=== PATIENT | male | born 1945 | race Caucasian/White ===

== ENCOUNTER 2017-12-04 15:30 | Outpatient (RCR) | payer OTHER, SELFPAY ==
--- NOTE | 2017-10-28 16:49 | HP.PTEVAL_ITS ---
Patient's Visit Information EDITH REYNA is a 72 year old M referred to Physical Therapy by Out of Town Doctor with a diagnosis of uni- OA B knees, Spinal stenosis with neurogenic claudication. Date of Evaluation: 10/28/17 Physical Therapist: Jaimee Muse - Visit Plan Frequency: 3x /Week Duration: 6 Weeks Plan: 3X/ week for 6 weeks to work on cores strength, B hip and knee strength, stretching, psotural control to work on reduction of pain in R vasquez. HEP and modalities PRN - Subjective Subjective: Pt has trouble with his knees and he went into see about knee replacements. They are thinking about partial knee replacements. Heis having trouble with pain down the front of the lower leg. Dr said that the knee replacement will help his knees but not the front of the vasquez. After 10,000 steps he has the increase vasquez pain. The vasquez pain started about 1 month ago and he can ususlly work an 8 hour shift without pain but then the pain starts at about 10 hours out of his [address] thinks could be coming from the spine. Took x-rays of the spine today and did not know the results yet. 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 Pt had cortizone shots in B knees last Thu and takes a volterin. Pt gets burning pain in B buttocks that starts at the end of the day. It is relieved by resting. Pt does not feel he walks abnormal. Pt feels that he usually needs a railing to go up stairs. He will be getting a doppler to check the blood flow in his R leg as soon as scheduled. - Pain R knee pain Pain Intensity (Out of 10): 0 Pain Intensity Range: 6 L knee pain Pain Intensity (Out of 10): 0 Pain Intensity Range: 6 back pain Pain Intensity (Out of 10): 0 B hip pain Pain Intensity (Out of 10): 1 - Objective Gait: normal gait pattern with increase bowing B knees. ABle to heel and toe walk without difficulty. Trunk AROM: flexion 75%, Ext 75%, SB B 75%, Rot B 75% . LE MMT: B hip abd 4+/5, hip ext B 4/5, hip flex B 4/5, knee ect B 4/5, knee flex B 4/5. Increase B HS and gastroc tightness B. -SLR test. Knee AROM -2 degrees from full extension to 123 degrees B knee flexion. No issues getting up from a chair without the use of his UE's - Goals Goal 1:: I HEP Goal Time Frame: 4-6 Weeks Goal 2:: Decrease R vasquez pain to 0/10 after an 11 hour work day Goal Time Frame: 4-6 Weeks Goal 3:: Pt will demonstrate proper posture during treatment sesson to show proper core strength and stabilization. Goal Time Frame: 4-6 Weeks - Rehabilitation Potential Rehabilitation Potential: Good - Anticipated Interventions Patient/Client Instruction: Educate patient on: Plan of Care For the Purpose of:: To decrease pain, To increase ROM, To improve nutrient delivery to tissue, To improve muscle performance and motor function, To increase tolerance to activity/condition/position, To decrease soft tissue restriction, To increase flexibility/ROM Therapeutic Exercise to Include: Strength training, Body mechanics, Postural training, Flexibilty training, Active ROM, Dynamic Lumbar Stabilization For the Purpose of:: To decrease pain, To increase ROM, To improve nutrient delivery to tissue, To improve muscle performance and motor function, To improve ability to perform ADL's, To increase tolerance to activity/condition/ position, To improve ability of physical actions for home/community/work/leisure , To improve gait and locomotor functions, To decrease soft tissue restriction, To increase flexibility/ROM Manual Therapy Techniques to Include: Passive ROM For the Purpose of:: To increase flexibility/ROM IF ES: Yes Cryotherapy (ice pack, ice massage): Yes Thermo therapy (hot pack): Yes Ultrasound (thermal/non thermal): Yes For the Purpose of:: To decrease pain, To decrease swelling/inflammation, To increase ROM, To improve nutrient delivery to tissue Thank you for the opportunity to evaluate your patient. For Medicare and Medicare HMO plans, please review the plan of care and approve it. It will need to be FAXED BACK to us at [phone] for Medicare purposes. Please let me know if there are questions or concerns regarding this plan of care. Physician Signature: Date:
--- NOTE | 2017-12-15 14:16 | HP.PTDCNRP_ITS ---
HP - Discharge Summary (1) - Patient Information EDITH REYNA was seen in my office for initial evaluation on 10/28/17. The following Plan of Care was established for this patient: Initial Frequency: 3x /Week Initial Duration: 6 Weeks - Anticipated Interventions Patient/Client Instruction: Educate patient on: Plan of Care For the Purpose of:: To decrease pain, To increase ROM, To improve nutrient delivery to tissue, To improve muscle performance and motor function, To increase tolerance to activity/condition/position, To decrease soft tissue restriction, To increase flexibility/ROM Therapeutic Exercise to Include: Strength training, Body mechanics, Postural training, Flexibilty training, Active ROM, Dynamic Lumbar Stabilization For the Purpose of:: To decrease pain, To increase ROM, To improve nutrient delivery to tissue, To improve muscle performance and motor function, To improve ability to perform ADL's, To increase tolerance to activity/condition/ position, To improve ability of physical actions for home/community/work/leisure , To improve gait and locomotor functions, To decrease soft tissue restriction, To increase flexibility/ROM Manual Therapy Techniques to Include: Passive ROM For the Purpose of:: To increase flexibility/ROM IF ES: Yes Cryotherapy (ice pack, ice massage): Yes Thermo therapy (hot pack): Yes Ultrasound (thermal/non thermal): Yes For the Purpose of:: To decrease pain, To decrease swelling/inflammation, To increase ROM, To improve nutrient delivery to tissue This patient was last seen in our office 12/04/17. Pertinent comments regarding their Physical therapy will appear below: DC PT. called and pt will be having surgery. At this point I will be discontinuing this patient from physical therapy. I would be happy to see this patient again in the future if found appropriate by the physician. Thank you! Jaimee Muse
== END 2017-12-04 19:00 | disposition home or self-care (01) ==
LOC: PT 15:30
PROVIDERS: Family Provider Family Medicine; PCP Family Medicine
DX: M17.11 Unilateral primary osteoarthritis, right knee (principal); M17.12 Unilateral primary osteoarthritis, left knee; M48.062 Spinal stenosis, lumbar region with neurogenic claudication
CPT/HCPCS: 97110; 97161

== ENCOUNTER → 2017-12-22 15:22 | Outpatient (CLI) | payer OTHER, SELFPAY ==
[2017-12-22 17:15] LABS: PSA,Total- Diagnostic 0.03 ng/mL (0.0-4.0)
== END ==
PROVIDERS: Family Provider Family Medicine; PCP Family Medicine; Visit Provider Nurse Practitioner Adult Health
DX: C61 Malignant neoplasm of prostate (principal)
CPT/HCPCS: 36415; 84153

== ENCOUNTER → 2018-01-21 16:32 | Outpatient (CLI) | payer OTHER, SELFPAY ==
[2018-01-21 18:05] LABS: Hematocrit 47.6 % (40-54); Hemoglobin 15.9 g/dl (13.0-16.5); Mean Corp Hgb Conc 33.4 g/gl (32-36); Mean Corpuscular Hgb 30.9 pg (27.0-32.0); Mean Corpuscular Volume 92.4 fL (80-94); Mean Platelet Vol. 11.5 fl (6.2-12.0); Platelet Count 239 K/mm3 (150-450); RBC Distribution Width CV 14.1 % (11.6-14.6); RBC Distribution Width SD 46.3 fl (35.1-43.9); Red Blood Count 5.15 M/mm3 (4.6-6.2); White Blood Count 9.1 K/mm3 (4.4-11.0)
[2018-01-21 18:09] LABS: Hemoglobin A1c 5.7 % (4.2-6.3)
[2018-01-21 18:10] LABS: International Normalized Ratio 1.1
[2018-01-21 18:13] LABS: ALB/GLOB Ratio 1.1 RATIO (0.9-2.4); AST(SGOT) 20 U/L (15-37); Alanine Aminotransfer ALT/SGPT 42 U/L (16-61); Alkaline Phosphatase 78 U/L (45-117); Anion Gap 7 (5-15); BUN 17 mg/dL (7-18); BUN/Creat Ratio 16.8 RATIO (10-20); Chloride 104 mmol/L (98-107); Creatinine, Serum 1.01 mg/dL (0.70-1.30); EST Glomerular Filtration Rate 77 mL/min (>60); Est Glom Filt Rate - Afr Amer 94 mL/min (>60); Globulin 3.7 g/dL (2.2-4.2); Glucose 87 mg/dL (74-106); Potassium 4.6 mmol/L (3.5-5.1); Prealbumin 31.3 mg/dL (20.0-40.0); Protein, Total 7.7 g/dL (6.4-8.2); Sodium Level 141 mmol/L (136-145)
[2018-01-21 18:18] LABS: Scan Indicated on CBC? Y/N NO
== END ==
PROVIDERS: Family Provider Family Medicine; PCP Family Medicine
DX: M17.0 Bilateral primary osteoarthritis of knee (principal)
CPT/HCPCS: 36415; 80053; 83036; 84134; 85027; 85610; 85730

== ENCOUNTER → 2018-01-22 15:32 | Outpatient (CLI) | payer OTHER, SELFPAY ==
--- NOTE | 2018-01-22 15:40 | RAD_ITS ---
STUDY: X-RAY CHEST REASON FOR EXAM: Male, 72 years old. Preoperative evaluation. TECHNIQUE: Frontal and lateral views of the chest. COMPARISON: April 19, 2017 FINDINGS: There is mild hyperexpansion unchanged. There is no demonstrated pleural abnormality. There is borderline cardiomegaly with a dual lead cardiac pacer unchanged. Normal mediastinum and devin. Normal visualized pulmonary arteries. There is stable atherosclerotic calcification of the aortic arch with tortuosity. There are diffuse degenerative changes of the visualized thoracic spine. Normal visualized ribs, clavicles, and shoulders. There is no demonstrated abnormality of the visualized soft tissue structures of the upper abdomen. RAD/Chest PA and Lateral IMPRESSION: Stable borderline cardiomegaly with hyperexpansion. No new or acute pathology. Electronically Signed: Manuel Multani MD at 16:41 EDT , Service support ,
== END ==
PROVIDERS: Family Provider Family Medicine; PCP Family Medicine
DX: Z01.818 Encounter for other preprocedural examination (principal); M17.0 Bilateral primary osteoarthritis of knee; I51.7 Cardiomegaly
CPT/HCPCS: 71046

== ENCOUNTER → 2018-07-05 15:34 | Outpatient (CLI) | payer OTHER, SELFPAY ==
[2018-07-05 16:28] LABS: PSA,Total- Diagnostic 0.04 ng/mL (0.0-4.0)
== END ==
PROVIDERS: Family Provider Family Medicine; PCP Family Medicine; Visit Provider Urology
DX: C61 Malignant neoplasm of prostate (principal)
CPT/HCPCS: 36415; 84153

== ENCOUNTER → 2018-07-17 08:03 | Outpatient (CLI) | payer OTHER, SELFPAY ==
[2018-07-17 08:47] LABS: Absolute Lymphocyte Count 1.29 X10^3/ul (0.83-4.51); Absolute Neutrophil Count 5.8 X10^3/uL (2.0-7.7); Basophil# 0.03 X10^3/uL; Basophil% 0.4 % (0-1); Eosinophil# 0.24 X10^3/uL; Hematocrit 48.3 % (40-54); Lymphocyte # 1.29 X10^3/ul (4.0); Lymphocyte % 16.1 % (19-41); Mean Corp Hgb Conc 33.1 g/gl (32-36); Mean Corpuscular Hgb 30.4 pg (27.0-32.0); Mean Corpuscular Volume 91.8 fL (80-94); Mean Platelet Vol. 10.8 fl (6.2-12.0); Monocyte# 0.63 X10^3/uL; Monocyte% 7.9 % (0-10); Neutrophil # 5.78 X10^3/uL (2.7-7.7); Neutrophil % 72.3 % (47-70); POSITIVE COUNT NO; POSITIVE DIFFERENTIAL NO; POSITIVE MORPHOLOGY NO; Platelet Count 229 K/mm3 (150-450); RBC Distribution Width CV 13.7 % (11.6-14.6); RBC Distribution Width SD 45.8 fl (35.1-43.9); Red Blood Count 5.26 M/mm3 (4.6-6.2)
[2018-07-17 09:11] LABS: AST(SGOT) 21 U/L (15-37); Alanine Aminotransfer ALT/SGPT 35 U/L (16-61); Albumin, Serum 3.8 g/dL (3.2-5.0); Alkaline Phosphatase 81 U/L (45-117); Anion Gap 6 (5-15); BUN 14 mg/dL (7-18); BUN/Creat Ratio 14.3 RATIO (10-20); Calcium,Total 8.4 mg/dL (8.5-10.1); Chloride 106 mmol/L (98-107); Cholesterol 196 mg/dL (200); Creatinine, Serum 0.98 mg/dL (0.70-1.30); EST Glomerular Filtration Rate 80 mL/min (>60); Est Glom Filt Rate - Afr Amer 97 mL/min (>60); Globulin 3.7 g/dL (2.2-4.2); Glucose 100 mg/dL (74-106); High Density Lipoprotein 33 mg/dL; Potassium 3.6 mmol/L (3.5-5.1); Protein, Total 7.5 g/dL (6.4-8.2); Sodium Level 140 mmol/L (136-145); Thyroid Stim Hormone (TSH) 0.91 uIU/mL (0.358-3.74); Triglycerides 107 mg/dL; Very Low Density Lipoprotein 21 mg/dL (5-40)
== END ==
PROVIDERS: Family Provider Family Medicine; PCP Family Medicine; Referring Provider Family Medicine; Visit Provider Family Medicine
DX: I10 Essential (primary) hypertension (principal); E79.0 Hyperuricemia without signs of inflammatory arthritis and tophaceous disease; E78.00 Pure hypercholesterolemia, unspecified
CPT/HCPCS: 36415; 80053; 80061; 84439; 84443; 84550; 85025

== ENCOUNTER → 2019-01-26 16:43 | Outpatient (CLI) | payer OTHER, SELFPAY ==
[2019-01-26 17:19] LABS: Absolute Lymphocyte Count 1.62 X10^3/ul (0.83-4.51); Basophil# 0.04 X10^3/uL; Basophil% 0.4 % (0-1); Eosinophil# 0.47 X10^3/uL; Eosinophils% 4.8 % (0-5); Hematocrit 46.7 % (40-54); Hemoglobin 15.6 g/dl (13.0-16.5); Lymphocyte # 1.62 X10^3/ul (4.0); Lymphocyte % 16.5 % (19-41); Mean Corp Hgb Conc 33.4 g/gl (32-36); Mean Corpuscular Hgb 30.3 pg (27.0-32.0); Mean Corpuscular Volume 90.7 fL (80-94); Mean Platelet Vol. 11.1 fl (6.2-12.0); Monocyte# 0.65 X10^3/uL; Monocyte% 6.6 % (0-10); Neutrophil # 7.04 X10^3/uL (2.7-7.7); Neutrophil % 71.6 % (47-70); Platelet Count 238 K/mm3 (150-450); RBC Distribution Width SD 46.1 fl (35.1-43.9); Red Blood Count 5.15 M/mm3 (4.6-6.2); White Blood Count 9.8 K/mm3 (4.4-11.0)
[2019-01-26 17:20] LABS: POSITIVE COUNT NO; POSITIVE DIFFERENTIAL NO; POSITIVE MORPHOLOGY NO
[2019-01-26 18:11] LABS: Vitamin B12 515 pg/mL (211-911)
[2019-01-26 18:13] LABS: Thyroid Stim Hormone (TSH) 1.68 uIU/mL (0.358-3.74)
[2019-01-28 04:56] LABS: Rapid Plasmin Reagin (RPR) NONREACTIVE (NONREACTIVE)
== END ==
PROVIDERS: Family Provider Family Medicine; PCP Family Medicine; Visit Provider Family Medicine
DX: R41.89 Other symptoms and signs involving cognitive functions and awareness (principal); E78.00 Pure hypercholesterolemia, unspecified; I10 Essential (primary) hypertension
CPT/HCPCS: 36415; 82607; 84439; 84443; 85025; 86592

== ENCOUNTER → 2019-07-05 16:57 | Outpatient (CLI) | payer OTHER, SELFPAY ==
[2019-07-05 17:53] LABS: PSA,Total- Diagnostic 0.04 ng/mL (0.0-4.0)
== END ==
PROVIDERS: Family Provider Family Medicine; PCP Family Medicine; Referring Provider Urology; Visit Provider Urology
DX: C61 Malignant neoplasm of prostate (principal)
CPT/HCPCS: 36415; 84153

== ENCOUNTER → 2019-09-30 08:37 | Outpatient (CLI) | payer OTHER, SELFPAY ==
[2019-09-30 11:06] LABS: Absolute Lymphocyte Count 1.35 X10^3/uL (0.83-4.51); Absolute Neutrophil Count 6.3 X10^3/uL (2.0-7.7); Basophil# 0.04 X10^3/uL; Basophil% 0.5 % (0-1); Eosinophil# 0.28 X10^3/uL; Eosinophils% 3.2 % (0-5); Hematocrit 50.2 % (40-54); Hemoglobin 16.3 g/dL (13.0-16.5); Lymphocyte # 1.35 X10^3/ul (4.0); Lymphocyte % 15.7 % (19-41); Mean Corp Hgb Conc 32.5 g/dL (32-36); Mean Corpuscular Hgb 30.2 pg (27.0-32.0); Mean Corpuscular Volume 93.1 fL (80-94); Mean Platelet Vol. 11.2 fl (6.2-12.0); NRBC Flagged by Analyzer 0 % (0-5); Neutrophil # 6.34 X10^3/uL (2.7-7.7); Neutrophil % 73.5 % (47-70); Platelet Count 231 K/mm3 (150-450); RBC Distribution Width CV 13.8 % (11.6-14.6); RBC Distribution Width SD 46.5 fl (35.1-43.9); Red Blood Count 5.39 M/mm3 (4.6-6.2); White Blood Count 8.6 K/mm3 (4.4-11.0)
[2019-09-30 11:10] LABS: Anion Gap 3 (5-15); BUN 15 mg/dL (7-18); BUN/Creat Ratio 13.4 RATIO (10-20); Calcium,Total 8.6 mg/dL (8.5-10.1); Chloride 106 mmol/L (98-107); Creatinine, Serum 1.12 mg/dL (0.70-1.30); EST Glomerular Filtration Rate 68 mL/min (>60); Est Glom Filt Rate - Afr Amer 83 mL/min (>60); Glucose 107 mg/dL (74-106); Potassium 3.8 mmol/L (3.5-5.1); Sodium Level 139 mmol/L (136-145); Uric Acid 7.8 mg/dL (3.5-7.2)
== END ==
PROVIDERS: Family Provider Family Medicine; PCP Family Medicine; Visit Provider Family Medicine
DX: I10 Essential (primary) hypertension (principal); M10.9 Gout, unspecified
CPT/HCPCS: 36415; 80048; 84550; 85025

== ENCOUNTER → 2020-07-13 13:49 | Outpatient (CLI) | payer OTHER, SELFPAY ==
[2020-07-13 15:15] LABS: PSA,Total- Diagnostic 0.06 ng/mL (0.0-4.0)
== END ==
PROVIDERS: PCP Family Medicine; Referring Provider Urology; Visit Provider Urology
DX: C61 Malignant neoplasm of prostate (principal)
CPT/HCPCS: 36415; 84153

== ENCOUNTER → 2020-07-31 17:17 | Outpatient (CLI) | payer OTHER, SELFPAY | PROVIDERS: PCP Family Medicine; Referring Provider Family Medicine; Visit Provider Family Medicine | DX: U07.1 COVID-19 (principal) | CPT/HCPCS: 87635; C9803; U0003 ==

== ENCOUNTER → 2020-10-05 10:06 | Outpatient (CLI) | payer OTHER, SELFPAY ==
[2020-10-05 12:15] LABS: Absolute Lymphocyte Count 1.21 X10^3/uL (0.83-4.51); Absolute Neutrophil Count 6.8 X10^3/uL (2.0-7.7); Basophil# 0.04 X10^3/uL; Basophil% 0.5 % (0-1); Eosinophil# 0.23 X10^3/uL; Eosinophils% 2.6 % (0-5); Hemoglobin 16.3 g/dL (13.0-16.5); Lymphocyte # 1.21 X10^3/ul (4.0); Lymphocyte % 13.7 % (19-41); Mean Corp Hgb Conc 33.3 g/dL (32-36); Mean Corpuscular Hgb 31.4 pg (27.0-32.0); Mean Corpuscular Volume 94.4 fL (80-94); Mean Platelet Vol. 11.8 fl (6.2-12.0); Monocyte# 0.54 X10^3/uL; Monocyte% 6.1 % (0-10); NRBC Flagged by Analyzer 0 % (0-5); Neutrophil # 6.77 X10^3/uL (2.7-7.7); Neutrophil % 76.6 % (47-70); Platelet Count 247 K/mm3 (150-450); RBC Distribution Width CV 14.3 % (11.6-14.6); RBC Distribution Width SD 49.9 fl (35.1-43.9); Red Blood Count 5.19 M/mm3 (4.6-6.2); White Blood Count 8.8 K/mm3 (4.4-11.0)
[2020-10-05 12:41] LABS: AST(SGOT) 22 U/L (15-37); Alanine Aminotransfer ALT/SGPT 47 U/L (16-61); Albumin, Serum 3.9 g/dL (3.2-5.0); Alkaline Phosphatase 90 U/L (45-117); Anion Gap 4 (5-15); BUN 17 mg/dL (7-18); BUN/Creat Ratio 17.5 RATIO (10-20); Calcium,Total 9.1 mg/dL (8.5-10.1); Chloride 105 mmol/L (98-107); Cholesterol 222 mg/dL (200); Creatinine, Serum 0.97 mg/dL (0.70-1.30); EST Glomerular Filtration Rate 80 mL/min (>60); Est Glom Filt Rate - Afr Amer 97 mL/min (>60); Globulin 3.8 g/dL (2.2-4.2); Glucose 99 mg/dL (74-106); High Density Lipoprotein 37 mg/dL; Potassium 4.1 mmol/L (3.5-5.1); Protein, Total 7.7 g/dL (6.4-8.2); Sodium Level 138 mmol/L (136-145); Thyroid Stim Hormone (TSH) 0.84 uIU/mL (0.358-3.74); Triglycerides 125 mg/dL; Uric Acid 7.3 mg/dL (3.5-7.2); Very Low Density Lipoprotein 25 mg/dL (5-40)
== END ==
PROVIDERS: PCP Family Medicine; Visit Provider Family Medicine
DX: I10 Essential (primary) hypertension (principal); E78.00 Pure hypercholesterolemia, unspecified; M10.9 Gout, unspecified
CPT/HCPCS: 36415; 80053; 80061; 84443; 84550; 85025

== ENCOUNTER → 2020-11-13 | Outpatient (CLI) | payer OTHER, SELFPAY ==
--- NOTE | 2020-11-13 11:15 | LES_PTH ---
PATIENT: EDITH REYNA LOC: [facility] U#:[id number] AGE/SX: 75/M ROOM: RE11/13/[address]: Dr. Sanjeev Pelayo MD : 1945 BED: DIS: 11/13/2020 SPEC #: [id number] RECD: 11/13/20 17:59 STATUS: EMILE ADI #: [id number] CORTES: 11/13/20 11:[address]: Sanjeev Pelayo DEPT: SURGICAL PATHOLOGY RECD BY: Ml Meléndez ENTERED: 11/14/20 09:32 SP TYPE: Lesion OTHR DR: Dr. 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 AM:venecia 11/15/2020 MICROSCOPIC DESCRIPTION Slides are reviewed. GROSS DESCRIPTION Received is one container labeled with the patient's name and not further designated. The specimen consists of an elongated fragment of pink tissue measuring 0.6 cm in length and 0.1 cm in diameter. The specimen is submitted in its entirety in one cassette for postfixation sectioning. / AM:venecia 11/14/20 TC:5 CPT: 77009
== END | disposition home or self-care (01) ==
PROVIDERS: PCP Family Medicine; Referring Provider Ophthalmology; Visit Provider Ophthalmology
DX: H11.151 Pinguecula, right eye (principal)
CPT/HCPCS: 88304; 88305

== ENCOUNTER → 2021-07-29 13:10 | Outpatient (CLI) | payer OTHER, SELFPAY ==
[2021-07-29 14:22] LABS: PSA,Total- Diagnostic 0.07 ng/mL (0.0-4.0)
== END ==
PROVIDERS: PCP Family Medicine; Referring Provider Urology; Visit Provider Urology
DX: C61 Malignant neoplasm of prostate (principal)
CPT/HCPCS: 36415; 84153

== ENCOUNTER → 2021-10-14 | Outpatient (CLI) | payer OTHER, SELFPAY | END | disposition home or self-care (01) | LOC: LABSPEC 10-15 09:54 | PROVIDERS: PCP Family Medicine; Visit Provider Family Medicine | DX: Z20.822 Contact with and (suspected) exposure to COVID-19 (principal) ==

== ENCOUNTER → 2021-10-14 | Outpatient (CLI) | payer OTHER, SELFPAY | END | disposition home or self-care (01) | LOC: LABSPEC 16:47 | PROVIDERS: PCP Family Medicine; Visit Provider Family Medicine | DX: U07.1 COVID-19 (principal) | CPT/HCPCS: 87633; 87635; U0005; U0003 ==

== ENCOUNTER 2021-10-17 09:50 | Outpatient (CLI) | payer OTHER, SELFPAY ==
[2021-10-17 09:56] VITALS: BP 189/109; PULSE 85; RESP 18; TEMP 36.4; O2SAT 99; BMI 29.5
[2021-10-17] MEDS: 0.9% Saline Lock 10 ML Syringe IV (09:58)
[2021-10-17 10:36] VITALS: BP 177/100; PULSE 72; RESP 16; TEMP 36.8; O2SAT 98
[2021-10-17 11:33] VITALS: BP 174/97; PULSE 64; RESP 16; TEMP 36.4; O2SAT 97
== END 2021-10-17 11:36 | disposition home or self-care (01) ==
LOC: MS3OUT 09:50 → MS3 09:51
PROVIDERS: PCP Family Medicine; Referring Provider Nurse Practitioner Adult Health; Visit Provider Nurse Practitioner Adult Health
DX: Z23 Encounter for immunization (principal); U07.1 COVID-19; I25.10 Atherosclerotic heart disease of native coronary artery without angina pectoris
CPT/HCPCS: J7050; M0245; Q0245; A4216

== ENCOUNTER 2022-01-03 07:42 | Outpatient (CLI) | payer BC, SELFPAY ==
--- NOTE | 2022-01-03 07:44 | RDU_ITS ---
Reason For Study: HTN Right Renal Artery Left Renal Artery Right renal artery ostium Left renal artery ostium 105.8/27.2 101.6/24.8 RSV/EDV. PSV/EDV. Right renal artery proximal Left renal artery proximal PSV/EDV 110.7/26.7 PSV/EDV. 94.8/21.7 . Right renal artery mid 116.2/28.5 Left renal artery mid 102.1/23.6 PSV/EDV. PSV/EDV . Right renal artery distal Left renal artery distal 93.5/22.3 108.1/24.1 PSV/EDV. PSV/EDV. Right RAR 1.44. Left RAR 1.31. Right Renal Parenchyma Left Renal Parenchyma Upper Pole Medula 31.4/7.3 PSV/EDV. Left upper pole medulla 24.8/6.7 Right upper pole medulla EDR 0.23 . PSV/EDV . Right upper pole medulla R.I. Left upper pole medulla EDR 0.27 . 0.77 . Left upper pole medulla R.I. 0.73 . Upper Chuckie Cortx 12.2/4.5 PSV/EDV. UP Cortex 14.4/5.1 PSV/EDV. Right upper pole cortex EDR 0.37 . Left upper pole cortex EDR 0.35 . Right upper pole cortex R.I. 0.63 . Left upper pole cortex R.I. 0.65 . Right lower Pole medulla 27.6/8.9 Left lower Pole medulla 23.7/7.3 PSV/EDV . PSV/EDV . Right lower pole medulla EDR 0.32 . Left lower pole medulla EDR 0.31 . Right lower pole medulla R.I. Left lower pole medulla R.I. 0.69 . 0.68 . Lower Pole Cortx 15.5/5.1 PSV/EDV. Lower Pole Cortex 16.6/5.6 PSV/EDV. Left lower pole cortex EDR 0.33 . Right lower pole cortex EDR 0.34 . Left lower pole cortex R.I. 0.67 . Right lower pole cortex R.I. 0.66 . Left Renal Hilar Right Renal Hilar LT Hilar avg 54.5/14.8 PSV/EDV . Right Hilar avg 51.4/13 PSV/EDV. Left hilar acceleration time 60 Right hilar acceleration time 50 m/sec. m/sec. Left Renal Dimensions Right Renal Dimensions Left kidney size 11.36 cm . Right kidney size 10.06 cm . Left cortical dimension 1.49 cm . Right cortical dimension 1.66 cm . Aorta Proximal abdominal aorta 1.93 x 1.90 cm . Proximal abdominal aorta peak systolic velocity is 80.7 cm/sec . Distal abdominal aorta 1.39 x 1.39 cm . Distal abdominal aorta peak systolic velocity is 109.9 cm/sec . VL/Renal Artery Duplex Ultrasound Interpretation Summary Bilateral renal arteries with less than 60% degree of stenosis. Ordering Physician: Ervin Leung Referring Physician: Luis Johnson Performed By: Brittnee Machuca RVT
== END 2022-01-03 23:59 | disposition home or self-care (01) ==
PROVIDERS: PCP Family Medicine; Referring Provider Internal Medicine Cardiovascular Disease; Visit Provider Internal Medicine Cardiovascular Disease
DX: I10 Essential (primary) hypertension (principal)
CPT/HCPCS: 93975

== ENCOUNTER → 2022-03-08 | Outpatient (CLI) | payer BC, SELFPAY ==
[2022-03-08 08:03] LABS: AST(SGOT) 26 U/L (15-37); Alanine Aminotransfer ALT/SGPT 45 U/L (16-61); Albumin, Serum 3.9 g/dL (3.2-5.0); Alkaline Phosphatase 80 U/L (45-117); Bilirubin, Direct 0.09 mg/dL (0.00-0.30); Cholesterol 209 mg/dL (200); Globulin 3.9 g/dL (2.2-4.2); High Density Lipoprotein 37 mg/dL; Protein, Total 7.8 g/dL (6.4-8.2); Triglycerides 107 mg/dL; Very Low Density Lipoprotein 21 mg/dL (5-40)
== END | disposition home or self-care (01) ==
LOC: LAB 07:21
PROVIDERS: PCP Family Medicine; Referring Provider Nurse Practitioner Family; Visit Provider Nurse Practitioner Family
DX: E78.00 Pure hypercholesterolemia, unspecified (principal)
CPT/HCPCS: 36415; 80061; 80076

== ENCOUNTER → 2022-05-16 | Outpatient (CLI) | payer BC, SELFPAY ==
[2022-05-16 13:45] LABS: Absolute Lymphocyte Count 1.63 X10^3/uL (0.83-4.51); Absolute Neutrophil Count 7.8 X10^3/uL (2.0-7.7); Basophil# 0.05 X10^3/uL; Basophil% 0.5 % (0-1); Eosinophil# 0.34 X10^3/uL; Eosinophils% 3.2 % (0-5); Hematocrit 46.4 % (40-54); Hemoglobin 15.5 g/dL (13.0-16.5); Lymphocyte # 1.63 X10^3/ul (0.83-4.51); Lymphocyte % 15.5 % (19-41); Mean Corp Hgb Conc 33.4 g/dL (32-36); Mean Corpuscular Hgb 30.7 pg (27.0-32.0); Mean Corpuscular Volume 91.9 fL (80-94); Mean Platelet Vol. 10.6 fl (6.2-12.0); Monocyte# 0.67 X10^3/uL; Monocyte% 6.4 % (0-10); NRBC Flagged by Analyzer 0 % (0-5); Neutrophil # 7.77 X10^3/uL (2.7-7.7); Neutrophil % 74.1 % (47-70); Platelet Count 265 K/mm3 (150-450); RBC Distribution Width CV 13.8 % (11.6-14.6); RBC Distribution Width SD 46.8 fl (35.1-43.9); Red Blood Count 5.05 M/mm3 (4.6-6.2); White Blood Count 10.5 K/mm3 (4.4-11.0)
[2022-05-16 14:11] LABS: Anion Gap 5 (5-15); BUN 18 mg/dL (7-18); BUN/Creat Ratio 17.5 RATIO (10-20); Calcium,Total 9.2 mg/dL (8.5-10.1); Chloride 107 mmol/L (98-107); Creatinine, Serum 1.03 mg/dL (0.70-1.30); EST Glomerular Filtration Rate 75 mL/min (>60); Est Glom Filt Rate - Afr Amer 91 mL/min (>60); Glucose 105 mg/dL (74-106); Potassium 4.4 mmol/L (3.5-5.1); Sodium Level 138 mmol/L (136-145); Thyroid Stim Hormone (TSH) 1.04 uIU/mL (0.358-3.74); Uric Acid 8.8 mg/dL (3.5-7.2)
== END | disposition home or self-care (01) ==
LOC: LAB 13:19
PROVIDERS: PCP Family Medicine; Referring Provider Family Medicine; Visit Provider Family Medicine
DX: I49.5 Sick sinus syndrome (principal); I10 Essential (primary) hypertension; E79.0 Hyperuricemia without signs of inflammatory arthritis and tophaceous disease
CPT/HCPCS: 36415; 80048; 84443; 84550; 85025

== ENCOUNTER → 2022-09-16 | Outpatient (CLI) | payer BC, SELFPAY ==
--- NOTE | 2022-09-16 09:45 | ECHOCS_ITS ---
Reason For Study: HTN Procedure This was a 2D Doppler, Color Flow transthoracic echocardiogram. The study was technically difficult. Contrast injection was performed. Exam performed in department. Left Ventricle Normal LV size. Moderate concentric left ventricular hypertrophy. Left ventricular systolic function is normal. The estimated ejection fraction is 65 %. Diastolic function is indeterminate. No regional wall motion abnormalities noted. Right Ventricle Normal RV size. ICD or pacer leads identified within the right ventricle. Normal systolic function. Atria The left atrium is mildly enlarged. Normal right atrium. ICD or pacer leads identified within the right atrium. No doppler evidence for ASD. Mitral Valve There is no mitral annular calcification. Normal mitral valve. Trivial mitral valve insufficiency. Tricuspid Valve Normal tricuspid valve. Trivial tricuspid valve insufficiency. Unable to estimate RV systolic pressure/pulmonary artery pressure due to technically difficult study. Aortic Valve Trisinus/trileaflet aortic valve. Mild focal aortic valve thickening. Mild focal aortic valve calcification. Mild (1+) eccentric aortic valve insufficiency. Pulmonic Valve The pulmonic valve is not well visualized. Great Vessels Borderline enlarged aortic root. Pericardium/Pleural No pericardial effusion. Medication 20 gauge I.V. with prn adaptor inserted into left arm. Diluted definity 2ml given slow IV push to enhance endocardial definition. MMode/2D Measurements & Calculations LVIDd: 5.1 cm IVSd: 1.5 cm Ao root diam: 3.9 cm LVIDs: 3.5 cm LVPWd: 1.3 cm LA dimension: 5.2 cm RVDd: 3.3 cm FS: 30.7 % LAV(MOD-bp): 71.7 ml LA A4 area: 23.2 cm2 RA A4 area: 12.3 cm2 LAV(MOD-bp) Indexed: 34.7 ml/m2 LAV(MOD-sp2): 67.5 ml LAV(MOD-sp4): 77.0 ml Time Measurements MV dec time: 0.27 sec Doppler Measurements & Calculations MV E max russ: 56.0 cm/sec Lat Peak E' Russ: 5.0 cm/sec Med Peak E' Russ: 5.0 cm/sec MV A max russ: 97.7 cm/sec E/E' lat: 11.1 E/E' med: 11.3 MV E/A: 0.57 MV V2 max: 109.2 cm/sec MV P1/2t max russ: 69.4 cm/sec Ao V2 max: 163.5 cm/sec MV max P.8 mmHg MV P1/2t: 107.1 msec Ao max P.7 mmHg MV V2 mean: 49.9 cm/sec MV dec slope: 189.7 cm/sec2 Ao V2 mean: 101.4 cm/sec MV mean P.2 mmHg Ao mean P.9 mmHg MV V2 VTI: 31.6 cm MVA(P1/2t): 2.1 cm2 Ao V2 VTI: 37.1 cm AV (velocity ratio): 0.68 AI max russ: 311.2 cm/sec LV V1 max: 105.3 cm/sec PA V2 max: 83.4 cm/sec AI max P.7 mmHg LV V1 max P.4 mmHg AI dec slope: 81.6 cm/sec2 LV V1 mean P.4 mmHg AI P1/2t: 1117 msec LV V1 mean: 74.3 cm/sec LV V1 VTI: 25.2 cm ECHO/Echo Complete W/ Contrast Interpretation Summary The study was technically difficult. Contrast injection was performed. Left ventricular systolic function is normal. The estimated ejection fraction is 65 %. Moderate concentric left ventricular hypertrophy. The left atrium is mildly enlarged. Trivial mitral valve insufficiency. Trivial tricuspid valve insufficiency. Mild focal aortic valve thickening. Mild focal aortic valve calcification. Mild (1+) eccentric aortic valve insufficiency. Borderline enlarged aortic root. Unable to estimate RV systolic pressure/pulmonary artery pressure due to techni jaxon difficult study. Diastolic function is indeterminate. ICD or pacer leads identified within the right atrium ICD or pacer leads identified within the right ventricle. Ordering Physician: Ba Beauchamp Referring Physician: Luis Johnson Performed By: Omi Dickens RCS
== END | disposition home or self-care (01) ==
LOC: CVS 09:44
PROVIDERS: PCP Family Medicine; Referring Provider Nurse Practitioner Family; Visit Provider Nurse Practitioner Family
DX: I35.1 Nonrheumatic aortic (valve) insufficiency (principal); I10 Essential (primary) hypertension
CPT/HCPCS: 93306; Q9957; A4216; C8929

== ENCOUNTER → 2022-10-23 | Outpatient (CLI) | payer BC, SELFPAY ==
[2022-10-23 17:47] LABS: PSA,Total- Diagnostic 0.09 ng/mL (0.0-4.0)
== END | disposition home or self-care (01) ==
LOC: LAB 15:41
PROVIDERS: PCP Family Medicine; Visit Provider Urology
DX: C61 Malignant neoplasm of prostate (principal)
CPT/HCPCS: 36415; 84153

== ENCOUNTER 2023-02-18 07:40 | Inpatient (IN) | payer BC, MEDICARE, SELFPAY ==
[2023-02-18] VITALS (16 sets, daily range): BP systolic 149–223; BP diastolic 65–123; PULSE 64–94; RESP 12–19; TEMP 36.4–36.9; O2SAT 94–99; BMI 34.6; BMI 34.7
--- NOTE | 2023-02-18 07:43 | NURSING ---
STROKE ALERT CALLED
--- NOTE | 2023-02-18 07:47 | RAD_ITS ---
EXAM: XR CHEST, 1 VIEW CLINICAL INDICATION: Neuro deficit, acute, stroke suspected TECHNIQUE: Frontal view of the chest. COMPARISON: XR Chest dated 01/22/2018 FINDINGS: LUNGS AND PLEURAL SPACES: Shallow inspiration. No pneumothorax. No effusion. HEART: Borderline cardiomegaly. MEDIASTINUM: No mediastinal or hilar mass. BONES/JOINTS: No acute abnormality. TUBES, LINES AND DEVICES: Cardiac pacemaker wires remain in place. RAD/Chest 1 View IMPRESSION: Borderline cardiomegaly. Low lung volumes. Electronically Signed: Blanco Chaves MD at 9:15 EDT ,
--- NOTE | 2023-02-18 07:47 | CT_ITS ---
We are attempting to reach an attending provider to discuss findings. An addendum with communication details will be sent when the communication is complete. EXAM: CT HEAD WITHOUT INTRAVENOUS CONTRAST CLINICAL INDICATION: Neuro deficit, acute, stroke suspected TECHNIQUE: Multiple axial images were obtained of the head without intravenous contrast. This CT exam was performed using one or more of the following dose reduction techniques: automated exposure control, adjustment of the mA and/or kV according to patient size, and/or use of iterative reconstruction technique. COMPARISON: No relevant prior studies available. FINDINGS: BRAIN AND EXTRA-AXIAL SPACES: No evidence of acute ischemia. No hemorrhage or mass effect. Areas of diminished white matter density noted within both cerebral hemispheres suggestive of chronic microvascular change. Low-density area centrally within the right cerebellum also suggestive of chronic ischemic change. Prominence of the cortical sulci and ventricles related to volume loss change. BONES/JOINTS: No suspicious lytic or blastic abnormality. SINUSES: No acute sinusitis. MASTOID AIR CELLS: Normal. Clear. ORBITS: Visualized globes, extraocular muscles, optic nerves and retrobulbar fat appear unremarkable. OTHER FINDINGS: 18 mm right thyroid granulation noted at the level of the torcula. CT/STROKE Brain/Head without Cont IMPRESSION: 1. No acute intracranial abnormality. 2. Senescent changes. Aspect score 10. Electronically Signed: Blanco Chaves MD at 8:03 EDT ,
--- NOTE | 2023-02-18 07:48 | CT_ITS ---
INDICATION: Neuro deficit, acute, stroke suspected EXAMINATION: CTA HEAD - CTA Head and Neck W/ Contrast Injection (and W/O Contrast Images if performed) TECHNIQUE: [place] of [place]/head CT angiogram protocol was performed following IV contrast. Routine carotid CT angiogram protocol was performed without and with IV contrast. NASCET criteria using the distal ICAs for comparison were used for evaluation of stenoses. 3D reconstructions were reviewed of the CT angiogram head and neck. A radiation dose optimization technique was used for this scan. IV Contrast dosage and agent: 100 cc [id number] COMPARISON: FINDINGS: --Anterior cerebral circulation: ACAs: No significant stenosis at the visualized segments. ACOM: Not present. MCAs: No significant stenosis at the visualized segments. --Posterior cerebral circulation: PCOMs: Not present. valet runner: Moderate diffuse irregularity of the right BRIDGE OPERATOR. Focal stenosis of the left BRIDGE OPERATOR at the P2 level without occlusion. BASILAR ARTERY: No significant stenosis. --Carotid and vertebral circulation: AORTIC ARCH AND BRANCHES: Normal anatomy, patent. RIGHT CCA: No occlusion, significant stenosis or dissection. RIGHT ICA: No occlusion, significant stenosis or dissection. LEFT CCA: No occlusion, significant stenosis or dissection. LEFT ICA: No occlusion, significant stenosis or dissection. RIGHT VERTEBRAL ARTERY: No occlusion, significant stenosis or dissection. LEFT VERTEBRAL ARTERY: No occlusion, significant stenosis or dissection. NECK SOFT TISSUES: 8 mm left thyroid nodule. 16 mm nodule along the posterior medial portion of the right parotid gland which may represent a lymph node or parotid gland mass. LUNG APICES: Clear. BONES: Unremarkable. CT/STROKE CTA Head AND Neck W/Con IMPRESSION: Focal stenosis of the P2 segment of left BRIDGE OPERATOR. Additional findings detailed above. N.B. : The above Results were Read Back by Blanco Chaves MD to Reynold Rhodes DO, and understanding confirmed on 02/18/2023 08:19:09 (ET). Electronically Signed: Blanco Chaves MD at 8:20 EDT ,
--- NOTE | 2023-02-18 07:49 | EDS_ITS ---
HPI History of Present Illness Chief Complaint: Neuro S/Sx Informant: patient Onset/Context/Timing Onset: Yesterday Context: Sudden Onset Timing: Continuous Quality and Location: Positive for Left Facial Droop and Left Arm Weakness Onset: Approximately 1730 last night Worsened by: Nothing Relieved by: Nothing Associated Symptoms Associated Symptoms: Negative for Headache, Nausea, Vomiting or Chest Pain [facility] Medical History Essential hypertension GERD (gastroesophageal reflux disease) Gout Presence of cardiac pacemaker Prostate CA Pure hypercholesterolemia Sick sinus syndrome Spinal stenosis Syncope and collapse Home Medications aspirin 81 mg tablet,delayed release (Aspir-Low) 81 mg PO DAILY 04/19/17 [History Last Taken 04/19/17 07:00] spironolactone 25 mg tablet 25 mg PO DAILY 04/19/17 [History Last Taken 04/19/17 07:00] amlodipine 10 mg-benazepril 40 mg capsule (Lotrel) 1 cap PO DAILY #30 caps 02/24/22 [Rx Last Taken Unknown] clonidine 0.2 mg/24 hr weekly transdermal patch 0.2 mg transdermal QWEEK blood pressure 09/01/22 [History Last Taken Unknown] pantoprazole 40 mg tablet,delayed release 40 mg PO DAILY 09/01/22 [History Last Taken Unknown] carvedilol 12.5 mg tablet (Coreg) 12.5 mg PO BID #180 tabs 09/29/22 [Rx Last Taken Unknown] diclofenac sodium 75 mg tablet,delayed release 75 mg PO BID 02/18/23 [History Last Taken Unknown] Allergy/AdvReac Type Severity Reaction Status Date / Time latex Allergy Rash Verified 02/18/23 07:55 atorvastatin [From Lipitor] AdvReac Unknown Myalgias Verified 02/18/23 07:55 Family History Mother Hypertension Surgical History History of colonoscopy (~07/2022) History of hernia repair (~1971) History of prostate surgery Social History Smoking Status: Former smoker how long ago did patient quit smokin + years ago alcohol intake: never substance use type: does not use caffeine: Yes Type: coffee Number of servings: 3 ROS ROS ED Constitutional Constitutional ED: Denies chills or fever(s) Eyes Eyes: Denies blurry vision or change in vision ENT ENT ED: Denies rhinorrhea or sore throat Cardiovascular Cardiovascular: Denies chest pain or palpitations Respiratory/Chest Respiratory/Chest: Denies cough or dyspnea Gastrointestinal Gastrointestinal: Denies nausea or vomiting Genitourinary Genitourinary ED: Denies dysuria or hematuria Musculoskeletal Musculoskeletal: Denies back pain or neck pain Integumentary Denies abscess or rash Neurologic Neurologic: Reports weakness; Denies headache(s) or paresthesias Allergic/Immunologic Allergic/Immunologic ED: Denies mouth swelling or urticaria EXAM Physical Exam Const Vital Signs: 02/18/23 07:44 02/18/23 07:47 02/18/23 07:47 Temperature 97.6 F L 97.6 F L Temperature Source Temporal Temporal Pulse Rate 94 94 Respiratory Rate 18 18 Blood Pressure 223/123 H 223/123 H Blood Pressure Mean 156 156 Pulse Ox 95 95 94 Oxygen Delivery Method Room Air Room Air Room Air 02/18/23 08:17 02/18/23 07:45 02/18/23 08:30 Temperature 97.6 F L Temperature Source Temporal Pulse Rate 76 94 64 Respiratory Rate 15 18 17 Blood Pressure 170/91 H 223/123 H 158/78 H Blood Pressure Mean 117 156 104 Pulse Ox 94 94 94 Oxygen Delivery Method Room Air Room Air Room Air 02/18/23 08:42 02/18/23 09:00 02/18/23 09:30 Temperature Temperature Source Pulse Rate 75 74 73 Respiratory Rate 19 H 16 17 Blood Pressure 166/98 H 170/85 H 186/93 H Blood Pressure Mean 120 113 124 Pulse Ox 94 96 94 Oxygen Delivery Method Room Air Room Air Room Air Positive well nourished and well developed General Appearance ED: well developed HEENT Reports moist mucous membranes Eyes PERRL and EOMs intact bilaterally Neck supple and no JVD Resp normal respiratory effort and clear to auscultation bilaterally Cardio regular rate, regular rhythm and no murmurs GI normal to inspection, nondistended, normoactive bowel sounds and non-tender Palpation: soft Extremity normal to inspection General Extremety ED: Negative for edema or tenderness General Extremity: Negative for edema Neuro oriented x3 and no sensory deficits noted Neuro Narrative: There is some weakness of the left upper extremity. It starts to fall but does not touch the bed before the count of 10. There is left facial weakness. The eyebrows elevate equally. Sensorium / Orientation: alert Motor Exam: strength abnormal Psych mental status grossly normal Skin no rashes or lesions noted NIHSS NIHSS Initial: 1a Level of Consciousness: 0 1b LOC Questions (Score 2 if aphasic/stupor): 0 1c LOC Commands (Only score 1st attempt): 0 2 Best Gaze (If aphasic, use reflexive mvmts.): 0 3 Visual: 0 4 Facial Palsy: 2 5 Motor Arm Right (UN = amputation/fusion): 0 5 Motor Arm Left: 1 6 Motor Leg Right: 0 6 Motor Leg Left: 0 8 Sensory (Aphasia/stupor=0 or 1, coma=2): 0 9 Best Language: 1 10 Dysarthria (mute, coma=2, intubated=UN): 0 11 Extinction and Inattention (only scored if +): 0 Total Score: 4 MDM MDM MDM Narrative Medical decision making narrative: Stroke order set was used. Differential diagnosis includes ischemic stroke, embolic stroke, hemorrhagic stroke, and cardiac dysrhythmia. CT scan of the brain will be obtained to assess for stroke and intracranial bleeding. CTA of the head and neck will be obtained to assess for large vessel occlusion. EKG will be obtained to assess for cardiac dysrhythmia and cardiac ischemia. Chest x-ray will be obtained to assess for pneumonia and pneumothorax. CBC will be obtained to assess for leukocytosis and anemia. Basic metabolic profile will be obtained to assess for electrolyte abnormality and renal function. PT with INR and PTT will be obtained to assess for coagulopathy. High-sensitivity troponin will be obtained to assess for cardiac ischemia. History & Record Review Discussion w/independent historian: Patient and Family Lab Data Attestation: I reviewed the patient's lab results. Lab results narrative: CBC was reviewed and was within normal limits. Basic metabolic profile was reviewed and was within normal limits. PT with INR and PTT were reviewed and were within normal limits. High-sensitivity troponin was reviewed and was normal. Labs: Laboratory Results - last 24 hr 02/18/23 02/18/23 02/18/23 07:45 07:45 07:45 WBC 10.1 RBC 5.45 Hgb 16.7 H Hct 49.9 MCV 91.6 MCH 30.6 MCHC 33.5 RDW Std Deviation 46.3 H RDW Coeff of Yaz 13.7 Plt Count 278 MPV 10.2 Immature Gran % (Auto) 0.300 Neut % (Auto) 78.8 H Lymph % (Auto) 12.3 L [place] % (Auto) 5.5 Eos % (Auto) 2.6 Baso % (Auto) 0.5 Absolute Neuts (auto) 8.0 H Absolute Lymphs (auto) 1.25 Nucleated RBC % 0 PT 13.7 INR 1.1 APTT 29.6 Sodium 139 Potassium 3.8 Chloride 106 Carbon Dioxide 27.0 Anion Gap 6 BUN 16 Creatinine 0.93 Estim Creat Clear Calc 59.70 Est GFR (MDRD) Af Amer 102 Est GFR (MDRD) Non-Af 84 BUN/Creatinine Ratio 17.2 Glucose 122 H Calcium 9.5 Troponin I High Sens 9 POC Glucose 02/18/23 08:05 WBC RBC Hgb Hct MCV MCH MCHC RDW Std Deviation RDW Coeff of Yaz Plt Count MPV Immature Gran % (Auto) Neut % (Auto) Lymph % (Auto) [place] % (Auto) Eos % (Auto) Baso % (Auto) Absolute Neuts (auto) Absolute Lymphs (auto) Nucleated RBC % PT INR APTT Sodium Potassium Chloride Carbon Dioxide Anion Gap BUN Creatinine Estim Creat Clear Calc Est GFR (MDRD) Af Amer Est GFR (MDRD) Non-Af BUN/Creatinine Ratio Glucose Calcium Troponin I High Sens POC Glucose 109 H Radiography Chest X-Ray - ED: 1 View, Read by ED Physician, Read by Radiologist and No Acute Disease Diagnostic Testing: Clinical Impression(s) from Imaging Studies Brain CT 02/18/23 07:47 IMPRESSION: 1. No acute intracranial abnormality. 2. Senescent changes. Aspect score 10. Electronically Signed: Blanco Chaves MD at 8:03 EDT , ADDENDUM: 02/18/23 0870 IMPRESSION: 1. No acute intracranial abnormality. 2. Senescent changes. Aspect score 10. N.B. : The above Results were Read Back by Blanco Chaves MD to Dr. Swigert, AA, and understanding confirmed on 02/18/2023 08:19:46 (ET). Electronically Signed: Blanco Chaves MD at 8:03 EDT Reading Location ID and State: [facility] / [place] Tel , Service support , Chest X-Ray 02/18/23 07:47 IMPRESSION: Borderline cardiomegaly. Low lung volumes. Electronically Signed: Blanco Chaves MD at 9:15 EDT Reading Location ID and State: [facility] / [place] Tel , Service support , Head/Neck CTA 02/18/23 07:48 IMPRESSION: Focal stenosis of the P2 segment of left DELIVERY AND INSTALLATION SUBCONTRACTOR. Additional findings detailed above. N.B. : The above Results were Read Back by Blanco Chaves MD to Reynold Rhodes DO, and understanding confirmed on 02/18/2023 08:19:09 (ET). Electronically Signed: Blanco Chaves MD at 8:20 EDT , ADDENDUM: 02/18/23 0827 IMPRESSION: Focal stenosis of the P2 segment of left DELIVERY AND INSTALLATION SUBCONTRACTOR. Additional findings detailed above. N.B. : The above Results were Read Back by Blanco Chaves MD to Reynold Rhodes DO, and understanding confirmed on 02/18/2023 08:19:09 (ET). Electronically Signed: Blanco Chaves MD at 8:20 EDT , CT scan of the brain was obtained. There is no acute intracranial abnormality. There are chronic changes noted. This was interpreted by the radiologist and was also independently reviewed by myself. Portable 1 view chest x-ray was obtained. On my independent interpretation, lung [place] are clear. There is normal cardiac silhouette. Bony thorax is normal. There is no acute process noted. Radiologist also interpreted the x- ray and agrees. CTA of the head and neck was obtained. There is focal stenosis of the P2 segment of the left posterior cerebral artery. There is no evidence of large vessel occlusion noted. This was interpreted by the radiologist and was also independently reviewed by myself. EKG Initial EKG: Attestation: I personally reviewed and interpreted this EKG as follows: Interpretation: Sinus Rhythm (89), No Acute Injury Pattern, RBBB and LAFB Comments: EKG was obtained. On my independent interpretation, it shows a normal sinus rhythm with a rate of 89. NM interval was normal at 170 ms. QRS interval slightly prolonged at 132 ms. QTc interval was slightly prolonged at 506 ms. There is left axis deviation at -71. There is a left anterior fascicular block. There is a right bundle branch block pattern noted. There are no acute ST or T wave changes noted. Prior EKG tracings: available for review Prior: Unchanged (12/13/2021) Management Discussion w/another healthcare provider: Hospitalist, Hydroelectric Plant Structural Engineer and Radiologist Treatment and Re-Evaluation Narrative: Patient was given a dose of labetalol here for his elevated blood pressure of 223/123. Case was discussed with Dr. Stanton, stroke neurologist from [facility]. He stated that the patient was out of the window for tenecteplase. He recommended further work-up and admission. Since there is no evidence of large vessel occlusion on the CTA, he does not recommend transfer to [facility] at this time. Patient was advised of his findings. Patient was advised of the need for admission for further evaluation of possible stroke. Patient is agreeable with this. Case was discussed with the hospitalist. He will admit the patient to his service. Patient and family understood and were agreeable with the plan. All questions were answered. Critical Care Time Critical Care Time: Yes Critical care time (excluding procedures): 30-74 minutes (36), Including time spent:, Discussing w/Patient &/or Family/Fulling Machine Operator, Discussing w/Consultants, Arranging Admission or Transfer and Performing Direct Patient Care at Bedside Discharge Plan Dx/Rx/DC Orders Clinical Impression: Stroke, Essential hypertension Disposition Disposition: Acute Care Hospital [facility]
[2023-02-18 07:58] LABS: Absolute Lymphocyte Count 1.25 X10^3/uL (0.83-4.51); Basophil# 0.05 X10^3/uL; Basophil% 0.5 % (0-1); Eosinophil# 0.26 X10^3/uL; Eosinophils% 2.6 % (0-5); Hematocrit 49.9 % (40-54); Hemoglobin 16.7 g/dL (13.0-16.5); Lymphocyte # 1.25 X10^3/ul (0.83-4.51); Lymphocyte % 12.3 % (19-41); Mean Corp Hgb Conc 33.5 g/dL (32-36); Mean Corpuscular Hgb 30.6 pg (27.0-32.0); Mean Corpuscular Volume 91.6 fL (80-94); Mean Platelet Vol. 10.2 fl (6.2-12.0); Monocyte# 0.56 X10^3/uL; Monocyte% 5.5 % (0-10); NRBC Flagged by Analyzer 0 % (0-5); Neutrophil # 7.99 X10^3/uL (2.7-7.7); Neutrophil % 78.8 % (47-70); Platelet Count 278 K/mm3 (150-450); RBC Distribution Width CV 13.7 % (11.6-14.6); RBC Distribution Width SD 46.3 fl (35.1-43.9); Red Blood Count 5.45 M/mm3 (4.6-6.2); White Blood Count 10.1 K/mm3 (4.4-11.0)
--- NOTE | 2023-02-18 07:59 | NURSING ---
FAXED FACESHEET TO [facility]
[2023-02-18] MEDS: Labetalol (Prefilled) 20 MG/4 ML IV (08:16)
[2023-02-18 08:17] LABS: Anion Gap 6 (5-15); BUN 16 mg/dL (7-18); BUN/Creat Ratio 17.2 RATIO (10-20); Calcium,Total 9.5 mg/dL (8.5-10.1); Chloride 106 mmol/L (98-107); Creatinine, Serum 0.93 mg/dL (0.70-1.30); EST Glomerular Filtration Rate 84 mL/min (>60); Est Glom Filt Rate - Afr Amer 102 mL/min (>60); Glucose 122 mg/dL (74-106); Potassium 3.8 mmol/L (3.5-5.1); Sodium Level 139 mmol/L (136-145); Troponin-I HS 9 pg/mL (3.0-78.0)
[2023-02-18 08:25] LABS: Bedside Glucose 109 mg/dL (74-106)
[2023-02-18 08:31] LABS: International Normalized Ratio 1.1; Prothrombin Time (Protime)PT. 13.7 SECONDS (11.7-14.9)
[2023-02-18 08:32] LABS: Partial Thromboplast Time 29.6 Seconds (24.1-36.2)
--- NOTE | 2023-02-18 09:27 | PCM.HP.STD ---
HPI - General General Date of Admission: 02/18/23 Date of Service: 02/18/23 Chief Complaint: Slurred speech and gait abnormality HPI Narrative EDITH REYNA, is a 77 M with past medical history significant for essential hypertension, history of pacemaker placement who was brought to the emergency department with slurred speech as well as difficulty with gait. The patient symptoms started a day prior to coming in. He did experience significant fatigue. also did notice patient with a slurred speech and difficulty with his gait. Symptoms had apparently progressed on the morning of his admission. Presented to the emergency department CT of the head was negative for acute CVA. CTA of the of the head and neck however demonstrated focal stenosis involving the P2 segment of the left LEAD MEDICAL TECHNOLOGIST. An MRI could not be performed given patient presence of a pacemaker. Subsequently admitted to a monitored bed for further management. [facility] Medical History Essential hypertension GERD (gastroesophageal reflux disease) Gout Presence of cardiac pacemaker Prostate CA Pure hypercholesterolemia Sick sinus syndrome Spinal stenosis Syncope and collapse Home Medications aspirin 81 mg tablet,delayed release (Aspir-Low) 81 mg PO DAILY 04/19/17 [History Last Taken 04/19/17 07:00] spironolactone 25 mg tablet 25 mg PO DAILY 04/19/17 [History Last Taken 04/19/17 07:00] amlodipine 10 mg-benazepril 40 mg capsule (Lotrel) 1 cap PO DAILY #30 caps 02/24/22 [Rx Last Taken Unknown] clonidine 0.2 mg/24 hr weekly transdermal patch 0.2 mg transdermal QWEEK 09/01/22 [History Last Taken Unknown] pantoprazole 40 mg tablet,delayed release 40 mg PO DAILY 09/01/22 [History Last Taken Unknown] carvedilol 12.5 mg tablet (Coreg) 12.5 mg PO BID #180 tabs 09/29/22 [Rx Last Taken Unknown] diclofenac sodium 75 mg tablet,delayed release 75 mg PO BID 02/18/23 [History Last Taken Unknown] Allergy/AdvReac Type Severity Reaction Status Date / Time latex Allergy Rash Verified 02/18/23 07:55 atorvastatin [From Lipitor] AdvReac Unknown Myalgias Verified 02/18/23 07:55 Family History Mother Hypertension Surgical History History of colonoscopy (~07/2022) History of hernia repair (~1971) History of prostate surgery Social History Smoking Status: Former smoker how long ago did patient quit smokin + years ago alcohol intake: never substance use type: does not use caffeine: Yes Type: coffee Number of servings: 3 ROS ROS Narrative GENERAL: denies fever, chills, night sweats, weight loss, anorexia HEENT: denies headache, sinus congestion, or drainage, dysphagia RESPIRATORY: denies cough, sputum production, shortness of breath, dyspnea on exertion CARDIAC: denies chest pain, palpitations, orthopnea, PND GASTROINTESTINAL: denies abdominal pain, nausea, vomiting, melena, GENITOURINARY: denies dysuria, urgency, frequency, heamaturia EXTREMITY: denies swelling MUSCULOSKELETAL: denies current joint pain or tenderness NEUROLOGIC: Slurred speech and difficulty with gait HEMATOLOGIC: denies easy bruising and/or hemorrhage INTEGUMENT: denies rashes PSYCHIATRIC: denies suicidal or homicidal ideation Vital Signs Vital Signs Vital Signs: 02/18/23 07:44 02/18/23 07:47 02/18/23 07:47 Temperature 97.6 F L 97.6 F L Temperature Source Temporal Temporal Pulse Rate 94 94 Respiratory Rate 18 18 Blood Pressure 223/123 H 223/123 H Blood Pressure Mean 156 156 Pulse Ox 95 95 94 Oxygen Delivery Method Room Air Room Air Room Air 02/18/23 08:17 02/18/23 07:45 02/18/23 08:30 Temperature 97.6 F L Temperature Source Temporal Pulse Rate 76 94 64 Respiratory Rate 15 18 17 Blood Pressure 170/91 H 223/123 H 158/78 H Blood Pressure Mean 117 156 104 Pulse Ox 94 94 94 Oxygen Delivery Method Room Air Room Air Room Air 02/18/23 08:42 Temperature Temperature Source Pulse Rate 75 Respiratory Rate 19 H Blood Pressure 166/98 H Blood Pressure Mean 120 Pulse Ox 94 Oxygen Delivery Method Room Air Weight Weight: 94.4 kg Body Mass Index (BMI) 34.6 Physical Exam Narrative GENERAL: cooperative HEENT: Atraumatic; normocephalic EYES; Anicteric, Normal Conjunctiva NECK; supple, normal thyroid, RESPIRATORY: Diminished to auscultation CARDIOVASCULAR: Regular S1 S2, GI: soft, normoactive bowel sounds, : No Renal angle tenderness; EXTREMITIES: No edema, no clubbing, MUSCULOSKELETAL: no muscle wasting NEURO: Awake; no lateralizing signs. SKIN: No Rash PSYCH; Flat affect Results Lab / Micro Data Result Diagrams: 02/18/23 07:45 02/18/23 07:45 Labs: Laboratory Results - last 24 hr 02/18/23 07:45: WBC 10.1, RBC 5.45, Hgb 16.7 H, Hct 49.9, MCV 91.6, MCH 30.6, MCHC 33.5, RDW Std Deviation 46.3 H, RDW Coeff of Yaz 13.7, Plt Count 278, MPV 10.2, Immature Gran % (Auto) 0.300, Neut % (Auto) 78.8 H, Lymph % (Auto) 12.3 L, [place] % (Auto) 5.5, Eos % (Auto) 2.6, Baso % (Auto) 0.5, Absolute Neuts (auto) 8.0 H, Absolute Lymphs (auto) 1.25, Nucleated RBC % 0 02/18/23 07:45: PT 13.7, INR 1.1, APTT 29.6 02/18/23 07:45: Sodium 139, Potassium 3.8, Chloride 106, Carbon Dioxide 27.0, Anion Gap 6, BUN 16, Creatinine 0.93, Estim Creat Clear Calc 59.70, Est GFR (MDRD) Af Amer 102, Est GFR (MDRD) Non-Af 84, BUN/Creatinine Ratio 17.2, Glucose 122 H, Calcium 9.5, Troponin I High Sens 9 02/18/23 08:05: POC Glucose 109 H Radiology Impression Brain CT 02/18/23 07:47 IMPRESSION: 1. No acute intracranial abnormality. 2. Senescent changes. Aspect score 10. Electronically Signed: Blanco Chaves MD at 8:03 EDT , ADDENDUM: 02/18/23825 IMPRESSION: 1. No acute intracranial abnormality. 2. Senescent changes. Aspect score 10. N.B. : The above Results were Read Back by Blanco Chaves MD to Dr. Arevalo, AA, and understanding confirmed on 02/18/2023 08:19:46 (ET). Electronically Signed: Blanco Chaves MD at 8:03 EDT , Chest X-Ray 02/18/23 07:47 IMPRESSION: Borderline cardiomegaly. Low lung volumes. Electronically Signed: Blanco Chaves MD at 9:15 EDT , Head/Neck CTA 02/18/23 07:48 IMPRESSION: Focal stenosis of the P2 segment of left LEAD MEDICAL TECHNOLOGIST. Additional findings detailed above. N.B. : The above Results were Read Back by Blanco Chaves MD to Reynold Rhodes DO, and understanding confirmed on 02/18/2023 08:19:09 (ET). Electronically Signed: Blanco Chaves MD at 8:20 EDT , ADDENDUM: 02/18/23 0827 IMPRESSION: Focal stenosis of the P2 segment of left LEAD MEDICAL TECHNOLOGIST. Additional findings detailed above. N.B. : The above Results were Read Back by Blanco Chaves MD to Reynold Rhodes DO, and understanding confirmed on 02/18/2023 08:19:09 (ET). Electronically Signed: Blanco Chaves MD at 8:20 EDT , Assessment & Plan Assessment/Plan (1) Stroke: PLAN: Plan Patient is a 77-year-old gentleman presenting with slurred speech and gait disturbance 1. Suspected CVA ? Possibly involving the posterior circulation. CTA obtained did show focal stenosis involving the P2 segment of the left LEAD MEDICAL TECHNOLOGIST. An MRI could not be obtained in view of presence of pacemaker placement. [facility] was not a [facility] for tenecteplase since he was out of the window. More so there was no need for transfer since he did not have any large vessel occlusion on CTA. Patient started on aspirin. Patient apparently has significant reaction to statins specifically joint pain. Started patient on low-dose atorvastatin was in the hospital 2. Hypertension - Blood pressure controlled, home medications continued with dose adjustment as needed 3. Conduction system disorder ? Status post pacemaker placement 4. GERD ? Patient is on PPI 5. Generalized osteoarthritis ? Patient is on diclofenac 75 mg p.o. twice daily 6. DVT prophylaxis - On enoxaparin Time spent in the patient's overall evaluation,decision-making process, review of diagnostic data, adjustment of management, discussion with other providers, nursing nursing and ancillary staff involved in patient's care documentation, 77 minutes Advance planning; did discuss with the patient and family regarding advanced directives as well as CODE STATUS. Did explain the various scenarios involved ( FULL CODE, DNR CCA, DNR CCA with no intubation, and DNR CC and what each meant) patient elected to remain full code with CPR and intubation if needed. Order was placed. Time spent on discussion 18 minutes. Charges/Coding Visit Charges Inpatient E&M: 26469 Init Hosp L3 Procedures Hospitalists Procedures: 37178 Advncd Care Plan 30 Min
--- NOTE | 2023-02-18 09:27 | NURSING ---
DR BRADEN ALATORRE
--- NOTE | 2023-02-18 09:32 | ECHOCS_ITS ---
Reason For Study: CVA Procedure This was a 2D Doppler, Color Flow transthoracic echocardiogram. The study was technically difficult. Exam performed portable in patient room. Left Ventricle Normal LV size. Moderate concentric left ventricular hypertrophy. The left ventricular ejection fraction is 65 %. Right Ventricle Normal right ventricle. Atria The left atrium is severely enlarged. Normal right atrium. Aneurysmal atrial septum. Mitral Valve The mitral valve is structurally normal. No prolapse or stenosis seen. Tricuspid Valve Normal tricuspid valve. Aortic Valve Trisinus/trileaflet aortic valve. Pulmonic Valve The pulmonic valve is not well visualized. Great Vessels Normal sized aortic root. Pericardium/Pleural No pericardial effusion. Medication Diluted definity 2ml given slow IV push to enhance endocardial definition. MMode/2D Measurements & Calculations LVIDd: 4.8 cm IVSd: 1.6 cm LVOT diam: 2.1 cm LVIDs: 2.8 cm LVPWd: 1.3 cm RVDd: 2.8 cm FS: 41.8 % LVOT area: 3.5 cm2 Ao root diam: 3.7 cm LAV(MOD-bp): 43.5 ml LVAd ap4: 31.1 cm2 LAV(MOD-bp) Indexed: 21.6 ml/m2 LVLd ap4: 7.7 cm LAV(MOD-sp2): 46.1 ml EDV(MOD-sp4): 99.1 ml LAV(MOD-sp4): 39.4 ml EDV(sp4-el): 106.7 ml LVAs ap4: 16.0 cm2 LVLs ap4: 6.5 cm ESV(MOD-sp4): 33.6 ml ESV(sp4-el): 33.6 ml EF(MOD-sp4): 66.0 % EF(sp4-el): 68.5 % LVAd ap2: 28.7 cm2 SV(MOD-sp4): 65.4 ml SV(MOD-sp2): 50.7 ml LVLd ap2: 8.1 cm EDV(MOD-sp2): 82.4 ml EDV(sp2-el): 85.7 ml LVAs ap2: 15.4 cm2 LVLs ap2: 6.6 cm ESV(MOD-sp2): 31.7 ml ESV(sp2-el): 30.4 ml EF(MOD-sp2): 61.5 % SV(sp4-el): 73.1 ml LA dimension(2D): 4.7 cm LA A4 area: 16.5 cm2 RA A4 area: 9.6 cm2 Time Measurements MV dec time: 0.25 sec Doppler Measurements & Calculations MV E max russ: 42.4 cm/sec Lat Peak E' Russ: 5.9 cm/sec Med Peak E' Russ: 5.2 cm/sec MV A max russ: 88.2 cm/sec E/E' lat: 7.2 E/E' med: 8.2 MV E/A: 0.48 Ao V2 max: 155.5 cm/sec LV V1 max: 95.5 cm/sec MV dec slope: 169.8 cm/sec2 Ao max P.7 mmHg LV V1 max P.6 mmHg PHUONG(V,D): 2.1 cm2 PA V2 max: 105.9 cm/sec PA max PG (full): 2.0 mmHg ECHO/Echo Complete W/ Contrast Interpretation Summary Moderate concentric left ventricular hypertrophy. The left ventricular ejection fraction is 65 %. The left atrium is severely enlarged. Aneurysmal atrial septum. Echocardiogram from 2010 reported as positive bubble study for PFO. Ordering Physician: Refugio Hung Referring Physician: Omar Bland Performed By: Colette López
--- NOTE | 2023-02-18 09:40 | NURSING ---
PCU STROKE, HYPERTENSION KITTOE
[2023-02-18] MEDS: 0.9% Normal Saline 1,000 ML 100 ML IV ×2 (11:23→21:17)
[2023-02-18] MEDS: Pantoprazole Sodium 40 MG Tablet PO (11:26)
[2023-02-18] MEDS: Carvedilol 12.5 MG Tablet PO ×2 (11:26→22:33)
[2023-02-18] MEDS: Spironolactone 25 MG Tablet PO (11:26)
[2023-02-18] MEDS: Enoxaparin 40 MG/0.4 ML Syringe SC (11:27)
[2023-02-18] MEDS: Famotidine 20 MG Tablet PO (21:14)
--- NOTE | 2023-02-18 22:15 | NURSING ---
Checked with Dr dougherty prior to giving coreg tonight since pt is stroke rule out. States it was continued by am physician and was intended to be ordered. Will administer as ordered.
[2023-02-18] MEDS: 0.9% Saline Lock 10 ML Syringe IV (22:32)
[2023-02-19] VITALS (9 sets, daily range): BP systolic 150–185; BP diastolic 74–99; PULSE 69–84; RESP 16–18; TEMP 36.3–36.8; O2SAT 93–97; BMI 34.7
[2023-02-19 05:56] LABS: Absolute Lymphocyte Count 1.48 X10^3/uL (0.83-4.51); Absolute Neutrophil Count 6.9 X10^3/uL (2.0-7.7); Basophil# 0.06 X10^3/uL; Basophil% 0.6 % (0-1); Eosinophil# 0.34 X10^3/uL; Eosinophils% 3.5 % (0-5); Hematocrit 45.7 % (40-54); Hemoglobin 15.1 g/dL (13.0-16.5); Lymphocyte # 1.48 X10^3/ul (0.83-4.51); Lymphocyte % 15.4 % (19-41); Mean Corpuscular Hgb 30.5 pg (27.0-32.0); Mean Corpuscular Volume 92.3 fL (80-94); Mean Platelet Vol. 10.8 fl (6.2-12.0); Monocyte# 0.75 X10^3/uL; Monocyte% 7.8 % (0-10); NRBC Flagged by Analyzer 0 % (0-5); Neutrophil # 6.94 X10^3/uL (2.7-7.7); Neutrophil % 72.4 % (47-70); Platelet Count 256 K/mm3 (150-450); RBC Distribution Width CV 13.9 % (11.6-14.6); RBC Distribution Width SD 47.1 fl (35.1-43.9); Red Blood Count 4.95 M/mm3 (4.6-6.2); White Blood Count 9.6 K/mm3 (4.4-11.0)
[2023-02-19 06:27] LABS: Anion Gap 6 (5-15); BUN 17 mg/dL (7-18); BUN/Creat Ratio 18.4 RATIO (10-20); Calcium,Total 8.7 mg/dL (8.5-10.1); Chloride 111 mmol/L (98-107); Cholesterol 191 mg/dL (200); Creatinine, Serum 0.92 mg/dL (0.70-1.30); EST Glomerular Filtration Rate 85 mL/min (>60); Est Glom Filt Rate - Afr Amer 102 mL/min (>60); Estimated Creatinine Clearance 58.09 ml/min; Glucose 112 mg/dL (74-106); High Density Lipoprotein 32 mg/dL; Phosphorus 2.6 mg/dL (2.5-4.9); Potassium 3.9 mmol/L (3.5-5.1); Sodium Level 142 mmol/L (136-145); Triglycerides 110 mg/dL; Very Low Density Lipoprotein 22 mg/dL (5-40)
[2023-02-19] MEDS: Aspirin E.C. 81 MG Tablet PO (08:07)
--- NOTE | 2023-02-19 09:01 | CT_ITS ---
STUDY: CT BRAIN WITHOUT CONTRAST REASON FOR EXAM: Male, 77 years old. Stroke RADIATION DOSAGE (If Supplied By Facility): CTDIvol = ( 44.99 ) mGy, DLP = ( 863.60 ) mGycm TECHNIQUE: Transaxial CT imaging of the brain was performed without administration of intravenous contrast material. Individualized dose optimization techniques were used for this CT. COMPARISON: Comparison is made with prior study dated February 18, 2023. FINDINGS: Normal soft tissue structures. Normal calvarium. There is mild cerebral atrophy with widening of the extra-axial spaces and ventricular dilatation. There are areas of decreased attenuation within the white matter tracts of the supratentorial brain, consistent with microvascular disease changes. Normal basal ganglia and thalami. Normal brainstem. Stable focal hypodensity in the central aspect of the right cerebellar hemisphere suggestive of ischemic change. There is no intracranial hemorrhage. There are no findings of an acute ischemic infarction. Atherosclerotic calcification of the vertebral arteries and cavernous portions of the internal carotid arteries bilaterally. Normal visualized paranasal sinuses. CT/Brain/Head without Contrast IMPRESSION: Chronic involutional changes of the brain. Electronically Signed: Toy Kellogg MD at 9:56 EDT ,
--- NOTE | 2023-02-19 09:02 | PCM.PN.HOSP ---
Reason for Visit Reason for Visit: Diagnoses Cerebral infarction, unspecified (02/18/23) Subjective Subjective Patient is a 77-year-old gentleman presenting with slurred speech and gait disturbance. An MRI could not be performed since patient has a pacemaker. Patient still has significant difficulty with speech repeat head CT ordered consult placed to [facility] Objective Data Objective Data Vital Signs: Vital Signs Temp Pulse Resp BP Pulse Ox O2 Del Method 98.0 F 73 18 185/99 H 97 Room Air 02/19/23 06:30 02/19/23 06:30 02/19/23 06:30 02/19/23 06:30 02/19/23 06:30 02/19/23 08:05 Oxygen Delivery Method Room Air Weight: 94.4 kg Body Mass Index (BMI) 34.7 Intake & Output: Intake and Output for Last 24 Hours 02/17/23 02/18/23 02/19/23 23:59 23:59 23:59 Intake Total 1290 / 1290 1200 / 1200 Output Total 400 / 400 Balance 1290 / 1290 800 / 800 Lab / Micro Data Result Diagrams: 02/19/23 05:20 02/19/23 05:20 Labs: Laboratory Results - last 24 hr 02/19/23 05:20: WBC 9.6, RBC 4.95, Hgb 15.1, Hct 45.7, MCV 92.3, MCH 30.5, MCHC 33.0, RDW Std Deviation 47.1 H, RDW Coeff of Yaz 13.9, Plt Count 256, MPV 10.8, Immature Gran % (Auto) 0.300, Neut % (Auto) 72.4 H, Lymph % (Auto) 15.4 L, [place] % (Auto) 7.8, Eos % (Auto) 3.5, Baso % (Auto) 0.6, Absolute Neuts (auto) 6.9, Absolute Lymphs (auto) 1.48, Nucleated RBC % 0 02/19/23 05:20: Sodium 142, Potassium 3.9, Chloride 111 H, Carbon Dioxide 25.0, Anion Gap 6, BUN 17, Creatinine 0.92, Estim Creat Clear Calc 58.09, Est GFR (MDRD) Af Amer 102, Est GFR (MDRD) Non-Af 85, BUN/Creatinine Ratio 18.4, Glucose 112 H, Calcium 8.7, Phosphorus 2.6, Magnesium 2.0, Triglycerides 110, Cholesterol 191, LDL Cholesterol 137 H, VLDL Cholesterol 22, HDL Cholesterol 32 L Radiography Diagnostic Testing: Radiology Impression Chest X-Ray 02/18/23 07:47 IMPRESSION: Borderline cardiomegaly. Low lung volumes. Electronically Signed: Blanco Chaves MD at 9:15 EDT , Physical Exam Narrative GENERAL: cooperative HEENT: Atraumatic; normocephalic EYES; Anicteric, Normal Conjunctiva NECK; supple, normal thyroid, RESPIRATORY: Diminished to auscultation CARDIOVASCULAR: Regular S1 S2, GI: soft, normoactive bowel sounds, : No Renal angle tenderness; EXTREMITIES: No edema, no clubbing, MUSCULOSKELETAL: no muscle wasting NEURO: Awake; no lateralizing signs. SKIN: No Rash PSYCH; Flat affect Assessment & Plan Assessment/Plan (1) Stroke: PLAN: Plan Patient is a 77-year-old gentleman presenting with slurred speech and gait disturbance 1. Suspected CVA ? Possibly involving the posterior circulation. 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 An MRI could not be obtained in view of presence of pacemaker placement. [facility]pl[facility] since he was out of the window. More so there was no need for transfer since he did not have any large vessel occlusion on CTA. Patient started on aspirin. Patient apparently has significant reaction to statins specifically joint pain. Started patient on low-dose atorvastatin was in the hospital -02/19/2023 an MRI could not be performed since patient has a pacemaker. Patient still has significant difficulty with speech repeat head CT ordered consult placed to [facility] 2. Hypertension - Blood pressure controlled, home medications continued with dose adjustment as needed 3. Conduction system disorder ? Status post pacemaker placement 4. GERD ? Patient is on PPI 5. Generalized osteoarthritis ? Patient is on diclofenac 75 mg p.o. twice daily 6. DVT prophylaxis - On enoxaparin Time spent in the patient's overall evaluation,decision-making process, review of diagnostic data, adjustment of management, discussion with other providers, nursing nursing and ancillary staff involved in patient's care documentation, 57 minutes Charges/Coding Visit Charges Inpatient E&M: 55471 Subs Hosp L3
[2023-02-19] MEDS: Enoxaparin 40 MG/0.4 ML Syringe SC (10:48)
[2023-02-19] MEDS: Pantoprazole Sodium 40 MG Tablet PO (10:49)
[2023-02-19] MEDS: Spironolactone 25 MG Tablet PO (10:49)
[2023-02-19] MEDS: Famotidine 20 MG Tablet PO ×2 (10:49→21:22)
--- NOTE | 2023-02-19 11:55 | CASEMGMT ---
RN ALINA Face to Face with patient for initial transition planning/care coordination assessment. RN CM introduced self and role at [facility]. Patient sittingin chair, alert and oriented, at bedside. Patient willing to participate in assessment and is able to answer all questions appropriately. Care providers, pharmacy, and demographics verified. Patient wishes to discharge home with outpatient therapy. Patient states he has no further needs or concerns at this time. CM to follow for discharge planning needs that may arise. PCP: Baldo Specialists: Renato liner reroll tender Preferred [facility]acy: [facility] Insurance: KAREN Espinosa Prescription Benefit: yes Living Will/HPOA: none LNOK: Living Arrangements: Patient lives with in a single story home with 1 step to enter. Patient is independent at home and still works Transportation: self, DME/HHC: Patient has raised toilet at home. No previous HHC or SNF. Patient would like outpatient therapy, CM to assist with script and outpatient information. Disposition Plan: Patient to discharge home with family support and follow-up plans in place. Brittnee BUSTILLO, RN, CM
--- NOTE | 2023-02-19 13:51 | US_ITS ---
INDICATION: Thyroid mass EXAMINATION: Ultrasound US Thyroid (eg thyroid, parathyroid, parotid) TECHNIQUE: Stanley scale and color doppler imaging was performed of the thyroid gland. COMPARISON: 02/18/2023 CTA head and neck FINDINGS: RIGHT THYROID LOBE: 5.3 x 2.4 x 1.7 cm. Homogeneous echotexture with normal vascularity. Multiple subcentimeter solid and mixed cystic and solid nodules. LEFT THYROID LOBE: 5.1 x 2.3 x 2.0 cm. Homogeneous echotexture with normal vascularity. Multiple solid and mixed cystic and solid nodules measure up to a maximum of 1 cm. ISTHMUS: 3 mm. No thyroid nodules are present. US/Thyroid IMPRESSION: Bilateral TR 3 nodules measuring up to a maximum of 1 cm do not meet TI-RADS criteria for FNA or imaging follow-up. Electronically Signed: Ervin Garay MD at 19:38 EDT ,
[2023-02-19] MEDS: Lisinopril 40 MG Tablet PO (14:16)
[2023-02-19] MEDS: amLODIPine 10 MG Tablet PO (14:16)
[2023-02-19] MEDS: Carvedilol 12.5 MG Tablet PO ×2 (14:16→21:22)
--- NOTE | 2023-02-19 15:45 | CASEMGMT ---
SW completed a PHQ9 with patient as he had a Stroke. Patient scored a 1 which indicates minimal depression. Patient declined any resources for counseling. Ivania BADILLO
[2023-02-19] MEDS: Clopidogrel Bisulfate 75 MG Tablet PO (15:54)
[2023-02-20 01:50] VITALS: BP 152/89; PULSE 84; RESP 16; TEMP 36.1; O2SAT 94
[2023-02-20 05:58] VITALS: BP 146/94; PULSE 70; RESP 16; TEMP 36.6; O2SAT 93
[2023-02-20 07:49] VITALS: O2SAT 98
--- NOTE | 2023-02-20 07:49 | PN.HOSP_ITS ---
Reason for Visit Reason for Visit: Diagnoses Cerebral infarction, unspecified (02/18/23) Subjective Subjective Patient seen still has significant left facial droop and slurred speech. Plan is for patient to be assessed for discharge with outpatient therapy Objective Data Objective Data Vital Signs: Vital Signs Temp Pulse Resp BP Pulse Ox O2 Del Method 98 F 70 16 146/94 H 93 Room Air 02/20/23 05:58 02/20/23 05:58 02/20/23 05:58 02/20/23 05:58 02/20/23 05:58 02/20/23 05:58 Oxygen Delivery Method Room Air Weight: 94.4 kg Body Mass Index (BMI) 34.7 Intake & Output: Intake and Output for Last 24 Hours 02/18/23 02/19/23 02/20/23 23:59 23:59 23:59 Intake Total 1290 / 1290 2260 / 2260 Output Total 750 / 1350 600 / 600 Balance 1290 / 1290 1510 / 910 -600 / -600 Lab / Micro Data Result Diagrams: 02/19/23 05:20 02/19/23 05:20 Radiography Diagnostic Testing: Radiology Impression Echocardiogram 02/18/23 09:32 Interpretation Summary Moderate concentric left ventricular hypertrophy. The left ventricular ejection fraction is 65 %. The left atrium is severely enlarged. Aneurysmal atrial septum. Echocardiogram from 2010 reported as positive bubble study for PFO. Ordering Physician: Refugio Hung Referring Physician: Omar Bland Performed By: Colette López Brain CT 02/19/23 09:01 IMPRESSION: Chronic involutional changes of the brain. Electronically Signed: Toy Kellogg MD at 9:56 EDT , Thyroid Ultrasound 02/19/23 13:51 IMPRESSION: Bilateral TR 3 nodules measuring up to a maximum of 1 cm do not meet TI-RADS criteria for FNA or imaging follow-up. Electronically Signed: Ervin Garay MD at 19:38 EDT , Physical Exam Narrative GENERAL: cooperative HEENT: Atraumatic; normocephalic EYES; Anicteric, Normal Conjunctiva NECK; supple, normal thyroid, RESPIRATORY: Diminished to auscultation CARDIOVASCULAR: Regular S1 S2, GI: soft, normoactive bowel sounds, : No Renal angle tenderness; EXTREMITIES: No edema, no clubbing, MUSCULOSKELETAL: no muscle wasting NEURO: Awake; no lateralizing signs. SKIN: No Rash PSYCH; Flat affect Assessment & Plan Assessment/Plan (1) Stroke: PLAN: Plan Patient is a 77-year-old gentleman presenting with slurred speech and gait disturbance 1. Suspected CVA ? Possibly involving the posterior circulation. 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 An MRI could not be obtained in view of presence of pacemaker placement. [facility] patient was not a candidate for tenecteplase since he was out of the window. More so there was no need for transfer since he did not have any large vessel occlusion on CTA. Patient started on aspirin. Patient apparently has significant reaction to statins specifically joint pain. Started patient on low-dose atorvastatin was in the hospital -02/19/2023 an MRI could not be performed since patient has a pacemaker. Patient still has significant difficulty with speech repeat head CT ordered consult placed to [facility] -02/20/2023; repeat MRI did not show any CVA. Case was discussed with [facility] teleneurologist. Plan is for patient to be assessed for discharge with outpatient therapy 2. Hypertension - Blood pressure controlled, home medications continued with dose adjustment as needed 3. Conduction system disorder ? Status post pacemaker placement 4. GERD ? Patient is on PPI 5. Generalized osteoarthritis ? Patient is on diclofenac 75 mg p.o. twice daily 6. Thyroid Mass Thyroid Ultrasound demonstrated Bilateral TR 3 nodules measuring up to a maximum of 1 cm do not meet TI-RADS criteria for FNA or imaging follow-up. 7. Normal 2D echo ? Patient echo did show Moderate concentric left ventricular hypertrophy. The left ventricular ejection fraction is 65 %. The left atrium is severely enlarged. Aneurysmal atrial septum. Echocardiogram from 2010 reported as positive bubble study for PFO. ?Case was discussed with Dr. Petty with cardiology who recommended dual antiplatelet therapy 8. DVT prophylaxis - On enoxaparin Time spent in the patient's overall evaluation,decision-making process, review of diagnostic data, adjustment of management, discussion with other providers, nursing nursing and ancillary staff involved in patient's care documentation, 37 minutes Charges/Coding Visit Charges Inpatient E&M: 98574 Subs Hosp L2
[2023-02-20 09:42] VITALS: BP 165/81; PULSE 65; RESP 16; TEMP 36.5; O2SAT 95
[2023-02-20] MEDS: Clopidogrel Bisulfate 75 MG Tablet PO (09:52)
[2023-02-20] MEDS: Lisinopril 40 MG Tablet PO (09:52)
[2023-02-20] MEDS: Famotidine 20 MG Tablet PO (09:52)
[2023-02-20] MEDS: Enoxaparin 40 MG/0.4 ML Syringe SC (09:52)
[2023-02-20] MEDS: Carvedilol 12.5 MG Tablet PO (09:52)
[2023-02-20] MEDS: Aspirin E.C. 81 MG Tablet PO (09:52)
[2023-02-20] MEDS: Spironolactone 25 MG Tablet PO (09:52)
[2023-02-20] MEDS: Pantoprazole Sodium 40 MG Tablet PO (09:52)
[2023-02-20] MEDS: amLODIPine 10 MG Tablet PO (09:52)
--- NOTE | 2023-02-20 10:51 | PCM.DC.SUM ---
Providers Date of Admission: 02/18/23 Date of Discharge: 02/20/23 Primary Care Physician: Dr. Omar Bland, Reason For Visit: CVA Diagnosis Discharge Diagnosis (1) Stroke: Status: Acute Code(s): I63.9 - Cerebral infarction, unspecified Plan Patient is a 77-year-old gentleman presenting with slurred speech and gait disturbance 1. Suspected CVA ? Possibly involving the posterior circulation. 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 An MRI could not be obtained in view of presence of pacemaker placement. [facility] not a [facility] for [facility]ectepl[facility] since he was out of the window. More so there was no need for transfer since he did not have any large vessel occlusion on CTA. Patient started on aspirin. Patient apparently has significant reaction to statins specifically joint pain. Started patient on low-dose atorvastatin was in the hospital -02/19/2023 an MRI could not be performed since patient has a pacemaker. Patient still has significant difficulty with speech repeat head CT [facility]; repeat MRI did not show any CVA. Case was discussed with [facility] teleneurologist. Plan is for patient to be assessed for discharge with outpatient therapy 2. Hypertension - Blood pressure controlled, home medications continued with dose adjustment as needed 3. Conduction system disorder ? Status post pacemaker placement 4. GERD ? Patient is on PPI 5. Generalized osteoarthritis ? Patient is on diclofenac 75 mg p.o. twice daily 6. Thyroid Mass Thyroid Ultrasound demonstrated Bilateral TR 3 nodules measuring up to a maximum of 1 cm do not meet TI-RADS criteria for FNA or imaging follow-up. 7. Normal 2D echo ? Patient echo did show Moderate concentric left ventricular hypertrophy. The left ventricular ejection fraction is 65 %. The left atrium is severely enlarged. Aneurysmal atrial septum. Echocardiogram from 2010 reported as positive bubble study for PFO. ?Case was discussed with Dr. Petty with cardiology who recommended dual antiplatelet therapy 8. DVT prophylaxis - On enoxaparin Time spent in the patient's overall evaluation,decision-making process, review of diagnostic data, adjustment of management, discussion with other providers, nursing nursing and ancillary staff involved in patient's care documentation, 37 minutes Medications at Discharge Home Medications aspirin 81 mg tablet,delayed release (Aspir-Low) 81 mg PO DAILY 04/19/17 spironolactone 25 mg tablet 25 mg PO DAILY 04/19/17 amlodipine 10 mg-benazepril 40 mg capsule (Lotrel) 1 cap PO DAILY #30 caps 02/24/22 clonidine 0.2 mg/24 hr weekly transdermal patch 0.2 mg transdermal QWEEK blood pressure 09/01/22 pantoprazole 40 mg tablet,delayed release 40 mg PO DAILY 09/01/22 carvedilol 12.5 mg tablet (Coreg) 12.5 mg PO BID #180 tabs 09/29/22 diclofenac sodium 75 mg tablet,delayed release 75 mg PO BID 02/18/23 aspirin 81 mg tablet,delayed release 81 mg PO DAILYCM 30 days #30 tabs 02/20/23 atorvastatin 40 mg tablet 40 mg PO QHS #30 tabs 02/20/23 clopidogrel 75 mg tablet 75 mg PO DAILY #30 tabs 02/20/23 famotidine 20 mg tablet 20 mg PO BID 30 days #60 tabs 02/20/23 Hospital Course Summary of Care Provided Minutes Spent on Discharge: 37 Physical Exam Narrative GENERAL: cooperative HEENT: Atraumatic; normocephalic EYES; Anicteric, Normal Conjunctiva NECK; supple, normal thyroid, RESPIRATORY: Diminished to auscultation CARDIOVASCULAR: Regular S1 S2, GI: soft, normoactive bowel sounds, : No Renal angle tenderness; EXTREMITIES: No edema, no clubbing, MUSCULOSKELETAL: no muscle wasting NEURO: Awake; no lateralizing signs. SKIN: No Rash PSYCH; Flat affect Weight / BMI Weight Weight: 94.4 kg Body Mass Index (BMI) 34.7 ABG / Lab / Microbiology Data Result Diagrams: 02/19/23 05:20 02/19/23 05:20 Radiography Diagnostic Testing: Radiology Impression Echocardiogram 02/18/23 09:32 Interpretation Summary Moderate concentric left ventricular hypertrophy. The left ventricular ejection fraction is 65 %. The left atrium is severely enlarged. Aneurysmal atrial septum. Echocardiogram from 2010 reported as positive bubble study for PFO. Ordering Physician: Refugio Hung Referring Physician: Omar Bland Performed By: Colette López Thyroid Ultrasound 02/19/23 13:51 IMPRESSION: Bilateral TR 3 nodules measuring up to a maximum of 1 cm do not meet TI-RADS criteria for FNA or imaging follow-up. Electronically Signed: Ervin Garay MD at 19:38 EDT , D/C Instructions Discharge Diet: No restrictions Discharge Activity: Return to Normal Activity Call your doctor if you observe: Fever of 101 or Higher, Shortness of breath, Fainting spells and Chest pain Meaningful Use Info Meaningful Use Diagnoses (Choose all that apply): Ischemic CVA CVA Therapy Assessed for PT,OT and/or ST?: Yes Ischemic Stroke Antithrombotic order at d/c?: Yes Dx of Atrial fib/flutter?: No Statins at discharge?: Yes Primary Dx Acute Ischemic CVA?: Yes IV thrombolytic ordered during stay?: No Reason IV thrombolytic not ordered: Treatment not Indicated Discharge Plan Admission Admit Date/Time: 02/18/23 09:34 Attending Provider: Refugio Hung Primary Care Provider: Omar Bland Discharge Orders/Prescriptions Prescriptions: New atorvastatin 40 mg Tablet 40 mg PO QHS Qty: 30 0RF clopidogrel 75 mg Tablet 75 mg PO DAILY Qty: 30 0RF aspirin 81 mg Tablet,Delayed Release (Dr/Ec) 81 mg PO DAILYCM 30 Days Qty: 30 0RF famotidine 20 mg Tablet 20 mg PO BID 30 Days Qty: 60 0RF Continued amlodipine-benazepril [Lotrel] 10-40 mg capsule 1 cap PO DAILY Qty: 30 0RF pantoprazole 40 mg tablet,delayed release (DR/EC) 40 mg PO DAILY Label Comments: TAKE 1 TABLET BY MOUTH IN THE MORNING BEFORE A MEAL aspirin [Aspir-Low] 81 MG tablet,delayed release (DR/EC) 81 mg PO DAILY spironolactone 25 MG tablet 25 mg PO DAILY clonidine 0.2 mg/24 hr patch weekly 0.2 mg transdermal QWEEK Rx Instructions: Mondays diclofenac sodium 75 mg tablet,delayed release (DR/EC) 75 mg PO BID carvedilol [Coreg] 12.5 mg tablet 12.5 mg PO BID Qty: 180 3RF Rx Instructions: must administer with a meal/food Other Ambulatory Orders: Occupational Therapy Eval (Routine) Location: None Selected Ordered By: Dr. Refugio Hung Physical Therapy Evaluation (Routine) Location: None Selected Ordered By: Dr. Refugio Hung Speech Therapy Evaluation (Routine) Location: None Selected Ordered By: Dr. Refugio Hung Referrals / Follow Up: Omar Bland DO [Primary Care Provider] - 02/25/23 10:10 am Disposition Disposition (needs filled in before D/C Order can be placed): Home, Self Care Charges/Coding Visit Charges Inpatient E&M: 30840 Disch Hosp >30min
--- NOTE | 2023-02-20 11:30 | CASEMGMT ---
RN CM received script for outpatient PT/OT/ST and provided in patient's discharge packet. RN CM to patient's room, patient denies further needs at discharge.
[2023-02-20 12:42] VITALS: BMI 34.7
== END 2023-02-20 13:15 | disposition home or self-care (01) | DRG 66 ==
LOC: ED 09:35 → PCU 09:41
PROVIDERS: Admitting Provider Internal Medicine; Emergency Provider Emergency Medicine; PCP Family Medicine; Visit Provider Internal Medicine
DX: I63.9 Cerebral infarction, unspecified (principal); E04.1 Nontoxic single thyroid nodule; E78.00 Pure hypercholesterolemia, unspecified; I10 Essential (primary) hypertension; M15.9 Polyosteoarthritis, unspecified; K21.9 Gastro-esophageal reflux disease without esophagitis; Z79.82 Long term (current) use of aspirin; Z87.891 Personal history of nicotine dependence; Z95.0 Presence of cardiac pacemaker; R47.81 Slurred speech; R26.9 Unspecified abnormalities of gait and mobility; Z79.899 Other long term (current) drug therapy; R29.704 NIHSS score 4
CPT/HCPCS: 36415; 70450; 70496; 70498; 71045; 76536; 80048; 80061; 82962; 83735; 84100; 84484; 85025; 85610; 85730; 92610; 93005; 93306; 94762; 97110; 97116; 97162; 97166; 97530; 97535; 97802; 99252; 99285; J7030; Q9957; Q9967; A4216; C8929; G0463

== ENCOUNTER 2023-04-20 16:00 | Outpatient (RCR) | payer BC, SELFPAY ==
--- NOTE | 2023-02-23 15:02 | HP.OTEVAL_ITS ---
Patient's Visit Information EDITH REYNA is a 77 year old M, referred to Occupational Therapy by Dr. Omar Bland DO, with a diagnosis of stroke. Date of Evaluation: 02/23/23 Occupational Therapist: Alona Luis - Subjective Arrived for OT evaluation s/p probable stroke. He started feeling symptoms 02/17/23. Lives with , who helps stabilize him with the stairs. Biggest concern has been his balance, he's fallen multiple times. Wears a brace on the L side, able to don/doff it. Reports feeling some tightness and stiffness in lower body. Home set-up: ranch style home with 2 SAPPHIRE, no HR with basement but doesn't go down to the basement. 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 Plans on retiring next year. driving: previously driving to/from work, drove him today to appointment - ADLs Comments: does cooking, cleaning, and laundry. - Strength Special Education Preschool Teacher: R 80; L 53 Lateral Pinch: R 16; L10 Tripod Pinch: R 12; L 8 Tip-to-Tip Pinch: R6; L4 Strength Comments: R handed - Sensation Sensation Comments: sensation intact bilaterally - Movement Movement Comments: decreased coordination in L UE noted with opposition, finger to nose, and diadikokinese - Visual/Perceptual Skills Comments: Vision - no changes, wears glasses. Denies dizziness. - Cognitive Skills Cognitive Comments: no concerns with cognition observed or reported - Nine Hole Peg Right: 27.1 sec Left: 38.7 - In-Hand Manipulation Finger to Palm Translation: Normal - Right, Moderate - Left Palm to Finger Translation: Normal - Right, Moderate - Left Comments: dropping with L hand - Quick DASH-Disab of Arm,Shoulder& Hand Quick DASH Score: 13.6350 - Goals Goal:: Patient will gain 5# substance abuse rn strength in L hand (eval date 53) by d/c. Goal:: Patient will improve 9 hole peg test time for L hand by 5 seconds (eval date 38.7 sec) by d/c. Goal:: Patient will complete palm to/from finger translation with 4 items with L hand without drops on at least 2 occasions by d/c. - Rehabilitation General Assessment: Arrived s/p probably stroke ~ 1 week ago. Pt experiencing decreased balance, L side weakness, and slowed/slurred speech. He would benefit from skilled OT services to improve L UE strength and hand manipulation skills. Rehabilitation Potential: Good - Anticipated Interventions Strengthening, Neuro Reeducation - Visit Plan Frequency: 1x/Week Duration: 6 Weeks General Plan: 1x/week for 6 weeks TEXT: Thank you for the opportunity to evaluate your patient. For Medicare and Medicare HMO plans, please review the plan of care and approve it. It will need to be FAXED BACK to us at [phone] for Medicare purposes. Please let me know if there are questions or concerns regarding this plan of care. Physician Signature: Date:
--- NOTE | 2023-02-23 16:36 | HP.PTEVAL_ITS ---
Patient's Visit Information EDITH REYNA is a 77 year old M referred to Physical Therapy by Dr. Omar Bland DO with a diagnosis of S/P CVA. Date of Evaluation: 02/23/23 Physical Therapist: Roxana Ashley PT, Cert MDT - Visit Plan Frequency: 2-3x /Week Duration: 4-6 Months Plan: GAIT TRAINING ON LEVEL SURFACES AND UP AND DOWN STEPS. BALANCE TRAINING. ENDURANCE TRAINING. SHERWIN LE ROM, STRETCHING AND STRENGTHEING TO HELP MEET SET GOALS. - Subjective PATIENT REPORTS HE WORKED LAST THURSDAY AND WHEN HE GOT HOME HE WORKED ON TAKING CURTAIN RODS DOWN THEN SHOWERED AND WENT OUT TO EAT. HE REPORTS STARTING TO FEEL VERY FATIGUED ESPECIALLY AFTER HIS SHOWER. STATES HE WAS WORKING 40 HOURS A WEEK PLUS HELPING HIS AT HOME GETTING READY FOR WINDOW WORK AND NEW FURNITURE COMING. HE REPORTS HIS DIDN'T THINK HE WAS ACTING RIGHT SO SHE TOOK HIM TO THE HOSPITAL THE NEXT DAY. HE REPORTS THEY THINK HE HAD A STROK BUT THEY AREN'T SURE. UNABLE TO DO MRI DUE TO PACEMAKER. STAYED IN HOSPITAL UNTIL LAST THURSDAY. 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 NOT DRIVING OUT ON ROAD. GOAL IS TO RETURN TO THIS JOB. TENTATIVE RETURN TO WORK DATE IS March. Present symptoms: PATIENT REPORTS HIS BALANCE ISN'T REAL GOOD. ONE FALL AT HOSPITAL. STATES HE FELL BECAUSE HE DIDN'T HAVE HIS KNEE BRACE ON. GOT THE KNEE BRACE A FEW YEARS AGO. HASN'T WORN BRACE THE BRACE FOR A FEW YEARS BECAUSE ABLE TO WALK ABOUT 6 MILES A DAY BEFORE THIS INCIDENT. STATES HE FELL AT THE HOSPITAL WHEN HIS LEFT KNEE GAVE OUT SO GOT THE BRACE BACK OUT AND HASN'T FALLEN SINCE. NOT CURRENTLY USING ANY ASSISTIVE DEVICES. PATIENT DENIES PAIN OTHER THAN INTERMITTENT CHRONIC SHERWIN KNEE PAIN. Is it getting better, worse or staying the same: GETTING BETTER. Commenced as a result of: NO APPARENT REASON OTHER THAN FATIGUE. Previous history/Previous treatment: NO PRIOR HISTORY OF STROKE. Bowel or Bladder Dysfunction: NO. Unexplained weight loss: NO. PMH/Recent major surgery: PACEMAKER - SICK SINUS SYNDROME. PROSTATE CANCER TREATED WITH SX 2011. HTN. - Objective THIS PATIENT AMBULATES INDEP'LY INTO PT WEARING L KNEE BRACE BUT NOT USING ANY ASSISTIVE DEVICES. HE WALKS WITH DECREASED CADANCE BUT NO LOB. HE FREQUENTLY REACHES FOR EXTERNAL SUPPORT. SHORT SHERWIN STRIDE LENGTH. Sensory deficit: SHERWIN LE LIGHT TOUCH SENSATION IS GROSSLY INTACT AND SYMMETRICAL. ROM deficit: SHERWIN LE'S WFL. Motor deficit: RIGHT LE 5/5. L LE 5/5 EXCEPT L HIP 4/5. Core strength: FAIR. BALANCE: FAIR. SEE GAIT TESTS BELOW. PATIENT IS ABLE TO SLS R LE WITHOUT UE ASSIST X 5 PLUS SEC'S. ONLY ABLE TO SLS L LE X ABOUT 3 SEC WITHOUT UE ASSIST. THIS PT RECOMMENDS CANE FOR SAFETY AND PATIENT IS AGREEABLE. STATES HE HAS A CANE AT HOME. GAIT TRAINING WITH CANE TODAY ON LEVEL SURFACES. PATIENT ABLE TO WALK WITH MORE NORMAL STRIDE LENGTH WITH CANE AND BETTER JORDAN THAN WITHOUT. PATIENT REPORTED NOT FEELING THE NEED TO REACH FOR EXTERNAL SUPPORT WI TH CANE. PATIENT ABLE TO DEMO GOOD SEQUENCEING WITH CANE WITH MINIMAL INSTRUCTION. OTHER: PATIENT ABLE TO DON AND DOFF KNEE BRACE INDEP'LY. PATIENT HAS SLOW SLURRED SPEECH BUT FOLLOWS COMMANDS WELL DURING EVAL TODAY. SPEECH THERAPY EVAL PENDING TOMORROW. - Balance/Special Test Scores Lower Extremity Functional Score: 33 TUG Test Time Seconds: 19.94 30 Second Chair Rise Test Seconds: 7 - Goals Goal 1:: INDEP AND SAFE GAIT ON LEVEL SURFACES X > 1000 FEET AND UP AND DOWN STEPS WITH LEAST AD AND UE ASSIST TO DEMONSTRATE GOOD GAIT STABILITY AND ENDURANCE. Goal Time Frame: 4-6 Weeks Goal 2:: PATIENT WILL COMPLETE 10 STANDS IN 30 SECS WITHOUT UE ASSSIT TO DEMONSTRATE IMPROVED FUNCTIONAL STRENGTH Goal Time Frame: 4-6 Weeks Goal 3:: PATIENT WILL BE INDEP WITH A HEP FOR CONTINUED IMPROVEMENT ONCE FORMAL PHYSICAL THERAPY CONCLUDES. Goal Time Frame: 4-6 Weeks - Anticipated Interventions Patient/Client Instruction: Educate patient on: Condition, Plan of Care, Risk Factors, Benefits of Fitness Program For the Purpose of:: To improve self management Therapeutic Exercise to Include: Strength training, Endurance training, Balance training, Coordination, Flexibilty training, Gait and locomotor training, Neuromotor development For the Purpose of:: To improve muscle performance and motor function, To increase tolerance to activity/condition/position, To improve ability of physical actions for home/community/work/leisure, To improve gait and locomotor functions Thank you for the opportunity to evaluate your patient. For Medicare and Medicare HMO plans, please review the plan of care and approve it. It will need to be FAXED BACK to us at [phone] for Medicare purposes. For Medicare only, by signing this I certify the plan of care. Please let me know if there are questions or concerns regarding this plan of care. Physician Signature: Date:
--- NOTE | 2023-03-30 12:57 | HP.OTDCSUM ---
It has been my pleasure to treat EDITH REYNA under orders from Dr. Omar Bland, DO, for the diagnosis of stroke for a total of 5 visit(s). Please see the following information for a summary of their discharge status. % Improvement: 95 Objective/Function: right schedule analyst strength 80# left 75# (left increase from 53#). left lateral pinch 18# increase from 10#. left tripod pinch 16# increase from 8#. left tip pinch 10# increased from 4#. left 9 hole peg test at 28.13 sec. a 10 sec. increase in speed. Patient Goals: Return to Work, Use Hand/Wrist/Arm Normally Again, Resume Former Household Responsibilities (Cooking,Cleaning,Yard, etc.) Goal:: Patient will gain 5# schedule analyst strength in L hand (eval date 53) by d/c. goal met at 75# left schedule analyst strength Goal:: Patient will improve 9 hole peg test time for L hand by 5 seconds (eval date 38.7 sec) by d/c. goal met at 28.13 sec. Goal:: Patient will complete palm to/from finger translation with 4 items with L hand without drops on at least 2 occasions by d/c. Plan: Continue POC. Discharge Comments: pt was seen for 5 OT sessions. States he is feeling is strength and coordination is back to his PLOF. pt has met all OT goals. pt agrees to cont. with HEP. pt agrees to D/C. If there are questions or concerns regarding this patient's occupational therapy, please fell free to call me at [phone]. Thank you for the referral of this patient. Sincerely, Elis Armstrong, OTR/L, CHT
--- NOTE | 2023-03-30 13:46 | HP.PTREVAL ---
Dr. Omar Bland, DO, It has been my pleasure to treat EDITH REYNA over the last 11 visits for S/P CVA. Please see the progress note below for an update on the physical therapy plan of care! Subjective: PATIENT REPORTS THERAPY IS HELPING BUT HE ISN'T WHERE HE WANTS TO BE AT [facility] YET. STATES HE WANTS TO BE ABLE TO DO MORE THINGS LONGER. DENIES ANY FALLS. PATIENT REPORTS HIS BALANCE IS GETTING BETTER AND HE DOESN'T GET TIRED QUICK NOW HE DID BEFORE STARTING PT. HE ALSO REPORTS HE IS STARTING TO BUILD UP STRENGTH IN HIS LEGS. PATIENT REPORTS HE CAN WALK ON LEVEL GROUND MUCH BETTER NOW BUT WALKING ON GRASS IS MUCH HARDER. STATES HE HAS BEEN DOING HOME EX'S BUT NOT TAKING WALKS. UPON FURTHER QUESTIONING HE REPORTS IT WOULD BE SAFE TO TAKE WALKS ON BUGGIE TRAIL NEAR HIS HOME WITH HIS . STATES HE THINKS HE IS GOING TO RETIRE AT THE END OF THE YEAR. STATES DR. BLAND HAS NOT RELEASED HIM TO GO BACK TO WORK YET BUT THEY WILL DISCUSS IT AGAIN AT FOLLOW UP MAY 19 2023. Objective/Function: PATIENT WAS SEEN TODAY FOR RE-ASSESSMENT OF PROGRESS TOWARD THE SET PT GOALS AND THE NEED FOR FURTHER PHYSICAL THERAPY VS READINESS FOR DISCHARGE. PATIENT IS A GOOD CANDIDATE TO CONTINUE PT BASED ON PROGRESS MADE AND ROOM FOR FURHTER IMPROVEMENT. PATIENT IS AGREEABLE. INSTRUCTED PATIENT IN WALKING PROGRAM TODAY WITH HIS AND STRONGLY ENCOURAGED DAILY WALKING PROGRAM. PATIENT AGREEABLE. UPON EXAM TODAY: Motor deficit: SHERWIN LE'S 5/5 WITH MMT'ING. Core strength: FAIR. BALANCE: FAIR. SEE GAIT TESTS BELOW. PATIENT IS ABLE TO SLS SHERWIN LE'S WITHOUT UE ASSIST X 5 PLUS SEC'S EA NOW WITHOUT UE ASSIST. STEPS: INDEP UP AND DOWN STEPS WITH ONE UE ASSIST RECIPRICALLY. DEFINATELY UE DEPENDENT TO GO UP BUT MORE SO DESCENDING ESPECIALLY LEADING DOWN WITH R LE. CONTINUOUS GAIT IN CLINIC ON LEVEL SURFACES X >1,000 FEET TODAY. OTHER: SEE TUG TIME AND STS TEST IMPROVEMENTS BELOW. [ End ] Plan Plan: CONTINUE PT. GAIT TRAINING ON LEVEL SURFACES AND UP AND DOWN STEPS. BALANCE TRAINING. ENDURANCE TRAINING. SHERWIN LE ROM, STRETCHING AND STRENGTHEING TO HELP MEET SET GOALS. Balance/Gait/Functional tests - Balance/Special Test Scores Lower Extremity Functional Score: 44 TUG Test Time Seconds: 14.38 Tug Test: <20 sec.=mostly independent 30 Second Chair Rise Test Seconds: 11 Goals Goal 1:: INDEP AND SAFE GAIT ON LEVEL SURFACES X > 1000 FEET AND UP AND DOWN STEPS WITH LEAST AD AND UE ASSIST TO DEMONSTRATE GOOD GAIT STABILITY AND ENDURANCE. Goal Time Frame: 4-6 Weeks Goal Progress: Progressing Goal 2:: PATIENT WILL COMPLETE 10 STANDS IN 30 SECS WITHOUT UE ASSSIT TO DEMONSTRATE IMPROVED FUNCTIONAL STRENGTH Goal Time Frame: 4-6 Weeks Goal Progress: Goal Met Goal 3:: PATIENT WILL BE INDEP WITH A HEP FOR CONTINUED IMPROVEMENT ONCE FORMAL PHYSICAL THERAPY CONCLUDES. Goal Time Frame: 4-6 Weeks Goal Progress: Progressing Goal 4:: NEW GOAL: PATIENT WILL COMPLETE TUG IN < 12 SECS TO DEMONSTRATE IMPROVED GAIT STABILITY Goal Time Frame: 4-6 Weeks Goal 5:: NEW GOAL: PATIENT WILL COMPLETE 13 STANDS IN 30 SECS TO DEMONSTRATE IMPROVED FUNCTIONAL STRENGTH Goal Time Frame: 4-6 Weeks Anticipated Interventions Patient/Client Instruction: Educate patient on: Condition, Plan of Care, Risk Factors, Benefits of Fitness Program For the Purpose of:: To improve self management Therapeutic Exercise to Include: Strength training, Endurance training, Balance training, Coordination, Flexibilty training, Gait and locomotor training, Neuromotor development For the Purpose of:: To improve muscle performance and motor function, To increase tolerance to activity/condition/position, To improve ability of physical actions for home/community/work/leisure, To improve gait and locomotor functions Please do not hesitate to contact me at [phone] by phone or if you have questions or concerns regarding this new plan of care! Sincerely, Roxana Ashley, PT, Cert MDT
--- NOTE | 2023-04-20 16:40 | HP.PTDCSUM_ITS ---
Discharge Summary D/C summary: It has been my pleasure to treat EDITH REYNA referred by Dr. Omar Bland, , with the diagnosis of S/P CVA for a total of 19 visit(s). Discharge Date: 04/20/23 Please see the following information for a summary of their discharge status. Subjective Subjective: I FEEL GOOD. I'VE STRENGTHENED MY L KNEE A LOT AND STRETCHING HAS HELPED TOO. PATIENT REPORTS HE DOESN'T HAVE TROUBLE GETTING IN AND OUT OF THE CAR NOW. 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 PATIENT REPORTS HE HAS NOT STARTED A WALKING PROGRAM. STATES HE DOES NOT FEEL HE NEEDS TO CONTINUE PT AND WANTS TO STOP PT NOW. PATIENT REPORTS HE AND HIS ARE CONSIDERING JOINING [employer] HERE AT [employer] AND IF SO HE WILL USE THE EX LOG WE GAVE HIM. PATIENT REPORTS HE STILL NEEDS TO WORK ON GETTING HIS ENDURANCE UP TO BE ABLE TO WORK 8 HRS A DAY. STILL PLANNING TO FOLLOW UP WITH DR. BLAND MAY 19 2023. Pain L LE: Pain Intensity (Out of 10): 0 Overall Improvement % Improvement: 60 Objective Objective/Function: PATIENT WAS SEEN TODAY FOR RE-ASSESSMENT OF PROGRESS TOWARD THE SET PT GOALS AND THE NEED FOR FURTHER PHYSICAL THERAPY VS READINESS FOR DISCHARGE. PATIENT HAS MADE GOOD PROGRESS WITH PT AND DEMO'D ABILITY TO WALK APPROX 1/4 MILE CONTINUOUSLY IN CLINIC TODAY AND COULD HAVE GONE FURHTER. HE IS REQUESTING D/C. UPON EXAM TODAY: Motor deficit: SHERWIN LE'S 5/5 WITH MMT'ING. Core strength: FAIR. BALANCE: GOOD. SEE GAIT TESTS BELOW. PATIENT IS ABLE TO SLS SHERWIN LE'S WITHOUT UE ASSIST X 5 SEC'S R LE AND 6 SEC L LE WITHOUT UE ASSIST. STEPS: INDEP UP AND DOWN STEPS WITH ONE UE ASSIST RECIPRICALLY (PATIENT REPORTS THAT HE TYPICALLY GOES ONE STEP AT A TIME AT HOME IN THE AFTERNOONS WHEN HIS LLE IS FATIGUED). OTHER: SEE TUG TIME AND STS TEST IMPROVEMENTS BELOW. Goals Goal 1:: INDEP AND SAFE GAIT ON LEVEL SURFACES X > 1000 FEET AND UP AND DOWN STEPS WITH LEAST AD AND UE ASSIST TO DEMONSTRATE GOOD GAIT STABILITY AND ENDURANCE. Goal Progress: Goal Met Goal 2:: PATIENT WILL COMPLETE 10 STANDS IN 30 SECS WITHOUT UE ASSSIT TO DEMONSTRATE IMPROVED FUNCTIONAL STRENGTH Goal Progress: Goal Met Goal 3:: PATIENT WILL BE INDEP WITH A HEP FOR CONTINUED IMPROVEMENT ONCE FORMAL PHYSICAL THERAPY CONCLUDES. Goal Progress: Goal Met Goal 4:: NEW GOAL: PATIENT WILL COMPLETE TUG IN < 12 SECS TO DEMONSTRATE IMPROVED GAIT STABILITY Goal Progress: Goal Met Goal 5:: NEW GOAL: PATIENT WILL COMPLETE 13 STANDS IN 30 SECS TO DEMONSTRATE IMPROVED FUNCTIONAL STRENGTH Goal Progress: Goal Met Plan Plan: D/C TO INDEP EX AT PATIENTS REQUEST D/C Information d/c sentence: If there are questions or concerns regarding this patient's physical therapy, please feel free to call me at [phone]. Thank you for the referral of this patient. Sincerely, Roxana Ashley, PT, Cert MDT Balance/Gait/Functional tests Balance/Special Test Scores Lower Extremity Functional Score: 60 TUG Test Time Seconds: 11.43 Tug Test: <20 sec.=mostly independent 30 Second Chair Rise Test Seconds: 13
== END 2023-04-20 19:00 | disposition home or self-care (01) ==
LOC: PT 16:00
PROVIDERS: PCP Family Medicine; Referring Provider Internal Medicine; Visit Provider Family Medicine
DX: R26.89 Other abnormalities of gait and mobility (principal); Z86.73 Personal history of transient ischemic attack (TIA), and cerebral infarction without residual deficits
CPT/HCPCS: 92523; 97110; 97162; 97164; 97166; 97530

== ENCOUNTER → 2023-04-25 | Outpatient (CLI) | payer BC, SELFPAY ==
[2023-04-25 10:07] LABS: PSA,Total- Diagnostic 0.08 ng/mL (0.0-4.0)
== END | disposition home or self-care (01) ==
PROVIDERS: PCP Family Medicine; Referring Provider Registered Nurse; Visit Provider Registered Nurse
DX: C61 Malignant neoplasm of prostate (principal)
CPT/HCPCS: 36415; 84153

== ENCOUNTER → 2023-05-14 | Outpatient (CLI) | payer BC, SELFPAY ==
[2023-05-14 15:40] LABS: Anion Gap 7 (5-15); BUN 22 mg/dL (7-18); BUN/Creat Ratio 17.3 RATIO (10-20); Calcium,Total 8.7 mg/dL (8.5-10.1); Chloride 105 mmol/L (98-107); Creatinine, Serum 1.27 mg/dL (0.70-1.30); EST Glomerular Filtration Rate 59 mL/min (>60); Est Glom Filt Rate - Afr Amer 71 mL/min (>60); Glucose 90 mg/dL (74-106); Potassium 4.4 mmol/L (3.5-5.1); Sodium Level 136 mmol/L (136-145)
== END | disposition home or self-care (01) ==
PROVIDERS: PCP Family Medicine; Referring Provider Nurse Practitioner Family; Visit Provider Nurse Practitioner Family
DX: E78.00 Pure hypercholesterolemia, unspecified (principal); I49.5 Sick sinus syndrome; I10 Essential (primary) hypertension; Z95.0 Presence of cardiac pacemaker
CPT/HCPCS: 36415; 80048

== ENCOUNTER → 2023-09-16 | Outpatient (CLI) | payer MEDICARE, OTHER, SELFPAY ==
--- NOTE | 2023-09-16 16:20 | STRESSREP ---
Stress Test Report Pharmacologic myocardial perfusion stress test. 78-year-old male with a history of dyspnea on exertion and fatigue Resting EKG demonstrates sinus rhythm with a rate of 70 bpm. Right bundle branch block is noted. Resting blood pressure is 158/98 mmHg. 0.4 mg of regadenoson was infused per usual protocol followed by rapid intravenous saline flush injection. Continuous EKG monitoring was performed. The maximum heart rate was 84 bpm which was 58% of max impacted heart rate the maximum workload was 1 metabolic equivalent. At rest there were no ST or T wave changes noted to suggest ischemia and at peak infusion nonspecific ST changes were noted which did not meet the criteria for ischemia. No clinical angina is noted. The final blood pressure was 164/96 mmHg. Myocardial perfusion protocol. 11.7 mCi of technetium 99m sestamibi was injected at rest. 0.4 mg of regadenoson was infused per usual protocol. At peak infusion 33.4 mCi of technetium 99m sestamibi was injected stress images were obtained stress and rest images were reconstructed and compared in the short axis vertical long and horizontal long axis. Gated images were also obtained. Perfusion SPECT analysis: Review of the stress images demonstrate normal uptake of tracer noted in all areas of the myocardium. The resting images similar demonstrated normal uptake of tracer noted in all areas of the myocardium. No areas of reversibility are noted to suggest ischemia and no previous infarct is noted. Gated SPECT analysis: The gated ejection fraction is 63%. Conclusion: Normal pharmacologic myocardial perfusion stress test. Preserved ejection fraction.
== END | disposition home or self-care (01) ==
LOC: CVS 06:06
PROVIDERS: PCP Family Medicine; Referring Provider Nurse Practitioner Gerontology; Visit Provider Nurse Practitioner Gerontology
DX: R06.09 Other forms of dyspnea (principal); I10 Essential (primary) hypertension; R53.83 Other fatigue
CPT/HCPCS: 78452; 93017; A9500; A4216; J2785

== ENCOUNTER → 2023-11-16 | Outpatient (CLI) | payer MEDICARE, OTHER, SELFPAY ==
--- OUTSIDE RECORDS SUMMARY | 2023-11-16 09:42 | XMS RPT_ITS | CCD ---
Author Name Unknown Address [address] [place] [address] Organization [facility] Care Team Providers Care [place] Packer Name Role Phone MARGO Wheeler, Ana Cristina Jarquin Unavailable Unavailable MARGO Wheeler, Ana Cristina Jarquin Unavailable Unavailable MARGO Wheeler, Ana Cristina Jarquin Unavailable Unavailable CHALINO STEELE Unavailable Unavailable JOSH LOMELI Unavailable Unavailable LISA SILVIANO Unavailable Unavailable LISA SILVIANO Unavailable Unavailable Allergies Allergy Classification Reported Allergen(s) Allergy Type Date of Onset Reaction(s) Facility (3 sources) sulfamethoxazole / trimethoprim drug allergy [facility] Work Phone: (3 sources) BAND-AIDS drug allergy [facility] Work Phone: [phone] Medications Completed/Discontinued Medications Medication Drug Class(es) Dates Sig (Normalized) Sig (Original) amLODIPine 5 mg / benazepril hydrochloride 20 mg oral capsule (3 sources) Dihydropyridine Calcium Channel Rich, Angiotensin Converting Enzyme Inhibitor Start: 11-24-2005 take 1 tablet by mouth twice daily LOTREL 5-20 MG CAPS One tablet by mouth twice daily AMLODIPINE BESY-BENAZEPRIL HCL [id number] Paz Godinez Problems Active Problems Problem Classification Problem Date Documented Date Episodic/Chronic Cardiac and circulatory congenital anomalies (3 sources) Atrial septal defect; Translations: [Atrial septal defect] Onset: 02-28-2014 02-28-2014 Chronic Conduction disorders (3 sources) Cardiac pacemaker in situ; Translations: [Presence of cardiac pacemaker] Onset: 12-23-2010 12-23-2010 Chronic Disorders of lipid metabolism (3 sources) Hyperlipidemia; Translations: [Hyperlipidemia, unspecified] Onset: 12-23-2010 12-23-2010 Chronic Essential hypertension (3 sources) Hypertensive disorder; Translations: [Essential (primary) hypertension] Onset: 12-23-2010 12-23-2010 Chronic Osteoarthritis (3 sources) Osteoarthritis of knee; Translations: [Bilateral primary osteoarthritis of knee] Onset: 06-29-2015 06-29-2015 Chronic Unclassified (2 sources) Unknown / UNK(Unknown) Onset: 07-25-2017 Past or Other Problems Problem Classification Problem Date Documented Da te Episodic/Chronic Conditions associated with dizziness or vertigo (2 sources) Dizziness and giddiness; Translations: [Dizziness and giddiness] Onset: 08-14-2017 Episodic Fluid and electrolyte disorders (3 sources) Hypokalemia; Translations: [Hypokalemia] Onset: 12-23-2010 12-23-2010 Episodic Other connective tissue disease (3 sources) Other specified disorders of synovium and tendon, unspecified site; Translations: [Other specified disorders of synovium and tendon, unspecified site] Onset: 06-29-2015 07-12-2015 Episodic Other lower respiratory disease (3 sources) Dyspnea; Translations: [Shortness of breath] Onset: 12-23-2010 12-23-2010 Episodic Other non-traumatic joint disorders (3 sources) Arthralgia of the lower leg; Translations: [Pain in unspecified joint] Onset: 06-29-2015 06-29-2015 Episodic Syncope (3 sources) Syncope and collapse; Translations: [Syncope and collapse] Onset: 12-23-2010 12-23-2010 Episodic Results Test Name Value Interpretation Reference Range Facil ity Vital Signs Date Time Vital Sign Value Performing Clinician Jass kaplan 06-29-2015 08:45-0400 Height 175.26 cm [facility] Work Phone: 06-29-2015 08:45-0400 Weight 92.99 kg [facility] Work Phone: Encounters Encounter Date Encounter Type Care Provider Facility Start: 02-04-2018 Ambulatory CHALINO Bal ty:A Start: 08-14-2017 End: 08-14-2017 Emergency department patient visit SILVIANO GONZALEZ Facility:[facility] Start: 07-25-2017 End: 07-29-2017 Ambulatory [facility] Procedures Date Procedure Procedure Detail Performing Clinician Start: 07-03-2017 End: 07-06-2017 Program eval implantable in persn dual ld pacer Elis Smith PA-C Work Phone: Start: 07-03-2017 End: 07-06-2017 Pm device progr eval, dual Elis Tpoete PA-C Work Phone: Start: 01-02-2017 End: 01-02-2017 Program eval implantable in persn dual ld pacer Desmond Gross MD Start: 01-02-2017 End: 01-02-2017 Pm device progr eval, dual Desmond Gross MD Start: 07-04-2016 End: 07-07-2016 Program eval implantable in persn dual ld pacer Desmond Gross MD Start: 07-04-2016 End: 07-07-2016 Pm device progr eval, dual Desmond Gross MD Start: 01-18-2016 End: 01-18-2016 Program eval implantable in persn dual ld pacer Ervin Leung MD Start: 01-18-2016 End: 01-18-2016 Pm device progr eval, dual Ervin law MD Start: 07-26-2015 End: 07-27-2015 Program eval implantable in persn dual ld pacer Ervin Leung MD Start: 07-26-2015 End: 07-27-2015 Pm device progr eval, dual Ervin law MD Start: 01-19-2015 End: 01-19-2015 Follow Up Appt 6 months Ervin Leung MD Start: 01-19-2015 End: 01-19-2015 [facility] Ervin Leung MD Start: 01-19-2015 End: 01-19-2015 Program eval implantable in persn dual ld pacer Ervin Leung MD Start: 01-19-2015 End: 01-19-2015 Follow Up Appt 6 months Ervin Leung MD Start: 01-19-2015 End: 01-19-2015 Pacer Clinic Ervin Leung MD Start: 01-19-2015 End: 01-19-2015 Pm device progr eval, dual Ervin law MD Start: 07-07-2014 End: 01-19-2015 Follow Up Appt 6 months Britton Eldridge Start: 07-07-2014 End: 01-19-2015 Pacer Clinic Desmond Gross MD Start: 07-07-2014 End: 07-07-2014 Program eval implantable in persn dual ld pacer Desmond Gross MD Start: 07-07-2014 End: 01-19-2015 Follow Up Appt 6 months Britton Eldridge Start: 07-07-2014 End: 01-19-2015 Pacer Clinic Desmond Gross MD Start: 07-07-2014 End: 07-07-2014 Pm device progr eval, dual Desmond Gross MD Start: 01-06-2014 End: 02-27-2014 Follow Up Appt 6 months Elis scherer PA-C Work Phone: Start: 01-06-2014 End: 02-27-2014 Pacer Clinic Elis Smith PA-C Work Phone: Start: 01-06-2014 End: 01-06-2014 Program eval implantable in persn dual ld pacer Elis Smith PA-C Work Phone: Start: 01-06-2014 End: 02-27-2014 Follow Up Appt 6 months Elis scherer PA-C Work Phone: Start: 01-06-2014 End: 02-27-2014 Pacer Clinic Elis Smith PA-C Work Phone: Start: 01-06-2014 End: 01-06-2014 Pm device progr eval, dual Elis Topete PA-C Work Phone: Start: 06-24-2013 End: 02-27-2014 Follow Up Appt 6 months Ervin Leung MD Start: 06-24-2013 End: 02-27-2014 Pacer Clinic Ervin Leung MD Start: 06-24-2013 End: 06-24-2013 Program eval implantable in persn dual ld pacer Ervin Leung MD Start: 06-24-2013 End: 02-27-2014 Follow Up Appt 6 months Ervin Leung MD Start: 06-24-2013 End: 02-27-2014 Pacer Clinic Ervin Leung MD Start: 06-24-2013 End: 06-24-2013 Pm device progr eval, dual Ervin law MD Start: 02-25-2013 End: 02-27-2014 Follow Up Appt 3 months Ervin Leung MD Start: 02-25-2013 End: 02-27-2014 Pacer Clinic Ervin Leung MD Start: 02-25-2013 End: 02-25-2013 Program eval implantable in persn dual ld pacer Ervin Leung MD Start: 02-25-2013 End: 02-27-2014 Follow Up Appt 3 months Ervin Leung MD Start: 02-25-2013 End: 02-27-2014 Pacer Clinic Ervin Leung MD Start: 02-25-2013 End: 02-25-2013 Pm device progr eval, dual Ervin law MD Plan of Treatment Date Care Activity Detail Author Start: 12-09-2017 End: 12-09-2017 Appointment Appointment [facility] Work Phone: Start: 07-03-2017 End: 07-06-2017 Follow Up Appt 6 months Follow Up Appt 6 months [facility] Work Phone: Start: 07-03-2017 End: 07-06-2017 [facility] Work Phone: Start: 07-03-2017 End: 07-06-2017 Follow Up Appt 6 months Follow Up Appt 6 months [facility] Work Phone: Start: 07-03-2017 End: 07-06-2017 [facility] Work Phone: Start: 01-02-2017 End: 01-02-2017 Follow Up Appt 6 months Follow Up Appt 6 months [facility] Work Phone: Start: 01-02-2017 End: 01-02-2017 [facility] Work Phone: Start: 01-02-2017 End: 01-02-2017 Follow Up Appt 6 months Follow Up Appt 6 months [facility] Work Phone: Start: 01-02-2017 End: 01-02-2017 [facility] Clinic [facility] Work Phone: Start: 07-04-2016 End: 07-07-2016 Follow Up Appt 6 months Follow Up Appt 6 months [facility] Work Phone: Start: 07-04-2016 End: 07-07-2016 [facility] Clinic [facility] Work Phone: Start: 07-04-2016 End: 07-07-2016 Follow Up Appt 6 months Follow Up Appt 6 months [facility] Work Phone: Start: 07-04-2016 End: 07-07-2016 [facility] Clinic [facility] Work Phone: Start: 01-18-2016 End: 01-18-2016 Follow Up Appt 6 months Follow Up Appt 6 months [facility] Work Phone: Start: 01-18-2016 End: 01-18-2016 [facility] Clinic [facility] Work Phone: Start: 01-18-2016 End: 01-18-2016 Follow Up Appt 6 months Follow Up Appt 6 months [facility] Work Phone: Start: 01-18-2016 End: 01-18-2016 [facility] Work Phone: Start: 07-26-2015 End: 07-27-2015 Follow Up Appt 6 months Follow Up Appt 6 months [facility] Work Phone: Start: 07-26-2015 End: 07-27-2015 [facility] Clinic [facility] Work Phone: Start: 07-26-2015 End: 07-27-2015 Follow Up Appt 6 months Follow Up Appt 6 months [facility] Work Phone: Start: 07-26-2015 End: 07-27-2015 [facility] Work Phone: Start: 06-29-2015 End: 06-29-2015 Radiologic exam knee complete 4/more views X-Ray, Knee [facility] Work Phone: Start: 06-29-2015 End: 06-29-2015 Radiologic examination tibia & fibula 2 views X-Ray, Tibia & Fibula [facility] Work Phone: Start: 06-29-2015 End: 06-29-2015 X-ray exam of lower leg X-Ray, Tibia & Fibula [facility] Work Phone: Start: 06-29-2015 End: 06-29-2015 X-ray exam, knee, 4 or more X-Ray, Knee [facility] Work Phone: Start: 01-19-2015 End: 01-19-2015 Follow Up Appt 6 months Follow Up Appt 6 months [facility] Work Phone: Start: 01-19-2015 End: 01-19-2015 Pac[facility] Clinic [facility] Work Phone: Start: 01-19-2015 End: 01-19-2015 Follow Up Appt 6 months Follow Up Appt 6 months [facility] Work Phone: Start: 01-19-2015 End: 01-19-2015 [facility] Clinic [facility] Work Phone: Start: 07-07-2014 End: 01-19-2015 Follow Up Appt 6 months Follow Up Appt 6 months [facility] Work Phone: Start: 07-07-2014 End: 01-19-2015 [facility] Work Phone: Start: 07-07-2014 End: 01-19-2015 Follow Up Appt 6 months Follow Up Appt 6 months [facility] Work Phone: Start: 07-07-2014 End: 01-19-2015 [facility] Work Phone: Start: 01-06-2014 End: 02-27-2014 Follow Up Appt 6 months Follow Up Appt 6 months [facility] Work Phone: Start: 01-06-2014 End: 02-27-2014 Pac[facility] Clinic [facility] Work Phone: Start: 01-06-2014 End: 02-27-2014 Follow Up Appt 6 months Follow Up Appt 6 months [facility] Work Phone: Start: 01-06-2014 End: 02-27-2014 [facility] Work Phone: Start: 06-24-2013 End: 02-27-2014 Follow Up Appt 6 months Follow Up Appt 6 months [facility] Work Phone: Start: 06-24-2013 End: 02-27-2014 Pacer [facility] Work Phone: Start: 06-24-2013 End: 02-27-2014 Follow Up Appt 6 months Follow Up Appt 6 months [facility] Work Phone: Start: 06-24-2013 End: 02-27-2014 [facility] Clinic [facility] Work Phone: Start: 02-25-2013 End: 02-27-2014 Follow Up Appt 3 months Follow Up Appt 3 months [facility] Work Phone: Start: 02-25-2013 End: 02-27-2014 Pacer [facility] Work Phone: Start: 02-25-2013 End: 02-27-2014 Follow Up Appt 3 months Follow Up Appt 3 months [facility] Work Phone: Start: 02-25-2013 End: 02-27-2014 [facility] Work Phone: Payers Date Payer Category Payer Unknown [id number] Unknown [id number] Summary Purpose Family History No Family History Records FoundNo Family History Records FoundNo Family History Records FoundNo Family History Records Found Advance Directives No Advanced Directives Records FoundNo Advanced Directives Records FoundNo Advanced Directives Records FoundNo Advanced Directives Records Found Additional Source Comments (unrecognized sect ion and content) No Status Records FoundNo Status Records FoundNo Status Records FoundNo Status Records Found INFORMATION SOURCE (unrecogn ized section and content) DATE CREATED AUTHOR AUTHOR'S ORGANIZ ATION 04/13/2018 [facility] DATE CREATED AUTHOR AUTHOR'S ORGANIZ ATION 04/13/2018 [facility] DATE CREATED AUTHOR AUTHOR'S ORGANIZ ATION 04/13/2018 [facility] FOR RECORDS PERTAINING TO PATIENTS WHO ARE OR HAVE BEEN ENROLLED IN A CHEMICAL DEPENDENCY/SUBSTANCEABUSE PROGRAM, SOME INFORMATION MAY BE OMITTED. This clinical summary was aggregated from multiple sources. Caution should be exercised in using it in the provision of clinical care. This summary normalizes information from multiple sources, and as a consequence, information in this document may materially change the coding, format and clinical context of patient data. In addition, data may be omitted in some cases. CLINICAL DECISIONS SHOULD BE BASED ON THE PRIMARY CLINICAL RECORDS. [facility] [employer]. provides no warranty or guarantee of the accuracy or completeness of information in this document.
--- NOTE | 2023-11-17 05:48 | PFTCOMP_ITS ---
COMPLETE PULMONARY FUNCTION TEST INTERPRETATION Brief HPI: Patient is a 78-year-old male, currently under the care of Heidi Russell, who presents to [facility] for complete pulmonary function tests secondary to diagnosis of dyspnea. Respiratory therapist reports good effort and reproducible results. Interpretation: Forced expiration spirometry shows no large airways obstructive ventilatory defect with an FEV1 of 85% predicted. There is no significant bronchodilator response by strict ATS criteria. Spirograms are of good quality and plateau slowly, indicating slowly emptying areas of the lungs. The respiratory flow volume loop shows decreased expiratory flow rates at high lung volumes consistent with small airways obstruction. Lung volumes by body plethysmography show a normal total lung capacity at 6.1 L, 88% predicted. All other lung volumes are within normal limits. Diffusion capacity by carbon monoxide is normal at 96% predicted. The airway resistance is slightly elevated. No previous pulmonary function tests were available for review. Impression: Grossly normal pulmonary function test with some stigmata of possible small airways disease
== END | disposition home or self-care (01) ==
LOC: PSN 09:07
PROVIDERS: PCP Family Medicine; Referring Provider Nurse Practitioner Gerontology; Visit Provider Nurse Practitioner Gerontology
DX: R06.09 Other forms of dyspnea (principal)
CPT/HCPCS: 94060; 94726; 94729

== ENCOUNTER → 2024-05-13 | Outpatient (CLI) | payer MEDICARE, OTHER, SELFPAY ==
[2024-05-13 11:56] LABS: PSA,Total- Diagnostic 0.11 ng/mL (0.0-4.0)
== END | disposition home or self-care (01) ==
LOC: LAB 10:29
PROVIDERS: PCP Family Medicine; Referring Provider Urology; Visit Provider Urology
DX: C61 Malignant neoplasm of prostate (principal)
CPT/HCPCS: 36415; 84153

== ENCOUNTER → 2024-05-24 | Outpatient (CLI) | payer MEDICARE, OTHER, SELFPAY ==
[2024-05-24 09:16] LABS: Absolute Lymphocyte Count 1.28 X10^3/uL (0.83-4.51); Absolute Neutrophil Count 6.5 X10^3/uL (2.0-7.7); Basophil# 0.06 X10^3/uL; Basophil% 0.7 % (0-1); Eosinophil# 0.32 X10^3/uL; Eosinophils% 3.6 % (0-5); Hemoglobin 14.7 g/dL (13.0-16.5); Lymphocyte # 1.28 X10^3/ul (0.83-4.51); Lymphocyte % 14.2 % (19-41); Mean Corp Hgb Conc 33.4 g/dL (32-36); Mean Corpuscular Hgb 30.8 pg (27.0-32.0); Mean Corpuscular Volume 92.1 fL (80-94); Mean Platelet Vol. 9.9 fl (6.2-12.0); Monocyte# 0.75 X10^3/uL; Monocyte% 8.3 % (0-10); NRBC Flagged by Analyzer 0 % (0-5); Neutrophil # 6.54 X10^3/uL (2.7-7.7); Neutrophil % 72.8 % (47-70); Platelet Count 252 K/mm3 (150-450); RBC Distribution Width SD 47.8 fl (35.1-43.9); Red Blood Count 4.78 M/mm3 (4.6-6.2)
[2024-05-24 09:51] LABS: AST(SGOT) 16 U/L (15-37); Alanine Aminotransfer ALT/SGPT 25 U/L (16-61); Albumin, Serum 3.5 g/dL (3.2-5.0); Alkaline Phosphatase 75 U/L (45-117); Anion Gap 7 (5-15); BUN 15 mg/dL (7-18); BUN/Creat Ratio 16.4 RATIO (10-20); Bilirubin, Direct 0.15 mg/dL (0.00-0.30); Calcium,Total 8.8 mg/dL (8.5-10.1); Chloride 104 mmol/L (98-107); Cholesterol 201 mg/dL (200); Creatinine, Serum 0.92 mg/dL (0.70-1.30); EST Glomerular Filtration Rate 85 mL/min (>60); Est Glom Filt Rate - Afr Amer 103 mL/min (>60); Globulin 3.5 g/dL (2.2-4.2); Glucose 104 mg/dL (74-106); High Density Lipoprotein 37 mg/dL; Sodium Level 136 mmol/L (136-145); Triglycerides 138 mg/dL; Uric Acid 8.2 mg/dL (3.5-7.2); Very Low Density Lipoprotein 28 mg/dL (5-40)
== END | disposition home or self-care (01) ==
LOC: LAB 08:16
PROVIDERS: Nurse Practitioner Gerontology; PCP Family Medicine; Referring Provider Family Medicine; Visit Provider Family Medicine
DX: I10 Essential (primary) hypertension (principal); E78.00 Pure hypercholesterolemia, unspecified; E79.0 Hyperuricemia without signs of inflammatory arthritis and tophaceous disease
CPT/HCPCS: 36415; 80053; 80061; 82248; 84550; 85025

== ENCOUNTER → 2025-03-28 | Outpatient (CLI) | payer MEDICARE, OTHER, SELFPAY ==
[2025-03-28 20:21] LABS: Absolute Lymphocyte Count 1.14 X10^3/uL (0.83-4.51); Absolute Neutrophil Count 7.3 X10^3/uL (2.0-7.7); Basophil# 0.04 X10^3/uL; Basophil% 0.4 % (0-1); Eosinophil# 0.29 X10^3/uL; Eosinophils% 3.1 % (0-5); Hematocrit 42.3 % (40-54); Hemoglobin 14.4 g/dL (13.0-16.5); Lymphocyte # 1.14 X10^3/ul (0.83-4.51); Lymphocyte % 12.1 % (19-41); Mean Corpuscular Hgb 31.3 pg (27.0-32.0); Mean Platelet Vol. 10.6 fl (6.2-12.0); Monocyte# 0.56 X10^3/uL; NRBC Flagged by Analyzer 0 % (0-5); Neutrophil # 7.33 X10^3/uL (2.7-7.7); Neutrophil % 78.1 % (47-70); Platelet Count 258 K/mm3 (150-450); RBC Distribution Width CV 14.1 % (11.6-14.6); RBC Distribution Width SD 47.8 fl (35.1-43.9); White Blood Count 9.4 K/mm3 (4.4-11.0)
[2025-03-28 20:32] LABS: ALB/GLOB Ratio 1.8 RATIO (0.9-2.4); AST(SGOT) 24 U/L (<=37); Alanine Aminotransfer ALT/SGPT 27 U/L (<=46); Albumin, Serum 4.4 g/dL (3.4-4.8); Alkaline Phosphatase 70 U/L (40-129); Anion Gap 13 (5-15); BUN 14 mg/dL (4-19); BUN/Creat Ratio 14.4 RATIO (10-20); Calcium,Total 9.4 mg/dL (7.6-11.0); Carbon Dioxide 25.5 mmol/L (21.0-32.0); Chloride 98 mmol/L (98-108); Cholesterol 221 mg/dL (<=200); Creatinine, Serum 0.94 mg/dL (0.70-1.20); EST Glomerular Filtration Rate 83 (>60); Globulin 2.5 g/dL (2.2-4.2); Glucose 104 mg/dL (70-99); High Density Lipoprotein 41 mg/dL; Low Density Lipoprotein Calc. 146 mg/dL; PSA,Total- Diagnostic 0.13 ng/mL (0.00-4.00); Protein, Total 6.9 g/dL (5.9-8.4); Sodium Level 136 mmol/L (133-145); Total Bilirubin 0.46 mg/dL (0.00-1.30); Triglycerides 172 mg/dL; Uric Acid 9.5 mg/dL (3.5-7.2); Very Low Density Lipoprotein 34 mg/dL (5-40)
== END | disposition home or self-care (01) ==
LOC: BFHLAB 16:02
PROVIDERS: PCP Family Medicine; Visit Provider Family Medicine
DX: I10 Essential (primary) hypertension (principal); E78.00 Pure hypercholesterolemia, unspecified; E79.0 Hyperuricemia without signs of inflammatory arthritis and tophaceous disease; Z85.46 Personal history of malignant neoplasm of prostate
CPT/HCPCS: 36415; 80053; 80061; 84153; 84550; 85025

== ENCOUNTER → 2025-04-10 | Outpatient (CLI) | payer MEDICARE, OTHER, SELFPAY ==
[2025-04-10 18:31] LABS: Anion Gap 14 (5-15); BUN 22 mg/dL (4-19); BUN/Creat Ratio 15.5 RATIO (10-20); Calcium,Total 9.3 mg/dL (7.6-11.0); Carbon Dioxide 21.5 mmol/L (21.0-32.0); Chloride 101 mmol/L (98-108); Creatinine, Serum 1.43 mg/dL (0.70-1.20); EST Glomerular Filtration Rate 50 (>60); Glucose 114 mg/dL (70-99); Potassium 4.3 mmol/L (3.3-5.1); Sodium Level 136 mmol/L (133-145)
== END | disposition home or self-care (01) ==
LOC: MTLAB 14:38
PROVIDERS: PCP Family Medicine; Referring Provider Family Medicine; Visit Provider Family Medicine
DX: E87.6 Hypokalemia (principal)
CPT/HCPCS: 36415; 80048

== ENCOUNTER → 2025-04-24 | Outpatient (CLI) | payer MEDICARE, OTHER, SELFPAY ==
[2025-04-24 16:00] LABS: Anion Gap 12 (5-15); BUN 17 mg/dL (4-19); BUN/Creat Ratio 18.1 RATIO (10-20); Calcium,Total 9.2 mg/dL (7.6-11.0); Carbon Dioxide 23.6 mmol/L (21.0-32.0); Chloride 97 mmol/L (98-108); Glucose 105 mg/dL (70-99); Magnesium 2.1 mg/dL (1.5-2.2); Potassium 4.2 mmol/L (3.3-5.1)
== END | disposition home or self-care (01) ==
LOC: BFHLAB 13:22
PROVIDERS: PCP Family Medicine; Visit Provider Family Medicine
DX: I10 Essential (primary) hypertension (principal); R25.2 Cramp and spasm
CPT/HCPCS: 36415; 80048; 83735

== ENCOUNTER 2025-05-11 17:18 | Observation (INO) | payer MEDICARE, OTHER, SELFPAY ==
[2025-05-11] VITALS (8 sets, daily range): BP systolic 155–186; BP diastolic 83–101; PULSE 78–90; RESP 18; TEMP 36.6–37; O2SAT 95–99; BMI 34.4; BMI 29.0
--- NOTE | 2025-05-11 17:21 | CT_ITS ---
PROCEDURE: STROKE BRAIN/HEAD WITHOUT CONT 05/11/2025 REASON FOR EXAM: NEURO DEFICIT, ACUTE, STROKE SUSPECTED TECHNIQUE: STROKE BRAIN/HEAD WITHOUT CONT Coronal and Sagittal reconstruction series were provided. One or more dose reduction techniques were used (e.g., Automated exposure control, adjustment of the mA and/or kV according to patient size, use of iterative reconstruction technique. RADIATION DOSE SUMMARY: CTDlvol: 44.99 mGy DLP: 897.35 mGycm COMPARISON: 02/19/2023. FINDINGS: Mild global parenchymal atrophy and chronic microvascular ischemia. No evidence of acute hemorrhage or infarction. No extra-axial blood or fluid collections. The paranasal sinuses are clear. The mastoid air cells are well aerated. The calvarial vault and skull base are intact. CT/STROKE Brain/Head without Cont IMPRESSION: No acute intracranial abnormality. Critical results were communicated to Dr. Andrews at 5:40 p.m.. Reading Location: [id number]
--- NOTE | 2025-05-11 17:21 | EKG12_ITS ---
Test Reason : Blood Pressure : */* mmHG Vent. Rate : 81 BPM Atrial Rate : 81 BPM P-R Int : 160 ms QRS Dur : 148 ms QT Int : 422 ms P-R-T Axes : 35 -75 62 degrees QTcB Int : 490 ms Normal sinus rhythm Right bundle branch block Left anterior fascicular block Bifascicular block Minimal voltage criteria for LVH, may be normal variant ( R in aVL ) Abnormal ECG Confirmed by ASAF PINEDA, PRASHANTH ([id number]), video effects editor FATIMAH BUSTOS ([id number]) on 05/15/2025 9:41:53 AM Referred By: SOFI Confirmed By: PRASHANTH RON MD
--- NOTE | 2025-05-11 17:22 | ED.VIS.STROK ---
HPI History of Present Illness Chief Complaint: Stroke Alert Detail of Chief Complaint: Patient was at restaurant about the pur?e and unable to speak Informant: patient and spouse/S.O. Onset/Context/Timing Onset: Today (1649) Context: Sudden Onset Timing: Continuous and - (Speech has improved since onset per , he has a new facial droop on the left) Quality and Location: Positive for Left Facial Droop and Expressive Aphasia Onset: 1649 Current Severity: Mild Maximum Severity: Moderate Worsened by: Presumed stroke Relieved by: Nothing Associated Symptoms Associated Symptoms: Negative for Headache, Nausea, Vomiting or Chest Pain Narrative Narrative: Patient is a 80-year-old male. He has history of stroke 2 years ago, GERD, pure hypercholesterolemia, essential hypertension, syncope and collapse and sick sinus syndrome. He does have a pacemaker. He was about to say a prayer before eating and he was unable to say anything according to . She brought him emergently to the emergency department. He is now speaking but speaks slowly. His speech is not slurred. He is having difficulty recognizing things. He does have a facial droop on the left. He denies headache, double vision or blurred vision. He has read his ears. He denies chest pain or shortness of breath. He denies nausea or vomiting. Denies problems with balance. Prior similar symptoms: Yes Recent Illness/Hospitalization: No [facility] Medical History (Updated 05/11/25 @ 18:[address] Emmett Andrews MD) Hypertension Spinal stenosis Gout Prostate CA GERD (gastroesophageal reflux disease) Pure hypercholesterolemia Essential hypertension Syncope and collapse Sick sinus syndrome Presence of cardiac pacemaker Home Medications ?Medication ?Instructions ?Recorded ?Last Taken ?Type aspirin 81 mg tablet,delayed 81 mg PO DAILYCM 30 days #30 tabs 02/20/23 05/11/25 Rx release clopidogrel 75 mg tablet 75 mg PO DAILY #30 tabs 02/20/23 05/11/25 Rx diclofenac sodium 75 mg 75 mg PO BID 03/07/24 05/09/25 History tablet,delayed release esomeprazole magnesium 40 mg 40 mg PO QDAY 02/02/25 Unknown History capsule,delayed release clonidine 0.3 mg/24 hr weekly 1 patch topical QWEEK 03/27/25 Unknown History transdermal patch amlodipine 10 mg tablet 10 mg PO DAILY 05/11/25 05/11/25 History atenolol 100 mg tablet 100 mg PO DAILY 05/11/25 05/11/25 History benazepril 20 mg tablet 20 mg PO DAILY 05/11/25 05/11/25 History hydrochlorothiazide 25 mg tablet 25 mg PO DAILY 05/11/25 Unknown History spironolactone 50 mg tablet 50 mg PO DAILY 05/11/25 05/11/25 History Allergy/AdvReac Type Severity Reaction Status Date / Time latex Allergy Rash Verified 05/11/25 17:22 atorvastatin (From Lipitor) AdvReac Unknown Myalgias Verified 05/11/25 17:22 PALMA Inhibitors AdvReac cough Verified 05/11/25 17:22 ezetimibe (From Zetia) AdvReac Myalgias Verified 05/11/25 17:22 Family History Mother Hypertension Surgical History History of colonoscopy (~07/2022) History of prostate surgery History of hernia repair (~1971) Social History Smoking Status: Never smoker how long ago did patient quit smokin + years ago alcohol intake: never substance use type: does not use caffeine: Yes Type: coffee Number of servings: 3 ROS ROS ED Constitutional Constitutional ED: Denies chills, fever(s) or subjective Eyes Eyes: Denies blurry vision, change in vision or diplopia ENT ENT ED: Denies ear pain or rhinorrhea Cardiovascular Cardiovascular: Denies chest pain or palpitations Respiratory/Chest Respiratory/Chest: Denies cough, dyspnea or dyspnea on exertion Gastrointestinal Gastrointestinal: Denies abdominal pain, nausea or vomiting Integumentary Denies rash Neurologic Neurologic: Denies headache(s), paresthesias or weakness Hematologic/Lymphatic Hematologic/Lymphatic: Denies easy bleeding or easy bruising EXAM Physical Exam Const Vital Signs: 05/11/25 17:20 05/11/25 17:23 05/11/25 17:23 Temperature 98.6 F 98.6 F Temperature Source Oral Oral Pulse Rate 78 78 78 Respiratory Rate 18 18 18 Blood Pressure 178/101 H 178/101 H 178/101 H Blood Pressure Mean 126 126 126 Pulse Ox 98 98 98 Oxygen Delivery Method Room Air Room Air Room Air 05/11/25 17:29 05/11/25 17:45 Temperature Temperature Source Pulse Rate 88 Respiratory Rate 18 Blood Pressure 177/83 H Blood Pressure Mean 114 Pulse Ox 97 Oxygen Delivery Method Room Air Room Air Positive well nourished and well developed General Appearance ED: well developed and NAD HEENT Reports moist mucous membranes atraumatic Nose: other Other Details: Normal Eyes PERRL and EOMs intact bilaterally Eyes Narrative: There is no nystagmus. There is no visual field cut. General Eye ED: Negative for pale conjunctiva or scleral icterus Neck no lymphadenopathy, supple and no JVD Resp normal respiratory effort and clear to auscultation bilaterally Cardio no murmurs Rate: regular rate Rhythm: regular rhythm Heart Sounds: S1 normal and S2 normal GI normal to inspection, nondistended, normoactive bowel sounds, soft to palpation and non-tender Extremity normal to inspection Neuro oriented x3, No CN's II-XII intact bilaterally and no sensory deficits noted Bladimir Coma Scale: document GCS findings Spontaneous Obeys Commands Oriented 15 Sensorium / Orientation: Negative for alert Speech: speech normal Sensory Exam: No sensory level loss detected Motor Exam: strength 5/5 throughout Psych mental status grossly normal Psych Narrative: Slow thought process and responses to questions. Skin no wounds MDM MDM MDM Narrative Medical decision making narrative: Patient with improving expressive aphasia and facial droop that is new from prior stroke 2 years ago. Since this started [address] of the head without contrast as well as CTA of the head and neck was obtained. Patient is on clonidine for his hypertension as well as labetalol. He is on no antithrombotic or anticoagulant. History & Record Review Additional record(s) reviewed:: Prior inpatient record (He was admitted for hypertensive urgency emergency and thought to have had a stroke February 2023. Discharge summary was by Dr. Becerra.) and Prior outpatient record (Outpatient visit for degenerative disc disease Dr. Hong and office visit Dr. Matias for hypertension. He was admitted February 2023.) Lab Data Lab results narrative: CBC is unremarkable. Basic metabolic panel's micro sodium of 123 chloride of 89 with a BUN/creatinine of 22 and 1.08 respectively. BUN/creatinine ratio is slightly greater than 20-1. Glucose is elevated 146 with a normal CO2 and anion gap. First troponin is elevated. Labs: Laboratory Results - last 24 hr 05/11/25 17:40 WBC 11.0 RBC 4.59 L Hgb 14.5 Hct 41.6 MCV 90.6 MCH 31.6 MCHC 34.9 RDW Std Deviation 42.2 RDW Coeff of Yaz 12.7 Plt Count 286 MPV 9.8 Immature Gran % (Auto) 0.300 Neut % (Auto) 72.6 H Lymph % (Auto) 17.3 L [place] % (Auto) 7.1 Eos % (Auto) 2.2 Baso % (Auto) 0.5 Absolute Neuts (auto) 8.0 H Absolute Lymphs (auto) 1.90 Nucleated RBC % 0 PT 14.4 INR 1.1 APTT 29.8 Sodium 123 L Potassium 4.2 Chloride 89 L Carbon Dioxide 22.4 Anion Gap 12 BUN 22 H Creatinine 1.08 Estim Creat Clear Calc 57.34 Est GFR (MDRD) Non-Af 70 BUN/Creatinine Ratio 20.2 H Glucose 146 H Calcium 9.0 Troponin T High Sens 29 H Radiography Diagnostic Testing: Clinical Impression(s) from Imaging Studies Brain CT 05/11/25 17:21 IMPRESSION: No acute intracranial abnormality. Critical results were communicated to Dr. Andrews at 5:40 p.m.. Reading Location: [id number] Received a call from radiologist at 1753. C-minus was negative. He is pleasantly agreed CTA of the head and neck. Management Discussion w/another healthcare provider: Hospitalist (Case discussed with Dr. Nadiya Pickens. Since patient has improved significantly and has minimal residual he will be a 23 observation PCU), Educational Therapy Teacher (Spoke with Dr. Drew's [facility] neurologist. No lytics. Would add aspirin full-strength at this time.) and Radiologist Treatment and Re-Evaluation Narrative: Patient's blood pressure is elevated. Will allow for permissive hypertension. Patient is noted to be on thiazide diuretic and probably the cause of his acute hyponatremia. Approximately 2 weeks ago his sodium was normal. Do not believe this is the cause of his symptoms. Discharge Plan Dx/Rx/DC Orders Clinical Impression: Expressive aphasia, Essential hypertension, Pure hypercholesterolemia, Facial droop due to acute cerebrovascular accident (CVA), Acute hyponatremia, Acute prerenal azotemia, Elevated troponin, Nondiabetic hyperglycemia Disposition Disposition: Acute Care Hospital [facility] NIHSS NIHSS 1a. Level of Consciousness: 1 - Not alert; Arousable by minor stimuli to obey, answer & respond 1b. LOC Questions: 0 - Answers BOTH questions correctly 1c. LOC Commands: 0 - Performs BOTH tasks correctly 2. Best Gaze: 0 - Normal 3. Visual: 0 - No visual loss 4. Facial Palsy: 1 - Minor paralysis (flattened nasolabial fold, asymmetry on smiling) 5a. Left Arm: 0 - No drift; arm holds 90 (or 45) degrees for full 10 seconds 5b. Right Arm: 0 - No drift; arm holds 90 (or 45) degrees for full 10 seconds 6a. Left Le - No drift; leg holds 30-degree position for full 5 seconds 6b. Right Le - No drift; leg holds 30-degree position for full 5 seconds 7. Limb Ataxia: 0 - Absent 8. Sensory: 0 - Normal; no sensory loss 9. Best Language: 1 - [id number] aphasia; 10. Dysarthria: 0 - Normal 11. Extinction and Inattention: 0 - No abnormality Total: 3 Stroke Questions Stroke Team Activated: Yes Reviewed Inclusion/Exclusion criteria: Yes
--- NOTE | 2025-05-11 17:28 | CT_ITS ---
PROCEDURE: CTA HEAD AND NECK W/ CONTRAST 05/11/2025 REASON FOR EXAM: EXPRESSIVE APHASIA, FACIAL DROOP ALTERED LEVEL OF TECHNIQUE: CTA HEAD AND NECK W/ CONTRAST Multiplanar Sagittal and Coronal images were obtained. 3D and MIP multiplanar post processing was performed. CONTRAST: Isovue 370 VOLUME: 95 mL One or more dose reduction techniques were used (e.g., Automated exposure control, adjustment of the mA and/or kV according to patient size, use of iterative reconstruction technique). RADIATION DOSE SUMMARY: DLP: 681.35 mGycm COMPARISON: CTA head neck 02/18/2023. FINDINGS: CTA HEAD: Patent intracranial arterial vasculature. No large vessel occlusion. There is focal moderate-advanced stenosis of the left CUSTOMER CARE SPECIALIST P1-P2 segment junction with preserved distal flow, and moderate short-segment stenosis of the right CUSTOMER CARE SPECIALIST P1-P2 segment junction, with preserved distal flow. Probable generalized arteriosclerotic disease with irregular vessel wall contours diffusely throughout the brain. These findings are unchanged from 02/18/2023. No aneurysm or vascular malformation. CTA NECK: Conventional aortic arch branching. Bilateral cervical carotid and codominant vertebral arteries are patent without any significant flow-limiting stenosis. No luminal irregularity to suggest aneurysm or dissection. Mild atheromatous plaque at the origins of the bilateral vertebral arteries and distal V4 segments, at the bilateral carotid artery bifurcations, and intracranial cavernous segments. NON-ANGIOGRAPHIC FINDINGS: Mildly enlarged heterogeneous thyroid gland. Mild multilevel degenerative changes of the cervical spine. Right upper lobe accessory azygos fissure. Left lung apex pulmonary cyst. CT/CTA Head AND Neck W/ Contrast IMPRESSION: 1. No intracranial or cervical large vessel arterial occlusion. 2. Unchanged chronic moderate-advanced focal stenosis of the left CUSTOMER CARE SPECIALIST P1-P2 seg ment junction, and moderate short-segment narrowing of the right CUSTOMER CARE SPECIALIST P1-P2 junction with preserved distal flow bilaterall y; unchanged from 02/18/2023. No significant stenosis elsewhere. 3. No significant stenosis of the cervical carotid or vertebral arteries. Reading Location: [id number]
[2025-05-11 17:53] LABS: Hematocrit 41.6 % (40-54); Hemoglobin 14.5 g/dL (13.0-16.5); Immature Granulocytes Count 0.030 X10^3/uL (0.0-0.0); Mean Corp Hgb Conc 34.9 g/dL (32-36); Mean Corpuscular Volume 90.6 fL (80-94); Mean Platelet Vol. 9.8 fl (6.2-12.0); NRBC Flagged by Analyzer 0 % (0-5); Platelet Count 286 K/mm3 (150-450); RBC Distribution Width CV 12.7 % (11.6-14.6); RBC Distribution Width SD 42.2 fl (35.1-43.9); Red Blood Count 4.59 M/mm3 (4.6-6.2); White Blood Count 11.0 K/mm3 (4.4-11.0)
[2025-05-11 18:11] LABS: Anion Gap 12 (5-15); BUN 22 mg/dL (4-19); BUN/Creat Ratio 20.2 RATIO (10-20); Calcium,Total 9.0 mg/dL (7.6-11.0); Carbon Dioxide 22.4 mmol/L (21.0-32.0); Chloride 89 mmol/L (98-108); Estimated Creatinine Clearance 57.34 ml/min (50-250); Glucose 146 mg/dL (70-99); Potassium 4.2 mmol/L (3.3-5.1); Troponin T High Sensitivity 29 ng/L (<=22)
[2025-05-11 18:30] LABS: Prothrombin Time (Protime)PT. 14.4 SECONDS (11.7-14.9)
[2025-05-11 18:31] LABS: Partial Thromboplast Time 29.8 Seconds (24.1-36.2)
--- NOTE | 2025-05-11 19:00 | PCM.HP.STD ---
HPI - General General Date of Admission: 05/11/25 Date of Service: 05/11/25 Chief Complaint: Expressive aphasia HPI Narrative EDITH REYNA, is a 80-year-old male with a history of GERD, CVA 2 years ago, hypertension, sick sinus syndrome with pacemaker who presented [facility] ED 05/11/2025 due to expressive aphasia and left-sided facial droop. Patient was out to eat and went to [facility] but was unable to get any words out so brought him emergently to the ED. In the ED he is beginning to speak slowly without slurred speech but was having difficulty recognizing things, also noted facial droop on the left. Patient was a stroke call. Teleneurology evaluated but patient speech back to normal, still with some left facial droop but not a TNK candidate. Admission and workup recommended. In the ED temp 98.6, heart rate 78 blood pressure 178/101, respiratory rate 18 pulse ox 98% on room air. CBC with white blood cell count of 11.0, hemoglobin 14.5. BMP did show sodium of 123 down from 133 on 04/24/2025. BUN of 22 and creatinine 1.08. Troponin of 29. CT head with no acute process. CTA head and neckUnchanged chronic moderate-advanced focal stenosis of the left APPLICATION PACKAGING CONSULTANT P1-P2 segment junction, and moderate short-segment narrowing of the right [employer] PACKAGING CONSULTANT P1-P2 junction with preserved distal flow bilaterally; unchanged from 02/18/2023. No significant stenosis elsewhere. Hospitalist contacted for admission for stroke rule out. Patient evaluated bedside with present. They report history as above with the sudden onset of expressive aphasia while eating with essentially resolution of symptoms now in the ED though does still have some residual lower facial droop. He denies any headache, has some chronic swelling lower extremities but this is unchanged. No changes in vision and no sensory changes or other areas of weakness. No changes in bowel or bladder. Notes that he has had multiple blood pressure medication changes recently and blood pressure has slowly been improving, most recent change was increase in spironolactone. Of note patient was supposed to have some kind of evaluation for back pain on Thursday so his Plavix was held, he did not take a dose today but did take his aspirin. [facility] Medical History (Updated 05/11/25 @ 18:[address] Emmett Andrews MD) Essential hypertension GERD (gastroesophageal reflux disease) Gout Hypertension Presence of cardiac pacemaker Prostate CA Pure hypercholesterolemia Sick sinus syndrome Spinal stenosis Syncope and collapse Home Medications ?Medication ?Instructions ?Recorded ?Last Taken ?Type aspirin 81 mg tablet,delayed 81 mg PO DAILYCM 30 days #30 tabs 02/20/23 05/11/25 Rx release clopidogrel 75 mg tablet 75 mg PO DAILY #30 tabs 02/20/23 05/11/25 Rx diclofenac sodium 75 mg 75 mg PO BID 03/07/24 05/09/25 History tablet,delayed release esomeprazole magnesium 40 mg 40 mg PO QDAY 02/02/25 Unknown History capsule,delayed release clonidine 0.3 mg/24 hr weekly 1 patch topical QWEEK 03/27/25 Unknown History transdermal patch amlodipine 10 mg tablet 10 mg PO DAILY 05/11/25 05/11/25 History atenolol 100 mg tablet 100 mg PO DAILY 05/11/25 05/11/25 History benazepril 20 mg tablet 20 mg PO DAILY 05/11/25 05/11/25 History hydrochlorothiazide 25 mg tablet 25 mg PO DAILY 05/11/25 Unknown History spironolactone 50 mg tablet 50 mg PO DAILY 05/11/25 05/11/25 History Allergy/AdvReac Type Severity Reaction Status Date / Time latex Allergy Rash Verified 05/11/25 17:22 atorvastatin (From Lipitor) AdvReac Unknown Myalgias Verified 05/11/25 17:22 PALMA Inhibitors AdvReac cough Verified 05/11/25 17:22 ezetimibe (From Zetia) AdvReac Myalgias Verified 05/11/25 17:22 Family History Mother Hypertension Surgical History History of colonoscopy (~07/2022) History of hernia repair (~1971) History of prostate surgery Social History Smoking Status: Never smoker how long ago did patient quit smokin + years ago alcohol intake: never substance use type: does not use caffeine: Yes Type: coffee Number of servings: 3 ROS ROS Narrative General: Denies fever/chills HENT: Denies headache,, denies sore throat EYES: Denies changes in vision Resp: Denies cough, denies shortness of breath Cardiac: Denies chest pain GI: Denies abdominal pain, denies changes in bowel, denies nausea/vomiting : Denies changes in urination, does urinate frequently Extremity: Some chronic lower extremity swelling MSK: Denies weakness Neuro: Denies any numbness/tingling, expressive aphasia it is virtually resolved Heme: Denies any bleeding or bruising Skin: Denies rashes Psychiatric: No complaints voiced Vital Signs Vital Signs Vital Signs: 05/11/25 17:20 05/11/25 17:23 05/11/25 17:23 Temperature 98.6 F 98.6 F Temperature Source Oral Oral Pulse Rate 78 78 78 Respiratory Rate 18 18 18 Blood Pressure 178/101 H 178/101 H 178/101 H Blood Pressure Mean 126 126 126 Pulse Ox 98 98 98 Oxygen Delivery Method Room Air Room Air Room Air 05/11/25 17:29 05/11/25 17:45 Temperature Temperature Source Pulse Rate 88 Respiratory Rate 18 Blood Pressure 177/83 H Blood Pressure Mean 114 Pulse Ox 97 Oxygen Delivery Method Room Air Room Air Weight Weight: 91 kg Body Mass Index (BMI) 34.4 Physical Exam Narrative General: Alert, oriented, no apparent distress HEENT: Atraumatic, normocephalic Eyes: Anicteric, normal conjunctiva, extraocular movements intact, pupils equal Neck: Supple Respiratory: Clear to auscultation bilaterally, normal respiratory effort Cardiovascular: Regular rate and rhythm GI: Soft, nontender, nondistended Extremities: 1+ bilateral lower extremity edema Musculoskeletal: Strength 5 out of 5 in right upper extremity, 5 out of 5 left upper extremity, 5 out of 5 right lower extremity, 5 out of 5 left lower extremity Neuro: Very slight asymmetry of smile but otherwise cranial nerves II through XII intact, [id number] without significant difficulty with left hand, minimal difficulty with right Skin: No rashes appreciated Psych: Cooperative Results Lab / Micro Data 05/11/25 17:40 05/11/25 17:40 Labs: Laboratory Results - last 24 hr 05/11/25 17:40: WBC 11.0, RBC 4.59 L, Hgb 14.5, Hct 41.6, MCV 90.6, MCH 31.6, MCHC 34.9, RDW Std Deviation 42.2, RDW Coeff of Yaz 12.7, Plt Count 286, MPV 9.8, Immature Gran % (Auto) 0.300, Neut % (Auto) 72.6 H, Lymph % (Auto) 17.3 L, [place] % (Auto) 7.1, Eos % (Auto) 2.2, Baso % (Auto) 0.5, Absolute Neuts (auto) 8.0 H, Absolute Lymphs (auto) 1.90, Nucleated RBC % 0, PT 14.4, INR 1.1, APTT 29.8, Sodium 123 L, Potassium 4.2, Chloride 89 L, Carbon Dioxide 22.4, Anion Gap 12, BUN 22 H, Creatinine 1.08, Estim Creat Clear Calc 57.34, Est GFR (MDRD) Non-Af 70, BUN/Creatinine Ratio 20.2 H, Glucose 146 H, Calcium 9.0, Troponin T High Sens 29 H Imaging Radiology Impression Brain CT 05/11/25 17:21 IMPRESSION: No acute intracranial abnormality. Critical results were communicated to Dr. Andrews at 5:40 p.m.. Reading Location: [facility] Head/Neck CTA 05/11/25 17:28 IMPRESSION: 1. No intracranial or cervical large vessel arterial occlusion. 2. Unchanged chronic moderate-advanced focal stenosis of the left AP[employer] PACKAGING CONSULTANT P1-P2 segment junction, and moderate short-segment narrowing of the right APPLICATION PACKAGING CONSULTANT P1-P2 junction with preserved distal flow bilaterally; unchanged from 02/18/2023. No significant stenosis elsewhere. 3. No significant stenosis of the cervical carotid or vertebral arteries. Reading Location: [facility] Assessment & Plan Assessment/Plan (1) Expressive aphasia: (2) Acute hyponatremia: PLAN: Plan # Expressive aphasia and flattened nasolabial fold with asymmetry of smile -Symptoms almost completely resolved aside from some mild nasolabial fold flattening and asymmetry of smile, speech back to normal per -Admit to tele -CT head w/ chronic changes in ED -CTA head and neck: Unchanged chronic moderate-advanced focal stenosis of the left APPLICATION PACKAGING CONSULTANT P1-P2 segment junction, and moderate short-segment narrowing of the right APPLICATION PACKAGING CONSULTANT P1-P2 junction with preserved distal flow bilaterally; unchanged from 02/18/2023. No significant stenosis elsewhere -MRI unable to be obtained due to patient's pacemaker, will plan on repeat CT tomorrow -NIH q4hr -asa, continue home Plavix, patient not on a statin due to myalgias, may need to consider retrialing a lower dose statin -Of note patient had not taken his Plavix earlier today as he was supposed to hold it for some kind of back pain evaluation early next week -Echo -PT/OT/Speech eval -Teleneuro consult placed -Hold BP medications to allow for permissive hypertension for 24 hours unless SBP greater than 220 or DBP greater than 120 or until stroke is ruled out # Hyponatremia - Normal sodium on 04/24 of this month, now down to 123 - Hold hydrochlorothiazide - Will check urine and serum studies - Check TSH -Trend bmp q4hr - Spironolactone can also cause hyponatremia and this is being held as above to allow for permissive hypertension -Do suspect this is most likely medication related #Elevated trop - Troponin of 29 the patient denies any kind of chest pain, shortness of breath, nausea or other cardiac symptoms -EKG with heart rate of 81, right bundle branch block and left anterior fascicular block noted, has an EKG from 02/18/2023 which also notes right bundle branch block and left anterior fascicular block - Do not suspect ACS - Patient will be monitored on telemetry and echo as above for CVA workup #Hx prostate cancer -Hx of prostatectomy -Urinates frequently but this is unchanged from previous #Hypertension - Hold antihypertensives as above #GERD -Continue PPI # History of sick sinus syndrome status post pacemaker - Noted #DVT ppx: SCDs Nadiya Pickens MD Charges/Coding Visit Charges Inpatient E&M: 78393 Init Hosp L2
--- NOTE | 2025-05-11 19:07 | RAD_ITS ---
PROCEDURE: CHEST 1 VIEW 05/11/2025 REASON FOR EXAM: NEURO DEFICIT, ACUTE, STROKE SUSPECTED TECHNIQUE: Frontal view of the chest. COMPARISON: Chest radiograph 02/18/2023 FINDINGS: Hardware: Left chest pacemaker device with 2 leads in unchanged position Heart: Cardiac and mediastinal contours are enlarged, unchanged. Lungs: No focal consolidation or significant pleural effusion Bones: Degenerative changes are identified within the shoulders and thoracic spine. RAD/Chest 1 View IMPRESSION: No acute cardiopulmonary abnormality. Reading Location: [id number]
--- NOTE | 2025-05-11 19:44 | CM.ED ---
Social work Reason for referral: stroke alert SW responded to the stroke alert called for patient. Patient had already left for imaging, but SW led patient's , Nicole, to patient's room and remained present for SW support. Nicole stated all of what had occurred leading patient up to this point and SW used active listening and empathic support as needed. Patient returned from imaging and Nicole stated no further needs at this time. Susy Bedoya, CNC WOOD LATHE OPERATOR, LAND EXAMINER
--- NOTE | 2025-05-11 19:47 | CASEMGMT ---
Care Management Face to Face with patient for initial transition planning/care coordination assessment in the ED. This sports book writer introduced self and role at [facility]. Patient alert and oriented. Patient willing to participate in assessment and is able to answer all questions appropriately. Patient's , Nicole, in room; permission given to speak in front of Nicole. Care providers, pharmacy, and demographics verified. Admitting Diagnosis: Expressive aphasia, Acute hyponatremia Other diagnosis history: GERD, CVA 2 years ago, hypertension PCP: Baldo Specialists: Dimitri Gross Preferred Pharmacy: [facility] Insurance: Medicare A B (primary). [facility] (secondary). Prescription Benefit: yes Living Will/HPOA: none, denied needing information LNOK: , Nicole. Son, Qamar. Living Arrangements: lives with in a ranch style home with 1 step to enter. 12 steps downstairs to the basement for laundry. Independent with all ADLs/IADLs. Transportation: patient drives DME: none HHC: none SNF/Rehab: none Community Resources: none Patient goals: Patient wishes to discharge home, denies need for home health care at this time. Patient denies any further needs or concerns at this time. Disposition Plan: admission to acute; RN CM/SW to follow for discharge planning needs that may arise. Susy Bedoya, FUSE MAKER, NATURAL RESOURCES EXTENSION EDUCATOR
[2025-05-11 20:13] LABS: Troponin T High Sens 2 HR 28 ng/L (<=22)
--- NOTE | 2025-05-11 20:15 | ECHOD_ITS ---
Reason For Study Reason For Study: TIA/Stroke Procedure This was a 2D Doppler, Color Flow transthoracic echocardiogram. Exam performed portable in patient room. Left Ventricle Normal LV size. Left ventricular systolic function is normal. The left ventricular ejection fraction is 65 %. Stage 1 diastolic dysfunction. No regional wall motion abnormalities noted. Right Ventricle Normal RV size. Normal systolic function. Atria Normal left atrium. Normal right atrium. Mitral Valve Normal mitral valve. Tricuspid Valve Normal tricuspid valve. Aortic Valve Trisinus/trileaflet aortic valve. Pulmonic Valve Normal pulmonic valve. Great Vessels Normal aortic root. The pulmonary artery is normal size. Normal inferior vena cava. Pericardium/Pleural No pericardial effusion. MMode/2D Measurements & Calculations LVIDd: 5.3 cm IVSd: 1.5 cm Ao root diam: 3.3 cm LVIDs: 3.1 cm LVPWd: 0.94 cm RVDd: 3.1 cm FS: 40.4 % LAV(MOD-bp): 40.7 ml LVAd ap4: 22.6 cm2 SV(MOD-sp4): 34.6 ml LAV(MOD-bp) Indexed: 20.9 ml/m2 LVLd ap4: 7.3 cm SI(MOD-sp4): 17.8 ml/m2 LAV(MOD-sp2): 35.4 ml EDV(MOD-sp4): 58.9 ml LAV(MOD-sp4): 46.7 ml EDV(sp4-el): 59.9 ml LVAs ap4: 12.9 cm2 LVLs ap4: 6.2 cm ESV(MOD-sp4): 24.3 ml ESV(sp4-el): 22.4 ml EF(MOD-sp4): 58.8 % EF(sp4-el): 62.5 % SV(sp4-el): 37.4 ml LA A4 area: 18.0 cm2 LA dimension(2D): 5.3 cm RA A4 area: 9.6 cm2 TAPSE: 2.5 cm Time Measurements MV dec time: 0.31 sec Doppler Measurements & Calculations MV E max russ: 46.2 cm/sec Lat Peak E' Russ: 6.4 cm/sec Med Peak E' Russ: 4.3 cm/sec MV A max russ: 86.4 cm/sec E/E' lat: 7.2 E/E' med: 10.7 MV E/A: 0.54 Ao V2 max: 177.2 cm/sec LV V1 max: 98.6 cm/sec MV dec slope: 151.1 cm/sec2 Ao max P.6 mmHg LV V1 max P.9 mmHg Ao V2 mean: 134.1 cm/sec LV V1 mean P.0 mmHg Ao mean P.7 mmHg LV V1 mean: 67.4 cm/sec Ao V2 VTI: 31.0 cm LV V1 VTI: 20.3 cm AV (velocity ratio): 0.65 PA V2 max: 102.8 cm/sec ECHO/Echo Complete Interpretation Summary Normal LV size. Left ventricular systolic function is normal. The left ventricular ejection fraction is 65 %. Stage 1 diastolic dysfunction. Ordering Physician: Nadiya Pickens Referring Physician: Omar Bland Performed By: Amber Beauchamp, FATOUMATA, RVT
[2025-05-11] MEDS: Arthritis Pain Compound 60 CLICK TUBE TOPICAL (22:13)
[2025-05-11 22:17] LABS: Troponin T High Sens 4 HR 26 ng/L (<=22)
[2025-05-11 22:20] LABS: Anion Gap 13 (5-15); BUN 19 mg/dL (4-19); BUN/Creat Ratio 19.4 RATIO (10-20); Calcium,Total 9.9 mg/dL (7.6-11.0); Carbon Dioxide 23.9 mmol/L (21.0-32.0); Chloride 91 mmol/L (98-108); Estimated Creatinine Clearance 67.32 ml/min (50-250); Glucose 116 mg/dL (70-99); Potassium 4.5 mmol/L (3.3-5.1)
[2025-05-11 22:22] LABS: Osmolality, Serum 279 mOsm/KG (280-301)
[2025-05-11 22:56] LABS: Creatinine, Urine (random) 10.90 mg/dL (39.00-259.00); Urea Nitrogen, Urine 116 mg/dL (NO RANGE EST.)
--- OUTSIDE RECORDS SUMMARY | 2025-05-11 23:14 | XMS RPT_ITS | CCD ---
Author Organization [facility] Care Team Providers Care Hydrometeorology Teacher Name Role Phone Summer RN, Ana Cristina Jarquin Unavailable Unavailable MARGO Wheeler, Ana Cristina Jarquin Unavailable Unavailable MARGO Wheeler, Ana Cristina Jarquin Unavailable Unavailable CHALINO STEELE Unavailable Unavailable LUIS JOHNSON Unavailable Unavailable SILVIANO GONZALEZ Unavailable Unavailable SILVIANO GONZALEZ Unavailable Unavailable Dr. Luis Johnson Primary Care Provider Elis Reid Attending Provider Unavailable Dr. Luis Johnson Referring Provider Lian Wheeler Attending Provider Unavailable Dr. Ervin Leung Attending Provider Roof HEAD HOST/HOSTESS, HEAD HOST/HOSTESS-Adrian Puckett Attending Provider Dr. Luis Johnson Primary Care Provider Dr. Luis Johnson Referring Provider Dr. Luis Johnson Primary Care Provider Dr. Luis Johnson Referring Provider Roof HEAD HOST/HOSTESS, MARY-Adrian Puckett Attending Provider Dr. Ervin Leung Attending Provider Dr. Luis Johnson Primary Care Provider Dr. Luis Johnson Referring Provider Roof HEAD HOST/HOSTESS, MARY-Adrian Puckett Attending Provider Dr. Ervin Lueng Attending Provider Dr. Omar Huggins Primary Care Provider Dr. Bruno Petty Attending Provider Dr. Reynold Rhodes Emergency Provider Dr. Refugio Hung Admit Provider Unavailable Dr. Refugio Hung Attending Provider Unavailable Dr. Refugio Hung Other Provider Unavailable Dr. Luis Johnson Referring Provider Roof HEAD HOST/HOSTESS, HEAD HOST/HOSTESS-C Ba Puckett Attending Provider Dr. Omar Huggins Primary Care Provider [phone] Dr. Omar Huggins Referring Provider Dr. Desmond Gross Attending Provider [phone] Drew HEAD HOST/HOSTESS, HEAD HOST/HOSTESS-C Heidi Attending Provider Drew HEAD HOST/HOSTESS, HEAD HOST/HOSTESS-C Heidi Referring Provider Drew HEAD HOST/HOSTESS, HEAD HOST/HOSTESS-C Heidi Other Provider [phone] Dr. Omar Huggins Primary Care Provider [phone] Dr. Omar Huggins Referring Provider Dr. Desmond Gross Attending Provider [phone] Shawn Shirley Attending Provider ARMANI PINEDA, LUIS Primary Care Physician [phone] MILADIS PINEDA, DR CINTHIA Jesus Attending Unavail able LUIS JOHNSON MD Primary Care Unavailable DR CHALINO STEELE DO Attending Unavailab LUIS Salmon MD Primary Care Unavailable Dr. Omar Huggins DO Primary Care Provider Dr. Omar Huggins DO Referring Provider [phone] Dr. Desmond Gross MD Attending Provider Emily Galvan Attending Provider Dr. Omar Huggins DO Attending Provider Omar Huggins Referring Unavailable Bhavna, Omar Primary Care Unavailable Desmond Gross Attending Unavailable Bhavna, Omar Primary Care Unavailable Bhavna, Omar Referring Unavailable Bhavna, Omar Attending Unavailable Bhavna, Omar Primary Care Unavailable Bhavna, Omar Attending Unavailable Bhavna, Omar Referring Unavailable Bhavna, Omar Primary Care Unavailable Drew HERNANDEZ, Heidi Attending Unavailable Bhavna, Omar Primary Care Unavailable Bhavna, Omar Attending Unavailable Bhavna, Omar Referring Unavailable Bhavna, Omar Attending Unavailable Drew HEAD HOST/HOSTESS, Heidi Consulting Unavailable Bhavna, Omar Primary Care Unavailable Dimitri, Adam Waller Referring Unavailable DimitriAdam Attending Unavailable Bhavna, Omar Primary Care Unavailable Bhavna, Omar Primary Care Unavailable Gokul, Emily Referring Unavailable Gokul, Emily Attending Unavailable Bhavna, Omar Primary Care Unavailable Renato, Winlock Attending Unavailable Bhavna, Omar Primary Care Unavailable Bhavna, Omar Referring Unavailable Gokul, Emily Attending Unavailable Bhavna, Omar Primary Care Unavailable Bhavna, Omar Referring Unavailable Renato, Desmond Attending Unavailable Bhavna, Omar Primary Care Unavailable Renato, Winlock Attending Unavailable Darryl PINEDA, Dr. Christine Emergency Provider Celio PINEDA, Dr. Hearn Admit Provider Celio PINEDA, Dr. Hearn Attending Provider [phone] Celio PINEDA, Dr. Hearn Other Provider Allergies Allergy Classification Reported Allergen(s) Allergy Type Date of Onset Reaction(s) Facility (3 sources) sulfamethoxazole / trimethoprim drug allergy 12-24-[address] [facility] [employer] Work Phone: (3 sources) BAND-AIDS drug allergy 12-24-[address] [facility] [employer] Work Phone: (16 sources) atorvastatin Drug Allergy 12-13-19 22 Myalgias [facility] (16 sources) Latex Allergy to substance 12-13-19 22 Rash [facility] (6 sources) Angiotensin Converting Enzyme (Palma) Inhibitors Propensity to adverse reactions 03-27-20 25 cough [facility] (6 sources) ezetimibe Drug Allergy 03-27-20 25 Myalgias [facility] (1 source) Angiotensin Converting Enzyme (Palma) Inhibitors Drug allergy (disorder) 03-27-20 25 [facility] (1 source) atorvastatin Drug Allergy 03-27-20 25 [facility] (1 source) ezetimibe Drug Allergy 03-27-20 25 [facility] (1 source) Latex Drug allergy (disorder) 03-27-20 25 [facility] Medications Current Medications Medication Drug Class(es) Dates Sig (Normalized) Sig (Original) amLODIPine 10 mg oral tablet (13 sources) Dihydropyridine Calcium Channel Rich Start: 05-11-2025 take 1 tablet by mouth once daily Amlodipine 10 mg tablet Active 10 mg PO DAILY May 11, 2025 12:00am Start: 03-07-2024 End: 03-27-2025 take 1 tablet by mouth once daily Amlodipine 10 mg tablet Discontinued 10 mg PO daily 90 3 March 03, 2025 8:21am March 27, 2025 9:37am aspirin 81 mg delayed release oral tablet (20 sources) Nonsteroidal Anti-inflammatory Drug Start: 04-19-2017 End: 08-05-2023 take 1 tablet by mouth once daily at mealtime Aspirin 81 mg Tablet,Delayed Release (Dr/Ec) Active 81 mg PO DAILY WITH MEALS 30 30 0 February 20, 2023 12:00am Start: 07-23-2007 take 1 tablet by elizabeth th once daily ASPIRIN 81 MG TABS One tablet by mouth daily ASPIRIN [id number] Paz Godinez Start: 07-23-2007 take 1 tablet by elizabeth th once daily ASPIRIN 81 MG TABS One tablet by mouth daily ASPIRIN [id number] Paz Godinez atenolol 100 mg oral tablet (20 sources) beta-Adrenergic Rich Start: 05-11-2025 take 1 tablet by mouth once daily Atenolol 100 mg tablet Active 100 mg PO DAILY May 11, 2025 12:00am Start: 02-02-2025 End: 02-02-2025 take 1 tablet by mouth once daily Atenolol 100 mg tablet Discontinued 100 mg PO daily February 02, 2025 12:00am February 02, 2025 2:21pm Start: 11-24-2005 End: 09-01-2022 take 1 tablet by mouth once daily Atenolol 100 MG tablet Discontinued 100 mg PO DAILY April 19, 2017 12:00am September 01, 2022 4:16pm benazepril hydrochloride 20 mg oral tablet (1 source) Angiotensin Converting Enzyme Inhibitor Start: 05-11-2025 take 1 tablet by mouth once daily Benazepril 20 mg tablet Active 20 mg PO DAILY May 11, 2025 12:00am Clonidine 0.3 mg/24 hr patch weekly (6 sources) Start: 03-27-2025 Clonidine 0.3 mg/24 hr patch weekly Active 1 NMA TOPICAL EVERY WEEK March 27, 2025 12:00am clopidogrel 75 mg oral tablet (11 sources) [id number] Platelet Inhibitor Start: 02-20-2023 take 1 tablet by mouth once daily Clopidogrel 75 mg Tablet Active 75 mg PO DAILY 30 0 February 20, 2023 12:00am diclofenac sodium 75 mg delayed release oral tablet (20 sources) Nonsteroidal Anti-inflammatory Drug Start: 03-07-2024 take 1 tablet by mouth twice daily Diclofenac Sodium 75 mg tablet,delayed release (DR/EC) Active 75 mg PO TWICE A DAY March 07, 2024 12:00am Start: 02-18-2023 End: 08-05-2023 take 1 tablet by mouth twice daily Diclofenac Sodium 75 mg tablet,delayed release (DR/EC) Discontinued 75 mg PO TWICE A DAY February 18, 2023 12:00am August 05, 2023 1:21pm bone health Start: 04-19-2017 End: 09-01-2022 take 1 tablet by mouth twice daily Diclofenac Sodium 75 MG tablet Discontinued 75 mg PO TWICE A DAY April 19, 2017 12:00am September 01, 2022 3:48pm Esomeprazole Magnesium 40 mg capsule,delayed release(DR/EC) (6 sources) Start: 02-02-2025 take 1 capsule by mouth once daily Esomeprazole Magnesium 40 mg capsule,delayed release(DR/EC) Active 40 mg PO daily February 02, 2025 12:00am hydroCHLOROthiazide 25 mg oral tablet (1 source) Thiazide Diuretic Start: 05-11-2025 take 1 tablet by mouth once daily Hydrochlorothiazide 25 mg tablet Active 25 mg PO DAILY May 11, 2025 12:00am meloxicam 15 mg oral tablet (5 sources) Nonsteroidal Anti-inflammator y Drug Start: 09-01-2022 take 15 mg by mouth once daily Meloxicam Active 15 MG PO DAILY September 01, 2022 12:00am Start: 06-29-2015 End: 07-29-2015 MELOXICAM 7.5 MG TABS take o ne daily with food, stop taking all other antiinflammatories MELOXICAM [id number] Karon James spironolactone 50 mg oral tablet (20 sources) Aldosterone Antagonist Start: 05-11-2025 take 1 tablet by mouth once daily Spironolactone 50 mg tablet Active 50 mg PO DAILY May 11, 2025 12:00am Start: 02-02-2025 End: 02-02-2025 Spironolactone 50 mg tablet Discontinued 25 mg PO DAILY February 02, 2025 1:56pm February 02, 2025 2:21pm diuretic Start: 06-09-2024 End: 02-02-2025 take 1 tablet by mouth once daily Spironolactone 50 mg tablet Discontinued 50 mg PO DAILY June 09, 2024 1:35pm February 02, 2025 1:57pm diuretic Start: 03-07-2024 End: 03-07-2024 take 1 tablet by mouth once daily Spironolactone 50 mg tablet Discontinued 50 mg PO DAILY March 07, 2024 1:18pm March 07, 2024 1:31pm diuretic Start: 08-05-2023 End: 06-09-2024 Spironolactone 50 mg tablet Discontinued 25 mg PO DAILY March 07, 2024 1:31pm June 09, 2024 1:35pm diuretic Start: 08-05-2023 End: 08-05-2023 take 25 mg by mouth once daily Spironolactone Active 2 5 MG PO DAILY August 05, 2023 12:52pm Start: 04-27-2023 End: 08-05-2023 take 1 tablet by mouth once daily Spironolactone 50 mg tablet Discontinued 50 mg PO DAILY May 23, 2023 9:29pm August 05, 2023 1:38pm diuretic Start: 08-05-2006 End: 04-27-2023 take 1 tablet by mouth once daily Spironolactone 25 MG tablet Discontinued 25 mg PO DAILY April 19, 2017 12:00am April 27, 2023 3:11pm diuretic Completed/Discontinued Medications Medication Drug Class(es) Dates Sig (Normalized) Sig (Original) allopurinol 300 mg oral tablet (16 sources) Xanthine Oxidase Inhibitor Start: 12-03-2021 End: 12-13-2021 take 1 tablet by mouth once daily Allopurinol 300 mg tablet Discontinued 300 mg PO DAILY December 03, 2021 1:00am December 13, 2021 3:13pm amLODIPine 5 mg / benazepril hydrochloride 20 mg oral capsule (20 sources) Dihydropyridine Calcium Channel Rich, Angiotensin Converting Enzyme Inhibitor Start: 02-24-2022 End: 03-07-2024 Amlodipine-Benaze pril (Lotrel) 10-40 mg capsule Discontinued 1 NMA PO DAILY 30 0 February 24, 2022 12:00am March 07, 2024 1:38pm Start: 11-24-2005 End: 02-24-2022 Amlodipine-Benazepril (Lotre l) 5-20 mg capsule Discontinued 1 NMA PO TWICE A DAY February 24, 2022 2:37pm February 24, 2022 3:14pm Start: 11-24-2005 take 1 tablet by elizabeth th twice daily LOTREL 5-20 MG CAPS One tablet by mouth twice daily AMLODIPINE BESY-BENAZEPRIL HCL [id number] Paz Godinez atorvastatin 40 mg oral tablet (11 sources) HMG-CoA Reductase Inhibitor Start: 02-20-2023 End: 11-04-2023 take 1 tablet by mouth at bedtime Atorvastatin 40 mg Tablet Discontinued 40 mg PO AT BEDTIME 30 February 20, 2023 12:00am November 04, 2023 2:46pm carvedilol 25 mg oral tablet (20 sources) alpha-Adrenergic Rich, beta-Adrenergic Rich Start: 01-15-2024 End: 02-02-2025 take 1 tablet by mouth twice daily at mealtime Carvedilol 25 mg tablet Discontinued 25 mg PO TWICE A DAY 180 January 15, 2024 12:01pm February 02, 2025 1:57pm must administer with a meal/food Start: 08-05-2023 End: 01-15-2024 take 2 tablets by mouth twice daily at mealtime Carvedilol (Coreg) 12.5 mg tablet Discontinued 25 mg PO TWICE A DAY 180 August 05, 2023 2:00pm January 15, 2024 12:01pm must administer with a meal/food Start: 09-01-2022 End: 08-05-2023 take 1 tablet by mouth twice daily at mealtime Carvedilol (Coreg) 12.5 mg tablet Discontinued 12.5 mg PO TWICE A DAY 180 September 29, 2022 11:16am August 05, 2023 2:02pm must administer with a meal/food 168 hr cloNIDine 0.11312 mg/hr transdermal system (20 sources) Central alpha-2 Adrenergic Agonist Start: 04-19-2017 End: 03-27-2025 Clonidine 0.2 mg/24 hr patch weekly Discontinued 0.2 mg TD EVERY WEEK September 01, 2022 3:47pm March 27, 2025 9:38am blood pressure Mondays Start: 08-05-2006 CLONIDINE HCL 0.2 MG TABS Apply 1 patch every 7 days CLONIDINE HCL [id number] Paz Godinez esomeprazole 40 mg delayed release oral capsule (19 sources) Proton Pump Inhibitor Start: 08-07-2010 End: 09-01-2022 take 1 capsule by mouth once daily Esomeprazole Magnesium (Nexium) 40 MG capsule Discontinued 40 mg PO DAILY April 19, 2017 12:00am September 01, 2022 3:47pm Start: 08-07-2010 take 1 tablet by elizabeth th once daily NEXIUM 40 MG CPDR One tablet by mouth daily ESOMEPRAZOLE MAGNESIUM [id number] Paz Godinez ezetimibe 10 mg oral tablet (7 sources) Dietary Cholesterol Absorption Inhibitor Start: 11-04-2023 End: 03-07-2024 take 1 tablet by mouth once daily Ezetimibe (Zetia) 10 mg tablet Discontinued 10 mg PO DAILY 30 November 04, 2023 1:00am March 07, 2024 1:20pm famotidine 20 mg oral tablet (11 sources) Histamine-2 Receptor Antagonist Start: 02-20-2023 End: 04-27-2023 take 1 tablet by mouth twice daily Famotidine 20 mg Tablet Discontinued 20 mg PO TWICE A DAY 60 30 0 February 20, 2023 12:00am April 27, 2023 2:21pm hydrALAZINE hydrochloride 25 mg oral tablet (20 sources) Arteriolar Vasodilator Start: 04-06-2024 End: 04-25-2024 take 1 tablet by mouth twice daily Hydralazine 25 mg tablet Discontinued 25 mg PO TWICE A DAY 60 April 06, 2024 12:00am April 25, 2024 10:25am Start: 03-07-2024 End: 04-06-2024 take 1 tablet by mouth twice daily Hydralazine 50 mg tablet Discontinued 50 mg PO TWICE A DAY 180 3 March 23, 2024 2:22pm April 06, 2024 8:38am Start: 11-16-2023 End: 03-07-2024 take 1 tablet by mouth twice daily Hydralazine 25 mg tablet Discontinued 25 mg PO TWICE A DAY 60 November 16, 2023 1:00am March 07, 2024 1:41pm hydroCHLOROthiazide 25 mg / triamterene 37.5 mg oral tablet (6 sources) Potassium-sparing Diuretic, Thiazide Diuretic Start: 02-02-2025 End: 05-11-2025 Triamterene-Hydrochlorothiaz id 37.5-25 mg tablet Discontinued 1 {tbl} PO EVERY MORNING 90 February 02, 2025 12:00am May 11, 2025 5:56pm labetalol hydrochloride 200 mg oral tablet (18 sources) beta-Adrenergic Rich Start: 03-20-2025 End: 05-11-2025 Labetalol 200 mg tablet Discontinued 400 mg PO .COMPLEX 360 March 20, 2025 10:11am May 11, 2025 5:57pm 400 mg orally twice daily: please give TWO of the 200 mg tablets twice a day due to cost (400mg tablets much more expensive).This is a DOSE INCREASE Start: 03-03-2025 End: 03-20-2025 take 1 tablet by mouth twice daily Labetalol 200 mg tablet Discontinued 200 mg PO TWICE A DAY 60 March 03, 2025 12:00am March 20, 2025 10:13am Start: 02-02-2025 End: 03-03-2025 take 1 tablet by mouth twice daily Labetalol 400 mg tablet Discontinued 400 mg PO TWICE A DAY 120 February 02, 2025 12:00am March 03, 2025 2:34pm lecithin 1200 mg oral capsule (3 sources) Start: 12-13-2004 take 1 tablet by mouth once daily LECITHIN 1200 MG CAPS One tablet by mouth daily LECITHIN [id number] Paz Godinez losartan potassium 25 mg oral tablet (6 sources) Angiotensin 2 Receptor Rich Start: 04-25-2024 End: 02-02-2025 take 1 tablet by mouth once daily Losartan 25 mg tablet Discontinued 25 mg PO DAILY 30 April 25, 2024 12:00am February 02, 2025 1:57pm OMEGA-3 FATTY ACIDS CPDR (2 sources) Start: 12-13-2004 take 1 tablet by mouth once daily OMEGA 3 CPDR One tablet by mouth daily OMEGA-3 FATTY ACIDS CPDR [id number] Paz Godinez OMEGA-3 FATTY ACIDS CPDR (1 source) Start: 12-13-2004 take 1 tablet by mouth once daily OMEGA 3 CPDR One tablet by mouth daily OMEGA-3 FATTY ACIDS CPDR [id number] Paz Godinez pantoprazole 40 mg delayed release oral tablet (13 sources) Proton Pump Inhibitor Start: 09-01-2022 End: 02-02-2025 take 1 tablet by mouth once daily Pantoprazole 40 mg tablet,delayed release (DR/EC) Discontinued 40 mg PO DAILY September 01, 2022 1:00am February 02, 2025 1:57pm reflux potassium chloride 10 meq extended release oral tablet (3 sources) Start: 01-08-2007 take 2 tablets by mouth twice daily POTASSIUM CHLORIDE ER 10 MEQ CR-TABS Two tablets by mouth twice daily POTASSIUM CHLORIDE [id number] Paz Bowlingward vitamin d 1000 unt oral tablet (3 sources) Start: 12-16-2010 take 1 tablet by mouth four times daily VITAMIN D 1000 UNIT TABS One tablet by mouth four times daily CHOLECALCIFEROL [id number] Paz Godinez Start: 12-16-2010 take 1 tablet by elizabeth th four times daily VITAMIN D 1000 UNIT TABS One tablet by mouth four times daily CHOLECALCIFEROL [id number] Paz [place]lingward vitamin e 400 unt oral capsule (3 sources) Start: 12-16-2010 take 1 tablet by mouth once daily VITAMIN E 400 UNIT CAPS One tablet by mouth daily VITAMIN E [id number] Paz Bowlingward VITAMINS-LIPOTROPICS (2 sources) Start: 12-16-2010 take 1 tablet by mouth once daily B-100 TABS One tablet by mouth daily VITAMINS-LIPOTROPICS [id number] Paz Britton Godinez VITAMINS-LIPOTROPICS (1 source) Start: 12-16-2010 take 1 tablet by mouth once daily B-100 TABS One tablet by mouth daily VITAMINS-LIPOTROPICS [id number] Paz Godinez Problems Active Problems Problem Classification Problem Date Documented Date Episodic/Chronic Acute and unspecified renal failure (2 sources) Prerenal azotemia; Translations: [Unspecified kidney failure] 05-11-2025 Chronic Acute cerebrovascular disease (16 sources) Cerebrovascular accident; Translations: [Cerebral infarction, unspecified] 02-18-2023 Chronic Cancer of prostate (1 source) Malignant neoplasm of prostate; Translations: [Malignant neoplasm of prostate] Onset: 06-03-2024 Chronic Cardiac and circulatory congenital anomalies (3 sources) Atrial septal defect; Translations: [Atrial septal defect] Onset: 02-28-2014 02-28-2014 Chronic Cardiac dysrhythmias (20 sources) Sick sinus syndrome; Translations: [Sick sinus syndrome] Onset: 06-27-2024 Chronic Conduction disorders (20 sources) Cardiac pacemaker in situ; Translations: [Presence of cardiac pacemaker] Onset: 12-23-2010 12-23-2010 Chronic Comment on above: Implant 12/23/10 Diabetes mellitus without complication (2 sources) Non-diabetic hyperglycemia; Translations: [Hyperglycemia, unspecified] 05-11-2025 Episodic Disorders of lipid metabolism (20 sources) Hyperlipidemia; Translations: [Pure hypercholesterolemia] Onset: 12-23-2010 12-23-2010 Chronic Esophageal disorders (16 sources) Gastroesophageal reflux disease; Translations: [Gastro-esophageal reflux disease without esophagitis] 12-03-2021 Chronic Essential hypertension (20 sources) Hypertensive disorder; Translations: [Essential hypertension] Onset: 12-23-2010 12-23-2010 Chronic Fluid and electrolyte disorders (6 sources) Hypokalemia; Translations: [Hypokalemia] Onset: 12-23-2010 12-23-2010 Episodic Osteoarthritis (3 sources) Osteoarthritis of knee; Translations: [Bilateral primary osteoarthritis of knee] Onset: 06-29-2015 06-29-2015 Chronic Other acquired deformities (8 sources) Degenerative disorder of musculoskeletal system; Translations: [Other secondary scoliosis, site unspecified] 03-27-2025 Chronic Other acquired deformities (1 source) Other secondary scoliosis, site unspecified; Translations: [Other secondary scoliosis, site unspecified] Onset: 05-06-2025 Chronic Other lower respiratory disease (10 sources) Dyspnea on exertion; Translations: [Other forms of dyspnea] 04-27-2023 Episodic Other lower respiratory disease (5 sources) Other forms of dyspnea; Translations: [Other respiratory abnormalities] 04-27-2023 Episodic Other nervous system disorders (2 sources) Expressive dysphasia; Translations: [Aphasia] 05-11-2025 Chronic Other screening for suspected conditions (not mental disorders or infectious disease) (2 sources) Raised cardiac enzyme or marker; Translations: [Other specified abnormal findings of blood chemistry] 05-11-2025 Episodic Pneumonia (except that caused by tuberculosis or sexually transmitted disease) (16 sources) Community acquired pneumonia; Translations: [Pneumonia, unspecified organism] 04-20-2017 Episodic Spondylosis; intervertebral disc disorders; other back problems (8 sources) Degeneration of lumbar intervertebral disc; Translations: [Degenerative disc disease (DDD) of lumbar region with discogenic back pain and leg pa] 03-27-2025 Chronic Spondylosis; intervertebral disc disorders; other back problems (9 sources) Spinal stenosis of lumbar region; Translations: [Spinal stenosis, lumbar region with neurogenic claudication] Onset: 05-06-2025 03-27-2025 Episodic Syncope (20 sources) Syncope and collapse; Translations: [Syncope and collapse] Onset: 12-23-2010 12-23-2010 Episodic Unclassified (2 sources) Unknown / UNK(Unknown) Onset: 07-25-2017 Unclassified (16 sources) Age more than 65 years; Translations: [Over 65 years old] 10-16-2021 Unclassified (1 source) Other intervertebral disc degeneration, lumbar region with discogenic back pain and lower extremity pain; Translations: [Other intervertebral disc degeneration, lumbar region with discogenic back pain and lower extremity pain] Onset: 05-06-2025 Unclassified (1 source) Low back pain, unspecified; Translations: [Low back pain, unspecified] Onset: 03-27-2025 Viral infection (16 sources) Disease caused by 2019-nCoV; Translations: [COVID-19] 10-16-2021 Episodic Past or Other Problems Problem Classification Problem Date Documented Da te Episodic/Chronic Conditions associated with dizziness or vertigo (2 sources) Dizziness and giddiness; Translations: [Dizziness and giddiness] Onset: 08-14-2017 Episodic Other connective tissue disease (3 sources) [...] in unspecified joint] Onset: 06-29-2015 06-29-2015 Episodic Results Test Name Value Interpretation Reference Range Facility Absolute lymphocyte countOrd ered By: Emmett Andrews on 05-11-2025 Lymphocytes Auto (Unsp spec) [#/Vol] 1.90 10*3/uL 0.83-4.51 [facility] Absolute neutrophil countOrd ered By: Emmett Andrews on 05-11-2025 Neutrophils (Bld) [#/Vol] 8.0 10*3/uL High 2.0-7.7 [facility] Activated partial thrombopla stin time (aPTT) in platelet poor plasma by coagulation aOrdered By: Emmett Andrews on 05-11-2025 aPTT Coag (PPP) [Time] 29.8 s 24.1-36.[address] [facility] Anion gap in Serum or Plasma Ordered By: Emmett Andrews on 05-11-2025 Anion gap [Moles/Vol] 12 mmol/L 5-15 [facility] Automated lymphocyte count a s percentage of total leukocytesOrdered By: Emmett Andrews on 05-11-2025 Lymphocytes/100 WBC Auto (Unsp spec) 17.3 % Low 19-41 [facility] BUN/creatinine ratioOrdered By: Emmett Andrews on 05-11-2025 Urea nitrogen/Creatinine [Mass ratio] 20.2 mg/mg High 10-20 [facility] Basophil percentageOrdered B y: Emmett Andrews on 05-11-2025 Basophils/100 WBC (Bld) 0.5 % 0-1 [facility] Carbon dioxide, total [Moles /volume] in Central venous bloodOrdered By: Emmett Andrews on 05-11-2025 CO2 [Moles/Vol] 22.4 mmol/L 21.0-32.0 [facility] Chloride assayOrdered By: Malik Andrews on 05-11-2025 Chloride [Moles/Vol] 89 mmol/L Low 98-108 [facility] Eosinophil percentageOrdered By: Emmettcarolina Andrews on 05-11-2025 Eosinophils/100 WBC (Bld) 2.2 % 0-5 [facility] Erythrocyte distribution wid th ratioOrdered By: Emmettcarolina Andrews on 05-11-2025 Erythrocyte distribution width (RBC) [Ratio] 12.7 % 11.6-14.6 [facility] Erythrocyte distribution wid th standard deviationOrdered By: Emmettcarolina Andrews on 05-11-2025 Erythrocyte distribution width (RBC) [Ratio] 42.2 fl 35.1-43.9 [facility] Glomerular filtration rate ( GFR) estimation/1.73 sq m using serum, plasma, or whole bOrdered By: Emmettcarolina Andrews on 05-11-2025 GFR/1.73 sq M.predicted among non-blacks MDRD (S/P/Bld) [Vol rate/Area] 70 mL/min/{1.73_m2} >60 [facility] Comment on above: mL/min/1.73m2 CKD-EP I Creatinine Equation (2020) Hematocrit Auto (Bld) [Volum e fraction]Ordered By: Emmettcarolina Andrews on 05-11-2025 Hematocrit (Bld) [Volume fraction] 41.6 % 40-54 [facility] Hemoglobin measurementOrdere d By: Emmettcarolina Andrews on 05-11-2025 Hemoglobin (Bld) [Mass/Vol] 14.5 g/dL 13.0-16.5 [facility] Immature granulocytes/100 WB C Auto (Bld)Ordered By: Emmettcarolina Andrews 05-11-2025 Immature granulocytes/100 WBC (Bld) 0.300 % 0.0-0.9 [facility] Comment on above: IG% - Immature Granu locytes (promyelocytes, myelocytes and metamyelocytes) > 1% indicates that a LEFT SHIFT is Present. International normalized rat io (INR) calculationOrdered By: Emmettcarolina Andrews on 05-11-2025 INR Coag (Bld) [Relative time] 1.1 {INR} [facility] MCV (mean corpuscular volume ) determinationOrdered By: Emmettcarolina Andrews 05-11-2025 MCV (RBC) [Entitic vol] 90.6 fL 80-94 [facility] Mean corpuscular hemoglobin (MCH) determinationOrdered By: Emmett Andrews on 05-11-2025 MCH (RBC) [Entitic mass] 31.6 pg 27.0-32.0 [facility] Mean corpuscular hemoglobin concentration (MCHC) determinationOrdered By: Emmett Andrews on 05-11-2025 MCHC (RBC) [Mass/Vol] 34.9 g/dL 32-36 [facility] Mean platelet volume determi nationOrdered By: Emmett Andrews on 05-11-2025 Platelet mean volume (Bld) [Entitic vol] 9.8 fL 6.2-12.0 [facility] Monocyte percentageOrdered B y: Emmett Andrews on 05-11-2025 Monocytes/100 WBC (Bld) 7.1 % 0-10 [facility] Neutrophil percentageOrdered By: Emmett Andrews on 05-11-2025 Neutrophils/100 WBC (Bld) 72.6 % High 47-70 [facility] Nucleated red blood cell per centageOrdered By: Emmett Andrews on 05-11-2025 Nucleated RBC/100 WBC (Bld) [Ratio] 0 % 0-5 [facility] Platelet countOrdered By: Malik Andrews on 05-11-2025 Platelets (Bld) [#/Vol] 286 10*3/uL 150-450 [facility] Potassium measurement (mass/ volume)Ordered By: Emmett Andrews on 05-11-2025 Potassium (Unsp spec) [Mass/Vol] 4.2 mmol/L 3.3-5.1 [facility] Prothrombin timeOrdered By: Emmett Andrews on 05-11-2025 PT Coag (PPP) [Time] 14.4 s 11.7-14.9 [facility] RBC Auto (Bld) [#/Vol]Ordere d By: Emmett Andrews on 05-11-2025 RBC (Bld) [#/Vol] 4.59 10*6/uL Low 4.6-6.2 [facility] Serum creatinine measurement (mass/volume)Ordered By: Emmett Andrews on 05-11-2025 Creatinine [Mass/Vol] 1.08 mg/dL 0.70-1.20 [facility] Serum glucose measurement (m ass/volume)Ordered By: Emmett Andrews on 05-11-2025 Glucose [Mass/Vol] 146 mg/dL High 70-99 [facility] Serum or plasma calcium arnulfo urement (mass/volume)Ordered By: Emmett Andrews on 05-11-2025 Calcium [Mass/Vol] 9.0 mg/dL 7.6-11.0 [facility] Serum or plasma urea nitroge n measurement (mass/volume)Ordered By: Emmett Andrews on 05-11-2025 Urea nitrogen [Mass/Vol] 22 mg/dL High 4-19 [facility] Sodium levelOrdered By: Emmettcarolina Andrews on 05-11-2025 Sodium [Moles/Vol] 123 mmol/L Low 133-145 [facility] Troponin T.cardiac [Mass/vol ume] in Serum or Plasma by High sensitivity methodOrdered By: Emmettcarolina Andrews on 05-11-2025 Troponin T.cardiac High sensitivity method [Mass/Vol] 29 ng/L High <22 [facility] White blood cell (WBC) count Ordered By: Emmett Andrews on 05-11-2025 WBC (Bld) [#/Vol] 11.0 10*3/uL 4.4-11.0 [facility] Anion gap in Serum or Plasma Ordered By: Omar Huggins on 04-24-2025 Anion gap [Moles/Vol] 12 mmol/L 03-02 [facility] BUN/creatinine ratioOrdered By: Omar Huggins on 04-24-2025 Urea nitrogen/Creatinine [Mass ratio] 18.1 mg/mg - [facility] Basic Metabolic Profile (BMP )on 04-24-2025 BUN/CRE 18.1 RATIO Normal 08-07 [facility] Comment on above: Performed By: #### L 501.5200, L500.2500 #### [facility] [address] [place], [address] GAP 12 Normal 03-02 [facility] Comment on above: Performed By: #### L 501.5200, L500.2500 #### [facility] [address] [place], [address] Potassium [Moles/Vol] 4.2 mmol/L Normal 3.3-5.1 [facility] Comment on above: Performed By: #### L 501.5200, L500.2500 #### [facility] [address] [place], [address] Carbon dioxide, total [Moles /volume] in Central venous bloodOrdered By: Omar Huggins on 04-24-2025 CO2 [Moles/Vol] 23.6 mmol/L 21.0-32.0 [facility] Comment on above: Performed By: #### L 501.5200, L500.2500 #### [facility] [address] [place], [address] Chloride assayOrdered By: Yamini Huggins on 04-24-2025 Chloride [Moles/Vol] 97 mmol/L Low 98-108 [facility] Comment on above: Performed By: #### L 501.5200, L500.2500 #### [facility] [address] [place], [address] Glomerular filtration rate ( GFR) estimation/1.73 sq m using serum, plasma, or whole bOrdered By: Omar Huggins on 04-24-2025 GFR/1.73 sq M.predicted among non-blacks MDRD (S/P/Bld) [Vol rate/Area] 83 mL/min/{1.73_m2} >60 [facility] Comment on above: mL/min/1.73m2 CKD-EP I Creatinine Equation (2020) Result Comment: mL/m in/1.73m2 CKD-EPI Creatinine Equation (2020) Performed By: #### L 501.5200, L500.2500 #### [facility] [address] [place], [address] Magnesiumon 04-24-2025 Magnesium [Mass/Vol] 2.1 mg/dL Normal 1.5-2.2 [facility] Comment on above: Performed By: #### L 501.5200, L500.2500 #### [facility] [address] [place], [address] Magnesium measurement (mass/ volume)Ordered By: Omar Huggins on 04-24-2025 Magnesium (Unsp spec) [Mass/Vol] 2.1 mg/dL 1.5-2.2 [facility] Potassium measurement (mass/ volume)Ordered By: Omar Cookman on 04-24-2025 Potassium (Unsp spec) [Mass/Vol] 4.2 mmol/L 3.3-5.1 [facility] Serum creatinine measurement (mass/volume)Ordered By: Omar Huggins on 04-24-2025 Creatinine [Mass/Vol] 0.94 mg/dL 0.70-1.20 [facility] Comment on above: Performed By: #### L 501.5200, L500.2500 #### [facility] [address] [place], [address] Serum glucose measurement (m ass/volume)Ordered By: Omar BuitragoBhavna on 04-24-2025 Glucose [Mass/Vol] 105 mg/dL High 70-99 [facility] Comment on above: Performed By: #### L 501.5200, L500.2500 #### [facility] [address] [place], [address] Serum or plasma calcium arnulfo urement (mass/volume)Ordered By: Omar BuitragoBhavna on 04-24-2025 Calcium [Mass/Vol] 9.2 mg/dL 7.6-11.0 [facility] Comment on above: Performed By: #### L 501.5200, L500.2500 #### [facility] [address] [place], [address] Serum or plasma urea nitroge n measurement (mass/volume)Ordered By: Omar BuitragoBhavna on 04-24-2025 Urea nitrogen [Mass/Vol] 17 mg/dL 4-19 [facility] Comment on above: Performed By: #### L 501.5200, L500.2500 #### [facility] [address] [place], [address] Sodium levelOrdered By: Omar Huggins on 04-24-2025 Sodium [Moles/Vol] 133 mmol/L 133-145 [facility] Comment on above: Performed By: #### L 501.5200, L500.2500 #### [facility] [address] [place], [address] Anion gap in Serum or Plasma Ordered By: Omar Huggins on 04-10-2025 Anion gap [Moles/Vol] 14 mmol/L - [facility] BUN/creatinine ratioOrdered By: Omar Huggins on 04-10-2025 Urea nitrogen/Creatinine [Mass ratio] 15.5 mg/mg - [facility] Basic Metabolic Profile (BMP )on 04-10-2025 BUN/CRE 15.5 RATIO Normal 08-07 [facility] Comment on above: Performed By: #### L 500.2500 #### [facility] [address] [place], [address] Calcium [Mass/Vol] 9.3 mg/dL Normal 7.6-11.0 [facility] Comment on above: Performed By: #### L 500.2500 #### [facility] [address] [place], [address] Chloride [Moles/Vol] 101 mmol/L Normal 98-108 [facility] Comment on above: Performed By: #### L 500.2500 #### [facility] [address] [place], [address] CO2 [Moles/Vol] 21.5 mmol/L Normal 21.0-32.0 [facility] Comment on above: Performed By: #### L 500.2500 #### [facility] [address] [place], [address] Creatinine [Mass/Vol] 1.43 mg/dL High 0.70-1.20 [facility] Comment on above: Performed By: #### L 500.2500 #### [facility] [address] [place], [address] GAP 14 Normal 5-15 [facility] Comment on above: Performed By: #### L 500.2500 #### [facility] [address] [place], [address] GFR/1.73 sq M.predicted among non-blacks MDRD (S/P/Bld) [Vol rate/Area] 50 mL/min/{1.73_m2} Low >60 [facility] Comment on above: Result Comment: mL/m in/1.73m2 CKD-EPI Creatinine Equation (2020) Performed By: #### L 500.2500 #### [facility] [address] [place], [address] Glucose [Mass/Vol] 114 mg/dL High 70-99 [facility] Comment on above: Performed By: #### L 500.2500 #### [facility] [address] [place], [address] Potassium [Moles/Vol] 4.3 mmol/L Normal 3.3-5.1 [facility] Comment on above: Performed By: #### L 500.2500 #### [facility] [address] [place], [address] Sodium [Moles/Vol] 136 mmol/L Normal 133-145 [facility] Comment on above: Performed By: #### L 500.2500 #### [facility] [address] [place], [address] Urea nitrogen [Mass/Vol] 22 mg/dL High 4-19 [facility] Comment on above: Performed By: #### L 500.2500 #### [facility] [address] [place], [address] Carbon dioxide, total [Moles /volume] in Central venous bloodOrdered By: Omar Huggins on 04-10-2025 CO2 [Moles/Vol] 21.5 mmol/L 21.0-32.0 [facility] Chloride assayOrdered By: Yamini Huggins on 04-10-2025 Chloride [Moles/Vol] 101 mmol/L 98-108 [facility] Glomerular filtration rate ( GFR) estimation/1.73 sq m using serum, plasma, or whole bOrdered By: Omar Huggins on 04-10-2025 GFR/1.73 sq M.predicted among non-blacks MDRD (S/P/Bld) [Vol rate/Area] 50 mL/min/{1.73_m2} Low >60 [facility] Comment on above: mL/min/1.73m2 CKD-EP I Creatinine Equation (2020) Potassium measurement (mass/ volume)Ordered By: Omar Huggins on 04-10-2025 Potassium (Unsp spec) [Mass/Vol] 4.3 mmol/L 3.3-5.1 [facility] Serum creatinine measurement (mass/volume)Ordered By: Omar Huggins on 04-10-2025 Creatinine [Mass/Vol] 1.43 mg/dL High 0.70-1.20 [facility] Serum glucose measurement (m ass/volume)Ordered By: Omar Huggins on 04-10-2025 Glucose [Mass/Vol] 114 mg/dL High 70-99 [facility] Serum or plasma calcium arnulfo urement (mass/volume)Ordered By: Omar Huggins on 04-10-2025 Calcium [Mass/Vol] 9.3 mg/dL 7.6-11.0 [facility] Serum or plasma urea nitroge n measurement (mass/volume)Ordered By: Omar Huggins on 04-10-2025 Urea nitrogen [Mass/Vol] 22 mg/dL High 4-19 [facility] Sodium levelOrdered By: Omar Huggins on 04-10-2025 Sodium [Moles/Vol] 136 mmol/L 133-145 [facility] Absolute lymphocyte countOrd ered By: Omar Huggins on 03-28-2025 Lymphocytes Auto (Unsp spec) [#/Vol] 1.14 10*3/uL 0.83-4.51 [facility] Absolute neutrophil countOrd ered By: Omar Huggins on 03-28-2025 Neutrophils (Bld) [#/Vol] 7.3 10*3/uL 2.0-7.7 [facility] Anion gap in Serum or Plasma Ordered By: Omar Huggins on 03-28-2025 Anion gap [Moles/Vol] 13 mmol/L 5- [facility] Automated lymphocyte count a s percentage of total leukocytesOrdered By: Omar Huggins on 03-28-2025 Lymphocytes/100 WBC Auto (Unsp spec) 12.1 % Low - [facility] BUN/creatinine ratioOrdered By: Omar Huggins on 03-28-2025 Urea nitrogen/Creatinine [Mass ratio] 14.4 mg/mg 08-07 [facility] Basophil percentageOrdered B y: Omar Huggins on 03-28-2025 Basophils/100 WBC (Bld) 0.4 % 0- [facility] Bilirubin, totalOrdered By: Omar Huggins on 03-28-2025 Bilirubin [Mass/Vol] 0.46 mg/dL 0.00-1.30 [facility] CBC W/Diff, Automatedon 03-19 0-2024 Absolute Lymph 1.14 X10 3/uL Normal 0.83-4.51 [facility] Comment on above: Performed By: #### L [id number], L100.0100, L500.4050, L501.1400, L500.4100 #### [facility] [address] [place], [address] Absolute Neut 7.3 X10 3/uL Normal 2.0-7.7 [facility] Comment on above: Performed By: #### L [id number], L100.0100, L500.4050, L501.1400, L500.4100 #### [facility] [address] [place], [address] Basophils/100 WBC (Bld) 0.4 % Normal 0-1 [facility] Comment on above: Performed By: #### L [id number], L100.0100, L500.4050, L501.1400, L500.4100 #### [facility] [address] [place], [address] Eosinophils/100 WBC (Bld) 3.1 % Normal 0-5 [facility] Comment on above: Performed By: #### L [id number], L100.0100, L500.4050, L501.1400, L500.4100 #### [facility] [address] [place] [place], [address] Erythrocyte distribution width (RBC) [Ratio] 14.1 % Normal 11.6-14.6 [facility] Comment on above: Performed By: #### L [id number], L100.0100, L500.4050, L501.1400, L500.4100 #### [facility] [address] [place], [address] Hematocrit (Bld) [Volume fraction] 42.3 % Normal 40-54 [facility] Comment on above: Performed By: #### L [id number], L100.0100, L500.4050, L501.1400, L500.4100 #### [facility] [address] [place], [address] Hemoglobin (Bld) [Mass/Vol] 14.4 g/dL Normal 13.0-16.5 [facility] Comment on above: Performed By: #### L 501.9940, L100.0100, L500.4050, L501.1400, L500.4100 #### [facility] [address] [place], [address] IG% 0.300 Normal 0.0-0.9 [facility] Comment on above: Result Comment: IG% - Immature Granulocytes (promyelocytes, myelocytes and metamyelocytes) > 1% indicates that a LEFT SHIFT is Present. Performed By: #### L 501.9940, L100.0100, L500.4050, L501.1400, L500.4100 #### [facility] [address] [place], [address] Lymphocytes/100 WBC (Bld) 12.1 % Low 19-41 [facility] Comment on above: Performed By: #### L [id number], L100.0100, L500.4050, L501.1400, L500.4100 #### [facility] [address] [place], [address] MCH (RBC) [Entitic mass] 31.3 pg Normal 27.0-32.0 [facility] Comment on above: Performed By: #### L [id number], L100.0100, L500.4050, L501.1400, L500.4100 #### [facility] [address] [place], [address] MCHC (RBC) [Mass/Vol] 34.0 g/dL Normal 32-36 [facility] Comment on above: Performed By: #### L [id number], L100.0100, L500.4050, L501.1400, L500.4100 #### [facility] [address] [place], [address] MCV (RBC) [Entitic vol] 92.0 fL Normal 80-94 [facility] Comment on above: Performed By: #### L 501.9940, L100.0100, L500.4050, L501.1400, L500.4100 #### [facility] [address] [place], [address] Monocytes/100 WBC (Bld) 6.0 % Normal 0-10 [facility] Comment on above: Performed By: #### L 501.9940, L100.0100, L500.4050, L501.1400, L500.4100 #### [facility] [address] [place], [address] Neutrophils/100 WBC (Bld) 78.1 % High 47-70 [facility] Comment on above: Performed By: #### L 501.9940, L100.0100, L500.4050, L501.1400, L500.4100 #### [facility] [address] [place], [address] Nucleated RBC (Bld) [#/Vol] 0 10*3/uL Normal 0-5 [facility] Comment on above: Performed By: #### L [id number], L100.0100, L500.4050, L501.1400, L500.4100 #### [facility] [address] [place], [address] Platelet mean volume (Bld) [Entitic vol] 10.6 fL Normal 6.2-12.0 [facility] Comment on above: Performed By: #### L 501.9940, L100.0100, L500.4050, L501.1400, L500.4100 #### [facility] [address] [place], [address] Platelets (Bld) [#/Vol] 258 10*3/uL Normal 150-450 [facility] Comment on above: Performed By: #### L [id number], L100.0100, L500.4050, L501.1400, L500.4100 #### [facility] [address] [place], [address] RBC (Bld) [#/Vol] 4.60 10*6/uL Normal 4.6-6.2 [facility] Comment on above: Performed By: #### L [id number], L100.0100, L500.4050, L501.1400, L500.4100 #### [facility] [address] [place], [address] RDW SD 47.8 fl High 35.1-43.9 [facility] Comment on above: Performed By: #### L [id number], L100.0100, L500.4050, L501.1400, L500.4100 #### [facility] [address] [place], [address] WBC (Bld) [#/Vol] 9.4 10*3/uL Normal 4.4-11.0 [facility] Comment on above: Performed By: #### L [id number], L100.0100, L500.4050, L501.1400, L500.4100 #### [facility] [address] [place], [address] Calculated very low density lipoprotein (VLDL) cholesterol measurementOrdered By: Omar Huggins on 03-28-2025 Calculated very low density lipoprotein (VLDL) cholesterol measurement 34 mg/dL 5-40 [facility] Carbon dioxide, total [Moles /volume] in Central venous bloodOrdered By: Omar Huggins on 03-28-2025 CO2 [Moles/Vol] 25.5 mmol/L 21.0-32.0 [facility] Chloride assayOrdered By: Yamini Huggins on 03-28-2025 Chloride [Moles/Vol] 98 mmol/L 98-108 [facility] Comprehensive Metabolic Prof ilon 03-28-2025 Albumin [Mass/Vol] 4.4 g/dL Normal 3.4-4.8 [facility] Comment on above: Performed By: #### L [id number], L100.0100, L500.4050, L501.1400, L500.4100 #### [facility] [address] [place], [address] Albumin/Globulin [Mass ratio] 1.8 {ratio} Normal 0.9-2.4 [facility] Comment on above: Performed By: #### L [id number], L100.0100, L500.4050, L501.1400, L500.4100 #### [facility] [address] [place], [address] ALK PHOS 70 U/L Normal 40-129 [facility] Comment on above: Performed By: #### L [id number], L100.0100, L500.4050, L501.1400, L500.4100 #### [facility] [address] [place], [address] ALT [Catalytic activity/Vol] 27 U/L Normal <=46 [facility] Comment on above: Performed By: #### L 501.9940, L100.0100, L500.4050, L501.1400, L500.4100 #### [facility] [address] [place], [address] AST [Catalytic activity/Vol] 24 U/L Normal <=37 [facility] Comment on above: Performed By: #### L [id number], L100.0100, L500.4050, L501.1400, L500.4100 #### [facility] [address] [place], [address] Bilirubin [Mass/Vol] 0.46 mg/dL Normal 0.00-1.30 [facility] Comment on above: Performed By: #### L 501.9940, L100.0100, L500.4050, L501.1400, L500.4100 #### [facility] [address] [place], [address] BUN/CRE 14.4 RATIO Normal 10-20 [facility] Comment on above: Performed By: #### L [id number], L100.0100, L500.4050, L501.1400, L500.4100 #### [facility] [address] [place], [address] Calcium [Mass/Vol] 9.4 mg/dL Normal 7.6-11.0 [facility] Comment on above: Performed By: #### L 501.9940, L100.0100, L500.4050, L501.1400, L500.4100 #### [facility] [address] [place], [address] Chloride [Moles/Vol] 98 mmol/L Normal 98-108 [facility] Comment on above: Performed By: #### L 501.9940, L100.0100, L500.4050, L501.1400, L500.4100 #### [facility] [address] [place], [address] CO2 [Moles/Vol] 25.5 mmol/L Normal 21.0-32.0 [facility] Comment on above: Performed By: #### L 501.9940, L100.0100, L500.4050, L501.1400, L500.4100 #### [facility] [address] [place], [address] Creatinine [Mass/Vol] 0.94 mg/dL Normal 0.70-1.20 [facility] Comment on above: Performed By: #### L 501.9940, L100.0100, L500.4050, L501.1400, L500.4100 #### [facility] [address] [place], [address] GAP 13 Normal 5-15 [facility] Comment on above: Performed By: #### L 501.9940, L100.0100, L500.4050, L501.1400, L500.4100 #### [facility] [address] [place], [address] GFR/1.73 sq M.predicted among non-blacks MDRD (S/P/Bld) [Vol rate/Area] 83 mL/min/{1.73_m2} Normal >60 [facility] Comment on above: Result Comment: mL/m in/1.73m2 CKD-EPI Creatinine Equation (2020) Performed By: #### L 501.9940, L100.0100, L500.4050, L501.1400, L500.4100 #### [facility] [address] [place], [address] Globulin (S) [Mass/Vol] 2.5 g/dL Normal 2.2-4.2 [facility] Comment on above: Performed By: #### L 501.9940, L100.0100, L500.4050, L501.1400, L500.4100 #### [facility] [address] [place], [address] Glucose [Mass/Vol] 104 mg/dL High 70-99 [facility] Comment on above: Performed By: #### L 501.9940, L100.0100, L500.4050, L501.1400, L500.4100 #### [facility] [address] [place], [address] Potassium [Moles/Vol] 3.0 mmol/L Low 3.3-5.1 [facility] Comment on above: Performed By: #### L 501.9940, L100.0100, L500.4050, L501.1400, L500.4100 #### [facility] [address] [place], [address] Sodium [Moles/Vol] 136 mmol/L Normal 133-145 [facility] Comment on above: Performed By: #### L 501.9940, L100.0100, L500.4050, L501.1400, L500.4100 #### [facility] [address] [place], [address] T PROT 6.9 g/dL Normal 5.9-8.4 [facility] Comment on above: Performed By: #### L 501.9940, L100.0100, L500.4050, L501.1400, L500.4100 #### [facility] [address] [place], [address] Urea nitrogen [Mass/Vol] 14 mg/dL Normal 4-19 [facility] Comment on above: Performed By: #### L [id number], L100.0100, L500.4050, L501.1400, L500.4100 #### [facility] [address] [place], [address] Eosinophil percentageOrdered By: Omar Huggins on 03-28-2025 Eosinophils/100 WBC (Bld) 3.1 % 0-5 [facility] Erythrocyte distribution wid th ratioOrdered By: Omar Huggins on 03-28-2025 Erythrocyte distribution width (RBC) [Ratio] 14.1 % 11.6-14.6 [facility] Erythrocyte distribution wid th standard deviationOrdered By: Omar Huggins on 03-28-2025 Erythrocyte distribution width (RBC) [Ratio] 47.8 fl High 35.1-43.9 [facility] Glomerular filtration rate ( GFR) estimation/1.73 sq m using serum, plasma, or whole bOrdered By: Omar Huggins on 03-28-2025 GFR/1.73 sq M.predicted among non-blacks MDRD (S/P/Bld) [Vol rate/Area] 83 mL/min/{1.73_m2} >60 [facility] Comment on above: mL/min/1.73m2 CKD-EP I Creatinine Equation (2020) Hematocrit Auto (Bld) [Volum e fraction]Ordered By: Omar Huggins on 03-28-2025 Hematocrit (Bld) [Volume fraction] 42.3 % 40-54 [facility] Hemoglobin measurementOrdere d By: Omar Huggins on 03-28-2025 Hemoglobin (Bld) [Mass/Vol] 14.4 g/dL 13.0-16.5 [facility] Immature granulocytes/100 WB C Auto (Bld)Ordered By: Omar Huggins on 03-28-2025 Immature granulocytes/100 WBC (Bld) 0.300 % 0.0-0.9 [facility] Comment on above: IG% - Immature Granu locytes (promyelocytes, myelocytes and metamyelocytes) > 1% indicates that a LEFT SHIFT is Present. LDL calc ser/plasOrdered By: Omar Huggins on 03-28-2025 Cholesterol in LDL [Mass/Vol] 146 mg/dL [facility] Comment on above: Uvbqsgvkwa=262-406 m g/dL & Higher Birb=557 mg/dL or greater Laboratory - Chemistry and C hemistry - challengeOrdered By: Omar Bhavna on 03-28-2025 AST [Catalytic activity/Vol] 24 U/L <38 [facility] Lipid Profileon 03-28-2025 CHOL:HDL 5.40 Normal [facility] Comment on above: Performed By: #### L 501.9940, L100.0100, L500.4050, L501.1400, L500.4100 #### [facility] [address] [place], [address] Cholesterol [Mass/Vol] 221 mg/dL High <=[address] [facility] Comment on above: Result Comment: Chol esterol level, Desirable <200 mg/dL Borderline high cholesterol 200-239 mg/dL High cholesterol >=240 mg/dL Recommendations of the NCEP Adult Treatment Panel for the following risk-cutoff thresholds for the [place] population. Performed By: #### L 501.9940, L100.0100, L500.4050, L501.1400, L500.4100 #### [facility] [address] [place], [address] Cholesterol in HDL [Mass/Vol] 41 mg/dL Normal [facility] Comment on above: Result Comment: Samantha onal Cholesterol Education Program (NCEP) guidelines: <40 mg/dL: Low HDL-cholesterol (major risk factor for CHD) >= 60 mg/dL: High HDL-cholesterol (negative risk factor for CHD) HDL-cholesterol is affected by a number of factors, e.g. smoking, exercise, hormones, sex and age. Performed By: #### L 501.9940, L100.0100, L500.4050, L501.1400, L500.4100 #### [facility] [address] [place], [address] Cholesterol in LDL [Mass/Vol] 146 mg/dL Normal [facility] Comment on above: Result Comment: Bord xiehzk=677-283 mg/dL Higher Kqdm=528 mg/dL or greater Performed By: #### L 501.9940, L100.0100, L500.4050, L501.1400, L500.4100 #### [facility] [address] [place], [address] Cholesterol in VLDL [Mass/Vol] 34 mg/dL Normal 5-40 [facility] Comment on above: Performed By: #### L 501.9940, L100.0100, L500.4050, L501.1400, L500.4100 #### [facility] [address] [place], [address] Triglyceride [Mass/Vol] 172 mg/dL Normal [facility] Comment on above: Result Comment: The drugs N-Acetylcysteine and Metamizole may falsely depress this assay. Normal range: <150 mg/dL Borderline High: 150-199 mg/dL High: 200-499 mg/dL Very High: >500 mg/dL Performed By: #### L 501.9940, L100.0100, L500.4050, L501.1400, L500.4100 #### [facility] [address] [place], [address] MCV (mean corpuscular volume ) determinationOrdered By: Omar Huggins on 03-28-2025 MCV (RBC) [Entitic vol] 92.0 fL 80-94 [facility] Mean corpuscular hemoglobin (MCH) determinationOrdered By: Omar Huggins on 03-28-2025 MCH (RBC) [Entitic mass] 31.3 pg 27.0-32.0 [facility] Mean corpuscular hemoglobin concentration (MCHC) determinationOrdered By: Omar Huggins on 03-28-2025 MCHC (RBC) [Mass/Vol] 34.0 g/dL 32-36 [facility] Mean platelet volume determi nationOrdered By: Omar Huggins on 03-28-2025 Platelet mean volume (Bld) [Entitic vol] 10.6 fL 6.2-12.0 [facility] Monocyte percentageOrdered B y: Omar Huggins on 03-28-2025 Monocytes/100 WBC (Bld) 6.0 % 0- [facility] Neutrophil percentageOrdered By: Omar Huggins on 03-28-2025 Neutrophils/100 WBC (Bld) 78.1 % High 47-70 [facility] Nucleated red blood cell per centageOrdered By: Omar Huggins on 03-28-2025 Nucleated RBC/100 WBC (Bld) [Ratio] 0 % 0- [facility] PSA,Total- [employer] 03-19-2024 PSA, DIAGNOSTIC 0.13 ng/mL Normal 0.00-4.00 [facility] Comment on above: Result Comment: This test was performed using the [employer] tPSA method. Measured values of a patient??sample can vary depending on the testing procedure used. PSA values determined on patient samples by different testing procedures cannot be used interchangeably. If there is a change in PSA assays while monitoring therapy, sequential testing should be performed to confirm baseline values. Performed By: #### L 501.9940, L100.0100, L500.4050, L501.1400, L500.4100 ####[facility] [address] [place], [place], [address] Platelet countOrdered By: Yamini Huggins on 03-28-2025 Platelets (Bld) [#/Vol] 258 10*3/uL 150-450 [facility] Potassium measurement (mass/ volume)Ordered By: Omar Huggins on 03-28-2025 Potassium (Unsp spec) [Mass/Vol] 3.0 mmol/L Low 3.3-5.1 [facility] RBC Auto (Bld) [#/Vol]Ordere d By: Omar Huggins on 03-28-2025 RBC (Bld) [#/Vol] 4.60 10*6/uL 4.6-6.2 [facility] Screening total cholesterol/ high density lipoprotein (HDL) cholesterol ratioOrdered By: Omar Huggins on 03-28-2025 Cholesterol.total/Chol esterol in HDL [Mass ratio] 5.40 {ratio} [facility] Serum creatinine measurement (mass/volume)Ordered By: Omar Huggins on 03-28-2025 Creatinine [Mass/Vol] 0.94 mg/dL 0.70-1.20 [facility] Serum globulin measurementOr dered By: Omar Huggins on 03-28-2025 Globulin (S) [Mass/Vol] 2.5 g/dL 2.2-4.2 [facility] Serum glucose measurement (m ass/volume)Ordered By: Omar Huggins on 03-28-2025 Glucose [Mass/Vol] 104 mg/dL High 70-99 [facility] Serum or plasma alanine martinez otransferase (ALT) measurementOrdered By: Omar Huggins on 03-28-2025 ALT [Catalytic activity/Vol] 27 U/L <47 [facility] Serum or plasma albumin arnulfo urement (mass/volume)Ordered By: Omar Huggins on 03-28-2025 Albumin [Mass/Vol] 4.4 g/dL 3.4-4.8 [facility] Serum or plasma albumin/glob ulin mass ratioOrdered By: Omar Huggins on 03-28-2025 Albumin/Globulin [Mass ratio] 1.8 {ratio} 0.9-2.4 [facility] Serum or plasma alkaline diana sphatase measurementOrdered By: Omar Huggins on 03-28-2025 ALP [Catalytic activity/Vol] 70 U/L 40-129 [facility] Serum or plasma calcium arnulfo urement (mass/volume)Ordered By: Omar Huggins on 03-28-2025 Calcium [Mass/Vol] 9.4 mg/dL 7.6-11.0 [facility] Serum or plasma cholesterol in HDL measurement (mass/volume)Ordered By: Omar Huggins on 03-28-2025 Cholesterol in HDL [Mass/Vol] 41 mg/dL >40 [facility] Comment on above: National Cholesterol Education Program (NCEP) guidelines:<40 mg/dL: Low HDL-cholesterol (major risk factor for CHD)>= 60 mg/dL: High HDL-cholesterol (negative risk factor for CHD)HDL-cholesterol is affected by a number of factors, e.g. smoking, exercise, hormones, sex and age. Serum or plasma cholesterol measurement (mass/volume)Ordered By: Omar Huggins on 03-28-2025 Cholesterol [Mass/Vol] 221 mg/dL High <[address] [facility] Comment on above: Cholesterol level, D esirable <200 mg/dLBorderline high cholesterol 200-239 mg/dLHigh cholesterol >=240 mg/dLRecommendations of the NCEP Adult Treatment Panel for the following risk-cutoff thresholds for the [place] population. Serum or plasma urea nitroge n measurement (mass/volume)Ordered By: Omar Huggins on 03-28-2025 Urea nitrogen [Mass/Vol] 14 mg/dL 4-19 [facility] Serum or plasma uric acid me asurement (mass/volume)Ordered By: Omar Huggins on 03-28-2025 Urate [Mass/Vol] 9.5 mg/dL High 3.5-7.2 [facility] Comment on above: The drugs N-Acetylcy steine and Metamizole may falsely depress this assay. Sodium levelOrdered By: Omar Huggins on 03-28-2025 Sodium [Moles/Vol] 136 mmol/L 133-145 [facility] Total proteinOrdered By: Jaye Huggins on 03-28-2025 Protein [Mass/Vol] 6.9 g/dL 5.9-8.4 [facility] Triglycerides measurementOrd ered By: Omar Huggins on 03-28-2025 Triglyceride [Mass/Vol] 172 mg/dL <199 [facility] Comment on above: The drugs N-Acetylcy steine and Metamizole may falsely depress this assay. Normal range: <150 mg/dLBorderline High: 150-199 mg/dLHigh: 200-499 mg/dLVery High: >500 mg/dL Uric Acidon 03-28-2025 URIC 9.5 mg/dL High 3.5-7.2 [facility] Comment on above: Result Comment: The drugs N-Acetylcysteine and Metamizole may falsely depress this assay. Performed By: #### L 501.9940, L100.0100, L500.4050, L501.1400, L500.4100 ####[facility] [address] [place], [address] White blood cell (WBC) count Ordered By: Omar Huggins on 03-28-2025 WBC (Bld) [#/Vol] 9.4 10*3/uL 4.4-11.0 [facility] L/S Spine Min 4 Viewson L/S Spine Min 4 Views [facility] Imaging Services [address] [place] [address] L/S Spine Min 4 Views MR#: [id number] Acct: [id number] Name: AUSTEN PUENTES Rep #: [id number] : 1945 M 80 From: Gaudencio wyman MD PCP: Dr. Omar Huggins DO Status: DEP AMB Study: L/S Spine Min 4 Views Date of Exam: 03/27/25 Exam# [id number] Ordering Dr: Emily Hodgson PROCEDURE: L/S SPINE MIN 4 VIEWS 03/27/2025 REASON FOR EXAM: CHRONIC PAIN TECHNIQUE: 4 view(s) of the thoracic and lumbar spine. COMPARISON: None. FINDINGS: Reverse S shaped scoliosis. Grade 1 anterolisthesis of L4 on L5. Grade 1 anterolisthesis of L5 on S1. No significant instability on flexion/extension images. Calcified atheromatous plaques are noted. Mildly exaggerated lumbar lordosis. There are diffuse spondylotic changes. Findings are demonstrated to by diffuse disc space narrowing, osteophyte formation and degenerative endplate sclerosis. There is diffuse facet joint arthropathy with secondary bilateral neural foramina narrowing. No fracture or dislocation is seen. No aggressive lytic or blastic bony lesion is noted. RAD/L/S Spine Min 4 Views IMPRESSION: Spondylosis. [facility] CC: MARISA Guallpa; Dr. Omar Huggins DO Order Processing Clerk: Signed Normal [facility] Orthopedic Visit Reporton Orthopedic Visit Report [facility] [address] [place] [address] [address] [place], [place] [address] OFFICE VISIT Date of Service: 03/27/25 MR#: [id number] Acct: [id number] Name: AUSTEN PUENTES Rep #: [id number] : 1945 Provider: MARISA Guallpa Age/Sex: 80/M Location: [facility] Status: Signed Intake Vital Signs 02/02/25 13:32 03/27/25 09:36 Height 5 ft 4.96 in 5 ft 4 in Weight: 206 lb 202 lb 4 oz BMI 34.3 34.7 BP 192/96 H Blood Pressure Location Lt brachial Position Sitting Respiration 16 Pulse 68 Pulse Source Monitor Intake Visit Reasons: LUMBAR SPINE Chief Complaint: Lumbar Spine Pain Accompanied by: Is patient in pain?: Yes Pain scale (1-10): 6 Allergies latex Allergy (Verified 03/27/25 09:36) Rash atorvastatin (From Lipitor) Adverse Reaction (Unknown, Verified 03/27/25 09:36) Myalgias PALMA Inhibitors Adverse Reaction (Verified 03/27/25 09:36) cough ezetimibe (From Zetia) Adverse Reaction (Verified 03/27/25 09:36) Myalgias Medications ???Medication ???Instructions ???Recorded ???Confirmed ???Type aspirin 81 mg tablet,delayed 81 mg PO DAILYCM 30 days #30 tabs 02/20/23 03/27/25 Rx release clopidogrel 75 mg tablet 75 mg PO DAILY #30 tabs 02/20/23 0 03/27/25 Rx diclofenac sodium 75 mg 75 mg PO BID 03/07/24 03/27/25 His tory tablet,delayed release esomeprazole magnesium 40 mg 40 mg PO QDAY 02/02/25 03/27/25 Hi story capsule,delayed release triamterene 37.5 1 tab PO QAM #90 tabs 02/02/2507/13 Rx mg-hydrochlorothiazide 25 mg tablet labetalol 200 mg tablet 400 mg (2 x 200 mg) PO .COMPLEX 03/27/25 Rx #360 tabs clonidine 0.3 mg/24 hr weekly 1 patch topical QWEEK 03/27/2507/13 History transdermal patch Have you fallen in the past year?: No PFSH Medical History Spinal stenosis Gout Prostate CA GERD (gastroesophageal reflux disease) Pure hypercholesterolemia Essential hypertension Syncope and collapse Sick sinus syndrome Presence of cardiac pacemaker Surgical History History of colonoscopy ( 07/2022) History of prostate surgery History of hernia repair ( 1971) Family History Mother Hypertension Social History Smoking Status: Never smoker how long ago did patient quit smokin + years ago alcohol intake: never substance use type: does not use caffeine: Yes Type: coffee Number of servings: 3 HPI LUMBAR SPINE Details: This documentation accurately reflects the service provided and the decisions made by me, MARISA Guallpa 03/27/25927. Part of today???s visit was documented by Aisha Silverman ATC, acting as scribe. AUSTEN PUENTES is a 80 year old M here today for lumbar spine pain. Patient states the back has been bothering him for several years but progressively getting worse. 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 He describes the pain over the lumbar spine pain. His pain will then extend down his anterior thighs to the knees, patient has pain on both legs however he thinks that the left is slightly worse than the right. He denies any pain that extends past the knees. Patient has had 3 injections with [facility] in [place] with the most recent being in February. He states the first injection he had worked great but the last 2 did not give him any relief. First injection gave him relief for 3 months. The second injections only gave several days of relief. He states he gets pain down both legs and states it can be in the front and back of the legs. He denies any numbness/tingling in the legs. He states he does have balance issues. He denies surgery. He states he did physical therapy years ago but nothing recently. He does go to [place] and works with [employer] on his own. He takes Voltaren and Tylenol for the pain. Walking and standing increases his pain and he can only do 10 minutes of work before he has to sit down. Leaning on a cart does give him some relief and allows him to walk further in a grocery store. He is only able to take Tylenol [id number]-[id number]-mpuhlau as he takes Plavix. No cane or walker. No diabetes, no heart or lung issues, takes Plavix after having stroke like symptoms several years ago. Scars bilateral abdomen from robotic prostate surgery. The patient also has a pacemaker and is not able to have an MRI. Dr. Huggnis is the family doctor. Ortho Exam General General: Yes no acute distress Neurologic: Yes alert and Yes oriented x3 Spine SPINE TESTING CERVICAL THORACIC LUMBAR Musculoskeletal Strength 0=absent - 5=normal Details: Neurological exam of the lower extremities shows 5x5 power. Normal s (more content not included)... Normal [facility] Cardiology Visit Reporton Cardiology Visit Report [facility] [address] [place] [address] OFFICE VISIT Date of Service: 02/02/25 MR#: [id number] Acct: [id number] Name: AUSTEN PUENTES Rep #: [id number] : 1945 Provider: Dr. Desmond Gross MD Age/Sex: 79/M Location: [facility] Status: Signed HPI HPI History of Present Illness Details: This is a 79-year-old white male who presents today for an outpatient cardiovascular follow-up. He established with us in November 2021 based upon a history of permanent pacemaker placement, syncope, sick sinus syndrome, hypertension, and hyperlipidemia. He was seen at [facility] in February 2023 for suspected CVA. Repeat CT scan did not show CVA. He underwent echocardiogram with recommendation for dual antiplatelet therapy. From a cardiac standpoint, the patient is doing well. He denies any palpitations, chest pain, pressure or heaviness. He does have SOB with exertion. He states this is slightly worse. He attributes this to joint pain when walking. He denies Orthopnea, and PND. He does not have bleeding issues; no blood in urine, stool or nosebleeds. He does acknowledge a decrease in energy level-again he attributes this to his joint pain. He denies any myalgias, or claudication. He does not have edema, or sudden weight gain. He denies dizziness, lightheadedness, syncopal or near syncopal episodes, and headaches. His blood pressures are still somewhat elevated. Intake Vital Signs 06/09/24 13:20 02/02/25 13:32 Height 5 ft 4.96 in 5 ft 4.96 in Weight: 205 lb 206 lb BMI 34.1 34.3 BP 154/82 H 192/96 H Blood Pressure Location Lt brachial Lt brachial Position Sitting Sitting Respiration 18 16 Pulse 68 Pulse Source Monitor Monitor Pulse Oximetry (%) 96 Intake Visit Reasons: 6 M FU Radiation Control Worker Required: No Accompanied by: Self Is patient in pain?: No Allergies latex Allergy (Verified 02/02/25 13:55) Rash atorvastatin (From Lipitor) Adverse Reaction (Unknown, Verified 02/02/25 13:55) Myalgias PALMA Inhibitors Adverse Reaction (Verified 02/02/25 13:55) cough ezetimibe (From Zetia) Adverse Reaction (Verified 02/02/25 13:55) Myalgias Medications ???Medication ???Instructions ???Recorded ???Confirmed ???Type clonidine 0.2 mg/24 hr weekly 0.2 mg transdermal QWEEK blood 02/02/25 History transdermal patch pressure aspirin 81 mg tablet,delayed 81 mg PO DAILYCM 30 days #30 tabs 02/20/23 02/02/25 Rx release clopidogrel 75 mg tablet 75 mg PO DAILY #30 tabs 02/20/23 0 02/02/25 Rx amlodipine 10 mg tablet 10 mg PO DAILY #90 tabs 03/07/24 0 02/02/25 Rx diclofenac sodium 75 mg 75 mg PO BID 03/07/24 02/02/25 His tory tablet,delayed release esomeprazole magnesium 40 mg 40 mg PO QDAY 02/02/25 02/02/25 Hi story capsule,delayed release labetalol 400 mg tablet 400 mg PO BID #120 tabs 02/02/25 0 02/02/25 Rx triamterene 37.5 1 tab PO QAM #90 tabs 02/02/25 Rx mg-hydrochlorothiazide 25 mg tablet Have you fallen in the past year?: No PFSH Medical History Spinal stenosis Gout Prostate CA GERD (gastroesophageal reflux disease) Pure hypercholesterolemia Essential hypertension Syncope and collapse Sick sinus syndrome Presence of cardiac pacemaker Surgical History History of colonoscopy ( 07/2022) History of prostate surgery History of hernia repair ( 1971) Family History Mother Hypertension Social History Smoking Status: Never smoker how long ago did patient quit smokin + years ago alcohol intake: never substance use type: does not use caffeine: Yes Type: coffee Number of servings: 3 ROS Const Const: Negative for fatigue, weakness, headache(s), daytime sleepiness or difficulty sleeping ENT ENT: Negative for headache(s), dizziness or Nosebleed/epistaxis Cardio Chest Pain: No Palpitations: No Edema: Bilateral (wears compression socks) Resp Respiratory: Positive for SOB with activity; Negative for SOB at rest, SOB orthopnea SOB lying down or Cough GI GI: Negative nausea, vomiting or heartburn Neuro Neuro: Positive for vertigo (positional); Negative for dizziness, lightheadedness, near syncope, headache(s) or weakness Endo Endo: Negative for fatigue Cardiology Exam Const Appearance: cooperative, healthy appearing, comfortable and no acute distress Nutritional Appearance: well nourished and obese Orientation: alert, awake and oriented x3 Head Head: normal to inspection Ears: hearing grossly normal bilaterally Nose: external nose normal Face and Sinus: face symmetric Eyes Gener (more content not included)... Normal [facility] CT SPINE LUMBAR W/O CONTRAST on 07-29-2024 CT SPINE LUMBAR W/O CONTRAST ORIGINAL EXAMINATION: CT OF THE LUMBAR SPINE WITHOUT CONTRAST 07/27/2024 TECHNIQUE: CT of the lumbar spine was performed without the administration of intravenous contrast. Multiplanar reformatted images are provided for review. Adjustment of mA and/or kV according to patient size was utilized. Automated exposure control, iterative reconstruction, and/or weight based adjustment of the mA/kV was utilized to reduce the radiation dose to as low as reasonably achievable. COMPARISON: None HISTORY: ORDERING SYSTEM PROVIDED HISTORY: Reason for Exam: OTHER INTERVERTEBAL DISK DEGENERATION LUMBAR REGION FINDINGS: BONES/ALIGNMENT: Multilevel degenerative disc space narrowing is present with multilevel facet arthropathy. Grade 1 anterolisthesis of L4 on L5 measures 7 mm. Grade 1 anterolisthesis of L5 on S1 measures 5 mm. L1-L2: Severe degenerative disc space narrowing and vacuum disc phenomena is noted with ligamentum flavum hypertrophy and facet degeneration resulting in moderately severe central canal stenosis. L2-L3: Severe degenerate disc space narrowing and vacuum disc phenomena is present contributing to moderately severe central canal stenosis. L3-L4: There is moderately severe degenerative disc space narrowing and annular bulging of disc contributing to moderately severe central canal stenosis. L4-L5: Facet arthropathy with grade 1 anterolisthesis. Broad-based annular bulging of disc. Severe canal stenosis. L5-S1: Bilateral pars defects are present with grade 1 anterolisthesis of L4 on L5. No significant canal stenosis. Moderately severe bilateral foraminal narrowing. SOFT TISSUES/RETROPERITONEUM: No paraspinal mass is seen. IMPRESSION: 1. Severe multilevel degenerative disc disease and facet arthropathy. 2. Bilateral L5 pars defects with grade 1 anterolisthesis of L5 on S1. 3. Severe central canal stenosis at L4-L5 and moderately severe central canal stenosis at L1-L2, L2-L3 and L3-L4. 4. Moderately severe bilateral foraminal narrowing at L5-S1. Interpreted by: Reynold Burton Preliminary Report By: Reynold Burton Electronically signed By Reynold Burton Dictated Date: 07/29/2024 5:25:37 AM Prelim Date: 07/29/2024 5:31:26 AM Sign Date: 07/29/2024 5:31:26 AM Ordering Provider: CINTHIA Stallings [facility] Cardiology Visit Reporton Cardiology Visit Report [facility] [address] [place] [address]. [address] [place] [address] OFFICE VISIT Date of Service: 06/09/24 MR#: [id number] Acct: [id number] Name: AUSTEN PUENTES Rep #: [id number] : 1945 Provider: SHON martines Age/Sex: 79/M Location: [facility] Status: Signed [facility] History of Present Illness Details: This is a 79-year-old white male who presents today for an outpatient cardiovascular follow-up. He established with us in November 2021 based upon a history of permanent pacemaker placement, syncope, sick sinus syndrome, hypertension, and hyperlipidemia. He was seen at [facility] in February 2023 for suspected CVA. Repeat CT scan did not show CVA. He underwent echocardiogram with recommendation for dual antiplatelet therapy. From a cardiac standpoint, the patient is doing well. He denies any palpitations, chest pain, pressure or heaviness. He does have SOB with exertion. He states this is slightly worse. He attributes this to joint pain when walking. He denies Orthopnea, and PND. He does not have bleeding issues; no blood in urine, stool or nosebleeds. He does acknowledge a decrease in energy level-again he attributes this to his joint pain. He denies any myalgias, or claudication. He does not have edema, or sudden weight gain. He denies dizziness, lightheadedness, syncopal or near syncopal episodes, and headaches. He does go to [facility] for 4x week. He does state his blood pressures at home average 117/69. Intake Vital Signs 03/07/24 13:16 06/09/24 13:20 Height 5 ft 4.96 in 5 ft 4.96 in Weight: 205 lb BMI 34.1 BP 154/82 H Blood Pressure Location Lt brachial Position Sitting Respiration 18 Pulse Source Monitor Pulse Oximetry (%) 96 Intake Visit Reasons: 1 Y FU / ANA CRISTINA @ 1pm Radiation Control Worker Required: No Is patient in pain?: No Allergies latex Allergy (Verified 06/09/24 13:33) Rash atorvastatin (From Lipitor) Adverse Reaction (Unknown, Verified 06/09/24 13:33) Myalgias PALMA Inhibitors Adverse Reaction (Verified 06/09/24 13:33) cough ezetimibe (From Zetia) Adverse Reaction (Verified 06/09/24 13:33) Myalgias Medications ???Medication ???Instructions ???Recorded ???Confirmed ???Type clonidine 0.2 mg/24 hr weekly 0.2 mg transdermal QWEEK blood 09/01/22 06/09/24 History transdermal patch pressure pantoprazole 40 mg tablet,delayed 40 mg PO DAILY reflux 09/01/22 06/09/24 History release aspirin 81 mg tablet,delayed 81 mg PO DAILYCM 30 days #30 tabs 02/20/23 06/09/24 Rx release clopidogrel 75 mg tablet 75 mg PO DAILY #30 tabs 02/20/23 06/09/24 Rx carvedilol 25 mg tablet 25 mg PO BID #180 tabs 01/15/24 06/09/24 Rx amlodipine 10 mg tablet 10 mg PO DAILY #90 tabs 03/07/24 06/09/24 Rx diclofenac sodium 75 mg 75 mg PO BID 03/07/24 06/09/24 History tablet,delayed release losartan 25 mg tablet 25 mg PO DAILY #30 tabs 04/25/24 06/09/24 Rx spironolactone 50 mg tablet 50 mg PO DAILY diuretic 06/09/24 06/09/24 History Have you fallen in the past year?: No PFSH Medical History Spinal stenosis Gout Prostate CA GERD (gastroesophageal reflux disease) Pure hypercholesterolemia Essential hypertension Syncope and collapse Sick sinus syndrome Presence of cardiac pacemaker Surgical History History of colonoscopy ( 07/2022) History of prostate surgery History of hernia repair ( 1971) Family History Mother Hypertension Social History Smoking Status: Never smoker how long ago did patient quit smokin + years ago alcohol intake: never substance use type: does not use caffeine: Yes Type: coffee Number of servings: 3 ROS Const Const: Positive for fatigue (attributes to joint pain); Negative for weakness, fever(s), headache(s), chills, frequent falls, weight gain or weight loss Eyes Eyes: Negative for blind spots, loss of peripheral vision, transient loss of vision, blurry vision, change in vision, double vision, floaters or tunnel vision ENT ENT: Negative for headache(s), dizziness, Nosebleed/epistaxis, balance problems or neck pain Cardio Chest Pain: No Palpitations: No Edema: None Muscle aches with walking: None Resp Respiratory: Positive for SOB with activity (attributes to his joint pain); Negative for SOB at rest or SOB orthopnea SOB lying down GI GI: Negative nausea, vomiting, heartburn, bloating, vomiting blood/hematemesis, bright, red blood in stools or black,tarry stools Musc Musc: Negative for muscle aches/ myalgia, muscle weakness, joint pain or balance problems Neuro Neuro: Negative for dizziness, ligh (more content not included)... Normal [facility] Pacemaker Checkon 06-09-2024 Pacemaker Check [facility] [address] [place], [place] [address] Pacemaker Check Date of Service: 06/09/24 1619 MR#: [id number] Acct: [id number] Name: AUSTEN PUENTES Rep #: [id number] : 1945 From: Lian Wheeler Age/Sex: 79/M Location: [facility] [place] Status: Signed Billing Codes PM Device Codes: PM Dev Prog Eval, Dual Assessment and Plan Assessment and Plan (1) Syncope and collapse: Status: Acute (2) Sick sinus syndrome: Status: Chronic (3) Presence of cardiac pacemaker: Status: Chronic Comment: Implant 12/23/10 06/09/24 1620 Date Lian Summer Maribellignadolfo Signature: Date (if applicable) CC: Normal [facility] Bilirubin, Directon 05-24-20 24 Bilirubin.direct [Mass/Vol] 0.15 mg/dL Normal 0.00-0.30 [facility] Comment on above: Order Comment: LIPID -DUPLICATE W/ BOTH DRPER MEDITECH-LIVER COULD NOT BE ORDERED DUE TO TESTS OVERLAPW/ CMP-ORDERED DBIL ALONELIVER LIPID-ROBERTSOTHER TESTS-BHAVNA Performed By: #### L 500.4100, L100.0100, L501.1400, L500.4050, L501.4700 ####[facility] [address] [place], [address] CBC W/Diff, Automatedon 08-0 Absolute Lymph 1.28 X10 3/uL Normal 0.83-4.51 [facility] Comment on above: Order Comment: LIPID -DUPLICATE W/ BOTH DRPER MEDITECH-LIVER COULD NOT BE ORDERED DUE TO TESTS OVERLAPW/ CMP-ORDERED DBIL ALONELIVER LIPID-ROBERTSOTHER TESTS-BHAVNA Performed By: #### L 500.4100, L100.0100, L501.1400, L500.4050, L501.4700 ####[facility] [address] [place], [address] Absolute Neut 6.5 X10 3/uL Normal 2.0-7.7 [facility] Comment on above: Order Comment: LIPID -DUPLICATE W/ BOTH DRPER MEDITECH-LIVER COULD NOT BE ORDERED DUE TO TESTS OVERLAPW/ CMP-ORDERED DBIL ALONELIVER LIPID-ROBERTSOTHER TESTS-BHAVNA Performed By: #### L 500.4100, L100.0100, L501.1400, L500.4050, L501.4700 ####[facility] [address] [place], [address] Basophils/100 WBC (Bld) 0.7 % Normal 0-1 [facility] Comment on above: Order Comment: LIPID -DUPLICATE W/ BOTH DRPER MEDITECH-LIVER COULD NOT BE ORDERED DUE TO TESTS OVERLAPW/ CMP-ORDERED DBIL ALONELIVER LIPID-ROBERTSOTHER TESTS-BHAVNA Performed By: #### L 500.4100, L100.0100, L501.1400, L500.4050, L501.4700 ####[facility] [address] [place], [address] Eosinophils/100 WBC (Bld) 3.6 % Normal 0-5 [facility] Comment on above: Order Comment: LIPID -DUPLICATE W/ BOTH DRPER MEDITECH-LIVER COULD NOT BE ORDERED DUE TO TESTS OVERLAPW/ CMP-ORDERED DBIL ALONELIVER LIPID-ROBERTSOTHER TESTS-BHAVNA Performed By: #### L 500.4100, L100.0100, L501.1400, L500.4050, L501.4700 ####[facility] [address] [place], [address] Erythrocyte distribution width (RBC) [Ratio] 14.0 % Normal 11.6-14.6 [facility] Comment on above: Order Comment: LIPID -DUPLICATE W/ BOTH DRPER MEDITECH-LIVER COULD NOT BE ORDERED DUE TO TESTS OVERLAPW/ CMP-ORDERED DBIL ALONELIVER LIPID-ROBERTSOTHER TESTS-BHAVNA Performed By: #### L 500.4100, L100.0100, L501.1400, L500.4050, L501.4700 ####[facility] [address] [place], [address] Hematocrit (Bld) [Volume fraction] 44.0 % Normal 40-54 [facility] Comment on above: Order Comment: LIPID -DUPLICATE W/ BOTH DRPER MEDITECH-LIVER COULD NOT BE ORDERED DUE TO TESTS OVERLAPW/ CMP-ORDERED DBIL ALONELIVER LIPID-ROBERTSOTHER TESTS-BHAVNA Performed By: #### L 500.4100, L100.0100, L501.1400, L500.4050, L501.4700 ####[facility] [address] [place], [address] Hemoglobin (Bld) [Mass/Vol] 14.7 g/dL Normal 13.0-16.5 [facility] Comment on above: Order Comment: LIPID -DUPLICATE W/ BOTH DRPER MEDITECH-LIVER COULD NOT BE ORDERED DUE TO TESTS OVERLAPW/ CMP-ORDERED DBIL ALONELIVER LIPID-ROBERTSOTHER TESTS-BHAVNA Performed By: #### L 500.4100, L100.0100, L501.1400, L500.4050, L501.4700 ####[facility] [address] [place], [address] IG% 0.400 Normal 0.0-0.9 [facility] Comment on above: Order Comment: LIPID -DUPLICATE W/ BOTH DRPER MEDITECH-LIVER COULD NOT BE ORDERED DUE TO TESTS OVERLAPW/ CMP-ORDERED DBIL ALONELIVER LIPID-ROBERTSOTHER TESTS-BHAVNA Result Comment: IG% - Immature Granulocytes (promyelocytes, myelocytes and metamyelocytes) > 1% indicates that a LEFT SHIFT is Present. Performed By: #### L 500.4100, L100.0100, L501.1400, L500.4050, L501.4700 ####[facility] [address] [place], [address] Lymphocytes/100 WBC (Bld) 14.2 % Low 19-41 [facility] Comment on above: Order Comment: LIPID -DUPLICATE W/ BOTH DRPER MEDITECH-LIVER COULD NOT BE ORDERED DUE TO TESTS OVERLAPW/ CMP-ORDERED DBIL ALONELIVER LIPID-ROBERTSOTHER TESTS-BHAVNA Performed By: #### L 500.4100, L100.0100, L501.1400, L500.4050, L501.4700 ####[facility] [address] [place], [address] MCH (RBC) [Entitic mass] 30.8 pg Normal 27.0-32.0 [facility] Comment on above: Order Comment: LIPID -DUPLICATE W/ BOTH DRPER MEDITECH-LIVER COULD NOT BE ORDERED DUE TO TESTS OVERLAPW/ CMP-ORDERED DBIL ALONELIVER LIPID-ROBERTSOTHER TESTS-BHAVNA Performed By: #### L 500.4100, L100.0100, L501.1400, L500.4050, L501.4700 ####[facility] [address] [place], [address] MCHC (RBC) [Mass/Vol] 33.4 g/dL Normal 32-36 [facility] Comment on above: Order Comment: LIPID -DUPLICATE W/ BOTH DRPER MEDITECH-LIVER COULD NOT BE ORDERED DUE TO TESTS OVERLAPW/ CMP-ORDERED DBIL ALONELIVER LIPID-ROBERTSOTHER TESTS-BHAVNA Performed By: #### L 500.4100, L100.0100, L501.1400, L500.4050, L501.4700 ####[facility] [address] [place], [address] MCV (RBC) [Entitic vol] 92.1 fL Normal 80-94 [facility] Comment on above: Order Comment: LIPID -DUPLICATE W/ BOTH DRPER MEDITECH-LIVER COULD NOT BE ORDERED DUE TO TESTS OVERLAPW/ CMP-ORDERED DBIL ALONELIVER LIPID-ROBERTSOTHER TESTS-BHAVNA Performed By: #### L 500.4100, L100.0100, L501.1400, L500.4050, L501.4700 ####[facility] [address] [place], [address] Monocytes/100 WBC (Bld) 8.3 % Normal 0-10 [facility] Comment on above: Order Comment: LIPID -DUPLICATE W/ BOTH DRPER MEDITECH-LIVER COULD NOT BE ORDERED DUE TO TESTS OVERLAPW/ CMP-ORDERED DBIL ALONELIVER LIPID-ROBERTSOTHER TESTS-BHAVNA Performed By: #### L 500.4100, L100.0100, L501.1400, L500.4050, L501.4700 ####[facility] [address] [place], [address] Neutrophils/100 WBC (Bld) 72.8 % High 47-70 [facility] Comment on above: Order Comment: LIPID -DUPLICATE W/ BOTH DRPER MEDITECH-LIVER COULD NOT BE ORDERED DUE TO TESTS OVERLAPW/ CMP-ORDERED DBIL ALONELIVER LIPID-ROBERTSOTHER TESTS-BHAVNA Performed By: #### L 500.4100, L100.0100, L501.1400, L500.4050, L501.4700 ####[facility] [address] [place], [address] Nucleated RBC (Bld) [#/Vol] 0 10*3/uL Normal 0-5 [facility] Comment on above: Order Comment: LIPID -DUPLICATE W/ BOTH DRPER MEDITECH-LIVER COULD NOT BE ORDERED DUE TO TESTS OVERLAPW/ CMP-ORDERED DBIL ALONELIVER LIPID-ROBERTSOTHER TESTS-BHAVNA Performed By: #### L 500.4100, L100.0100, L501.1400, L500.4050, L501.4700 ####[facility] [address] [place], [address] Platelet mean volume (Bld) [Entitic vol] 9.9 fL Normal 6.2-12.0 [facility] Comment on above: Order Comment: LIPID -DUPLICATE W/ BOTH DRPER MEDITECH-LIVER COULD NOT BE ORDERED DUE TO TESTS OVERLAPW/ CMP-ORDERED DBIL ALONELIVER LIPID-ROBERTSOTHER TESTS-BHAVNA Performed By: #### L 500.4100, L100.0100, L501.1400, L500.4050, L501.4700 ####[facility] [address] [place], [address] Platelets (Bld) [#/Vol] 252 10*3/uL Normal 150-450 [facility] Comment on above: Order Comment: LIPID -DUPLICATE W/ BOTH DRPER MEDITECH-LIVER COULD NOT BE ORDERED DUE TO TESTS OVERLAPW/ CMP-ORDERED DBIL ALONELIVER LIPID-ROBERTSOTHER TESTS-BHAVNA Performed By: #### L 500.4100, L100.0100, L501.1400, L500.4050, L501.4700 ####[facility] [address] [place], [address] RBC (Bld) [#/Vol] 4.78 10*6/uL Normal 4.6-6.2 [facility] Comment on above: Order Comment: LIPID -DUPLICATE W/ BOTH DRPER MEDITECH-LIVER COULD NOT BE ORDERED DUE TO TESTS OVERLAPW/ CMP-ORDERED DBIL ALONELIVER LIPID-ROBERTSOTHER TESTS-BHAVNA Performed By: #### L 500.4100, L100.0100, L501.1400, L500.4050, L501.4700 ####[facility] [address] [place], [address] RDW SD 47.8 fl High 35.1-43.9 [facility] Comment on above: Order Comment: LIPID -DUPLICATE W/ BOTH DRPER MEDITECH-LIVER COULD NOT BE ORDERED DUE TO TESTS OVERLAPW/ CMP-ORDERED DBIL ALONELIVER LIPID-ROBERTSOTHER TESTS-BHAVNA Performed By: #### L 500.4100, L100.0100, L501.1400, L500.4050, L501.4700 ####[facility] [address] [place], [address] WBC (Bld) [#/Vol] 9.0 10*3/uL Normal 4.4-11.0 [facility] Comment on above: Order Comment: LIPID -DUPLICATE W/ BOTH DRPER MEDITECH-LIVER COULD NOT BE ORDERED DUE TO TESTS OVERLAPW/ CMP-ORDERED DBIL ALONELIVER LIPID-ROBERTSOTHER TESTS-BHAVNA Performed By: #### L 500.4100, L100.0100, L501.1400, L500.4050, L501.4700 ####[facility] [address] [place], [address] Comprehensive Metabolic Prof ilon 05-24-2024 Albumin [Mass/Vol] 3.5 g/dL Normal 3.2-5.0 [facility] Comment on above: Order Comment: LIPID -DUPLICATE W/ BOTH DRPER MEDITECH-LIVER COULD NOT BE ORDERED DUE TO TESTS OVERLAPW/ CMP-ORDERED DBIL ALONELIVER LIPID-ROBERTSOTHER TESTS-BHAVNA Performed By: #### L 500.4100, L100.0100, L501.1400, L500.4050, L501.4700 ####[facility] [address] [place], [address] Albumin/Globulin [Mass ratio] 1.0 {ratio} Normal 0.9-2.4 [facility] Comment on above: Order Comment: LIPID -DUPLICATE W/ BOTH DRPER MEDITECH-LIVER COULD NOT BE ORDERED DUE TO TESTS OVERLAPW/ CMP-ORDERED DBIL ALONELIVER LIPID-ROBERTSOTHER TESTS-BHAVNA Performed By: #### L 500.4100, L100.0100, L501.1400, L500.4050, L501.4700 ####[facility] [address] [place], [address] ALK P 75 U/L Normal 45-117 [facility] Comment on above: Order Comment: LIPID -DUPLICATE W/ BOTH DRPER MEDITECH-LIVER COULD NOT BE ORDERED DUE TO TESTS OVERLAPW/ CMP-ORDERED DBIL ALONELIVER LIPID-ROBERTSOTHER TESTS-BHAVNA Performed By: #### L 500.4100, L100.0100, L501.1400, L500.4050, L501.4700 ####[facility] [address] [place], [address] ALT [Catalytic activity/Vol] 25 U/L Normal 16-61 [facility] Comment on above: Order Comment: LIPID -DUPLICATE W/ BOTH DRPER MEDITECH-LIVER COULD NOT BE ORDERED DUE TO TESTS OVERLAPW/ CMP-ORDERED DBIL ALONELIVER LIPID-ROBERTSOTHER TESTS-BHAVNA Performed By: #### L 500.4100, L100.0100, L501.1400, L500.4050, L501.4700 ####[facility] [address] [place], [address] AST [Catalytic activity/Vol] 16 U/L Normal 15-37 [facility] Comment on above: Order Comment: LIPID -DUPLICATE W/ BOTH DRPER MEDITECH-LIVER COULD NOT BE ORDERED DUE TO TESTS OVERLAPW/ CMP-ORDERED DBIL ALONELIVER LIPID-ROBERTSOTHER TESTS-BHAVNA Performed By: #### L 500.4100, L100.0100, L501.1400, L500.4050, L501.4700 ####[facility] [address] [place], [address] Bilirubin [Mass/Vol] 0.50 mg/dL Normal 0.20-1.00 [facility] Comment on above: Order Comment: LIPID -DUPLICATE W/ BOTH DRPER MEDITECH-LIVER COULD NOT BE ORDERED DUE TO TESTS OVERLAPW/ CMP-ORDERED DBIL ALONELIVER LIPID-ROBERTSOTHER TESTS-BHAVNA Result Comment: For patients on eltrombopag therapy, use of Dimension Drewsey TBIL is not recommended. Performed By: #### L 500.4100, L100.0100, L501.1400, L500.4050, L501.4700 ####[facility] [address] [place], [address] BUN/CRE 16.4 RATIO Normal 10-20 [facility] Comment on above: Order Comment: LIPID -DUPLICATE W/ BOTH DRPER MEDITECH-LIVER COULD NOT BE ORDERED DUE TO TESTS OVERLAPW/ CMP-ORDERED DBIL ALONELIVER LIPID-ROBERTSOTHER TESTS-BHAVNA Performed By: #### L 500.4100, L100.0100, L501.1400, L500.4050, L501.4700 ####[facility] [address] [place], [address] CA,Total 8.8 mg/dL Normal 8.5-10.1 [facility] Comment on above: Order Comment: LIPID -DUPLICATE W/ BOTH DRPER MEDITECH-LIVER COULD NOT BE ORDERED DUE TO TESTS OVERLAPW/ CMP-ORDERED DBIL ALONELIVER LIPID-ROBERTSOTHER TESTS-BHAVNA Performed By: #### L 500.4100, L100.0100, L501.1400, L500.4050, L501.4700 ####[facility] [address] [place], [address] Chloride [Moles/Vol] 104 mmol/L Normal 98-107 [facility] Comment on above: Order Comment: LIPID -DUPLICATE W/ BOTH DRPER MEDITECH-LIVER COULD NOT BE ORDERED DUE TO TESTS OVERLAPW/ CMP-ORDERED DBIL ALONELIVER LIPID-ROBERTSOTHER TESTS-BHAVNA Performed By: #### L 500.4100, L100.0100, L501.1400, L500.4050, L501.4700 ####[facility] [address] [place], [address] CO2 [Moles/Vol] 25.0 mmol/L Normal 21.0-32.0 [facility] Comment on above: Order Comment: LIPID -DUPLICATE W/ BOTH DRPER MEDITECH-LIVER COULD NOT BE ORDERED DUE TO TESTS OVERLAPW/ CMP-ORDERED DBIL ALONELIVER LIPID-ROBERTSOTHER TESTS-BHAVNA Performed By: #### L 500.4100, L100.0100, L501.1400, L500.4050, L501.4700 ####[facility] [address], [address] Creatinine [Mass/Vol] 0.92 mg/dL Normal 0.70-1.30 [facility] Comment on above: Order Comment: LIPID -DUPLICATE W/ BOTH DRPER MEDITECH-LIVER COULD NOT BE ORDERED DUE TO TESTS OVERLAPW/ CMP-ORDERED DBIL ALONELIVER LIPID-ROBERTSOTHER TESTS-BHAVNA Result Comment: The validity of the calculated GFR GFRAA in patients over 70 years has not been determined. Clinical correlation is essential. Performed By: #### L 500.4100, L100.0100, L501.1400, L500.4050, L501.4700 ####[facility] [address], [address] EST GFR - AA 103 mL/min Normal >60 [facility] Comment on above: Order Comment: LIPID -DUPLICATE W/ BOTH DRPER MEDITECH-LIVER COULD NOT BE ORDERED DUE TO TESTS OVERLAPW/ CMP-ORDERED DBIL ALONELIVER LIPID-ROBERTSOTHER TESTS-BHAVNA Result Comment: Afri can [place] GFR Calc Performed By: #### L 500.4100, L100.0100, L501.1400, L500.4050, L501.4700 ####[facility] [address] [place], [address] GAP 7 Normal 5-15 [facility] Comment on above: Order Comment: LIPID -DUPLICATE W/ BOTH DRPER MEDITECH-LIVER COULD NOT BE ORDERED DUE TO TESTS OVERLAPW/ CMP-ORDERED DBIL ALONELIVER LIPID-ROBERTSOTHER TESTS-BHAVNA Performed By: #### L 500.4100, L100.0100, L501.1400, L500.4050, L501.4700 ####[facility] [address] [place], [address] GFR/1.73 sq M.predicted among non-blacks MDRD (S/P/Bld) [Vol rate/Area] 85 mL/min/{1.73_m2} Normal >60 [facility] Comment on above: Order Comment: LIPID -DUPLICATE W/ BOTH DRPER MEDITECH-LIVER COULD NOT BE ORDERED DUE TO TESTS OVERLAPW/ CMP-ORDERED DBIL ALONELIVER LIPID-ROBERTSOTHER TESTS-BHAVNA Result Comment: Non- GFR Calc Performed By: #### L 500.4100, L100.0100, L501.1400, L500.4050, L501.4700 ####[facility] [address] [place], [address] Globulin (S) [Mass/Vol] 3.5 g/dL Normal 2.2-4.2 [facility] Comment on above: Order Comment: LIPID -DUPLICATE W/ BOTH DRPER MEDITECH-LIVER COULD NOT BE ORDERED DUE TO TESTS OVERLAPW/ CMP-ORDERED DBIL ALONELIVER LIPID-ROBERTSOTHER TESTS-BHAVNA Performed By: #### L 500.4100, L100.0100, L501.1400, L500.4050, L501.4700 ####[facility] [address] [place], [address] Glucose [Mass/Vol] 104 mg/dL Normal 74-106 [facility] Comment on above: Order Comment: LIPID -DUPLICATE W/ BOTH DRPER MEDITECH-LIVER COULD NOT BE ORDERED DUE TO TESTS OVERLAPW/ CMP-ORDERED DBIL ALONELIVER LIPID-ROBERTSOTHER TESTS-BHAVNA Result Comment: Fast ing Glucose result from 100 to 125 mg/dL suggests IMPAIRED HOMEOSTASIS per A.D.A. criteria. Performed By: #### L 500.4100, L100.0100, L501.1400, L500.4050, L501.4700 ####[facility] [address] [place], [address] Potassium [Moles/Vol] 4.0 mmol/L Normal 3.5-5.1 [facility] Comment on above: Order Comment: LIPID -DUPLICATE W/ BOTH DRPER MEDITECH-LIVER COULD NOT BE ORDERED DUE TO TESTS OVERLAPW/ CMP-ORDERED DBIL ALONELIVER LIPID-ROBERTSOTHER TESTS-BHAVNA Performed By: #### L 500.4100, L100.0100, L501.1400, L500.4050, L501.4700 ####[facility] [address] [place], [address] Sodium [Moles/Vol] 136 mmol/L Normal 136-145 [facility] Comment on above: Order Comment: LIPID -DUPLICATE W/ BOTH DRPER MEDITECH-LIVER COULD NOT BE ORDERED DUE TO TESTS OVERLAPW/ CMP-ORDERED DBIL ALONELIVER LIPID-ROBERTSOTHER TESTS-BHAVNA Performed By: #### L 500.4100, L100.0100, L501.1400, L500.4050, L501.4700 ####[facility] [address] [place], [address] T PROT 7.0 g/dL Normal 6.4-8.2 [facility] Comment on above: Order Comment: LIPID -DUPLICATE W/ BOTH DRPER MEDITECH-LIVER COULD NOT BE ORDERED DUE TO TESTS OVERLAPW/ CMP-ORDERED DBIL ALONELIVER LIPID-ROBERTSOTHER TESTS-BHAVNA Performed By: #### L 500.4100, L100.0100, L501.1400, L500.4050, L501.4700 ####[facility] [address] [place], [address] Urea nitrogen [Mass/Vol] 15 mg/dL Normal 7-18 [facility] Comment on above: Order Comment: LIPID -DUPLICATE W/ BOTH DRPER MEDITECH-LIVER COULD NOT BE ORDERED DUE TO TESTS OVERLAPW/ CMP-ORDERED DBIL ALONELIVER LIPID-ROBERTSOTHER TESTS-BHAVNA Performed By: #### L 500.4100, L100.0100, L501.1400, L500.4050, L501.4700 ####[facility] [address] [place], [address] Lipid Profileon 05-24-2024 Cholesterol [Mass/Vol] 201 mg/dL High [address] [facility] Comment on above: Order Comment: LIPID -DUPLICATE W/ BOTH DRPER MEDITECH-LIVER COULD NOT BE ORDERED DUE TO TESTS OVERLAPW/ CMP-ORDERED DBIL ALONELIVER LIPID-ROBERTSOTHER TESTS-BHAVNA Result Comment: <200 mg/dL Desirable 200-240 mg/dL Borderline >240 mg/dL High Risk Performed By: #### L 500.4100, L100.0100, L501.1400, L500.4050, L501.4700 ####[facility] [address] [place], [address] Cholesterol in HDL [Mass/Vol] 37 mg/dL Low [facility] Comment on above: Order Comment: LIPID -DUPLICATE W/ BOTH DRPER MEDITECH-LIVER COULD NOT BE ORDERED DUE TO TESTS OVERLAPW/ CMP-ORDERED DBIL ALONELIVER LIPID-ROBERTSOTHER TESTS-BHAVNA Result Comment: The drugs N-Acetylcysteine and Metamizole may falsely depress this assay. Reference Range HDL <40 mg/dL Low HDL Cholesterol HDL >or= 60 mg/dL High HDL Cholesterol Performed By: #### L 500.4100, L100.0100, L501.1400, L500.4050, L501.4700 ####[facility] [address] [place], [address] Cholesterol in LDL [Mass/Vol] 136 mg/dL High 0-130 [facility] Comment on above: Order Comment: LIPID -DUPLICATE W/ BOTH DRPER MEDITECH-LIVER COULD NOT BE ORDERED DUE TO TESTS OVERLAPW/ CMP-ORDERED DBIL ALONELIVER LIPID-ROBERTSOTHER TESTS-BHAVNA Performed By: #### L 500.4100, L100.0100, L501.1400, L500.4050, L501.4700 ####[facility] [id number] [place], [address] Cholesterol in VLDL [Mass/Vol] 28 mg/dL Normal 5-40 [facility] Comment on above: Order Comment: LIPID -DUPLICATE W/ BOTH DRPER MEDITECH-LIVER COULD NOT BE ORDERED DUE TO TESTS OVERLAPW/ CMP-ORDERED DBIL ALONELIVER LIPID-ROBERTSOTHER TESTS-BHAVNA Performed By: #### L 500.4100, L100.0100, L501.1400, L500.4050, L501.4700 ####[facility] [id number], [address] Triglyceride [Mass/Vol] 138 mg/dL Normal [facility] Comment on above: Order Comment: LIPID -DUPLICATE W/ BOTH DRPER MEDITECH-LIVER COULD NOT BE ORDERED DUE TO TESTS OVERLAPW/ CMP-ORDERED DBIL ALONELIVER LIPID-ROBERTSOTHER TESTS-BHAVNA Result Comment: The drugs N-Acetylcysteine and Metamizole may falsely depress this assay. Serum Triglycerides Reference Interval Normal <150 mg/dL Borderline high 150 - 199 mg/dL High 200 - 499 mg/dL Very High > or = 500 mg/dL Performed By: #### L 500.4100, L100.0100, L501.1400, L500.4050, L501.4700 ####[facility] [id number] [place], [address] Uric Acidon 05-24-2024 URIC 8.2 mg/dL High 3.5-7.2 [facility] Comment on above: Order Comment: LIPID -DUPLICATE W/ BOTH DRPER MEDITECH-LIVER COULD NOT BE ORDERED DUE TO TESTS OVERLAPW/ CMP-ORDERED DBIL ALONELIVER LIPID-ROBERTSOTHER TESTS-BHAVNA Result Comment: The drugs N-Acetylcysteine and Metamizole may falsely depress this assay. Performed By: #### L 500.4100, L100.0100, L501.1400, L500.4050, L501.4700 ####[facility] [id number] [place], [place], [id number] PSA,Total- Diagnosticon 04-19 PSA, DIAGNOSTIC 0.11 ng/mL Normal 0.0-4.0 [facility] Comment on above: Result Comment: This test was performed using the TPSA assay method for the [employer] system. Values obtained with different assay methods cannot be used interchangably. When changing PSA assays in the course of monitoring a patient, additional sequential testing should be carried out to confirm baseline values. Performed By: #### L 501.9940 ####[facility] [id number] [place], [address] No Panel InformationOrdered By: MARY Jama on 04-25-2023 Prostate Specific Antigen Total 0.08 ng/mL 0.0-4.0 [facility] Comment on above: This test was perfor med using the TPSA assay method for the[employer] chemistry system. Values obtained with differentassay methods cannot be used interchangably.When changing PSA assays in the course of monitoring apatient, additional sequential testing should be carriedout to confirm baseline values. Absolute lymphocyte countOrd ered By: Dr. Hung on 02-19-2023 Lymphocytes Auto (Unsp spec) [#/Vol] 1.48 10*3/uL 0.83-4.51 [facility] Basophil percentageOrdered B y: Dr. Hung on 02-19-2023 Basophil percentage 2.6 mg/dL 2.5-4.9 [facility] Basophils/100 WBC (Bld) 0.6 % 0-1 [facility] Chloride [Moles/Vol] 111 mmol/L 98-107 [facility] Cholesterol [Mass/Vol] 191 mg/dL <[address] [facility] Comment on above: <200 mg/dL Desirable 200-240 mg/dL Borderline >240 mg/dL High Risk Eosinophils/100 WBC (Bld) 3.5 % 0-5 [facility] Glucose [Mass/Vol] 112 mg/dL 74-106 [facility] Comment on above: Fasting Glucose resu lt from 100 to 125 mg/dL suggests IMPAIRED HOMEOSTASIS per A.D.A. criteria. Neutrophils (Bld) [#/Vol] 6.9 10*3/uL 2.0-7.7 [facility] Neutrophils/100 WBC (Bld) 72.4 % 47-70 [facility] Potassium [Moles/Vol] 3.9 mmol/L 3.5-5.1 [facility] Sodium [Moles/Vol] 142 mmol/L 136-145 [facility] Triglyceride [Mass/Vol] 110 mg/dL <199 [facility] Comment on above: The drugs N-Acetylcy steine and Metamizole may falsely depress this assay.Serum Triglycerides Reference Interval Normal <150 mg/dL Borderline high 150 - 199 mg/dL High 200 - 499 mg/dL Very High > or = 500 mg/dL WBC (Bld) [#/Vol] 9.6 10*3/uL 4.4-11.0 [facility] Blood erythrocytes count (nu mber/volume)Ordered By: Dr. Hung on 02-19-2023 RBC (Bld) [#/Vol] 4.95 10*6/uL 4.6-6.2 [facility] Blood hemoglobin measurement (mass/volume)Ordered By: Dr. Hung on 02-19-2023 Hemoglobin (Bld) [Mass/Vol] 15.1 g/dL 13.0-16.5 [facility] Blood lymphocytes/100 leukoc ytesOrdered By: Dr. Hung on 02-19-2023 Lymphocytes/100 WBC (Bld) 15.4 % 19-41 [facility] Blood monocytes/100 leukocyt esOrdered By: Dr. Hung on 02-19-2023 Monocytes/100 WBC (Bld) 7.8 % 0-10 [facility] Blood platelet mean volumeOr dered By: Dr. Hung on 02-19-2023 Platelet mean volume (Bld) [Entitic vol] 10.8 fL 6.2-12.0 [facility] Determination of erythrocyte mean corpuscular volume (MCV)Ordered By: Dr. Hung on 02-19-2023 MCV (RBC) [Entitic vol] 92.3 fL 80-94 [facility] Hematocrit Auto (Bld) [Volum e fraction]Ordered By: Dr. Hung on 02-19-2023 Hematocrit (Bld) [Volume fraction] 45.7 % 40-54 [facility] Laboratory - Chemistry and C hemistry - challengeOrdered By: Dr. Hung on 02-19-2023 CO2 [Moles/Vol] 25.0 mmol/L 21.0-32.0 [facility] Magnesium [Mass/Vol] 2.0 mg/dL 1.6-2.6 [facility] Urea nitrogen/Creatinine [Mass ratio] 18.4 mg/mg 10-20 [facility] Laboratory - Hematology and Cell countsOrdered By: Dr. Hung on 02-19-2023 Erythrocyte distribution width (RBC) [Entitic vol] 47.1 fL 35.1-43.9 [facility] Erythrocyte distribution width (RBC) [Ratio] 13.9 % 11.6-14.6 [facility] Immature granulocytes/100 WBC (Bld) 0.300 % 0.0-0.9 [facility] Comment on above: IG% - Immature Granu locytes (promyelocytes, myelocytes and metamyelocytes) > 1% indicates that a LEFT SHIFT is Present. MCH (RBC) [Entitic mass] 30.5 pg 27.0-32.0 [facility] Nucleated RBC/100 WBC (Bld) [Ratio] 0 % 0-5 [facility] MCHC Auto (RBC) [Mass/Vol]Or dered By: Dr. Hung on 02-19-2023 MCHC (RBC) [Mass/Vol] 33.0 g/dL 32-36 [facility] No Panel InformationOrdered By: Dr. Hung on 02-19-2023 Estimated Creatinine Clearance Calc 58.09 ml/min [facility] Estimated GFR (MDRD) Amer 102 mL/min >60 [facility] Comment on above: GFR Calc Estimated GFR (MDRD) Non-Af Amer 85 mL/min >60 [facility] Comment on above: Non- GFR Calc Platelets bldOrdered By: Dr. Hung on 02-19-2023 Platelets (Bld) [#/Vol] 256 10*3/uL 150-450 [facility] Serum or plasma calcium arnulfo urement (mass/volume)Ordered By: Dr. Hung on 02-19-2023 Calcium [Mass/Vol] 8.7 mg/dL 8.5-10.1 [facility] Serum or plasma cholesterol in HDL measurement (mass/volume)Ordered By: Dr. Hung on 02-19-2023 Cholesterol in HDL [Mass/Vol] 32 mg/dL >40 [facility] Comment on above: The drugs N-Acetylcy steine and Metamizole may falsely depress this assay. Reference Range HDL <40 mg/dL Low HDL Cholesterol HDL >or= 60 mg/dL High HDL Cholesterol Serum or plasma cholesterol in VLDL measurement (mass/volume)Ordered By: Dr. Hung on 02-19-2023 Cholesterol in VLDL [Mass/Vol] 22 mg/dL 5-40 [facility] Serum or plasma creatinine m easurement (mass/volume)Ordered By: Dr. Hung on 02-19-2023 Creatinine [Mass/Vol] 0.92 mg/dL 0.70-1.30 [facility] Comment on above: The validity of the calculated GFR & GFRAA in patients over 70 years has not been determined. Clinical correlation is essential. Serum or plasma low density lipoprotein (LDL) cholesterol measurement (mass/volume)Ordered By: Dr. Hung on 02-19-2023 Cholesterol in LDL [Mass/Vol] 137 mg/dL 0-130 [facility] Serum or plasma urea nitroge n measurement (mass/volume)Ordered By: Dr. Hung on 02-19-2023 Urea nitrogen [Mass/Vol] 17 mg/dL 7-18 [facility] Thin prep Papanicolaou smear with manual screeningOrdered By: Dr. Hung on 02-19-2023 Thin prep Papanicolaou smear with manual screening 6 5-15 [facility] Glucose Glucometer (BldC) [M ass/Vol]Ordered By: Dr. Rhodes on 02-18-2023 Glucose [Mass/Vol] 109 mg/dL 74-106 [facility] Comment on above: MANAGEMENT OF PATIEN T CARE PER NURSING PROTOCOL INR in Blood by Coagulation assayOrdered By: Dr. Rhodes on 02-18-2023 INR Coag (Bld) [Relative time] 1.1 {INR} [facility] Laboratory - CoagulationOrde red By: Dr. Rhodes on 02-18-2023 aPTT Coag (Bld) [Time] 29.6 s 24.1-36.[address] [facility] PT Coag (PPP) [Time] 13.7 s 11.7-14.9 [facility] No Panel InformationOrdered By: Dr. Rhodes on 02-18-2023 Troponin I High Sensitivity 9 pg/mL 3.0-78.0 [facility] Comment on above: Please Note: New Oma t Units and Gender Specific Reference Ranges. For more information see Policy Stat Procedure Drewsey High Sensitivity Troponin (TNIH) and attachments. No Panel InformationOrdered By: Dr. Mosley on 10-23-2022 Prostate Specific Antigen Total 0.09 ng/mL 0.0-4.0 [facility] Comment on above: This test was perfor med using the TPSA assay method for the[employer] chemistry system. Values obtained with differentassay methods cannot be used interchangably.When changing PSA assays in the course of monitoring apatient, additional sequential testing should be carriedout to confirm baseline values. Absolute lymphocyte counton 05-16-2022 Lymphocytes Auto (Unsp spec) [#/Vol] 1.63 10*3/uL 0.83-4.51 [facility] Work Phone: Basophil percentageon 2021 Basophils/100 WBC (Bld) 0.5 % 0-1 [facility] Work Phone: Chloride [Moles/Vol] 107 mmol/L 98-107 [facility] Work Phone: Eosinophils/100 WBC (Bld) 3.2 % 0-5 [facility] Work Phone: Glucose [Mass/Vol] 105 mg/dL 74-106 [facility] Work Phone: Comment on above: Fasting Glucose resu lt from 100 to 125 mg/dL suggests IMPAIRED HOMEOSTASIS per A.D.A. criteria. Neutrophils (Bld) [#/Vol] 7.8 10*3/uL 2.0-7.7 [facility] Work Phone: Neutrophils/100 WBC (Bld) 74.1 % 47-70 [facility] Work Phone: Potassium [Moles/Vol] 4.4 mmol/L 3.5-5.1 [facility] Work Phone: Sodium [Moles/Vol] 138 mmol/L 136-145 [facility] Work Phone: WBC (Bld) [#/Vol] 10.5 10*3/uL 4.4-11.0 [facility] Work Phone: Blood erythrocytes count (nu mber/volume)on 05-16-2022 RBC (Bld) [#/Vol] 5.05 10*6/uL 4.6-6.2 [facility] Work Phone: Blood hemoglobin measurement (mass/volume)on 05-16-2022 Hemoglobin (Bld) [Mass/Vol] 15.5 g/dL 13.0-16.5 [facility] Work Phone: Blood lymphocytes/100 leukoc yteson 05-16-2022 Lymphocytes/100 WBC (Bld) 15.5 % 19-41 [facility] Work Phone: Blood monocytes/100 leukocyt eson 05-16-2022 Monocytes/100 WBC (Bld) 6.4 % 0-10 [facility] Work Phone: Blood platelet mean volumeon 05-16-2022 Platelet mean volume (Bld) [Entitic vol] 10.6 fL 6.2-12.0 [facility] Work Phone: Determination of erythrocyte mean corpuscular volume (MCV)on 05-16-2022 MCV (RBC) [Entitic vol] 91.9 fL 80-94 [facility] Work Phone: Hematocrit Auto (Bld) [Volum e fraction]on 05-16-2022 Hematocrit (Bld) [Volume fraction] 46.4 % 40-54 [facility] Work Phone: Laboratory - Chemistry and C hemistry - challengeon 05-16-2022 CO2 [Moles/Vol] 26.0 mmol/L 21.0-32.0 [facility] Work Phone: Urea nitrogen/Creatinine [Mass ratio] 17.5 mg/mg 10-20 [facility] Work Phone: Laboratory - Hematology and Cell countson 05-16-2022 Erythrocyte distribution width (RBC) [Entitic vol] 46.8 fL 35.1-43.9 [facility] Work Phone: Erythrocyte distribution width (RBC) [Ratio] 13.8 % 11.6-14.6 [facility] Work Phone: Immature granulocytes/100 WBC (Bld) 0.300 % 0.0-0.9 [facility] Work Phone: Comment on above: IG% - Immature Granu locytes (promyelocytes, myelocytes and metamyelocytes) > 1% indicates that a LEFT SHIFT is Present. MCH (RBC) [Entitic mass] 30.7 pg 27.0-32.0 [facility] Work Phone: Nucleated RBC/100 WBC (Bld) [Ratio] 0 % 0-5 [facility] Work Phone: MCHC Auto (RBC) [Mass/Vol]on 05-16-2022 MCHC (RBC) [Mass/Vol] 33.4 g/dL 32-36 [facility] Work Phone: No Panel Informationon 05-16 Estimated GFR (MDRD) Amer 91 mL/min >60 [facility] Work Phone: Comment on above: GFR Calc Estimated GFR (MDRD) Non-Af Amer 75 mL/min >60 [facility] Work Phone: Comment on above: Non- GFR Calc Thyroid Stimulating Hormone (TSH) 1.04 uIU/mL 0.358-3.74 [facility] Work Phone: Platelets bldon 05-16-2022 Platelets (Bld) [#/Vol] 265 10*3/uL 150-450 [facility] Work Phone: Serum or plasma calcium arnulfo urement (mass/volume)on 05-16-2022 Calcium [Mass/Vol] 9.2 mg/dL 8.5-10.1 [facility] Work Phone: Serum or plasma creatinine m easurement (mass/volume)on 05-16-2022 Creatinine [Mass/Vol] 1.03 mg/dL 0.70-1.30 [facility] Work Phone: Comment on above: The validity of the calculated GFR & GFRAA in patients over 70 years has not been determined. Clinical correlation is essential. Serum or plasma urea nitroge n measurement (mass/volume)on 05-16-2022 Urea nitrogen [Mass/Vol] 18 mg/dL 7-18 [facility] Work Phone: Serum or plasma uric acid me asurement (mass/volume)on 05-16-2022 Urate [Mass/Vol] 8.8 mg/dL 3.5-7.2 [facility] Work Phone: Comment on above: The drugs N-Acetylcy steine and Metamizole may falsely depress this assay. Thin prep Papanicolaou smear with manual screeningon 05-16-2022 Thin prep Papanicolaou smear with manual screening 5 5-15 [facility] Work Phone: Basophil percentageon 2021 Bilirubin [Mass/Vol] 0.70 mg/dL 0.20-1.00 [facility] Work Phone: Comment on above: For patients on eltr ombopag therapy, use of Dimension Drewsey TBIL is not recommended. Cholesterol [Mass/Vol] 209 mg/dL <[address] [facility] Work Phone: Comment on above: <200 mg/dL Desirable 200-240 mg/dL Borderline >240 mg/dL High Risk Protein [Mass/Vol] 7.8 g/dL 6.4-8.2 [facility] Work Phone: Triglyceride [Mass/Vol] 107 mg/dL <199 [facility] Work Phone: Comment on above: The drugs N-Acetylcy steine and Metamizole may falsely depress this assay.Serum Triglycerides Reference Interval Normal <150 mg/dL Borderline high 150 - 199 mg/dL High 200 - 499 mg/dL Very High > or = 500 mg/dL Direct bilirubinon 2 Bilirubin.direct [Mass/Vol] 0.09 mg/dL 0.00-0.30 [facility] Work Phone: Laboratory - Chemistry and C hemistry - challengeon 2022 ALP [Catalytic activity/Vol] 80 U/L 45-117 [facility] Work Phone: ALT [Catalytic activity/Vol] 45 U/L 16-61 [facility] Work Phone: Globulin (S) [Mass/Vol] 3.9 g/dL 2.2-4.2 [facility] Work Phone: Serum or plasma albumin arnulfo urement (mass/volume)on 2022 Albumin [Mass/Vol] 3.9 g/dL 3.2-5.0 [facility] Work Phone: Serum or plasma cholesterol in HDL measurement (mass/volume)on 2022 Cholesterol in HDL [Mass/Vol] 37 mg/dL >40 [facility] Work Phone: Comment on above: The drugs N-Acetylcy steine and Metamizole may falsely depress this assay. Reference Range HDL <40 mg/dL Low HDL Cholesterol HDL >or= 60 mg/dL High HDL Cholesterol Serum or plasma cholesterol in VLDL measurement (mass/volume)on 2022 Cholesterol in VLDL [Mass/Vol] 21 mg/dL 5-40 [facility] Work Phone: Serum or plasma low density lipoprotein (LDL) cholesterol measurement (mass/volume)on 2022 Cholesterol in LDL [Mass/Vol] 151 mg/dL 0-130 [facility] Work Phone: Thin prep Papanicolaou smear with manual screeningon 2022 Thin prep Papanicolaou smear with manual screening 26 U/L 15-37 [facility] Work Phone: Laboratory - Microbiology an d Antimicrobial susceptibilityon 10-14-2021 SARS-CoV-2 (COVID-19) RNA LOLIS+probe Ql (Unsp spec) Detected Not Detect [facility] Work Phone: Comment on above: Normal Reference Ran ge: Not DetectedMethod:(RT-PCR) real-time reverse transcriptase PCRLuminex BRANDIN Instrument*The Food and Drug Administration (FDA) has issued an Emergency Use Authorization (EAU) for the [employer] SARS-CoV-2 Assay for the rapid detection of the virus that causes COVID-19. This test has been validated, but the FDAs independent review of this validation is pending.*Negative results do not preclude infection and should not be used as the sole basis for treatment or patient management. Optimum specimen types and timing for peak viral levels during infections caused by SARS-CoV-2 have not been determined. Collection of multiple specimens from the same patient may be necessary to detect the virus. The possibility of a false negative result should be considered if the patient has clinical presentation or has had recent exposure. No Panel Informationon 10-14 Respiratory Panel (PCR) [facility] Work Phone: CT HEAD W/O CONTRAST [id number] 08-14-2017 CT HEAD W/O CONTRAST [id number] Performed at [facility] APPROVED BY: ADRY GONZALEZ MD EXAMINATION: CT BRAIN WITHOUT CONTRAST CLINICAL HISTORY: Vertigo. Nausea and vomiting. TECHNIQUE: Routine CT scan of the brain without contrast. Serial axial unenhanced images were obtained from the vertex to the foramen magnum.M: [id number] Contrast: NoneCT Dose-Length Product: 772 mGy*cmCT Dose Reduction Employed: No dose reduction techniques were required. COMPARISON: None. RESULT: Post-operative change: None. Acute change: No evidence of an acute infarct or other acute parenchymal process. Hemorrhage: No evidence of acute intracranial hemorrhage. Mass effect / Mass lesion: A benign arachnoid granulation slightly scallops the inner table at the occipital region. Otherwise, no intracranial mass. No mass effect, midline shift or brain herniation. Chronic change: Scattered patchy foci of low attenuation are present within supratentorial white matter which is a nonspecific finding but likely represents mild microvascular ischemia. Mild generalized parenchymal atrophy is noted. Ventricles: The ventricles are within normal limits of size and configuration for age. Paranasal sinuses and skull base: The visualized paranasal sinuses are clear. The skull base and imaged soft tissues are unremarkable. IMPRESSION: 1. No acute intracranial pathology. Normal [facility] ED NOTEon 08-14-2017 ED NOTE HNO ID: [id number] thor: ANDRÉS Nickerson Rnervice: Emergency MedicineAuthor Type: Registered NurseType: ED NotesFiled: 08/14/2017 3:06 PMNote Text: Pt with somewhat vague c/o- ate and did have emesis- feels a bit ,wonubialey' awaiting doctore- ekg was done- sr on property assessment monitor Normal [facility] ED NOTE HNO ID: [id number] Author: Elda (Rn) Salazar RN Service: Emergency Medicine Author Type: Registered Nurse Type: ED Notes Filed: 08/14/2017 2:28 PM Note Text: Pt c/o feeling wobbly today. Hx of previous inner ear problems. Normal [facility] ED PROV NOTEon 08-14-2017 ED PROV NOTE HNO ID: [id number] thor: WILLY Francoiservice: Emergency MedicineAuthor Type: PhysicianType: ED Provider NotesFiled: 08/16/2017 5:25 AMNote Text:ED Provider NotePatient Name: Austen PuentesMRN: [id number] DATE: 08/14/17HistoryPatient presents with:DizzinessHPI Comments: 72 yo M with previous h/o BPPV presents with vertigo. Statesbent over to hook something up to trailer earlier today, and upon standingup, began feeling dizzy and off balance. Tried to eat something, and latervomited once. + nausea. Denies head injury, MARTINO, neck pain, tinnitus,change in V/H, focal N/T/W, ear pain, fevers, CP, Palpitations, SOB. Didnot take anything for this. Previous vertigo bouts sometimes lasted weeks.H/o successful tx with meclizine, phenergan, and Ed maneuvers. Feelssimilar to previous but less spinning sensation. No anticoagulation or h/oCVA. Symptoms worse with movement of head or position change.PAST MEDICAL HISTORYDiagnosis Date- GoutNo past surgical history on file.No family history on file.Social HistorySocial History Main Topics- Smoking status: Never Smoker- Smokeless tobacco: None- Alcohol use None- Drug use: None- Sexual activity: Not AskedALLERGIESNo Known AllergiesReview of SystemsConstitutional: Negative for chills and fever.HENT: Negative for ear pain, hearing loss, sore throat and tinnitus.Eyes: Negative for pain and visual disturbance.Respiratory: Negative for cough and shortness of breath.Cardiovascular: Negative for chest pain and palpitations.Gastrointesti nal: Positive for nausea and vomiting. Negative for abdominalpain.Genitourinar y: Negative for decreased urine volume and difficultyurinating.Muscul oskeletal: Negative for arthralgias and joint swelling.Skin: Negative for pallor and rash.Neurological: Positive for dizziness. Negative for syncope, speechdifficulty, weakness, numbness and headaches.Psychiatric/Beha vioral: Negative for confusion and hallucinations.All other systems reviewed and are negative.Physical ExamBP 151/83 Pulse 87 Temp (Src) 97.7 (Temporal Artery) Resp 16 Ht 5'9 (1.75m) Wt 195 lb (88.5kg) SpO2 99% BMI 28.78 kg/(m2).Physical ExamConstitutional: He is oriented to person, place, and time. He appearswell-developed and well-nourished.HENT:Head: Normocephalic and atraumatic.Right Ear: Tympanic membrane and external ear normal.Left Ear: Tympanic membrane and external ear normal.Nose: Nose normal.Mouth/Throat: Oropharynx is clear and moist.Eyes: Conjunctivae and EOM are normal. Right eye exhibits no discharge.Left eye exhibits no discharge.Neck: Normal range of motion and full passive range of motion withoutpain. Neck supple. No spinous process tenderness present. Carotid bruit isnot present. No rigidity. No tracheal deviation present.Cardiovascular: Normal rate, regular rhythm, normal heart sounds andintact distal pulses.No murmur heard.Pulmonary/Chest: Effort normal and breath sounds normal. No respiratorydistress.Abdomi nal: Soft. There is no tenderness.Musculoskeletal : Normal range of motion. He exhibits no deformity.Neurological: He is alert and oriented to person, place, and time. He hasnormal strength. No cranial nerve deficit or sensory deficit. He displaysa negative Romberg sign. Coordination normal. GCS eye subscore is 4. GCSverbal subscore is 5. GCS motor subscore is 6.Rotary nystagmus toward R side, fatigueableSkin: Skin is warm and dry. No rash noted.Psychiatric: He has a normal mood and affect.Nursing note and vitals reviewed.Diagnostic TestingED Labs Ordered and Reviewed - No data to displayProceduresMedical Decision Making / ED CourseED CoursePt presents with vertiginous symptoms, N/V. Previous h/o same. Startedafter bent over. No focal neuro deficits. No MARTINO. No h/o vascular disease.No cerebellar signs. Rotary nystagmus evoked on testing and fatigueable.Dizziness reproducible with change of HOB height and Willie-Hallpike.Strongly suggestive of peripheral vertigo. However, patient's wifeconcerned could be cardiac or neurologic. Denies any cardiac symptoms, andEKG shows SR with RBBB, no ischemic changes. Low susp for ACS, and nocarotid bruits or symptoms suggestive of dissection. CT head obtainedgiven age, reasonable to consider posterior stroke, CVA tumor, ormeniere's, and CT unremarkable. Pt feeling improved in ER after oralphenergan and ambulating safely in ER prior to d/c. Will Rx zofran andmeclizine since less sedating combination. F/u to PCP. Symptoms thatshould prompt return to the Emergency Department were discussed andunderstanding verbalized. Discharged in stable condition.Encounter Diagnosis ICD-10-CM1. Vertigo [id number] Patient was DISCHARGED: Counseled patient regarding radiology resultsAND suspected diagnosis AND need for follow-up. Discharged home with verbaland written instructions. They were instructed to return as needed forpersistent or worsening symptoms or any new concerns.Condition at time of disposition: stableSIGNATURE: Andrew Francois MD08/16/17 0525 [facility] CNOVon 07-25-2017 CNOV Office Visit (UCWSTR) AUSTEN PUENTES ([id number]) 1945 MDate Time Provider [id number]/7/17 2:45 PM TARAS TURNER) [facility] During your visit today, we recorded the following information about you: Temperature Pulse Respiration Blood pressure 98 degrees 88/minute 16/minute 140/80 Weight 92.8 kgTaras Turner CNP 07/26/2017 9:21 AM SignedMAG[facility] Austen Puentes is a 72 year old male who presents today for CC of stiffneck When turning to the right. This started 3 days. Has tried advil withgood response. Symptoms are worsened by movement. Risk factors has had stiffneck.Review of SystemsConstitutional: Negative for chills and fever.No past medical history on file.No past surgical history on file.ALLERGIES Review of patient's allergies indicates no known allergies.MEDICATIONSaspir in 81 mg chewable tablet Take 81 mg by mouth once daily.spironolactone (ALDACTONE) 25 mg tablet Take 25 mg by mouth once daily.atenolol (TENORMIN) 100 mg tablet Take 100 mg by mouth once daily.amLODIPine-benazepri l (LOTREL) 5-20 mg per capsule Take 1 capsule by mouthtwice daily.esomeprazole (NEXIUM) 40 mg capsule Take 40 mg by mouth DAILY (6 AM).diclofenac, EC, (VOLTAREN) 75 mg EC tablet Take 75 mg by mouth as needed.cloNIDine TTS ([id number]-HEF-0) 0.2 mg/24 hr Apply 1 Patch as directed once eachweek.ALLOPURINOL ORAL Take by mouth.No family history on file.Social HistorySubstance Use Topics- Smoking status: Never Smoker- Smokeless tobacco: Not on file- Alcohol use Not on fileBlood pressure 140/80, pulse 88, temperature 36.7 ?C (98 ?F), temperaturesource Tympanic, resp. rate 16, weight 92.8 kg (204 lb 9.6 oz).Physical ExamConstitutional: He is oriented to person, place, and time and well-developed,well-nouris hed, and in no distress. Vital signs are normal. No distress.HENT:Head: Normocephalic and atraumatic.Eyes: Conjunctivae, EOM and lids are normal. Pupils are equal, round, andreactive to light. Lids are everted and swept, no foreign bodies found.Neck: Trachea normal. Muscular tenderness (right, with trap tight/tender)present. No spinous process tenderness present. No rigidity. Decreased range ofmotion (limited rom to right, otherwise normal) present. No edema present. Nothyroid mass and no thyromegaly present.Cardiovascular: Normal rate, regular rhythm, S1 normal, S2 normal and normalheart sounds.Pulses: Radial pulses are 2+ on the right side, and 2+ on the left side.Pulmonary/Chest: Effort normal and breath sounds normal. He has no decreasedbreath sounds. He has no wheezes. He has no rhonchi. He has no rales.Neurological: He is oriented to person, place, and time.Reflex Scores: Bicep reflexes are 2+ on the right side and 2+ on the left side.Skin: He is not diaphoretic.ASSESSMENT/SHIRLEY N:1. Neck muscle spasm - ICD9: 728.85, ICD10: M62.838-given stretches/exercises-follow up with primary care if no better in 3-5- METHYLPREDNISOLONE 4 MG TABLETS IN A DOSE PACK- CYCLOBENZAPRINE 10 MG TABLETPrescription instructions reviewed with patient as applicable. Patient advisedif symptoms do not improve or if symptoms worsen sooner, to contact the officefor further evaluation by either myself or their primary care physician.Potential red flag symptoms discussed with the patient. Reviewed appropriateaction plan to take if red flag symptoms occur. Patient agreeable to treatmentplan.Orquidea Garcia CNP 07/25/2017 3:25 PM SignedASSESSMENT/PLAN:1. Neck muscle spasm - ICD9: 728.85, ICD10: M62.838-given stretches/exercises-follow up with primary care if no better in 3-5- METHYLPREDNISOLONE 4 MG TABLETS IN A DOSE PACK- CYCLOBENZAPRINE 10 MG TABLETReferring Provider: SELF [[id number]]Allergies As of Date: 07/25/2017(No Known Allergies)Date Reviewed: 07/25/2017Reviewed by: Isidra Jurado LPN - Fully AssessedReason for Visit: stiff neck [Other] Cmt: x 3 days-cannot recall an injuryPrimary Visit Diagnosis:Neck muscle spasm [M62.838]Order(s):methylPR EDNISolone (MEDROL, JENNIFER,) 4 mg Dose-PackFollow dosing instructions, take with food.Disp: 1 PackageRfl: 0 cyclobenzaprine (FLEXERIL) 10 mg tabletTake 1 tablet by mouth three times daily as needed for Muscle Spasm.Disp: 15 tabletRfl: 0Prescriptions as of 07/25/2017 Sig: ASPIRIN 81 MG CHEWABLE TABLET Take 81 mg by mouth once brayan* SPIRONOLACTONE 25 MG TABLET Take 25 mg by mouth once brayan* ATENOLOL 100 MG TABLET Take 100 mg by mouth once stevenson* AMLODIPINE 5 MG-BENAZEPRIL 20* Take 1 capsule by mouth twice* ESOMEPRAZOLE MAGNESIUM 40 MG * Take 40 mg by mouth DAILY (6 * DICLOFENAC SODIUM 75 MG TABLE* Take 75 mg by mouth as needed. CLONIDINE 0.2 MG/24 HR WEEKLY* Apply 1 Patch as directed onc* ALLOPURINOL ORAL Take by mouth. METHYLPREDNISOLONE 4 MG TABLE* Follow dosing instructions, t* CYCLOBENZAPRINE 10 MG TABLET Take 1 tablet by mouth three *Problem List As Of Date: 07/25/2017(None) Other instructions from your clinician: ASSESSMENT/PLAN: 1. Neck muscle spasm - ICD9: 728.85, ICD10: M62.838 -given stretches/exercises -follow up with primary care if no better in 3-5 - METHYLPREDNISOLONE 4 MG TABLETS IN A DOSE PACK - CYCLOBENZAPRINE 10 MG TABLETPrescriptions ordered this encounter Disp Refills Start End METHYLPREDNISOLONE 4 MG TABLETS IN A* 1 Pa* 0 07/25/2017 07/31/2017 Sig: Follow dosing instructions, take with food. CYCLOBENZAPRINE 10 MG TABLET 15 t* 0 07/25/2017 Route: ORAL Sig: Take 1 tablet by mouth three times daily as needed for Muscle Spasm. Status:Closed by TARAS TURNER CNP on 07/26/17 [facility] PROGRESSon 07-25-2017 PROGRESS HNO ID: [id number] thor: Taras (Aviva) Jose: (none)Author Type: Nurse PractitionerType: Progress NotesFiled: 07/26/2017 9:21 AMNote Text:HPIHPI Austen Puentes is a 72 year old male who presents today for CC ofstiff neck When turning to the right. This started 3 days. Has triedadvil with good response. Symptoms are worsened by movement. Riskfactors has had stiff neck.Review of SystemsConstitutional: Negative for chills and fever.No past medical history on file.No past surgical history on file.ALLERGIES Review of patient's allergies indicates no known allergies.MEDICATIONSaspir in 81 mg chewable tablet Take 81 mg by mouth once daily.spironolactone (ALDACTONE) 25 mg tablet Take 25 mg by mouth once daily.atenolol (TENORMIN) 100 mg tablet Take 100 mg by mouth once daily.amLODIPine-benazepri l (LOTREL) 5-20 mg per capsule Take 1 capsule by mouthtwice daily.esomeprazole (NEXIUM) 40 mg capsule Take 40 mg by mouth DAILY (6 AM).diclofenac, EC, (VOLTAREN) 75 mg EC tablet Take 75 mg by mouth as needed.cloNIDine TTS (VXGRFRQM-NSJ-1) 0.2 mg/24 hr Apply 1 Patch as directed onceeach week.ALLOPURINOL ORAL Take by mouth.No family history on file.Social HistorySubstance Use Topics- Smoking status: Never Smoker- Smokeless tobacco: Not on file- Alcohol use Not on fileBlood pressure 140/80, pulse 88, temperature 36.7 ?C (98 ?F), temperaturesource Tympanic, resp. rate 16, weight 92.8 kg (204 lb 9.6 oz).Physical ExamConstitutional: He is oriented to person, place, and time andwell-developed, well-nourished, and in no distress. Vital signs arenormal. No distress.HENT:Head: Normocephalic and atraumatic.Eyes: Conjunctivae, EOM and lids are normal. Pupils are equal, round, andreactive to light. Lids are everted and swept, no foreign bodies found.Neck: Trachea normal. Muscular tenderness (right, with trap tight/tender)present. No spinous process tenderness present. No rigidity. Decreasedrange of motion (limited rom to right, otherwise normal) present. No edemapresent. No thyroid mass and no thyromegaly present.Cardiovascular: Normal rate, regular rhythm, S1 normal, S2 normal andnormal heart sounds.Pulses: Radial pulses are 2+ on the right side, and 2+ on the left side.Pulmonary/Chest: Effort normal and breath sounds normal. He has nodecreased breath sounds. He has no wheezes. He has no rhonchi. He has milly.Neurological: He is oriented to person, place, and time.Reflex Scores: Bicep reflexes are 2+ on the right side and 2+ on the left side.Skin: He is not diaphoretic.ASSESSMENT/SHIRLEY N:1. Neck muscle spasm - ICD9: 728.85, ICD10: M62.838-given stretches/exercises-follow up with primary care if no better in 3-5- METHYLPREDNISOLONE 4 MG TABLETS IN A DOSE PACK- CYCLOBENZAPRINE 10 MG TABLETPrescription instructions reviewed with patient as applicable. Patientadvised if symptoms do not improve or if symptoms worsen sooner, tocontact the office for further evaluation by either myself or [facility]. Potential red flag symptoms discussed with thepatient. Reviewed appropriate action plan to take if red flag symptomsoccur. Patient agreeable to treatment plan.Taras Turner CNP Normal [facility] Office Visiton 08-30-2015 Documentation of current medications (procedure) Done Invalid Interpretation Code [facility] [employer] Work Phone: Smoking cessation education (procedure) yes Invalid Interpretation Code [facility] [employer] Work Phone: Tobacco use [facility] Former smoker Invalid Interpretation Code [facility] [employer] Work Phone: Vital Signs Date Time Vital Sign Value Performing Clinician Tdi rosaura 05-11-2025 19:30-0400 Body temperature 98.6 [degF] Dr. Omar Huggins DO Work Phone: [facility] 05-11-2025 19:30-0400 Diastolic blood pressure 90 mm[Hg] Dr. Omar Huggins DO Work Phone: [facility] 05-11-2025 19:30-0400 Heart rate 85 /min Dr. Omar Huggins DO Work Phone: [facility] 05-11-2025 19:30-0400 Respiratory rate 18 /min Dr. Omar Huggins DO Work Phone: [facility] 05-11-2025 19:30-0400 SaO2% (BldA) [Mass fraction] 98 % Dr. Omar Huggins DO Work Phone: [facility] 05-11-2025 19:30-0400 Systolic blood pressure 157 mm[Hg] Dr. Omar Huggins DO Work Phone: [facility] 05-11-2025 17:26-0400 Body height 162.[address] Omar Huggins DO Work Phone: [facility] 05-11-2025 17:26-0400 Body mass index (BMI) [Ratio] 34.4 kg/m2 Dr. Omar Huggins DO Work Phone: [facility] 05-11-2025 17:26-0400 Body weight [address] Omar Huggins DO Work Phone: [facility] 03-27-2025 09:36-0400 Body height 162.[address] Omar Huggins DO Work Phone: [facility] 03-27-2025 09:36-0400 Body mass index (BMI) [Ratio] 34.7 kg/m2 Dr. Omar Huggins DO Work Phone: [facility] 03-27-2025 09:36-0400 Body weight 91.[address] Omar Huggins DO Work Phone: [facility] 02-02-2025 13:32-0400 Body mass index (BMI) [Ratio] 34.3 kg/m2 Dr. Omar Huggins DO Work Phone: [facility] 02-02-2025 13:32-0400 Body weight 93.[address] Omar Huggins DO Work Phone: [facility] 02-02-2025 13:32-0400 Diastolic blood pressure 96 mm[Hg] Dr. Omar Huggins DO Work Phone: [facility] 02-02-2025 13:32-0400 Heart rate 68 /min Dr. Omar Huggins DO Work Phone: [facility] 02-02-2025 13:32-0400 Respiratory rate 16 /min Dr. Omar Huggins DO Work Phone: [facility] 02-02-2025 13:32-0400 Systolic blood pressure 192 mm[Hg] Dr. Omar Huggins DO Work Phone: [facility] 11-04-2023 13:43-0500 Body height [address] Omar Huggins Work Phone: [facility] 11-04-2023 13:43-0500 Body mass index (BMI) [Ratio] 34.4 kg/m2 Dr. Omar Huggins Work Phone: [facility] 11-04-2023 13:43-0500 Body weight 93.[address] Omar Huggins Work Phone: [facility] 11-04-2023 13:43-0500 Diastolic blood pressure 91 mm[Hg] Dr. Omar Huggins Work Phone: [facility] 11-04-2023 13:43-0500 Heart rate 76 /min Dr. Omar Huggins Work Phone: [facility] 11-04-2023 13:43-0500 Respiratory rate 18 /min Dr. Omar Huggins Work Phone: [facility] 11-04-2023 13:43-0500 SaO2% (BldA) [Mass fraction] 95 % Dr. Omar Huggins Work Phone: [facility] 11-04-2023 13:43-0500 Systolic blood pressure 181 mm[Hg] Dr. Omar Huggins Work Phone: [facility] 08-05-2023 13:55-0400 Diastolic blood pressure 84 mm[Hg] Dr. Omar Huggins Work Phone: [facility] 08-05-2023 13:55-0400 Systolic blood pressure 172 mm[Hg] Dr. Omar Huggins Work Phone: [facility] 08-05-2023 13:18-0400 Body height [address] Omar Huggins Work Phone: [facility] 08-05-2023 13:18-0400 Body mass index (BMI) [Ratio] 34.9 kg/m2 Dr. Omar Huggins Work Phone: [facility] 08-05-2023 13:18-0400 Body weight 95.[address] Omar Huggins Work Phone: [facility] 08-05-2023 13:18-0400 Heart rate 75 /min Dr. Omar Huggins Work Phone: [facility] 08-05-2023 13:18-0400 Respiratory rate 18 /min Dr. Omar Huggins Work Phone: [facility] 08-05-2023 13:18-0400 SaO2% (BldA) [Mass fraction] 98 % Dr. Omar Huggins Work Phone: [facility] 04-27-2023 14:17-0400 Body height [address] Omar Huggins Work Phone: [facility] 04-27-2023 14:17-0400 Body mass index (BMI) [Ratio] 34.4 kg/m2 Dr. Omar Huggins Work Phone: [facility] 04-27-2023 14:17-0400 Body weight 93.[address] Omar Huggins Work Phone: [facility] 04-27-2023 14:17-0400 Diastolic blood pressure 79 mm[Hg] Dr. Omar Huggins Work Phone: [facility] 04-27-2023 14:17-0400 Heart rate 84 /min Dr. Omar Huggins Work Phone: [facility] 04-27-2023 14:17-0400 Respiratory rate 18 /min Dr. Omar Huggins Work Phone: [facility] 04-27-2023 14:17-0400 SaO2% (BldA) [Mass fraction] 93 % Dr. Omar Huggins Work Phone: [facility] 04-27-2023 14:17-0400 Systolic blood pressure 146 mm[Hg] Dr. Omar Huggins Work Phone: [facility] 02-20-2023 12:42-0400 Body mass index (BMI) [Ratio] 34.7 kg/m2 Dr. Luis Johnson Work Phone: [facility] 02-20-2023 09:42-0400 Body temperature 97.7 [degF] Dr. Luis Johnson Work Phone: [facility] 02-20-2023 09:42-0400 Diastolic blood pressure 81 mm[Hg] Dr. Luis Johnson Work Phone: [facility] 02-20-2023 09:42-0400 Heart rate 65 /min Dr. Luis Johnson Work Phone: [facility] 02-20-2023 09:42-0400 Respiratory rate 16 /min Dr. Luis Johnson Work Phone: [facility] 02-20-2023 09:42-0400 SaO2% (BldA) [Mass fraction] 95 % Dr. Luis Johnson Work Phone: [facility] 02-20-2023 09:42-0400 Systolic blood pressure 165 mm[Hg] Dr. Luis Johnson Work Phone: [facility] 02-19-2023 10:12-0400 Body height [address] Luis Johnson Work Phone: [facility] 02-19-2023 10:12-0400 Body weight 94.[address] Luis Johnson Work Phone: [facility] 10-23-2022 14:53-0500 Body height 175.[address] Luis Johnson Work Phone: [facility] 10-23-2022 14:53-0500 Body mass index (BMI) [Ratio] 31.1 kg/m2 Dr. Luis Johnson Work Phone: [facility] 10-23-2022 14:53-0500 Body weight 95.[address] Luis Johnson Work Phone: [facility] 10-23-2022 14:53-0500 Diastolic blood pressure 98 mm[Hg] Dr. Luis Johnson Work Phone: [facility] 10-23-2022 14:53-0500 Heart rate 89 /min Dr. Luis Johnson Work Phone: [facility] 10-23-2022 14:53-0500 Respiratory rate 18 /min Dr. Luis Johnson Work Phone: [facility] 10-23-2022 14:53-0500 SaO2% (BldA) [Mass fraction] 97 % Dr. Luis Johnson Work Phone: [facility] 10-23-2022 14:53-0500 Systolic blood pressure 186 mm[Hg] Dr. Luis Johnson Work Phone: [facility] 09-01-2022 14:58-0500 Body height 175.[address] Luis Johnson Work Phone: [facility] Work Phone: 09-01-2022 14:43-0500 Body mass index (BMI) [Ratio] 30.5 kg/m2 Dr. Luis Johnson Work Phone: [facility] 09-01-2022 14:43-0500 Body weight 93.[address] Luis Johnson Work Phone: [facility] 09-01-2022 14:43-0500 Diastolic blood pressure 91 mm[Hg] Dr. Luis Johnson Work Phone: [facility] 09-01-2022 14:43-0500 Heart rate 64 /min Dr. Luis Johnson Work Phone: [facility] 09-01-2022 14:43-0500 Respiratory rate 20 /min Dr. Luis Johnson Work Phone: [facility] 09-01-2022 14:43-0500 Systolic blood pressure 183 mm[Hg] Dr. Luis Johnson Work Phone: [facility] 02-24-2022 14:33-0400 Body height 175.[address] Luis Johnson Work Phone: [facility] Work Phone: 02-24-2022 14:33-0400 Body mass index (BMI) [Ratio] 30.5 kg/m2 Dr. Luis Johnson Work Phone: [facility] Work Phone: 02-24-2022 14:33-0400 Body weight 93.[address] Luis Johnson Work Phone: [facility] Work Phone: 02-24-2022 14:33-0400 Diastolic blood pressure 89 mm[Hg] Dr. Luis Johnson Work Phone: [facility] Work Phone: 02-24-2022 14:33-0400 Heart rate 67 /min Dr. Luis Johnson Work Phone: [facility] Work Phone: 02-24-2022 14:33-0400 Respiratory rate 18 /min Dr. Luis Johnson Work Phone: [facility] Work Phone: 02-24-2022 14:33-0400 SaO2% (BldA) [Mass fraction] 97 % Dr. Luis Johnson Work Phone: [facility] Work Phone: 02-24-2022 14:33-0400 Systolic blood pressure 153 mm[Hg] Dr. Luis Johnson Work Phone: [facility] Work Phone: 02-24-2022 14:33-0400 Body height 175.[address] Luis Johnson Work Phone: [facility] Work Phone: 02-24-2022 14:33-0400 Body mass index (BMI) [Ratio] 30.5 kg/m2 Dr. Luis Johnson Work Phone: [facility] Work Phone: 02-24-2022 14:33-0400 Body weight 93.[address] Luis Johnson Work Phone: [facility] Work Phone: 02-24-2022 14:33-0400 Diastolic blood pressure 89 mm[Hg] Dr. Luis Johnson Work Phone: [facility] Work Phone: 02-24-2022 14:33-0400 Heart rate 67 /min Dr. Luis Johnson Work Phone: [facility] Work Phone: 02-24-2022 14:33-0400 Respiratory rate 18 /min Dr. Luis Johnson Work Phone: [facility] Work Phone: 02-24-2022 14:33-0400 SaO2% (BldA) [Mass fraction] 97 % Dr. Luis Johnson Work Phone: [facility] Work Phone: 02-24-2022 14:33-0400 Systolic blood pressure 153 mm[Hg] Dr. Luis Johnson Work Phone: [facility] Work Phone: 12-13-2021 13:12-0500 Body height 175.[address] Luis Johnson Work Phone: [facility] Work Phone: 12-13-2021 13:12-0500 Body mass index (BMI) [Ratio] 31.4 kg/m2 Dr. Luis Johnson Work Phone: [facility] Work Phone: 12-13-2021 13:12-0500 Body weight 96.[address] Luis Johnson Work Phone: [facility] Work Phone: 12-13-2021 13:12-0500 Diastolic blood pressure 94 mm[Hg] Dr. Luis Johnson Work Phone: [facility] Work Phone: 12-13-2021 13:12-0500 Heart rate 84 /min Dr. Luis Johnson Work Phone: [facility] Work Phone: 12-13-2021 13:12-0500 Respiratory rate 16 /min Dr. Luis Johnson Work Phone: [facility] Work Phone: 12-13-2021 13:12-0500 Systolic blood pressure 172 mm[Hg] Dr. Luis Johnson Work Phone: [facility] Work Phone: 10-17-2021 10:33-0500 Body temperature 97.5 [degF] Dr. Luis Jhonson Work Phone: [facility] Work Phone: 10-17-2021 10:33-0500 Diastolic blood pressure 97 mm[Hg] Dr. Luis Johnson Work Phone: [facility] Work Phone: 10-17-2021 10:33-0500 Heart rate 64 /min Dr. Luis Johnson Work Phone: [facility] Work Phone: 10-17-2021 10:33-0500 Respiratory rate 16 /min Dr. Luis Johnson Work Phone: [facility] Work Phone: 10-17-2021 10:33-0500 SaO2% (BldA) [Mass fraction] 97 % Dr. Luis Johnson Work Phone: [facility] Work Phone: 10-17-2021 10:33-0500 Systolic blood pressure 174 mm[Hg] Dr. Luis Johnson Work Phone: [facility] Work Phone: 10-17-2021 08:56-0500 Body mass index (BMI) [Ratio] 29.5 kg/m2 Dr. Luis Johnson Work Phone: [facility] Work Phone: 10-17-2021 08:56-0500 Body weight 90.[address] Luis Johnson Work Phone: [facility] Work Phone: 06-29-2015 08:45-0400 Height 175.26 cm Ana Cristina Wheleer RN [facility] Work Phone: 06-29-2015 08:45-0400 Weight 92.99 kg Ana Cristina Wheeler RN [facility] Work Phone: Encounters Encounter Date Encounter Type Care Provider Facility Start: 05-11-2025 Non-patient / Non-visit Dr. Nadiya posadas MD -[facility] Work Phone: Start: 05-11-2025 Evaluation and manag ement of inpatient Dr. Nadiya Pickens MD -[facility] Work Phone: Start: 05-11-[address] Omar Huggins DO Work Phone: -[facility] Start: 05-06-2025 Encounter for preprocedural laboratory examination Emily Hodgson [facility] Start: 04-24-2025 End: 04-24-[address] Omar Huggins DO Work Phone: -Laboratory [facility] Start: 04-24-2025 End: 04-24-[address] Omar Huggins DO -[facility] Start: 04-24-2025 End: 04-24-2025 ambulatory mOar Huggins Facility:[facility] Start: 04-10-2025 End: 04-10-[address] Omar Huggins DO Work Phone: [facility] Work Phone: Start: 04-10-2025 End: 04-10-[address] Omar Huggins DO -Labor[facility] [place] Work Phone: Start: 04-10-2025 End: 04-10-2025 ambulatory Omar Bhavna Facility:[facility] Start: 03-28-2025 End: 03-28-[address] Omar Huggins DO Work Phone: [facility] Work Phone: Start: 03-28-2025 End: 03-28-[address] Omar Huggins DO -Laboratory [facility] Start: 03-27-2025 End: 03-27-[address] Desmond Gross MD -[facility] Start: 03-27-2025 End: 03-28-[address] Omar Huggins DO Work Phone: [facility] Work Phone: Start: 02-02-2025 End: 02-02-[address] Desmond Gross MD -[facility] Work Phone: Start: 02-02-2025 End: 02-02-2025 ambulatory Omar Huggins Facility:[facility] Start: 11-03-[address] CHALINO CHURCH DO Facility:[facility] Start: 07-27-2024 End: 07-27-[address] CINTHIA REDDING MD Facility:[facility] Start: 07-27-2024 End: 07-27-[address] CINTHIA REDDING [facility] Start: 06-09-2024 End: 06-09-2024 ambulatory Omar Huggins Facility:[facility] Start: 05-24-2024 End: 05-24-2024 ambulatory Omar Huggins Facility:[facility] Start: 05-13-2024 End: 05-13-2024 ambulatory Adam Mosley Facility:[facility] Start: 11-17-2023 Non-patient / Non-visit Dr. Yamini Huggins Work Phone: [facility] Work Phone: Start: 11-17-2023 Non-patient / Non-visit Dr. Yamini Huggins Work Phone: [facility] Start: 11-16-2023 End: 11-16-[address] Omar Huggins Work Phone: [facility] Work Phone: Start: 11-16-2023 End: 11-16-[address] Omar Huggins Work Phone: [facility]/Neurology Work Phone: Start: 11-04-2023 End: 11-04-[address] Omar Huggins Work Phone: [facility] Work Phone: Start: 09-17-2023 Non-patient / Non-visit Dr. Yamini Huggins Work Phone: [facility] Work Phone: Start: 09-16-2023 Non-patient / Non-visit Dr. Yamini Huggins Work Phone: [facility] Start: 09-16-2023 End: 09-16-[address] Omar Huggins Work Phone: [facility] Work Phone: Start: 09-16-2023 End: 09-16-[address] Omar Huggins Work Phone: [facility]Cardiov[facility]cul[facility] Work Phone: Start: 08-05-2023 End: 08-05-[address] Omar Huggins Work Phone: [facility] Work Phone: Start: 06-09-2023 End: 06-09-[address] Omar Huggins Work Phone: [facility] Work Phone: Start: 04-27-2023 End: 04-27-[address] Omar Huggins Work Phone: [facility] Work Phone: Start: 04-25-2023 End: 04-25-[address] Omar Huggins Work Phone: [facility] Work Phone: Start: 04-25-2023 End: 04-25-[address] Omar Huggins Work Phone: [facility]Laboratory Work Phone: Start: 04-20-2023 End: 04-20-[address] Omar Huggins Work Phone: [facility] Work Phone: Start: 04-20-2023 End: 04-20-[address] Omar Huggins Work Phone: [facility]-Physical Therapy Work Phone: Start: 02-20-2023 Non-patient / Non-visit Dr. Solis Johnson Work Phone: [facility] Inpatient Physicians Start: 02-19-2023 Non-patient / Non-visit Dr. Solis Johnson Work Phone: [facility] Inpatient Physicians Start: 02-18-2023 Non-patient / Non-visit Dr. Solis Johnson Work Phone: [facility] Start: 02-18-2023 End: 02-20-2023 Evaluation and management of inpatient Dr. Luis Johnson Work Phone: [facility]Progressive Care Unit Start: 12-09-2022 End: 12-09-[address] Luis Johnson Work Phone: [facility] Start: 10-23-2022 End: 10-23-[address] Luis Johnson Work Phone: [facility] Work Phone: Start: 10-23-2022 End: 10-23-[address] Luis Johnson Work Phone: [facility] Start: 09-16-2022 Non-patient / Non-visit Dr. Solis Johnson Work Phone: [facility] Start: 09-16-2022 End: 09-16-[address] Luis Johnson Work Phone: [facility] Work Phone: Start: 09-16-2022 End: 09-16-[address] Luis Johnson Work Phone: [facility]Cardiovascula [facility] Services Start: 09-01-2022 End: 09-01-[address] Luis Johnson Work Phone: [facility] Start: 05-16-2022 End: 05-16-[address] Luis Johnson Work Phone: [facility]-Laboratory Start: 2022 End: [address] Luis Johnson Work Phone: [facility] Start: 02-24-2022 End: 02-24-[address] Luis Johnson Work Phone: [facility] Start: 01-03-2022 End: 01-03-[address] Luis Johnson Work Phone: [facility] Start: 12-13-2021 End: 12-13-[address] Luis Johnson Work Phone: [facility] Start: 12-03-2021 Non-patient / Non-visit Dr. Solis Johnson Work Phone: [facility] Start: 10-17-2021 End: 10-17-[address] Luis Johnson Work Phone: [facility]-Medical Surgical 3 Outp Start: 10-14-2021 End: 10-14-[address] Luis Johnson Work Phone: [facility]-Laboratory, Specimen Start: 10-14-2021 End: 10-14-[address] Luis Johnson Work Phone: [facility]-Laboratory, Specimen Start: 02-04-2018 Ambulatory CHALINO Bal ty:A Start: 08-14-2017 End: 08-14-2017 Emergency department patient visit SILVIANO GONZALEZ Facility:[facility] Start: 07-25-2017 End: 07-29-2017 Ambulatory [facility] Procedures Date Procedure Procedure Detail Performing Clinician Start: 05-11-2025 Plain chest X-ray Dr. Britton Huggins DO Work Phone: Start: 05-11-[address] Omar Huggins DO Work Phone: Start: 05-11-2025 CT angiography of he ad and neck Dr. Omar Huggins DO Work Phone: Start: 05-11-2025 CT of head without contrast Dr. Omar Huggins DO Work Phone: Start: 03-28-2025 Assay of prostate sp ecific antigen total Dr. Omar Huggins DO Work Phone: Comment on above: This test was perfor med using the [employer] tPSA method. Measured values of a patient sample can vary depending on the testing procedure used. PSA values determined on patient samples by different testing procedures cannot be used interchangeably. If there is a change in PSA assays while monitoring therapy, sequential testing should be performed to confirm baseline values. Start: 03-27-2025 X-ray of lumbosacral spine Dr. Omar Huggins DO Work Phone: Start: 09-16-2023 Cardiovascular stres s test using pharmacologic stress agent Dr. Omar Huggins Work Phone: Start: 02-19-2023 US scan of thyroid Dr. Luis Johnson Work Phone: Start: 02-19-2023 CT of head without contrast Dr. Luis Johnson Work Phone: Start: 02-18-2023 CT angiography of he ad and neck Dr. Luis Johnson Work Phone: Start: 02-18-2023 CT of head without contrast Dr. Luis Johnson Work Phone: Start: 02-18-2023 Plain chest X-ray Dr. Lucas Johnson Work Phone: Start: 10-14-2021 Respiratory Panel (PCR) Dr. Luis Johnson Work Phone: Start: 07-03-2017 End: 07-06-2017 Program eval implantable in persn dual ld pacer Elis Smith PA-C Work Phone: Start: 07-03-2017 End: 07-06-2017 Pm device progr eval, dual Elis Topete PA-C Work Phone: Start: 01-02-2017 End: 01-02-2017 Program eval implantable in persn dual ld pacer Desmond Gross MD Start: 01-02-2017 End: 01-02-2017 Pm device progr eval, dual Desmond Gross MD Start: 07-04-2016 End: 07-07-2016 Program eval implantable in persn dual ld pacer Desmond S Renato, MD Start: 07-04-2016 End: 07-07-2016 Pm device [...] Treatment Date Care Activity Detail Author Start: 05-16-2025 ambulatory Ambulatory Facility:[facility] Start: 05-12-2025 Brain/Head without Contrast Brain/Head without Contrast [facility] Start: 05-12-2025 CT Unspecified body region WO [facility] Start: 05-11-2025 [facility] Start: 05-11-2025 Verification routine [facility] Start: 05-11-2025 Admission procedure [facility] Start: 05-11-2025 Hospital admission, emergency, from emergency room, medical nature [facility] Start: 07-24-2025 Oxygen therapy [facility] Start: 05-11-2025 [facility] Start: 03-27-2025 X-ray of lumbosacral spine L/S Spine Min 4 Views [facility] Start: 03-27-2025 XR Spine Lumbar and Sacrum GE 4 Views [facility] Start: 02-20-2023 Patient discharge [facility] Start: 02-20-2023 Referral to occupational therapist [facility] Start: 02-20-2023 Referral to service [facility] Start: 02-20-2023 Speech therapy assessment [facility] Start: 02-19-2023 Telepractice consultation [facility] Start: 02-19-2023 Application of intermittent pneumatic compression device [facility] Start: 02-18-2023 Following clinical pathway protocol [facility] Start: 02-18-2023 Admission procedure [facility] Start: 02-18-2023 Inhalation therapy procedure [facility] Start: 02-18-2023 Ambulation without limitation [facility] Start: 02-18-2023 Assessment of risk of venous thromboembolism [facility] Start: 02-18-2023 Cardiac monitoring [facility] Start: 02-18-2023 Catheterization of vein [facility] Start: 02-18-2023 Elevation of head of bed [facility] Start: 02-18-2023 Exercises [facility] Start: 02-18-2023 Implementation of planned interventions [facility] Start: 02-18-2023 Insertion of catheter into peripheral vein [facility] Start: 02-18-2023 Measuring intake and output [facility] Start: 02-18-2023 Notification of physician [facility] Start: 02-18-2023 Oxygen therapy [facility] Start: 02-18-2023 Patient referral to dietitian [facility] Start: 02-18-2023 Providing care according to standard [facility] Start: 02-18-2023 Provision of activity privileges [facility] Start: 02-18-2023 Referral to occupational therapist [facility] Start: 02-18-2023 Referral to service [facility] Start: 02-18-2023 Speech therapy assessment [facility] Start: 02-18-2023 Tobacco use cessation education [facility] Start: 02-18-2023 [facility] Start: 12-09-2017 End: 12-09-2017 Appointment Appointment [facility] Work Phone: Start: 07-03-2017 End: 07-06-2017 Follow Up Appt 6 months Follow Up Appt 6 months [facility] Work Phone: Start: 07-03-2017 End: 07-06-2017 Pacer Clinic [facility] Work Phone: Start: 07-03-2017 End: 07-06-2017 Follow Up Appt 6 months Follow Up Appt 6 months [facility] Work Phone: Start: 07-03-2017 End: 07-06-2017 Pacer Clinic Pac[facility] Clinic [facility] Work Phone: Start: 01-02-2017 End: 01-02-2017 Follow Up Appt 6 months Follow Up Appt 6 months [facility] Work Phone: Start: 01-02-2017 End: 01-02-2017 Pacer Clinic Pacer Clinic [facility] Work Phone: Start: 01-02-2017 End: 01-02-2017 Follow Up Appt 6 months Follow Up Appt 6 months [facility] Work Phone: Start: 01-02-2017 End: 01-02-2017 Pacer Clinic Pac[facility] Clinic [facility] Work Phone: Start: 07-04-2016 End: 07-07-2016 Follow Up Appt 6 months Follow Up Appt 6 months [facility] Work Phone: Start: 07-04-2016 End: 07-07-2016 Pacer Clinic Pacer Clinic [facility] Work Phone: Start: 07-04-2016 End: 07-07-2016 Follow Up Appt 6 months Follow Up Appt 6 months [facility] Work Phone: Start: 07-04-2016 End: 07-07-2016 Pacer Clinic Pac[facility] Clinic [facility] Work Phone: Start: 01-18-2016 End: 01-18-2016 Follow Up Appt 6 months Follow Up Appt 6 months [facility] Work Phone: Start: 01-18-2016 End: 01-18-2016 Pacer Clinic [facility] Work Phone: Start: 01-18-2016 End: 01-18-2016 Follow Up Appt 6 months Follow Up Appt 6 months [facility] Work Phone: Start: 01-18-2016 End: 01-18-2016 Pacer Clinic Pac[facility] Clinic [facility] Work Phone: Start: 07-26-2015 End: 07-27-2015 Follow Up Appt 6 months Follow Up Appt 6 months [facility] Work Phone: Start: 07-26-2015 End: 07-27-2015 Pacer Clinic Pacer Clinic [facility] Work Phone: Start: 07-26-2015 End: 07-27-2015 Follow Up Appt 6 months Follow Up Appt 6 months [facility] Work Phone: Start: 07-26-2015 End: 07-27-2015 Pacer Clinic Pac[facility] Clinic [facility] Work Phone: Start: 06-29-2015 End: 06-29-2015 Radiologic exam knee complete 4/more views X-Ray, Knee [facility] Work Phone: Start: 06-29-2015 End: 06-29-2015 Radiologic examination tibia & fibula 2 views X-Ray, Tibia & Fibula [facility] Work Phone: Start: 06-29-2015 End: 06-29-2015 X-ray exam of lower leg X-Ray, Tibia & Fibula [facility] Work Phone: Start: 06-29-2015 End: 06-29-2015 X-ray exam, knee, 4 or more X-Ray, Knee [facility] Work Phone: Start: 01-19-2015 End: 01-19-2015 Follow Up Appt 6 months Follow Up Appt 6 months [facility] Work Phone: Start: 01-19-2015 End: 01-19-2015 Pacer Clinic Pacer Clinic [facility] Work Phone: Start: 01-19-2015 End: 01-19-2015 Follow Up Appt 6 months Follow Up Appt 6 months [facility] Work Phone: Start: 01-19-2015 End: 01-19-2015 Pacer Clinic Pacer Clinic [facility] Work Phone: Start: 07-07-2014 End: 01-19-2015 Follow Up Appt 6 months Follow Up Appt 6 months [facility] Work Phone: Start: 07-07-2014 End: 01-19-2015 Pacer Clinic Pacer Clinic [facility] Work Phone: Start: 07-07-2014 End: 01-19-2015 Follow Up Appt 6 months Follow Up Appt 6 months [facility] Work Phone: Start: 07-07-2014 End: 01-19-2015 Pacer Clinic Pacer Clinic [facility] Work Phone: Start: 01-06-2014 End: 02-27-2014 Follow Up Appt 6 months Follow Up Appt 6 months [facility] Work Phone: Start: 01-06-2014 End: 02-27-2014 Pacer Clinic Pacer Clinic [facility] Work Phone: Start: 01-06-2014 End: 02-27-2014 Follow Up Appt 6 months Follow Up Appt 6 months [facility] Work Phone: Start: 01-06-2014 End: 02-27-2014 Pacer Clinic Pacer Clinic [facility] Work Phone: Start: 06-24-2013 End: 02-27-2014 Follow Up Appt 6 months Follow Up Appt 6 months [facility] Work Phone: Start: 06-24-2013 End: 02-27-2014 Pacer Clinic Pacer Clinic [facility] Work Phone: Start: 06-24-2013 End: 02-27-2014 Follow Up Appt 6 months Follow Up Appt 6 months [facility] Work Phone: Start: 06-24-2013 End: 02-27-2014 Pacer Clinic Pacer Clinic [facility] Work Phone: Start: 02-25-2013 End: 02-27-2014 Follow Up Appt 3 months Follow Up Appt 3 months [facility] Work Phone: Start: 02-25-2013 End: 02-27-2014 Pacer Clinic Pacer Clinic [facility] Work Phone: Start: 02-25-2013 End: 02-27-2014 Follow Up Appt 3 months Follow Up Appt 3 months [facility] Work Phone: Start: 02-25-2013 End: 02-27-2014 Pacer Clinic Pacer [facility] [employer] Work Phone: Blood chemistry [facility] CT Lumbar spine W co ntrast IV [facility] Lipid 1996 panel - S sal or Plasma [facility] Myelogram [facility] Patient referral [facility] Work Phone: Troponin T.cardiac [Mass/volume] in Serum or Plasma by High sensitivity method [facility] Troponin T.cardiac [Mass/volume] in Serum or Plasma by High sensitivity method [facility] Payers Date Payer Category Payer Self-pay [id number] 2018 Unknown [id number] 2018 Medicare [id number] 2018 Unknown [id number] 2008 Unknown [id number] 1945 Unknown [id number] 2.16.8 [id number] 1945 Unknown [id number] 2.16.8 [id number] Unknown [id number] Unknown [id number] Unknown [id number] Unknown [id number] 2.16.8 [id number] Unknown [id number] 2.16.8 [id number] Unknown [id number] 2.16.8 [id number] Unknown [id number] 2.16.8 [id number] Unknown [id number] 2.16.8 [id number] Unknown [id number] 2.16.8 [id number] Unknown [id number] 2.16.8 [id number] Unknown [id number] 2.16.8 [id number] Unknown [id number] 2.16.8 [id number] Unknown [id number] 2.16.8 [id number] Unknown [id number] 2.16.8 [id number] Unknown [id number] 2.16.8 [id number] Social History Date Type Detail Facility Start: 12-13-2021 End: 11-04-2023 Tobacco smoking status COIS Unknown if ever smoked [facility] Start: 1945 Sex Assigned At Male [facility] Start: 02-20-2023 Cigarettes [facility] Start: 11-04-2023 End: 05-11-2025 Tobacco smoking status NHIS Never smoked tobacco (finding) [facility] Medical Equipment Procedure Code Equipment Code Equipment Origin al Text Equipment Identifier Dates [employer] pacemaker FDA Start: 12-23-2010 [employer] pacemaker FDA Start: 12-23-2010 [employer] pacemaker FDA Start: 12-23-2010 [employer] pacemaker FDA Start: 12-23-2010 [employer] pacemaker FDA Start: 12-23-2010 [facility] [employer] pacemaker FDA Start: 12-23-2010 [facility] [employer] pacemaker FDA Start: 12-23-2010 [facility] [employer] pacemaker FDA Start: 12-23-2010 [facility] [employer] pacemaker FDA Start: 12-23-2010 [facility] [employer] pacemaker FDA Start: 12-23-2010 [facility] [employer] pacemaker FDA Start: 12-23-2010 [facility] [employer] pacemaker FDA Start: 12-23-2010 [facility] [employer] pacemaker FDA Start: 12-23-2010 [facility] [employer] pacemaker FDA Start: 12-23-2010 [facility] [employer] pacemaker FDA Start: 12-23-2010 [facility] [employer] pacemaker FDA Start: 12-23-2010 [facility] [employer] pacemaker FDA Start: 12-23-2010 [facility] [employer] pacemaker FDA Start: 12-23-2010 [facility] [employer] pacemaker FDA Start: 12-23-2010 [facility] [employer] pacemaker FDA Start: 12-23-2010 [facility] [employer] pacemaker FDA Start: 12-23-2010 [facility] [employer] pacemaker FDA Start: 12-23-2010 [facility] [employer] pacemaker FDA Start: 12-23-2010 [facility] [employer] pacemaker FDA Start: 12-23-2010 [facility] [employer] pacemaker FDA Start: 12-23-2010 [facility] [employer] [facility] pacemaker FDA Start: 12-23-2010 [facility] [employer] pacemaker FDA Start: 12-23-2010 [facility] [employer] pacemaker FDA Start: 12-23-2010 [facility] [employer] pacemaker FDA Start: 12-23-2010 [facility] [employer] pacemaker FDA Start: 12-23-2010 [facility] [employer] pacemaker FDA Start: 12-23-2010 [facility] [employer] pacemaker FDA Start: 12-23-2010 [facility] [employer] pac[employer] FDA Start: 12-23-2010 Goals Date Patient Goal Desired Activity /State Functional Status Date Assessment Result Facility 02-20-2023 Functional status Ambulates;Chair [facility] Work Phone: Mental Status Date Assessment Result Facility 05-11-2025 Cognitive function Voice/Name [facility] Work Phone: 02-20-2023 Cognitive function Voice/Name [facility] Work Phone: 10-17-2021 Cognitive function Awake;Alert;A ppropriate;Fol lows Commands [facility] Work Phone: Clinical Notes 02-18-2023 to 05-11-2025 Note Date & Type Note Facility 05-11-2025 Radiology Diagnostic study note [facility] Imaging Services [address] [place], [place] [id number] Chest 1 View MR#: [id number] Acct: [id number] Name: AUSTEN PUENTES Rep #: [id number] : 1945 M 80 From: Fani Roa MD PCP: Dr. Omar Huggins DO Status: ADM RALPH Study:Chest 1 View Date of Exam: 5 Exam# [id number] Ordering Dr: Malik Andrews MD PROCEDURE: CHEST 1 VIEW 05/11/2025 REASON FOR EXAM: NEURO DEFICIT, ACUTE, STROKE SUSPECTED TECHNIQUE: Frontal view of the chest. COMPARISON: Chest radiograph 02/18/2023 FINDINGS: Hardware: Left chest pacemaker device with 2 leads in unchanged position Heart: Cardiac and mediastinal contours are enlarged, unchanged. Lungs: No focal consolidation or significant pleural effusion Bones: Degenerative changes are identified within the shoulders and thoracic spine. RAD/Chest 1 View IMPRESSION: No acute cardiopulmonary abnormality. Reading Location: COURT CC: Dr. Omar Huggins DO; Dr. Emmett Andrews MD ~ Order Processing Clerk: Signed [facility] 05-11-2025 History and physi cristhian note [facility] 05-11-2025 Discharge summary [facility] 05-11-2025 Radiology Diagnostic study note [facility] Imaging Services [address] [place] [address] CTA Head AND Neck W/ Contrast MR#: [id number] Acct: [id number] Name: AUSTEN PUENTES Rep #: [id number] : 1945 M 80 From: [facility] mala Ribera MD PCP: Dr. Omar Huggins, DO Status: REG ER Study:CTA Head AND Neck W/ Contrast Date of E xam: 05/11/25 Exam# [id number] Ordering Dr: Malik Andrews MD PROCEDURE: CTA HEAD AND NECK W/ CONTRAST 05/11/2025 REASON FOR EXAM: EXPRESSIVE APHASIA, FACIAL DROOP ALTERED LEVEL OF TECHNIQUE: CTA HEAD AND NECK W/ CONTRAST Multiplanar Sagittal and Coronal images were obtained. 3D and MIP multiplanar post processing was performed. CONTRAST: Isovue 370 VOLUME: 95 mL One or more dose reduction techniques were used (e.g., Automated exposure control, adjustment of the mA and/or kV according to patient size, use of iterative reconstruction technique). RADIATION DOSE SUMMARY: DLP: 681.35 mGycm COMPARISON: CTA head neck 02/18/2023. FINDINGS: CTA HEAD: Patent intracranial arterial vasculature. No large vessel occlusion. There is focal moderate-advanced stenosis of the left PERFORMANCE TEST ARCHITECT P1-P2 segment junction with preserved distal flow, and moderate short-segment stenosis of the right PERFORMANCE TEST ARCHITECT P1-P2 segment junction, with preserved distal flow. Probable generalized arteriosclerotic disease with irregular vessel wall contours diffusely throughout the brain. These findings are unchanged from 02/18/2023. No aneurysmor vascular malformation. CTA NECK: Conventional aortic arch branching. Bilateral cervical carotid and codominant vertebral arteries are patent without any significant flow-limiting stenosis. No luminal irregularity to suggest aneurysm or dissection. Mild atheromatous plaque at the origins of the bilateral vertebral arteries and distal V4 segments, at the bilateral carotid artery bifurcations, and intracranial cavernous segments. NON-ANGIOGRAPHIC FINDINGS: Mildly enlarged heterogeneous thyroid gland. Mild multilevel degenerative changes of the cervical spine. Right upper lobe accessory azygos fissure. Left lung apex pulmonary cyst. CT/CTA Head AND Neck W/ Contrast IMPRESSION: 1. No intracranial or cervical large vessel arterial occlusion. 2. Unchanged chronic moderate-advanced focal stenosis of the left PERFORMANCE TEST ARCHITECT P1-P2 segment junction, and moderate short-segment narrowing of the right PERFORMANCE TEST ARCHITECT P1-P2 junction with preserved distal flow bilaterally; unchanged from 02/18/2023. No significant stenosis elsewhere. 3. No significant stenosis of the cervical carotid or vertebral arteries. Reading Location: [id number] CC: Dr. Omar Huggins DO; Dr. Emmett Andrews MD ~ Order Processing Clerk: Signed [facility] 05-11-2025 Radiology Diagnostic study note [facility] Imaging Services [address] [place] [address] STROKE Brain/Head without Cont MR#: [id number] Acct: [id number] Name: AUSTEN PUENTES Rep #: [id number] : 1945 M 80 From: Jonn Pemberton MD PCP: Dr. Omar Huggins DO Status: REG ER Study:STROKE Brain/Head without Cont Date of Exam: 05/11/25 Exam# [id number] Ordering Dr: Malik Andrews MD PROCEDURE: STROKE BRAIN/HEAD WITHOUT CONT 05/11/2025 REASON FOR EXAM: NEURO DEFICIT, ACUTE, STROKE SUSPECTED TECHNIQUE: STROKE BRAIN/HEAD WITHOUT CONT Coronal and Sagittal reconstruction series were provided. One or more dose reduction techniques were used (e.g., Automated exposure control, adjustment of the mA and/or kV according to patient size, use of iterative reconstruction technique. RADIATION DOSE SUMMARY: CTDlvol: 44.99 mGy DLP: 897.35 mGycm COMPARISON: 02/19/2023. FINDINGS: Mild global parenchymal atrophy and chronic microvascular ischemia. No evidenceof acute hemorrhage or infarction. No extra-axial blood or fluid collections. The paranasal sinuses are clear. The mastoid air cells are well aerated. The calvarial vault and skull base are intact. CT/STROKE Brain/Head without Cont IMPRESSION: No acute intracranial abnormality. Critical results were communicated to Dr. Andrews at 5:40 p.m.. Reading Location: [id number] CC: Dr. Omar Huggins DO; Dr. Emmett Andrews MD ~ Order Processing Clerk: Signed [facility] 05-11-2025 Discharge summary Note Date/Time May 11, 2025 6:34pm [facility] Medical Records Department [address] [place] [address] Emergency Department Summary 05/11/25 MR#: [id number] Acct: [id number] Name: AUSTEN PUENTES Rep #:[id number] : 1945 80 From: Emmett Andrews MD PCP: Dr. Omar Huggins, DO Status:REG ER Location: ED HPI History of Present Illness Chief Complaint: Stroke Alert Detail of Chief Complaint: Patient was at restaurant about the pur?e and unable to speak Informant: patient and spouse/S.O. Onset/Context/Timing Onset: Today (1649) Context: Sudden Onset Timing: Continuous and - (Speech has improved since onset per , he has a newfacial droop on the left) Quality and Location: Positive for Left Facial Droop and Expressive Aphasia Onset: 1649 Current Severity: Mild Maximum Severity: Moderate Worsened by: Presumed stroke Relieved by: Nothing Associated Symptoms Associated Symptoms: Negative for Headache, Nausea, Vomiting or Chest Pain Narrative Narrative: Patient is a 80-year-old male. He has history of stroke 2 years ago, GERD, purehypercholesterolemia, essential hypertension, syncope and collapse and sick sinus syndrome. He does have a pacemaker. He was about to say a prayer before eating and he was unable to say anything according to . She brought him emergently to the emergency department. He is now speaking but speaks slowly. His speech is not slurred. He is having difficulty recognizing things. He doeshave a facial droop on the left. He denies headache, double vision or blurred vision. He has read his ears. He denies chest pain or shortness of breath. He denies nausea or vomiting. Deniesproblems with balance. Prior similar symptoms: Yes Recent Illness/Hospitalization: No PFSH PFSH Medical History (Updated 05/11/25 @ 18:[address] Emmett Andrews MD) Hypertension Spinal stenosis Gout Prostate CA GERD (gastroesophageal reflux disease) Pure hypercholesterolemia Essential hypertension Syncope and collapse Sick sinus syndrome Presence of cardiac pacemaker Home Medications ?Medication ?Instructions ?Recorded ?Last Taken ?Type aspirin 81 mg tablet,delayed 81 mg PO DAILYCM 30 days #30 tabs 05/05/23 07/24/25 Rx release clopidogrel 75 mg tablet 75 mg PO DAILY #30 tabs 05/03/1005/11/25 Rx diclofenac sodium 75 mg 75 mg PO BID 03/07/24 History tablet,delayed release esomeprazole magnesium 40 mg 40 mg PO QDAY 02/02/25 Un known History capsule,delayed release clonidine 0.3 mg/24 hr weekly 1 patch topical QWEEK Unknown History transdermal patch amlodipine 10 mg tablet 10 mg PO DAILY 05/11/2504/19 History atenolol 100 mg tablet 100 mg PO DAILY 05/11/25 History benazepril 20 mg tablet 20 mg PO DAILY 05/11/2504/19 History hydrochlorothiazide 25 mg tablet 25 mg PO DAILY Unknown History spironolactone 50 mg tablet 50 mg PO DAILY 05/11/25 History Allergy/AdvReac Type Severity Reaction Status Date / Time latex Allergy Rash Verified 05/11/25 17:22 atorvastatin (From Lipitor) AdvReac Unknown Myalgias Verified 05/11/25 17:22 PALMA Inhibitors AdvReac cough Verified 05/11/25 17:22 ezetimibe (From Zetia) AdvReac Myalgias Verified 05/11/25 17:22 Family History Mother Hypertension Surgical History History of colonoscopy (~07/2022) History of prostate surgery History of hernia repair (~1971) Social History Smoking Status: Never smoker how long ago did patient quit smokin + years ago alcohol intake: never substance use type: does not use caffeine: Yes Type: coffee Number of servings: 3 ROS ROS ED Constitutional Constitutional ED: Denies chills, fever(s) or subjective Eyes Eyes: Denies blurry vision, change in vision or diplopia ENT ENT ED: Denies ear pain or rhinorrhea Cardiovascular Cardiovascular: Denies chest pain or palpitations Respiratory/Chest Respiratory/Chest: Denies cough, dyspnea or dyspnea on exertion Gastrointestinal Gastrointestinal: Denies abdominal pain, nausea or vomiting Integumentary Denies rash Neurologic Neurologic: Denies headache(s), paresthesias or weakness Hematologic/Lymphatic Hematologic/Lymphatic: Denies easy bleeding or easy bruising EXAM Physical Exam Const Vital Signs: 05/11/25 17:20 05/11/25 17:23 05/11/25 17:23 Temperature 98.6 F 98.6 F Temperature Source Oral Oral Pulse Rate 78 78 78 Respiratory Rate 18 18 18 Blood Pressure 178/101 H 178/101 H 178/101 H Blood Pressure Mean 126 126 126 Pulse Ox 98 98 98 Oxygen Delivery Method Room Air Room Air Room Air 05/11/25 17:29 05/11/25 17:45 Temperature Temperature Source Pulse Rate 88 Respiratory Rate 18 Blood Pressure 177/83 H Blood Pressure Mean 114 Pulse Ox 97 Oxygen Delivery Method Room Air Room Air Positive well nourished and well developed General Appearance ED: well developed and NAD HEENT Reports moist mucous membranes atraumatic Nose: other Other Details: Normal Eyes PERRL and EOMs intact bilaterally Eyes Narrative: There is no nystagmus. There is no visual field cut. General Eye ED: Negative for pale conjunctiva or scleral icterus Neck no lymphadenopathy, supple and no JVD Resp normal respiratory effort and clear to auscultation bilaterally Cardio no murmurs Rate: regular rate Rhythm: regular rhythm Heart Sounds: S1 normal and S2 normal GI normal to inspection, nondistended, normoactive bowel sounds, soft to palpation and non-tender Extremity normal to inspection Neuro oriented x3, No CN's II-XII intact bilaterally and no sensory deficits noted Bladimir Coma Scale: document GCS findings Spontaneous Obeys Commands Oriented 15 Sensorium / Orientation: Negative for alert Speech: speech normal Sensory Exam: No sensory level loss detected Motor Exam: strength 5/5 throughout Psych mental status grossly normal Psych Narrative: Slow thought process and responses to questions. Skin no wounds MDM MDM MDM Narrative Medical decision making narrative: Patient with improving expressive aphasia and facial droop that is new from prior stroke 2 years ago. Since this started [address] of the head without contrast as well as CTA of the head and neck was obtained. Patient is on clonidine for his hypertension as well as labetalol. He is on no antithrombotic or anticoagulant. History & Record Review Additional record(s) reviewed:: Prior inpatient record (He was admitted for hypertensive urgency emergency and thought to have had a stroke February 2023. Discharge summary was by Dr. Becerra.) and Prior outpatient record (Outpatient visit for degenerative disc disease Dr. Hong and office visit Dr. Matias for hypertension. He was admitted February 2023.) Lab Data Lab results narrative: CBC is unremarkable. Basic metabolic panel's micro sodium of 123 chloride of 89with a BUN/creatinine of 22 and 1.08 respectively. BUN/creatinine ratio is slightly greater than 20-1. Glucose is elevated 146 with a normal CO2 and aniongap. First troponin is elevated. Labs: Laboratory Results - last 24 hr 05/11/25 17:40 WBC 11.0 RBC 4.59 L Hgb 14.5 Hct 41.6 MCV 90.6 MCH 31.6 MCHC 34.9 RDW Std Deviation 42.2 RDW Coeff of Yaz 12.7 Plt Count 286 MPV 9.8 Immature Gran % (Auto) 0.300 Neut % (Auto) 72.6 H Lymph % (Auto) 17.3 L Warrick % (Auto) 7.1 Eos % (Auto) 2.2 Baso % (Auto) 0.5 Absolute Neuts (auto) 8.0 H Absolute Lymphs (auto) 1.90 Nucleated RBC % 0 PT 14.4 INR 1.1 APTT 29.8 Sodium 123 L Potassium 4.2 Chloride 89 L Carbon Dioxide 22.4 Anion Gap 12 BUN 22 H Creatinine 1.08 Estim Creat Clear Calc 57.34 Est GFR (MDRD) Non-Af 70 BUN/Creatinine Ratio 20.2 H Glucose 146 H Calcium 9.0 Troponin T High Sens 29 H Radiography Diagnostic Testing: Clinical Impression(s) from Imaging Studies Brain CT 05/11/25 17:21 IMPRESSION: No acute intracranial abnormality. Critical results were communicated to Dr. Andrews at 5:40 p.m.. Reading Location: [id number] Received a call from radiologist at 1753. C-minus was negative. He is pleasantly agreed CTA of the head and neck. Management Discussion w/another healthcare provider: Hospitalist (Case discussed with Dr. Nadiya Pickens. Since patient has improved significantly and has minimal residualhe will be a 23 observation PCU), [employer] Machine Operator (Spoke with Dr. Drew's [facility] neurologist. No lytics. Would add aspirin full-strength at this time.) and Radiologist Treatment and Re-Evaluation Narrative: Patient's blood pressure is elevated. Will allow for permissive hypertension. Patient is noted to be on thiazide diuretic and probably the cause of his acute hyponatremia. Approximately 2 weeks ago his sodium was normal. Do not believe this is the cause of his symptoms. Discharge Plan Dx/Rx/DC Orders Clinical Impression: Expressive aphasia, Essential hypertension, Pure hypercholesterolemia, Facial droop due to acute cerebrovascular accident (CVA), Acute hyponatremia, Acute prerenal azotemia, Elevated troponin, Nondiabetic hyperglycemia Disposition Disposition: Acute Care Hospital [facility] NIHSS NIHSS 1a. Level of Consciousness: 1 - Not alert; Arousable by minor stimuli to obey, answer & respond 1b. LOC Questions: 0 - Answers BOTH questions correctly 1c. LOC Commands: 0 - Performs BOTH tasks correctly 2. Best Gaze: 0 - Normal 3. Visual: 0 - No visual loss 4. Facial Palsy: 1 - Minor paralysis (flattened nasolabial fold, asymmetry on smiling) 5a. Left Arm: 0 - No drift; arm holds 90 (or 45) degrees for full 10 seconds 5b. Right Arm: 0 - No drift; arm holds 90 (or 45) degrees for full 10 seconds 6a. Left Le - No drift; leg holds 30-degree position for full 5 seconds 6b. Right Le - No drift; leg holds 30-degree position for full 5 seconds 7. Limb Ataxia: 0 - Absent 8. Sensory: 0 - Normal; no sensory loss 9. Best Language: 1 - Bsyj-zz-pdgfvwmw aphasia; 10. Dysarthria: 0 - Normal 11. Extinction and Inattention: 0 - No abnormality Total: 3 Stroke Questions Stroke Team Activated: Yes Reviewed Inclusion/Exclusion criteria: Yes What to do if you have Problems For any increased pain, shortness of breath, bleeding, nausea or vomiting, chestpain, or any unexpected problems, contact your Primary Care Provider. Call [facility] ([phone]) or report to the closest Emergency Room. Call 911 if necessary. 05/11/25 3676 <Electronically signed by Emmett Andrews MD> Cosigner Signature (if applicable): CC: Dr. Omar Huggins, DO ~ Signed [facility] Work Phone: 1(670) 466-477104-17-2025 Evaluation note* Diagnosis Onset Date Resolution Status Admit Date Essential hypertension acute Ap ril 2024 1:31pm Pure hypercholesterolemia acute February 02, 2025 1:31pm Presence of cardiac pacemaker chroni c February 02, 2025 1:31pm [facility] Work Phone: 1(471) 484-275304-17-2025 Evaluation note* Diagnosis Onset Date Resolution Status Admit Date Essential hypertension acute Ap ril 2024 1:31pm Pure hypercholesterolemia acute February 02, 2025 1:31pm Presence of cardiac pacemaker chroni c February 02, 2025 1:31pm Degenerative disc disease (D DD) of lumbar region with discogenic back pain acute March 27, 2025 9:18am Degenerative scoliosis acute 2024 9:18am Lumbar stenosis with neuroge jaime claudication acute March 27, 2025 9:18am [facility] Work Phone: 1([phone]) 151-262604-17-2025 Evaluation note* Diagnosis Onset Date Resolution Status Admit Date Essential hypertension acute Ap ril 2024 1:31pm Pure hypercholesterolemia acute February 02, 2025 1:31pm Presence of cardiac pacemaker chroni c February 02, 2025 1:31pm Degenerative disc disease (D DD) of lumbar region with discogenic back pain acute March 27, 2025 9:18am Degenerative scoliosis acute 2024 9:18am Lumbar stenosis with neuroge jaime claudication acute March 27, 2025 9:18am Acute hyponatremia acute April 192024 7:00pm Acute prerenal azotemia acute J negro 2024 7:00pm Elevated troponin acute May 112024 7:00pm Essential hypertension acute Ju ly 2024 7:00pm Expressive aphasia acute April 192024 7:00pm Facial droop due to acute cerebrovascular accident (CVA) acute J negro 2024 7:00pm Nondiabetic hyperglycemia acute May 11, 2025 7:00pm Pure hypercholesterolemia acute May 11, 2025 7:00pm [facility] Work Phone: 1(260) 709-210201-30-2024 Procedure [facility] 07-03-2023 Discharge summary Author Roxana Ashley [facility] April 20, 2023 4:40pm Note Date/Time April 20, 2023 4:40p m [facility] Physical Therapy [facility] [address] [place] [address] / REHABILITATION SERVICES DISCHARGE SUMMARY MR#: [id number] Acct: [id number] Name: AUSTEN PUENTES Rep #: [id number] : 1945 78 From: Roxana Ashley PT, Cert. MDT Referring Dr.: Dr. Omar Huggins DO Status: REG RCR Insurance: [employer] INSURANCE Discharge Summary D/C summary: It has been my pleasure to treat AUSTEN PUENTES referred by Dr. Omar Huggins DO, with the diagnosis of S/P CVA for a total of 19 visit(s). Discharge Date: 04/20/23 Please see the following information for a summary of their discharge status. Subjective Subjective: I FEEL GOOD. I'VE STRENGTHENED MY L KNEE A LOT AND STRETCHING HAS HELPED TOO. PATIENT REPORTS HE DOESN'T HAVE TROUBLE GETTING IN AND OUT OF THE CAR NOW. 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 PATIENT REPORTS HE HAS NOT STARTED A WALKING PROGRAM. STATES HE DOES NOT FEEL HE NEEDS TO CONTINUE PT AND WANTS TO STOP PT NOW. PATIENT REPORTS HE AND HIS ARE CONSIDERING JOINING [employer] HERE AT [facility] AND IF SO HE WILL USE THE EX LOG WE GAVE HIM. PATIENT REPORTS HE STILL NEEDS TO WORK ON GETTING HIS ENDURANCE UP TO BE ABLE TOWORK 8 HRS A DAY. STILL PLANNING TO FOLLOW UP WITH DR. HUGGINS MAY 19 2023. Pain L LE: Pain Intensity (Out of 10): 0 Overall Improvement % Improvement: 60 Objective Objective/Function: PATIENT WAS SEEN TODAY FOR RE-ASSESSMENT OF PROGRESS TOWARD THE SET PT GOALS AND THE NEED FOR FURTHER PHYSICAL THERAPY VS READINESS FOR DISCHARGE. PATIENT HAS MADE GOOD PROGRESS WITH PT AND DEMO'D ABILITY TO WALK APPROX 1/4 MILE CONTINUOUSLY IN CLINIC TODAY AND COULD HAVE GONE FURHTER. HE IS REQUESTING D/C. UPON EXAM TODAY: Motor deficit: SHERWIN LE'S 5/5 WITH MMT'ING. Core strength: FAIR. BALANCE: GOOD. SEE GAIT TESTS BELOW. PATIENT IS ABLE TO SLS SHERWIN LE'S WITHOUT UE ASSIST X 5 SEC'S R LE AND 6 SEC L LE WITHOUT UE ASSIST. STEPS: INDEP UP AND DOWN STEPS WITH ONE UE ASSIST RECIPRICALLY (PATIENT REPORTS THAT HE TYPICALLY GOES ONE STEP AT A TIME AT HOME IN THE AFTERNOONS WHEN HIS LLE IS FATIGUED). OTHER: SEE TUG TIME AND STS TEST IMPROVEMENTS BELOW. Goals Goal 1:: INDEP AND SAFE GAIT ON LEVEL SURFACES X > 1000 FEET AND UP AND DOWN STEPS WITH LEAST AD AND UE ASSIST TO DEMONSTRATE GOOD GAIT STABILITY AND ENDURANCE. Goal Progress: Goal Met Goal 2:: PATIENT WILL COMPLETE 10 STANDS IN 30 SECS WITHOUT UE ASSSIT TO DEMONSTRATE IMPROVED FUNCTIONAL STRENGTH Goal Progress: Goal Met Goal 3:: PATIENT WILL BE INDEP WITH A HEP FOR CONTINUED IMPROVEMENT ONCE FORMAL PHYSICAL THERAPY CONCLUDES. Goal Progress: Goal Met Goal 4:: NEW GOAL: PATIENT WILL COMPLETE TUG IN < 12 SECS TO DEMONSTRATE IMPROVED GAIT STABILITY Goal Progress: Goal Met Goal 5:: NEW GOAL: PATIENT WILL COMPLETE 13 STANDS IN 30 SECS TO DEMONSTRATE IMPROVED FUNCTIONAL STRENGTH Goal Progress: Goal Met Plan Plan: D/C TO INDEP EX AT PATIENTS REQUEST D/C Information d/c sentence: If there are questions or concerns regarding this patient's physical therapy, please feel free to call me at [phone]. Thank you for the referral of thispatient. Sincerely, Roxana Ashley, PT, Cert MDT Balance/Gait/Functional tests Balance/Special Test Scores Lower Extremity Functional Score: 60 TUG Test Time Seconds: 11.43 Tug Test: <20 sec.=mostly independent 30 Second Chair Rise Test Seconds: 13 <Electronically signed by Roxana Ashley PT, Cert. MDT> 04/20/23 1640 CC: Dr. Refugio Hung MD; Dr. Omar Huggins, DO ~ REBEL Signed [facility] Work Phone: 1(542) 399-668306-12-2023 Discharge summary Author Elis Armstrong [facility] March 30, 2023 12:57pm Note Date/Time March 30, 2023 12:5 7pm [facility] Occupational Therapy [facility] [address] [place] [address] [address] [place] [address] / REHABILITATION SERVICES DISCHARGE SUMMARY MR#: [id number] Acct: [id number] Name: AUSTEN PUENTES Rep #: [id number] : 1945 78 From: Elis LYLE CHT Referring Dr.: Dr. Omar Huggins DO Status: REG RCR Eval Date: Discharge Date: It has been my pleasure to treat AUSTEN PUENTES under orders from Dr. Omar Huggins DO, for the diagnosis of stroke for a total of 5 visit(s). Please see the following information for a summary of their discharge status. % Improvement: 95 Objective/Function: right plastics patternmaker strength 80# left 75# (left increase from 53#). left lateral pinch 18# increase from 10#. left tripod pinch 16# increase from 8#. left tip pinch 10# increased from 4#. left 9 hole peg test at 28.13 sec. a10 sec. increase in speed. Patient Goals: Return to Work, Use Hand/Wrist/Arm Normally Again, Resume Former Household Responsibilities (Cooking,Cleaning,Yard, etc.) Goal:: Patient will gain 5# plastics patternmaker strength in L hand (eval date 53) by d/c. goal met at 75# left plastics patternmaker strength Goal:: Patient will improve 9 hole peg test time for L hand by 5 seconds (eval date 38.7 sec) by d/c. goal met at 28.13 sec. Goal:: Patient will complete palm to/from finger translation with 4 items with Lhand without drops on at least 2 occasions by d/c. Plan: Continue POC. Discharge Comments: pt was seen for 5 OT sessions. States he is feeling is strength and coordination is back to his PLOF. pt has met all OT goals. pt agrees to cont. with HEP. pt agrees to D/C. If there are questions or concerns regarding this patient's occupational therapy, please fell free to call me at [phone]. Thank you for the referral of this patient. Sincerely, Elis [place], HAIM/Edin, SABAT <Electronically signed by Elis WHITMORE/SABA JesusT> 03/30/23 1257 CC: Dr. Refugio uHng MD; Dr. Omar Huggins, DO ~ MK Signed [facility] Work Phone: 1(980) 108-472605-05-[address] Hung [facility] February 20, 2023 11:16am Note Date/Time February 20, 2023 10:53a m [facility] Medical Records Department [address] [place] [address] Discharge Summary 02/20/23 1051 MR#: [id number] Acct: [id number] Name: AUSTEN PUENTES Rep #:[id number] : 1945 77 From: Refugio Hung MD PCP: Dr. Omar Huggins, DO Status:ADM IN Location: [place] [id number] Providers Date of Admission: 02/18/23 Date of Discharge: 02/20/23 Primary Care Physician: Dr. Omar Huggins, DO Reason For Visit: CVA Diagnosis Discharge Diagnosis (1) Stroke: Status: Acute Code(s): I63.9 - Cerebral infarction, unspecified Plan Patient is a 77-year-old gentleman presenting with slurred speech and gait disturbance 1. Suspected CVA ? Possibly involving the posterior circulation. CTA obtained did show focal stenosis involving the P2 segment of the left PERFORMANCE TEST ARCHITECT. An MRI could not be obtainedin view of presence of pacemaker placement. Patient was evaluated by [facility] neuro patient was not a candidate for tenecteplase since he was out ofthe window. More so there was no need for transfer since he did not have any large vessel occlusion on CTA. Patient started on aspirin. Patient apparently has significant reaction to statins specifically joint pain. Started patient onlow-dose atorvastatin was in the hospital -02/19/2023 an MRI could not be performed since patient has a pacemaker. Patient still has significant difficulty with speech repeat head CT ordered consult placed to [facility] neurology -02/20/2023; repeat MRI did not show any CVA. Case was discussed with [facility] teleneurologist. Plan is for patient to be assessed for discharge with outpatient therapy 2. Hypertension - Blood pressure controlled, home medications continued with dose adjustment as needed 3. Conduction system disorder ? Status post pacemaker placement 4. GERD ? Patient is on PPI 5. Generalized osteoarthritis ? Patient is on diclofenac 75 mg p.o. twice daily 6. Thyroid Mass Thyroid Ultrasound demonstrated Bilateral TR 3 nodules measuring up to a maximumof 1 cm do not meet TI-RADS criteria for FNA or imaging follow-up. 7. Normal 2D echo ? Patient echo did show Moderate concentric left ventricular hypertrophy. The left ventricular ejection fraction is 65 %. The left atrium is severely enlarged. Aneurysmal atrial septum. Echocardiogram from 2010 reported as positive bubble study for PFO. ?Case was discussed with Dr. Petty with cardiology who recommended dual antiplatelet therapy 8. DVT prophylaxis - On enoxaparin Time spent in the patient's overall evaluation,decision-making process, review of diagnostic data, adjustment of management, discussion with other providers, nursing nursing and ancillary staff involved in patient's care documentation, 37minutes Medications at Discharge Home Medications aspirin 81 mg tablet,delayed release (Aspir-Low) 81 mg PO DAILY 04/19/17 spironolactone 25 mg tablet 25 mg PO DAILY 04/19/17 amlodipine 10 mg-benazepril 40 mg capsule (Lotrel) 1 cap PO DAILY #30 caps 02/24/22 clonidine 0.2 mg/24 hr weekly transdermal patch 0.2 mg transdermal QWEEK blood pressure 09/01/22 pantoprazole 40 mg tablet,delayed release 40 mg PO DAILY 09/01/22 carvedilol 12.5 mg tablet (Coreg) 12.5 mg PO BID #180 tabs 09/29/22 diclofenac sodium 75 mg tablet,delayed release 75 mg PO BID 02/18/23 aspirin 81 mg tablet,delayed release 81 mg PO DAILYCM 30 days #30 tabs 02/20/23 atorvastatin 40 mg tablet 40 mg PO QHS #30 tabs 02/20/23 clopidogrel 75 mg tablet 75 mg PO DAILY #30 tabs 02/20/23 famotidine 20 mg tablet 20 mg PO BID 30 days #60 tabs 02/20/23 Hospital Course Summary of Care Provided Minutes Spent on Discharge: 37 Physical Exam Narrative GENERAL: cooperative HEENT: Atraumatic; normocephalic EYES; Anicteric, Normal Conjunctiva NECK; supple, normal thyroid, RESPIRATORY: Diminished to auscultation CARDIOVASCULAR: Regular S1 S2, GI: soft, normoactive bowel sounds, : No Renal angle tenderness; EXTREMITIES: No edema, no clubbing, MUSCULOSKELETAL: no muscle wasting NEURO: Awake; no lateralizing signs. SKIN: No Rash PSYCH; Flat affect Weight / BMI Weight Weight: 94.4 kg Body Mass Index (BMI) 34.7 ABG / Lab / Microbiology Data Result Diagrams: 02/19/23 05:20 02/19/23 05:20 Radiography Diagnostic Testing: Radiology Impression Echocardiogram 02/18/23 09:32 Interpretation Summary Moderate concentric left ventricular hypertrophy. The left ventricular ejection fraction is 65 %. The left atrium is severely enlarged. Aneurysmal atrial septum. Echocardiogram from 2010 reported as positive bubble study for PFO. Ordering Physician: Refugio Hung Referring Physician: Omar Huggins Performed By: Colette López Thyroid Ultrasound 02/19/23 13:51 IMPRESSION: Bilateral TR 3 nodules measuring up to a maximum of 1 cm do not meet TI-RADS criteria for FNA or imaging follow-up. Electronically Signed: Ervin Garay MD at 19:38 EDT , D/C Instructions Discharge Diet: No restrictions Discharge Activity: Return to Normal Activity Call your doctor if you observe: Fever of 101 or Higher, Shortness of breath, Fainting spells and Chest pain Meaningful Use Info Meaningful Use Diagnoses (Choose all that apply): Ischemic CVA CVA Therapy Assessed for PT,OT and/or ST?: Yes Ischemic Stroke Antithrombotic order at d/c?: Yes Dx of Atrial fib/flutter?: No Statins at discharge?: Yes Primary Dx Acute Ischemic CVA?: Yes IV thrombolytic ordered during stay?: No Reason IV thrombolytic not ordered: Treatment not Indicated Discharge Plan Admission Admit Date/Time: 02/18/23 09:34 Attending Provider: Refugio Hung Primary Care Provider: Omar Huggins Discharge Orders/Prescriptions Prescriptions: New atorvastatin 40 mg Tablet 40 mg PO QHS Qty: 30 0RF clopidogrel 75 mg Tablet 75 mg PO DAILY Qty: 30 0RF aspirin 81 mg Tablet,Delayed Release (Dr/Ec) 81 mg PO DAILYCM 30 Days Qty: 30 0RF famotidine 20 mg Tablet 20 mg PO BID 30 Days Qty: 60 0RF Continued amlodipine-benazepril [Lotrel] 10-40 mg capsule 1 cap PO DAILY Qty: 30 0RF pantoprazole 40 mg tablet,delayed release (DR/EC) 40 mg PO DAILY Label Comments: TAKE 1 TABLET BY MOUTH IN THE MORNING BEFORE A MEAL aspirin [Aspir-Low] 81 MG tablet,delayed release (DR/EC) 81 mg PO DAILY spironolactone 25 MG tablet 25 mg PO DAILY clonidine 0.2 mg/24 hr patch weekly 0.2 mg transdermal QWEEK Rx Instructions: Mondays diclofenac sodium 75 mg tablet,delayed release (DR/EC) 75 mg PO BID carvedilol [Coreg] 12.5 mg tablet 12.5 mg PO BID Qty: 180 3RF Rx Instructions: must administer with a meal/food Other Ambulatory Orders: Occupational Therapy Eval (Routine) Location: None Selected Ordered By: Dr. Refugio Hung Physical Therapy Evaluation (Routine) Location: None Selected Ordered By: Dr. Refugio Hung Speech Therapy Evaluation (Routine) Location: None Selected Ordered By: Dr. Refugio Hung Referrals / Follow Up: Omar Huggins DO [Primary Care Provider] - 02/25/23 10:10 am Disposition Disposition (needs filled in before D/C Order can be placed): Home, Self Care Charges/Coding Visit Charges Inpatient E&M: 06124 Disch Hosp >30min 02/20/23 1116 <Electronically signed by Refugio Hung MD> Cosigner Signature (if applicable): CC: Dr. Refugio Hung MD; Dr. Omar Huggins DO~ Signed [facility] Work Phone: 1(361) 980-552705-05-[address] Hung [facility] February 20, 2023 10:39am Note Date/Time February 20, 2023 7:54am [facility] Medical Records Department [address] [place] [address] Progress Note - Hospitalist 02/20/23 0749 MR#: [id number] Acct: [id number] Name: AUSTEN PUENTES Rep #:[id number] : 1945 77 From: Refugio Hung MD PCP: Dr. Omar Huggins, DO Status:ADM IN Location: [place] [address] Reason for Visit Reason for Visit: Diagnoses Cerebral infarction, unspecified (02/18/23) Subjective Subjective Patient seen still has significant left facial droop and slurred speech. Plan is for patient to be assessed for discharge with outpatient therapy Objective Data Objective Data Vital Signs: Vital Signs Temp Pulse Resp BP Pulse Ox O2 Del Method 98 F 70 16 146/94 H 93 Room Air 02/20/23 05:58 02/20/23 05:58 02/20/23 05:58 02/20/23 05:58 02/20/23 05:58 02/20/23 05:58 Oxygen Delivery Method Room Air Weight: 94.4 kg Body Mass Index (BMI) 34.7 Intake & Output: Intake and Output for Last 24 Hours 02/18/23 02/19/23 02/20/23 23:59 23:59 23:59 Intake Total 1290 / 1290 2260 / 2260 Output Total 750 / 1350 600 / 600 Balance 1290 / 1290 1510 / 910 -600 / -600 Lab / Micro Data Result Diagrams: 02/19/23 05:20 02/19/23 05:20 Radiography Diagnostic Testing: Radiology Impression Echocardiogram 02/18/23 09:32 Interpretation Summary Moderate concentric left ventricular hypertrophy. The left ventricular ejection fraction is 65 %. The left atrium is severely enlarged. Aneurysmal atrial septum. Echocardiogram from 2010 reported as positive bubble study for PFO. Ordering Physician: Refugio Hung Referring Physician: Omar Huggins Performed By: Colette López Brain CT 02/19/23 09:01 IMPRESSION: Chronic involutional changes of the brain. Electronically Signed: Toy Kellogg MD at 9:56 EDT , Thyroid Ultrasound 02/19/23 13:51 IMPRESSION: Bilateral TR 3 nodules measuring up to a maximum of 1 cm do not meet TI-RADS criteria for FNA or imaging follow-up. Electronically Signed: Ervin Garay MD at 19:38 EDT , Physical Exam Narrative GENERAL: cooperative HEENT: Atraumatic; normocephalic EYES; Anicteric, Normal Conjunctiva NECK; supple, normal thyroid, RESPIRATORY: Diminished to auscultation CARDIOVASCULAR: Regular S1 S2, GI: soft, normoactive bowel sounds, : No Renal angle tenderness; EXTREMITIES: No edema, no clubbing, MUSCULOSKELETAL: no muscle wasting NEURO: Awake; no lateralizing signs. SKIN: No Rash PSYCH; Flat affect Assessment & Plan Assessment/Plan (1) Stroke: PLAN: Plan Patient is a 77-year-old gentleman presenting with slurred speech and gait disturbance 1. Suspected CVA ? Possibly involving the posterior circulation. CTA obtained did show focal stenosis involving the P2 segment of the left PERFORMANCE TEST ARCHITECT. An MRI could not be obtainedin view of presence of pacemaker placement. Patient was evaluated by [facility] neuro patient was not a candidate for tenecteplase since he was out ofthe window. More so there was no need for transfer since he did not have any large vessel occlusion on CTA. Patient started on aspirin. Patient apparently has significant reaction to statins specifically joint pain. Started patient onlow-dose atorvastatin was in the hospital -02/19/2023 an MRI could not be performed since patient has a pacemaker. Patient still has significant difficulty with speech repeat head CT ordered consult placed to [facility] -02/20/2023; repeat MRI did not show any CVA. Case was discussed with [facility] teleneurologist. Plan is for patient to be assessed for discharge with outpatient therapy 2. Hypertension - Blood pressure controlled, home medications continued with dose adjustment as needed 3. Conduction system disorder ? Status post pacemaker placement 4. GERD ? Patient is on PPI 5. Generalized osteoarthritis ? Patient is on diclofenac 75 mg p.o. twice daily 6. Thyroid Mass Thyroid Ultrasound demonstrated Bilateral TR 3 nodules measuring up to a maximumof 1 cm do not meet TI-RADS criteria for FNA or imaging follow-up. 7. Normal 2D echo ? Patient echo did show Moderate concentric left ventricular hypertrophy. The left ventricular ejection fraction is 65 %. The left atrium is severely enlarged. Aneurysmal atrial septum. Echocardiogram from 2010 reported as positive bubble study for PFO. ?Case was discussed with Dr. Petty with cardiology who recommended dual antiplatelet therapy 8. DVT prophylaxis - On enoxaparin Time spent in the patient's overall evaluation,decision-making process, review of diagnostic data, adjustment of management, discussion with other providers, nursing nursing and ancillary staff involved in patient's care documentation, 37minutes Charges/Coding Visit Charges Inpatient E&M: 45964 Subs Hosp L2 02/20/23 1039 <Electronically signed by Refugio Hung MD> Cosigner Signature (if applicable): CC: ~ Signed [facility] Work Phone: 1(385) 471-914105-04-[address] Hung [facility] February 19, 2023 11:33am Note Date/Time February 19, 2023 9:02am [facility] Medical Records Department [address] [place] [address] Progress Note - Hospitalist 02/19/23 0902 MR#: [id number] Acct: [id number] Name: AUSTEN PUENTES Rep #:[id number] : 1945 77 From: Refugio Hung MD PCP: Dr. Omar Huggins, DO Status:ADM IN Location: [place] [address] Reason for Visit Reason for Visit: Diagnoses Cerebral infarction, unspecified (02/18/23) Subjective Subjective Patient is a 77-year-old gentleman presenting with slurred speech and gait disturbance. An MRI could not be performed since patient has a pacemaker. Patient still has significant difficulty with speech repeat head CT ordered consult placed to [facility] Objective Data Objective Data Vital Signs: Vital Signs Temp Pulse Resp BP Pulse Ox O2 Del Method 98.0 F 73 18 185/99 H 97 Room Air 02/19/23 06:30 02/19/23 06:30 02/19/23 06:30 02/19/23 06:30 02/19/23 06:30 02/19/23 08:05 Oxygen Delivery Method Room Air Weight: 94.4 kg Body Mass Index (BMI) 34.7 Intake & Output: Intake and Output for Last 24 Hours 02/17/23 02/18/23 02/19/23 23:59 23:59 23:59 Intake Total 1290 / 1290 1200 / 1200 Output Total 400 / 400 Balance 1290 / 1290 800 / 800 Lab / Micro Data Result Diagrams: 02/19/23 05:20 02/19/23 05:20 Labs: Laboratory Results - last 24 hr 02/19/23 05:20: WBC 9.6, RBC 4.95, Hgb 15.1, Hct 45.7, MCV 92.3, MCH 30.5, MCHC 33.0, RDW Std Deviation 47.1 H, RDW Coeff of Yaz 13.9, Plt Count 256, MPV 10.8, Immature Gran % (Auto) 0.300, Neut % (Auto) 72.4 H, Lymph % (Auto) 15.4 L, Warrick % (Auto) 7.8, Eos % (Auto) 3.5, Baso % (Auto) 0.6, Absolute Neuts (auto) 6.9, Absolute Lymphs (auto) 1.48, Nucleated RBC % 0 02/19/23 05:20: Sodium 142, Potassium 3.9, Chloride 111 H, Carbon Dioxide 25.0, Anion Gap 6, BUN 17, Creatinine 0.92, Estim Creat Clear Calc 58.09, Est GFR (MDRD) Af Amer 102, Est GFR (MDRD) Non-Af 85, BUN/Creatinine Ratio 18.4, [id number] H, Calcium 8.7, Phosphorus 2.6, Magnesium 2.0, Triglycerides 110, Cholesterol 191, LDL Cholesterol 137 H, VLDL Cholesterol 22, HDL Cholesterol 32 L Radiography Diagnostic Testing: Radiology Impression Chest X-Ray 02/18/23 07:47 IMPRESSION: Borderline cardiomegaly. Low lung volumes. Electronically Signed: Blanco Chaves MD at 9:15 EDT , Physical Exam Narrative GENERAL: cooperative HEENT: Atraumatic; normocephalic EYES; Anicteric, Normal Conjunctiva NECK; supple, normal thyroid, RESPIRATORY: Diminished to auscultation CARDIOVASCULAR: Regular S1 S2, GI: soft, normoactive bowel sounds, : No Renal angle tenderness; EXTREMITIES: No edema, no clubbing, MUSCULOSKELETAL: no muscle wasting NEURO: Awake; no lateralizing signs. SKIN: No Rash PSYCH; Flat affect Assessment & Plan Assessment/Plan (1) Stroke: PLAN: Plan Patient is a 77-year-old gentleman presenting with slurred speech and gait disturbance 1. Suspected CVA ? Possibly involving the posterior circulation. CTA obtained did show focal stenosis involving the P2 segment of the left PERFORMANCE TEST ARCHITECT. An MRI could not be obtainedin view of presence of pacemaker placement. Patient was evaluated by [facility] neuro patient was not a candidate for tenecteplase since he was out ofthe window. More so there was no need for transfer since he did not have any large vessel occlusion on CTA. Patient started on aspirin. Patient apparently has significant reaction to statins specifically joint pain. Started patient onlow-dose atorvastatin was in the hospital -02/19/2023 an MRI could not be performed since patient has a pacemaker. Patient still has significant difficulty with speech repeat head CT ordered consult placed to [facility] 2. Hypertension - Blood pressure controlled, home medications continued with dose adjustment as needed 3. Conduction system disorder ? Status post pacemaker placement 4. GERD ? Patient is on PPI 5. Generalized osteoarthritis ? Patient is on diclofenac 75 mg p.o. twice daily 6. DVT prophylaxis - On enoxaparin Time spent in the patient's overall evaluation,decision-making process, review of diagnostic data, adjustment of management, discussion with other providers, nursing nursing and ancillary staff involved in patient's care documentation, 57minutes Charges/Coding Visit Charges Inpatient E&M: 40774 Subs Hosp L3 02/19/23 1133 <Electronically signed by Refugio Hung MD> Cosigner Signature (if applicable): CC: ~ Signed [facility] Work Phone: 1(594) 761-424005-03-[address] Rhodes [facility] February 18, 2023 2:56pm Note Date/Time February 18, 2023 7:56am [facility] Medical Records Department [address] [place] [address] Emergency Department Summary 02/18/23 MR#: [id number] Acct: [id number] Name: AUSTEN PUENTES Rep #:[id number] : 1945 77 From: Reynold Gerardo PCP: Dr. Omar Huggins, DO Status:ADM IN Location: [address] History of Present Illness Chief Complaint: Neuro S/Sx Informant: patient Onset/Context/Timing Onset: Yesterday Context: Sudden Onset Timing: Continuous Quality and Location: Positive for Left Facial Droop and Left Arm Weakness Onset: Approximately 1730 last night Worsened by: Nothing Relieved by: Nothing Associated Symptoms Associated Symptoms: Negative for Headache, Nausea, Vomiting or Chest Pain PFSH PFS Medical History Essential hypertension GERD (gastroesophageal reflux disease) Gout Presence of cardiac pacemaker Prostate CA Pure hypercholesterolemia Sick sinus syndrome Spinal stenosis Syncope and collapse Home Medications aspirin 81 mg tablet,delayed release (Aspir-Low) 81 mg PO DAILY 04/19/17 [History Last Taken 04/19/17 07:00] spironolactone 25 mg tablet 25 mg PO DAILY 04/19/17 [History Last Taken 04/19/17 07:00] amlodipine 10 mg-benazepril 40 mg capsule (Lotrel) 1 cap PO DAILY #30 caps 02/24/22 [Rx Last Taken Unknown] clonidine 0.2 mg/24 hr weekly transdermal patch 0.2 mg transdermal QWEEK blood pressure 09/01/22 [History Last Taken Unknown] pantoprazole 40 mg tablet,delayed release 40 mg PO DAILY 09/01/22 [History Last Taken Unknown] carvedilol 12.5 mg tablet (Coreg) 12.5 mg PO BID #180 tabs 09/29/22 [Rx Last Taken Unknown] diclofenac sodium 75 mg tablet,delayed release 75 mg PO BID 02/18/23 [History Last Taken Unknown] Allergy/AdvReac Type Severity Reaction Status Date / Time latex Allergy Rash Verified 02/18/23 07:55 atorvastatin [From Lipitor] AdvReac Unknown Myalgias Verified 02/18/23 07:55 Family History Mother Hypertension Surgical History History of colonoscopy (~07/2022) History of hernia repair (~1971) History of prostate surgery Social History Smoking Status: Former smoker how long ago did patient quit smokin + years ago alcohol intake: never substance use type: does not use caffeine: Yes Type: coffee Number of servings: 3 ROS ROS ED Constitutional Constitutional ED: Denies chills or fever(s) Eyes Eyes: Denies blurry vision or change in vision ENT ENT ED: Denies rhinorrhea or sore throat Cardiovascular Cardiovascular: Denies chest pain or palpitations Respiratory/Chest Respiratory/Chest: Denies cough or dyspnea Gastrointestinal Gastrointestinal: Denies nausea or vomiting Genitourinary Genitourinary ED: Denies dysuria or hematuria Musculoskeletal Musculoskeletal: Denies back pain or neck pain Integumentary Denies abscess or rash Neurologic Neurologic: Reports weakness; Denies headache(s) or paresthesias Allergic/Immunologic Allergic/Immunologic ED: Denies mouth swelling or urticaria EXAM Physical Exam Const Vital Signs: 02/18/23 07:44 02/18/23 07:47 02/18/23 07:47 Temperature 97.6 F L 97.6 F L Temperature Source Temporal Temporal Pulse Rate 94 94 Respiratory Rate 18 18 Blood Pressure 223/123 H 223/123 H Blood Pressure Mean 156 156 Pulse Ox 95 95 94 Oxygen Delivery Method Room Air Room Air Room Air 02/18/23 08:17 02/18/23 07:45 02/18/23 08:30 Temperature 97.6 F L Temperature Source Temporal Pulse Rate 76 94 64 Respiratory Rate 15 18 17 Blood Pressure 170/91 H 223/123 H 158/78 H Blood Pressure Mean 117 156 104 Pulse Ox 94 94 94 Oxygen Delivery Method Room Air Room Air Room Air 02/18/23 08:42 02/18/23 09:00 02/18/23 09:30 Temperature Temperature Source Pulse Rate 75 74 73 Respiratory Rate 19 H 16 17 Blood Pressure 166/98 H 170/85 H 186/93 H Blood Pressure Mean 120 113 124 Pulse Ox 94 96 94 Oxygen Delivery Method Room Air Room Air Room Air Positive well nourished and well developed General Appearance ED: well developed HEENT Reports moist mucous membranes Eyes PERRL and EOMs intact bilaterally Neck supple and no JVD Resp normal respiratory effort and clear to auscultation bilaterally Cardio regular rate, regular rhythm and no murmurs GI normal to inspection, nondistended, normoactive bowel sounds and non-tender Palpation: soft Extremity normal to inspection General Extremety ED: Negative for edema or tenderness General Extremity: Negative for edema Neuro oriented x3 and no sensory deficits noted Neuro Narrative: There is some weakness of the left upper extremity. It starts to fall but does not touch the bed before the count of 10. There is left facial weakness. The eyebrows elevate equally. Sensorium / Orientation: alert Motor Exam: strength abnormal Psych mental status grossly normal Skin no rashes or lesions noted NIHSS NIHSS Initial: 1a Level of Consciousness: 0 1b LOC Questions (Score 2 if aphasic/stupor): 0 1c LOC Commands (Only score 1st attempt): 0 2 Best Gaze (If aphasic, use reflexive mvmts.): 0 3 Visual: 0 4 Facial Palsy: 2 5 Motor Arm Right (UN = amputation/fusion): 0 5 Motor Arm Left: 1 6 Motor Leg Right: 0 6 Motor Leg Left: 0 8 Sensory (Aphasia/stupor=0 or 1, coma=2): 0 9 Best Language: 1 10 Dysarthria (mute, coma=2, intubated=UN): 0 11 Extinction and Inattention (only scored if +): 0 Total Score: 4 MDM MDM MDM Narrative Medical decision making narrative: Stroke order set was used. Differential diagnosis includes ischemic stroke, embolic stroke, hemorrhagic stroke, and cardiac dysrhythmia. CT scan of the brain will be obtained to assess for stroke and intracranial bleeding. CTA of the head and neck will be obtained to assess for large vessel occlusion. EKG will be obtained to assess for cardiac dysrhythmia and cardiac ischemia. Chest x-ray will be obtained to assess for pneumonia and pneumothorax. CBC will be obtained to assess for leukocytosis and anemia. Basic metabolic profile will beobtained to assess for electrolyte abnormality and renal function. PT with INR and PTT will be obtained to assess for coagulopathy. High-sensitivity troponin will be obtained to assess for cardiac ischemia. History & Record Review Discussion w/independent historian: Patient and Family Lab Data Attestation: I reviewed the patient's lab results. Lab results narrative: CBC was reviewed and was within normal limits. Basic metabolic profile was reviewed and was within normal limits. PT with INR and PTT were reviewed and were within normal limits. High-sensitivity troponin was reviewed and was normal. Labs: Laboratory Results - last 24 hr 02/18/23 02/18/23 02/18/23 07:45 07:45 07:45 WBC 10.1 RBC 5.45 Hgb 16.7 H Hct 49.9 MCV 91.6 MCH 30.6 MCHC 33.5 RDW Std Deviation 46.3 H RDW Coeff of Yaz 13.7 Plt Count 278 MPV 10.2 Immature Gran % (Auto) 0.300 Neut % (Auto) 78.8 H Lymph % (Auto) 12.3 L Warrick % (Auto) 5.5 Eos % (Auto) 2.6 Baso % (Auto) 0.5 Absolute Neuts (auto) 8.0 H Absolute Lymphs (auto) 1.25 Nucleated RBC % 0 PT 13.7 INR 1.1 APTT 29.6 Sodium 139 Potassium 3.8 Chloride 106 Carbon Dioxide 27.0 Anion Gap 6 BUN 16 Creatinine 0.93 Estim Creat Clear Calc 59.70 Est GFR (MDRD) Af Amer 102 Est GFR (MDRD) Non-Af 84 BUN/Creatinine Ratio 17.2 Glucose 122 H Calcium 9.5 Troponin I High Sens 9 POC Glucose 02/18/23 08:05 WBC RBC Hgb Hct MCV MCH MCHC RDW Std Deviation RDW Coeff of Yaz Plt Count MPV Immature Gran % (Auto) Neut % (Auto) Lymph % (Auto) Warrick % (Auto) Eos % (Auto) Baso % (Auto) Absolute Neuts (auto) Absolute Lymphs (auto) Nucleated RBC % PT INR APTT Sodium Potassium Chloride Carbon Dioxide Anion Gap BUN Creatinine Estim Creat Clear Calc Est GFR (MDRD) Af Amer Est GFR (MDRD) Non-Af BUN/Creatinine Ratio Glucose Calcium Troponin I High Sens POC Glucose 109 H Radiography Chest X-Ray - ED: 1 View, Read by ED Physician, Read by Radiologist and No AcuteDisease Diagnostic Testing: Clinical Impression(s) from Imaging Studies Brain CT 02/18/23 07:47 IMPRESSION: 1. No acute intracranial abnormality. 2. Senescent changes. Aspect score 10. Electronically Signed: Blanco Chaves MD at 8:03 EDT , ADDENDUM: 02/18/23 0826 IMPRESSION: 1. No acute intracranial abnormality. 2. Senescent changes. Aspect score 10. N.B. : The above Results were Read Back by Blanco Chaves MD to Dr. Arevalo, AA, and understanding confirmed on 02/18/2023 08:19:46 (ET). Electronically Signed: Blanco Chaves MD at 8:03 EDT , Chest X-Ray 02/18/23 07:47 IMPRESSION: Borderline cardiomegaly. Low lung volumes. Electronically Signed: Blanco Chaves MD at 9:15 EDT , Head/Neck CTA 02/18/23 07:48 IMPRESSION: Focal stenosis of the P2 segment of left PERFORMANCE TEST ARCHITECT. Additional findings detailed above. N.B. : The above Results were Read Back by Blanco Chaves MD to Reynold Rhodes DO, and understanding confirmed on 02/18/2023 08:19:09 (ET). Electronically Signed: Blanco Chaves MD at 8:20 EDT , ADDENDUM: 02/18/23 0827 IMPRESSION: Focal stenosis of the P2 segment of left PERFORMANCE TEST ARCHITECT. Additional findings detailed above. N.B. : The above Results were Read Back by Blanco Chaves MD to Reynold Rhodes DO, and understanding confirmed on 02/18/2023 08:19:09 (ET). Electronically Signed: Blanco Chaves MD at 8:20 EDT , CT scan of the brain was obtained. There is no acute intracranial abnormality. There are chronic changes noted. This was interpreted by the radiologist and was also independently reviewed by myself. Portable 1 view chest x-ray was obtained. On my independent interpretation, lung [place]ington are clear. There is normal cardiac silhouette. Bony thorax is normal. There is no acute process noted. Radiologist also interpreted the x-ray and agrees. CTA of the head and neck was obtained. There is focal stenosis of the P2 segment of the left posterior cerebral artery. There is no evidence of large vessel occlusion noted. This was interpreted by the radiologist and was also independently reviewed by myself. EKG Initial EKG: Attestation: I personally reviewed and interpreted this EKG as follows: Interpretation: Sinus Rhythm (89), No Acute Injury Pattern, RBBB and LAFB Comments: EKG was obtained. On my independent interpretation, it shows a normal sinus rhythm with a rate of 89. KS interval was normal at 170 ms. QRS interval slightly prolonged at 132 ms. QTc interval was slightly prolonged at 506 ms. There is left axis deviation at -71. There is a left anterior fascicular block. There is a right bundle branch block pattern noted. There are no acute ST or T wave changes noted. Prior EKG tracings: available for review Prior: Unchanged (12/13/2021) Management Discussion w/another healthcare provider: Hospitalist, [employer] Machine Operator and Radiologist Treatment and Re-Evaluation Narrative: Patient was given a dose of labetalol here for his elevated blood pressure of 223/123. Case was discussed with Dr. Stanton, stroke neurologist from [facility]. He stated that the patient was out of the window fortenecteplase. He recommended further work-up and admission. Since there is no evidence of large vessel occlusion on the CTA, he does not recommend transfer [facility] at this time. Patient was advised of his findings. Patient was advised of the need for admission for further evaluation of possible stroke. Patient is agreeable with this. Case was discussed with the hospitalist. He will admit the patient to his service. Patient and family understood and were agreeable with the plan. All questions were answered. Critical Care Time Critical Care Time: Yes Critical care time (excluding procedures): 30-74 minutes (36), Including time spent:, Discussing w/Patient &/or Family/Clinical Laboratory Assistant, Discussing w/Consultants, Arranging Admission or Transfer and Performing Direct Patient Care at Bedside Discharge Plan Dx/Rx/DC Orders Clinical Impression: Stroke, Essential hypertension Disposition Disposition: Acute Care Hospital [facility] What to do if you have Problems For any increased pain, shortness of breath, bleeding, nausea or vomiting, chestpain, or any unexpected problems, contact your Primary Care Provider. Call [facility] ([phone]) or report to the closest Emergency Room. Call 911 if necessary. 02/18/23 6925 <Electronically signed by Reynold Rhodes DO> Cosigner Signature (if applicable): CC: Dr. Omar Huggins DO ~ Signed [facility] Work Phone: 1(129) 556-300005-03-2023 History and physical note Author Dr. Hung [facility] February 18, 2023 11:03am Note Date/Time February 18, 2023 9:27am [facility] Medical Records Department [address] [place] [address] H&P Exam - Hospitalist 02/18/23 0927 MR#: [id number] Acct: [id number] Name: AUSTEN PUENTES Rep #:[id number] : 1945 77 From: Refugio Hung MD PCP: Dr. Omar Huggins DO Status:ADM IN Location: [place] [id number] HPI - General General Date of Admission: 02/18/23 Date of Service: 02/18/23 Chief Complaint: Slurred speech and gait abnormality HPI Narrative AUSTEN PUENTES, is a 77 M with past medical history significant for essential hypertension, history of pacemaker placement who was brought to the emergency department with slurred speech as well as difficulty with gait. The patient symptoms started a day prior to coming in. He did experience significant fatigue. also did notice patient with a slurred speech and difficulty withhis gait. Symptoms had apparently progressed on the morning of his admission. Presented to the emergency department CT of the head was negative for acute CVA. CTA of the of the head and neck however demonstrated focal stenosis involving the P2 segment of the left PERFORMANCE TEST ARCHITECT. An MRI could not be performed given patient presence of a pacemaker. Subsequently admitted to a monitored bed for further management. [facility] Medical History Essential hypertension GERD (gastroesophageal reflux disease) Gout Presence of cardiac pacemaker Prostate CA Pure hypercholesterolemia Sick sinus syndrome Spinal stenosis Syncope and collapse Home Medications aspirin 81 mg tablet,delayed release (Aspir-Low) 81 mg PO DAILY 04/19/17 [History Last Taken 04/19/17 07:00] spironolactone 25 mg tablet 25 mg PO DAILY 04/19/17 [History Last Taken 04/19/17 07:00] amlodipine 10 mg-benazepril 40 mg capsule (Lotrel) 1 cap PO DAILY #30 caps 02/24/22 [Rx Last Taken Unknown] clonidine 0.2 mg/24 hr weekly transdermal patch 0.2 mg transdermal QWEEK 09/01/22 [History Last Taken Unknown] pantoprazole 40 mg tablet,delayed release 40 mg PO DAILY 09/01/22 [History Last Taken Unknown] carvedilol 12.5 mg tablet (Coreg) 12.5 mg PO BID #180 tabs 09/29/22 [Rx Last Taken Unknown] diclofenac sodium 75 mg tablet,delayed release 75 mg PO BID 02/18/23 [History Last Taken Unknown] Allergy/AdvReac Type Severity Reaction Status Date / Time latex Allergy Rash Verified 02/18/23 07:55 atorvastatin [From Lipitor] AdvReac Unknown Myalgias Verified 02/18/23 07:55 Family History Mother Hypertension Surgical History History of colonoscopy (~07/2022) History of hernia repair (~1971) History of prostate surgery Social History Smoking Status: Former smoker how long ago did patient quit smokin + years ago alcohol intake: never substance use type: does not use caffeine: Yes Type: coffee Number of servings: 3 ROS ROS Narrative GENERAL: denies fever, chills, night sweats, weight loss, anorexia HEENT: denies headache, sinus congestion, or drainage, dysphagia RESPIRATORY: denies cough, sputum production, shortness of breath, dyspnea on exertion CARDIAC: denies chest pain, palpitations, orthopnea, PND GASTROINTESTINAL: denies abdominal pain, nausea, vomiting, melena, GENITOURINARY: denies dysuria, urgency, frequency, heamaturia EXTREMITY: denies swelling MUSCULOSKELETAL: denies current joint pain or tenderness NEUROLOGIC: Slurred speech and difficulty with gait HEMATOLOGIC: denies easy bruising and/or hemorrhage INTEGUMENT: denies rashes PSYCHIATRIC: denies suicidal or homicidal ideation Vital Signs Vital Signs Vital Signs: 02/18/23 07:44 02/18/23 07:47 02/18/23 07:47 Temperature 97.6 F L 97.6 F L Temperature Source Temporal Temporal Pulse Rate 94 94 Respiratory Rate 18 18 Blood Pressure 223/123 H 223/123 H Blood Pressure Mean 156 156 Pulse Ox 95 95 94 Oxygen Delivery Method Room Air Room Air Room Air 02/18/23 08:17 02/18/23 07:45 02/18/23 08:30 Temperature 97.6 F L Temperature Source Temporal Pulse Rate 76 94 64 Respiratory Rate 15 18 17 Blood Pressure 170/91 H 223/123 H 158/78 H Blood Pressure Mean 117 156 104 Pulse Ox 94 94 94 Oxygen Delivery Method Room Air Room Air Room Air 02/18/23 08:42 Temperature Temperature Source Pulse Rate 75 Respiratory Rate 19 H Blood Pressure 166/98 H Blood Pressure Mean 120 Pulse Ox 94 Oxygen Delivery Method Room Air Weight Weight: 94.4 kg Body Mass Index (BMI) 34.6 Physical Exam Narrative GENERAL: cooperative HEENT: Atraumatic; normocephalic EYES; Anicteric, Normal Conjunctiva NECK; supple, normal thyroid, RESPIRATORY: Diminished to auscultation CARDIOVASCULAR: Regular S1 S2, GI: soft, normoactive bowel sounds, : No Renal angle tenderness; EXTREMITIES: No edema, no clubbing, MUSCULOSKELETAL: no muscle wasting NEURO: Awake; no lateralizing signs. SKIN: No Rash PSYCH; Flat affect Results Lab / Micro Data Result Diagrams: 02/18/23 07:45 02/18/23 07:45 Labs: Laboratory Results - last 24 hr 02/18/23 07:45: WBC 10.1, RBC 5.45, Hgb 16.7 H, Hct 49.9, MCV 91.6, MCH 30.6, MCHC 33.5, RDW Std Deviation 46.3 H, RDW Coeff of Yaz 13.7, Plt Count 278, MPV 10.2, Immature Gran % (Auto) 0.300, Neut % (Auto) 78.8 H, Lymph % (Auto) 12.3 L,Warrick % (Auto) 5.5, Eos % (Auto) 2.6, Baso % (Auto) 0.5, Absolute Neuts (auto) 8.0 H, Absolute Lymphs (auto) 1.25, Nucleated RBC % 0 02/18/23 07:45: PT 13.7, INR 1.1, APTT 29.6 02/18/23 07:45: Sodium 139, Potassium 3.8, Chloride 106, Carbon Dioxide 27.0, Anion Gap 6, BUN 16, Creatinine 0.93, Estim Creat Clear Calc 59.70, Est GFR (MDRD)Af Amer 102, Est GFR (MDRD) Non-Af 84, BUN/Creatinine Ratio 17.2, Glucose 122 H,Calcium 9.5, Troponin I High Sens 9 02/18/23 08:05: POC Glucose 109 H Radiology Impression Brain CT 02/18/23 07:47 IMPRESSION: 1. No acute intracranial abnormality. 2. Senescent changes. Aspect score 10. Electronically Signed: Blanco Chaves MD at 8:03 EDT Reading Location ID and State: [facility] / [place] Tel , Service support , ADDENDUM: 02/18/23 0858 IMPRESSION: 1. No acute intracranial abnormality. 2. Senescent changes. Aspect score 10. N.B. : The above Results were Read Back by Blanco Chaves MD to Dr. Arevalo, AA, and understanding confirmed on 02/18/2023 08:19:46 (ET). Electronically Signed: Blanco Chaves MD at 8:03 EDT Reading Location ID and State: [facility] / [place] Tel , Service support , Chest X-Ray 02/18/23 07:47 IMPRESSION: Borderline cardiomegaly. Low lung volumes. Electronically Signed: Blanco Chaves MD at 9:15 EDT Reading Location ID and State: [id number] Tel , Service support , Head/Neck CTA 02/18/23 07:48 IMPRESSION: Focal stenosis of the P2 segment of left PERFORMANCE TEST ARCHITECT. Additional findings detailed above. N.B. : The above Results were Read Back by Blanco Chaves MD to Reynold Rhodes DO, and understanding confirmed on 02/18/2023 08:19:09 (ET). Electronically Signed: Blanco Chaves MD at 8:20 EDT Reading Location ID and State: [address] [place] [address] Tel , Service support , ADDENDUM: 02/18/23 0827 IMPRESSION: Focal stenosis of the P2 segment of left PERFORMANCE TEST ARCHITECT. Additional findings detailed above. N.B. : The above Results were Read Back by Blanco Chaves MD to Reynold Rhodes DO, and understanding confirmed on 02/18/2023 08:19:09 (ET). Electronically Signed: Blanco Chaves MD at 8:20 EDT , Assessment & Plan Assessment/Plan (1) Stroke: PLAN: Plan Patient is a 77-year-old gentleman presenting with slurred speech and gait disturbance 1. Suspected CVA ? Possibly involving the posterior circulation. CTA obtained did show focal stenosis involving the P2 segment of the left PERFORMANCE TEST ARCHITECT. An MRI could not be obtainedin view of presence of pacemaker placement. Patient was evaluated by [facility] neuro patient was not a candidate for tenecteplase since he was out ofthe window. More so there was no need for transfer since he did not have any large vessel occlusion on CTA. Patient started on aspirin. Patient apparently has significant reaction to statins specifically joint pain. Started patient onlow-dose atorvastatin was in the hospital 2. Hypertension - Blood pressure controlled, home medications continued with dose adjustment as needed 3. Conduction system disorder ? Status post pacemaker placement 4. GERD ? Patient is on PPI 5. Generalized osteoarthritis ? Patient is on diclofenac 75 mg p.o. twice daily 6. DVT prophylaxis - On enoxaparin Time spent in the patient's overall evaluation,decision-making process, review of diagnostic data, adjustment of management, discussion with other providers, nursing nursing and ancillary staff involved in patient's care documentation, 77minutes Advance planning; did discuss with the patient and family regarding advanced directives as well as CODE STATUS. Did explain the various scenarios involved (FULL CODE, DNR CCA, DNR CCA with no intubation, and DNR CC and what each meant) patient elected to remain full code with CPR and intubation if needed. Order was placed. Time spent on discussion 18 minutes. Charges/Coding Visit Charges Inpatient E&M: 69773 Init Hosp L3 Procedures Hospitalists Procedures: 19595 Advncd Care Plan 30 Min 02/18/23 1103 <Electronically signed by Refugio Hung MD> Cosigner Signature (if applicable): CC: Dr. Refugio Hung MD; Dr. Omar Huggins DO~ Signed [facility] Work Phone: Evaluation + Plan note No data available for this section [facility] Evaluation note* Diagnosis Onset Date Resolution Status Presence of cardiac pacemaker acute Sick sinus syndrome acute Essential hypertension acute Presence of cardiac pacemaker acute Pure hypercholesterolemia ac deering Sick sinus syndrome acute [facility] Work Phone: Evaluation note* Diagnosis Onset Date Resolution Status Presence of cardiac pacemaker acute Sick sinus syndrome acute Essential hypertension acute Presence of cardiac pacemaker acute Pure hypercholesterolemia ac deering Sick sinus syndrome acute Essential hypertension acute Presence of cardiac pacemaker acute Pure hypercholesterolemia ac deering Sick sinus syndrome acute [facility] Work Phone: Evaluation note* Diagnosis Onset Date Resolution Status Essential hypertension acute Presence of cardiac pacemaker acute Pure hypercholesterolemia ac deering Sick sinus syndrome acute [facility] Work Phone: Evaluation note* Diagnosis Onset Date Resolution Status Essential hypertension acute Presence of cardiac pacemaker acute Pure hypercholesterolemia ac deering Sick sinus syndrome acute Essential hypertension acute Presence of cardiac pacemaker acute Pure hypercholesterolemia ac deering Sick sinus syndrome acute [facility] Work Phone: Evaluation note* Diagnosis Onset Date Resolution Status Essential hypertension acute Presence of cardiac pacemaker acute Pure hypercholesterolemia ac deering Sick sinus syndrome acute Presence of cardiac pacemaker acute Sick sinus syndrome acute Essential hypertension acute Stroke acute [facility] Work Phone: Evaluation note* Diagnosis Onset Date Resolution Status Essential hypertension acute Stroke acute Dyspnea on exertion acute Essential hypertension acute Pure hypercholesterolemia ac deering Presence of cardiac pacemaker chronic Sick sinus syndrome chronic [facility] Work Phone: Evaluation note* Diagnosis Onset Date Resolution Status Presence of cardiac pacemaker chronic Sick sinus syndrome chronic Dyspnea on exertion acute Essential hypertension acute Pure hypercholesterolemia ac deering Presence of cardiac pacemaker chronic Sick sinus syndrome chronic [facility] Work Phone: Evaluation note* Diagnosis Onset Date Resolution Status Dyspnea on exertion acute Essential hypertension acute Pure hypercholesterolemia ac deering Presence of cardiac pacemaker chronic Sick sinus syndrome chronic Dyspnea on exertion acute Essential hypertension acute Pure hypercholesterolemia ac deering Presence of cardiac pacemaker chronic Sick sinus syndrome chronic [facility] Work Phone: History and physical note Author Nadiya Pickens [facility] Note Date/Time May 11, 2025 7:40 pm [facility] Medical Records Department [address] [place] [id number] H&P Exam - Hospitalist 05/11/25 1900 MR#: [id number] Acct: [id number] Name: AUSTEN PUENTES Rep #:[id number] : 1945 80 From: Nadiya Pickens MD PCP: Dr. Omar Huggins, DO Status:ADM RALPH Location: [place] [address] HPI - General General Date of Admission: 05/11/25 Date of Service: 05/11/25 Chief Complaint: Expressive aphasia HPI Narrative AUSTEN PUENTES, is a 80-year-old male with a history of GERD, CVA 2 years ago, hypertension, sick sinus syndrome with pacemaker who presented [facility] ED 05/11/2025 due to expressive aphasia and left-sided facial droop. Patient was out to eat and went to [facility] but was unable to get any words out so brought him emergently to the ED. In the ED he is beginning to speak slowly without slurred speech but was having difficulty recognizing things, also noted facial droop on the left. Patient was a stroke call. Teleneurology evaluated but patient speech back to normal, still with some left facial droop but not a TNK candidate. Admission and workup recommended. In theED temp 98.6, heart rate 78 blood pressure 178/101, respiratory rate 18 pulse ox98% on room air. CBC with white blood cell count of 11.0, hemoglobin 14.5. BMPdid show sodium of 123 down from 133 on 04/24/2025. BUN of 22 and creatinine 1.08. Troponin of 29. CT head with no acute process. CTA head and neckUnchanged chronic moderate-advanced focal stenosis of the left PERFORMANCE TEST ARCHITECT P1-P2 segment junction, and moderate short-segment narrowing of the right PERFORMANCE TEST ARCHITECT P1-P2 junction with preserved distal flow bilaterally; unchanged from 02/18/2023. No significant stenosis elsewhere. Hospitalist contacted for admission for stroke rule out. Patient evaluated bedside with present. They report history as above with the sudden onset of expressive aphasia while eating with essentially resolution of symptoms now in the ED though does still have some residual lower facial droop. He denies any headache, has some chronic swelling lower extremities but this is unchanged. No changes in vision and no sensory changes or other areas of weakness. No changes in bowel or bladder. Notes that he has had multiple blood pressure medication changes recently and blood pressure has slowly been improving, most recent change was increase in spironolactone. Of note patient was supposed to have some kind of evaluation for back pain on Thursday so his Plavix was held, he did not take a dose today but did take his aspirin. [facility] Medical History (Updated 05/11/25 @ 18:[address] Emmett Andrews MD) Essential hypertension GERD (gastroesophageal reflux disease) Gout Hypertension Presence of cardiac pacemaker Prostate CA Pure hypercholesterolemia Sick sinus syndrome Spinal stenosis Syncope and collapse Home Medications ?Medication ?Instructions ?Recorded ?Last Taken ?Type aspirin 81 mg tablet,delayed 81 mg PO DAILYCM 30 days #30 tabs 02/20/23 05/11/25 Rx release clopidogrel 75 mg tablet 75 mg PO DAILY #30 tabs 05/03/1005/11/25 Rx diclofenac sodium 75 mg 75 mg PO BID 03/07/24 History tablet,delayed release esomeprazole magnesium 40 mg 40 mg PO QDAY 02/02/25 Un known History capsule,delayed release clonidine 0.3 mg/24 hr weekly 1 patch topical QWEEK Unknown History transdermal patch amlodipine 10 mg tablet 10 mg PO DAILY 05/11/2504/19 History atenolol 100 mg tablet 100 mg PO DAILY 05/11/25 History benazepril 20 mg tablet 20 mg PO DAILY 05/11/2504/19 History hydrochlorothiazide 25 mg tablet 25 mg PO DAILY Unknown History spironolactone 50 mg tablet 50 mg PO DAILY 05/11/25 History Allergy/AdvReac Type Severity Reaction Status Date / Time latex Allergy Rash Verified 05/11/25 17:22 atorvastatin (From Lipitor) AdvReac Unknown Myalgias Verified 05/11/25 17:22 PALMA Inhibitors AdvReac cough Verified 05/11/25 17:22 ezetimibe (From Zetia) AdvReac Myalgias Verified 05/11/25 17:22 Family History Mother Hypertension Surgical History History of colonoscopy (~07/2022) History of hernia repair (~1971) History of prostate surgery Social History Smoking Status: Never smoker how long ago did patient quit smokin + years ago alcohol intake: never substance use type: does not use caffeine: Yes Type: coffee Number of servings: 3 ROS ROS Narrative General: Denies fever/chills HENT: Denies headache,, denies sore throat EYES: Denies changes in vision Resp: Denies cough, denies shortness of breath Cardiac: Denies chest pain GI: Denies abdominal pain, denies changes in bowel, denies nausea/vomiting : Denies changes in urination, does urinate frequently Extremity: Some chronic lower extremity swelling MSK: Denies weakness Neuro: Denies any numbness/tingling, expressive aphasia it is virtually resolved Heme: Denies any bleeding or bruising Skin: Denies rashes Psychiatric: No complaints voiced Vital Signs Vital Signs Vital Signs: 05/11/25 17:20 05/11/25 17:23 05/11/25 17:23 Temperature 98.6 F 98.6 F Temperature Source Oral Oral Pulse Rate 78 78 78 Respiratory Rate 18 18 18 Blood Pressure 178/101 H 178/101 H 178/101 H Blood Pressure Mean 126 126 126 Pulse Ox 98 98 98 Oxygen Delivery Method Room Air Room Air Room Air 05/11/25 17:29 05/11/25 17:45 Temperature Temperature Source Pulse Rate 88 Respiratory Rate 18 Blood Pressure 177/83 H Blood Pressure Mean 114 Pulse Ox 97 Oxygen Delivery Method Room Air Room Air Weight Weight: 91 kg Body Mass Index (BMI) 34.4 Physical Exam Narrative General: Alert, oriented, no apparent distress HEENT: Atraumatic, normocephalic Eyes: Anicteric, normal conjunctiva, extraocular movements intact, pupils equal Neck: Supple Respiratory: Clear to auscultation bilaterally, normal respiratory effort Cardiovascular: Regular rate and rhythm GI: Soft, nontender, nondistended Extremities: 1+ bilateral lower extremity edema Musculoskeletal: Strength 5 out of 5 in right upper extremity, 5 out of 5 left upper extremity, 5 out of 5 right lower extremity, 5 out of 5 left lower extremity Neuro: Very slight asymmetry of smile but otherwise cranial nerves II through XII intact, [id number] without significant difficulty with left hand, minimal difficulty with right Skin: No rashes appreciated Psych: Cooperative Results Lab / Micro Data 05/11/25 17:40 05/11/25 17:40 Labs: Laboratory Results - last 24 hr 05/11/25 17:40: WBC 11.0, RBC 4.59 L, Hgb 14.5, Hct 41.6, MCV 90.6, MCH 31.6, MCHC 34.9, RDW Std Deviation 42.2, RDW Coeff of Yaz 12.7, Plt Count 286, MPV 9.8, Immature Gran % (Auto) 0.300, Neut % (Auto) 72.6 H, Lymph % (Auto) 17.3 L, Warrick % (Auto) 7.1, Eos % (Auto) 2.2, Baso % (Auto) 0.5, Absolute Neuts (auto) 8.0 H, Absolute Lymphs (auto) 1.90, Nucleated RBC % 0, PT 14.4, INR 1.1, APTT 29.8, Sodium 123 L, Potassium 4.2, Chloride 89 L, Carbon Dioxide 22.4, Anion Gap12, BUN 22 H, Creatinine 1.08, Estim Creat Clear Calc 57.34, Est GFR (MDRD) Non-Af 70, BUN/Creatinine Ratio 20.2 H, Glucose 146 H, Calcium 9.0, Troponin T High Sens 29 H Imaging Radiology Impression Brain CT 05/11/25 17:21 IMPRESSION: No acute intracranial abnormality. Critical results were communicated to Dr. Andrews at 5:40 p.m.. Reading Location: [facility] Head/Neck CTA 05/11/25 17:28 IMPRESSION: 1. No intracranial or cervical large vessel arterial occlusion. 2. Unchanged chronic moderate-advanced focal stenosis of the left PERFORMANCE TEST ARCHITECT P1-P2 segment junction, and moderate short-segment narrowing of the right PERFORMANCE TEST ARCHITECT P1-P2 junction with preserved distal flow bilaterally; unchanged from 02/18/2023. No significant stenosis elsewhere. 3. No significant stenosis of the cervical carotid or vertebral arteries. Reading Location: [facility] Assessment & Plan Assessment/Plan (1) Expressive aphasia: (2) Acute hyponatremia: PLAN: Plan # Expressive aphasia and flattened nasolabial fold with asymmetry of smile -Symptoms almost completely resolved aside from some mild nasolabial fold flattening and asymmetry of smile, speech back to normal per -Admit to tele -CT head w/ chronic changes in ED -CTA head and neck: Unchanged chronic moderate-advanced focal stenosis of the left PERFORMANCE TEST ARCHITECT P1-P2 segment junction, and moderate short-segment narrowing of the right PERFORMANCE TEST ARCHITECT P1-P2 junction with preserved distal flow bilaterally; unchanged from 02/18/2023. No significant stenosis elsewhere -MRI unable to be obtained due to patient's pacemaker, will plan on repeat CT tomorrow -NIH q4hr -asa, continue home Plavix, patient not on a statin due to myalgias, may need toconsider retrialing a lower dose statin -Of note patient had not taken his Plavix earlier today as he was supposed to hold it for some kind of back pain evaluation early next week -Echo -PT/OT/Speech eval -Teleneuro consult placed -Hold BP medications to allow for permissive hypertension for 24 hours unless SBP greater than 220 or DBP greater than 120 or until stroke is ruled out # Hyponatremia - Normal sodium on 04/24 of this month, now down to 123 - Hold hydrochlorothiazide - Will check urine and serum studies - Check TSH -Trend bmp q4hr - Spironolactone can also cause hyponatremia and this is being held as above to allow for permissive hypertension -Do suspect this is most likely medication related #Elevated trop - Troponin of 29 the patient denies any kind of chest pain, shortness of breath,nausea or other cardiac symptoms -EKG with heart rate of 81, right bundle branch block and left anterior fascicular block noted, has an EKG from 02/18/2023 which also notes right bundle branch block and left anterior fascicular block - Do not suspect ACS - Patient will be monitored on telemetry and echo as above for CVA workup #Hx prostate cancer -Hx of prostatectomy -Urinates frequently but this is unchanged from previous #Hypertension - Hold antihypertensives as above #GERD -Continue PPI # History of sick sinus syndrome status post pacemaker - Noted #DVT ppx: SCDs Nadiya Pickens MD Charges/Coding Visit Charges Inpatient E&M: 12713 Init Hosp L2 05/11/251939 <Electronically signed by Nadiya Pickens MD> Cosigner Signature (if applicable): CC: Dr. Omar Huggins, DO; Dr. Nadiya Pickens MD~ Signed [facility] Work Phone: Hospital Discharge instructions No data available for this section [facility] Progress note No data available for this section [facility] Reason for referral (narrative)No reason for referral information available[facility] Work Phone: Summary Purpose Family History Relationship Condition Age at Onset Recorded Date/T tisha mother Hypertension Unknown Advance Directives Advance Directive Response Recorded Date/ Time Living Will No April 19, 2017 9 :31am Power of Field Sales Representative No April 19, 2017 9:31am Advance Directive Response Recorded Date/ Time Living Will No April 19, 2017 8 :31am Power of Field Sales Representative No April 19, 2017 8:31am Advance Directive Response Recorded Date/ Time Living Will No February 18, 2023 10 :45am Power of Field Sales Representative No February 18, 2023 10:45am Advance Directive Response Recorded Date/ Time Living Will No February 18, 2023 9: 45am Power of Field Sales Representative No February 18, 2023 9:45am Advance Directive Response Recorded Date/ Time Living Will No February 18, 2023 10 :45am Do you have a Healthcare Power of Field Sales Representative? No February 18, 2023 10:45am Advance Directive Response Recorded Date/ Time Living Will No February 18, 2023 10 :45am Do you have a Healthcare Power of Field Sales Representative? No February 18, 2023 10:45am Do you have a Healthcare Power of Field Sales Representative? No May 11, 2025 5:27pm Chief Complaint and Reason for Visit Chief Complaint covid positive Amb Documentation 6 mos PPM f/u/PFM @ 2 HIGH BP (saw PFM yrs. ago)/ANA CRISTINA @ 130 HYPERTENSION Reason for Visit Presence of cardiac pacemaker Sick sinus syndrome Essential hypertension Presence of cardiac pacemaker Pure hypercholesterolemia Sick sinus syndrome Chief Complaint Amb Documentation 6 mos PPM f/u/PFM @ 2 HIGH BP (saw PFM yrs. ago)/ANA CRISTINA @ 130 HYPERTENSION 3 M FU Reason for Visit Presence of cardiac pacemaker Sick sinus syndrome Essential hypertension Presence of cardiac pacemaker Pure hypercholesterolemia Sick sinus syndrome Essential hypertension Presence of cardiac pacemaker Pure hypercholesterolemia Sick sinus syndrome Chief Complaint 3 M FU Reason for Visit Essential hypertensi on Presence of cardiac pacemaker Pure hypercholesterolemia Sick sinus syndrome Chief Complaint 6 M FU HTN Reason for Visit Essential hypertensi on Presence of cardiac pacemaker Pure hypercholesterolemia Sick sinus syndrome Chief Complaint 6 M FU HTN 7 WK FU Reason for Visit Essential hypertensi on Presence of cardiac pacemaker Pure hypercholesterolemia Sick sinus syndrome Essential hypertension Presence of cardiac pacemaker Pure hypercholesterolemia Sick sinus syndrome Chief Complaint 7 WK FU 1 y pacer check CVA Cerebrovascular accident Cerebrovascular accident Reason for Visit Essential hypertensi on Presence of cardiac pacemaker Pure hypercholesterolemia Sick sinus syndrome Presence of cardiac pacemaker Sick sinus syndrome Essential hypertension Stroke Chief Complaint CVA Cerebrovascular accident Cerebrovascular accident STROKE?/PT HAS RX 1 Y FU Reason for Visit Essential hypertensi on Stroke Dyspnea on exertion Essential hypertension Pure hypercholesterolemia Presence of cardiac pacemaker Sick sinus syndrome Chief Complaint 6 M PPM FU 3 M FU LEXISCAN GRACE LEXISCAN GRACE Amb Documentation Reason for Visit Presence of cardiac pacemaker Sick sinus syndrome Dyspnea on exertion Essential hypertension Pure hypercholesterolemia Presence of cardiac pacemaker Sick sinus syndrome Chief Complaint 3 M FU LEXISCAN GRACE LEXISCAN GRACE Amb Documentation 3 M FU DYSPNEA DYSPNEA Amb Documentation Reason for Visit Dyspnea on exertion Essential hypertension Pure hypercholesterolemia Presence of cardiac pacemaker Sick sinus syndrome Dyspnea on exertion Essential hypertension Pure hypercholesterolemia Presence of cardiac pacemaker Sick sinus syndrome Chief Complaint Admit Date 6 M FU February 02, 2025 1:3 1pm LUMBAR SPINE March 27, 2025 9:18a m Room 1 March 27, 2025 9:45a m Reason for Visit Admit Date Essential hypertension February 02, 2025 1:31pm Pure hypercholesterolemia February 02 1:31pm Presence of cardiac pacemaker January 1:31pm Reason for Visit Admit Date Essential hypertension February 02, 2025 1:31pm Pure hypercholesterolemia February 02 1:31pm Presence of cardiac pacemaker January 1:31pm Degenerative disc disease (D DD) of lumbar region with discogenic back pain March 27, 2025 9:18am Degenerative scoliosis March 27, 2025 9: 18am Lumbar stenosis with neurogenic claudica tion March 27, 2025 9:18am Chief Complaint Admit Date 6 M FU February 02, 2025 1:3 1pm LUMBAR SPINE March 27, 2025 9:18a m Room 1 March 27, 2025 9:45a m CONCERN FOR CVA May 11, 2025 7:00 pm CONCERN FOR CVA May 11, 2025 7:24 pm Reason for Visit Admit Date Essential hypertension February 02, 2025 1:31pm Pure hypercholesterolemia February 02 1:31pm Presence of cardiac pacemaker January 1:31pm Degenerative disc disease (D DD) of lumbar region with discogenic back pain March 27, 2025 9:18am Degenerative scoliosis March 27, 2025 9: 18am Lumbar stenosis with neurogenic claudica tion March 27, 2025 9:18am Acute hyponatremia May 11, 2025 7:00 pm Acute prerenal azotemia May 11, 2025 7:00pm Elevated troponin May 11, 2025 7:00 pm Essential hypertension May 11, 2025 7 :00pm Expressive aphasia May 11, 2025 7:00 pm Facial droop due to acute cerebrovascula r accident (CVA) May 11, 2025 7:00pm Nondiabetic hyperglycemia May 11 7:00pm Pure hypercholesterolemia May 11 7:00pm Additional Source Comments (unrecognized sect ion and content) No Status Records FoundNo Status Records FoundNo Status Records FoundNo Status Records FoundNo Status Records FoundNo Status Records FoundNo Status Records Found INFORMATION SOURCE (unrecogn ized section and content) DATE CREATED AUTHOR 04/08/2018 [facility] ([place]) DATE CREATED AUTHOR AUTHOR'S ORGANIZ ATION 04/13/2018 [facility] DATE CREATED AUTHOR AUTHOR'S ORGANIZ ATION 04/13/2018 [facility] DATE CREATED AUTHOR AUTHOR'S ORGANIZ ATION 04/13/2018 [facility] DATE CREATED AUTHOR AUTHOR'S ORGANIZ ATION 08/06/2024 [facility] DATE CREATED AUTHOR AUTHOR'S ORGANIZ ATION 11/05/2024 [facility] DATE CREATED AUTHOR AUTHOR'S ORGANIZ ATION 05/08/2025 [facility] Goals (unrecognized section and content) Goals may be documented in a n alternate sectionGoals may be documented in an alternate sectionGoals may be documented in an alternate sectionGoals may be documented in an alternate sectionGoals may be documented in an alternate sectionGoals may be documented in an alternate sectionGoals may be documented in an alternate section No data available for this sectionGoals may be documented in an alternate sectionGoals may be documented in an alternate sectionGoals may be documented in an alternate sectionGoals may be documented in an alternate sectionGoals may be documented in an alternate sectionGoals may be documented in an alternate section Care Teams (unrecognized sec tion and content) Team Status: Active Member Role Status Dates Dr. Luis Johnson MD Family Provider Active Dr. Luis Johnson MD Primary Care Provider Active Team Status: Inactive Member Role Status Dates Dr. Luis Johnson MD Primary Care Provider, Referring Provider Active Ba Beauchamp HEAD HOST/HOSTESS, HEAD HOST/HOSTESS-C Attending Provider Active Team Status: Active Member Role Status Dates Dr. Luis Johnson MD Primary Care Provider Active Dr. Ervin Leung MD Attending Provider Active Team Status: Inactive Member Role Status Dates Dr. Luis Johnson MD Primary Care Provider Active Ba Beauchamp HEAD HOST/HOSTESS, HEAD HOST/HOSTESS-C Attending Provider, Referring Pro vider Active Team Status: Inactive Member Role Status Dates Dr. Luis Johnson MD Primary Care Provider Active Dr. Adam Mosley MD Attending Provider Active Team Status: Active Member Role Status Dates Dr. Luis Johnson MD Family Provider Active Dr. Omar Huggins DO Primary Care Provider Active Team Status: Inactive Member Role Status Dates Dr. Luis Johnson MD Primary Care Provider, Referring Provider Active Lian Wheeler Active Dr. Ervin Leung MD Attending Provider Active Team Status: Active Member Role Status Dates Dr. Omar Huggins DO Primary Care Provider Active Dr. Reynold Rhodes DO Emergency Provider Active Dr. Refugio Hung MD Admit Provider, At tending Provider, Other Provider Active Team Status: Active Member Role Status Dates Dr. Omar Huggins DO Primary Care Provider Active Dr. Bruno Petty MD Attending Provider Active Team Status: Inactive Member Role Status Dates Dr. Omar Huggins DO Primary Care Provider Active Dr. Reynold Rhodes DO Emergency Provider Active Dr. Refugio Hung MD Admit Provider, Attending Provid er Active Team Status: Inactive Member Role Status Dates Dr. Luis Johnson MD Referring Provider Active Ba Beauchamp HEAD HOST/HOSTESS, HEAD HOST/HOSTESS-C Attending Provider Active Dr. Omar Huggins DO Primary Care Provider Active Team Status: Inactive Member Role Status Dates Dr. Omar Huggins DO Primary Care Provider, Attendin g Provider Active Dr. Refugio Hung MD Referring Provider Active Team Status: Active Member Role Status Dates Dr. Omar Huggins DO Primary Care Provider Active Mira Emerytion , HEAD HOST/HOSTESS-C Attending Provider, Referrin g Provider Active Team Status: Inactive Member Role Status Dates Dr. Omar Huggins DO Primary Care Provider Active Mira McCuistion , HEAD HOST/HOSTESS-C Attending Provider, Referrin g Provider Active Team Status: Inactive Member Role Status Dates Dr. mOar Huggins DO Primary Care Provider, Referrin g Provider Active Heidi Russell HEAD HOST/HOSTESS, HEAD HOST/HOSTESS-C Attending Provider Active Team Status: Inactive Member Role Status Dates Dr. Omar Huggins DO Primary Care Provider, Referrin g Provider Active Lian Wheeler Active Dr. Desmond Gross MD Attending Provider Active Team Status: Active Member Role Status Dates Dr. Omar Huggins DO Primary Care Provider Active Heidi Russell HEAD HOST/HOSTESS, HEAD HOST/HOSTESS-C Referring Provider, Other Provi ilsa Active Dr. Desmond Gross MD Attending Provider Active Team Status: Active Member Role Status Dates Dr. Omar Huggins DO Primary Care Provider Active Heidi Russell HEAD HOST/HOSTESS, HEAD HOST/HOSTESS-C Attending Provider Active Team Status: Inactive Member Role Status Dates Dr. Omar Huggins DO Primary Care Provider Active Heidi Russell HEAD HOST/HOSTESS, HEAD HOST/HOSTESS-C Attending Provider, Referring P rovider Active Team Status: Active Member Role Status Dates Dr. Omar Huggins DO Primary Care Provider Active Heidi Russell HEAD HOST/HOSTESS, HEAD HOST/HOSTESS-C Referring Provider, Other Provi ilsa Active Dr. Shawn Shirley MD Attending Provider Active Team Status: Inactive Member Role Status Dates Dr. Omar Huggins DO Primary Care Provider Active Start: February 02, 2025 End: February 02, 2025 Dr. Omar Huggins DO Referring Provider Active Start: February 02, 2025 End: February 02, 2025 Dr. Desmond Gross MD Attending Provider Active S tart: February 02, 2025 End: February 02, 2025 Team Status: Active Member Role Status Dates Dr. Omar Huggins DO Primary Care Provider Active Start: March 27, 2025 Dr. Omar Huggins DO Referring Provider Active Start: March 27, 2025 MARISA Guallpa Attending Provider Active Star t: March 27, 2025 Team Status: Inactive Member Role Status Dates Dr. Omar Huggins DO Primary Care Provider Active Start: March 27, 2025 End: March 27, 2025 Dr. Desmond Gross MD Attending Provider Active S tart: March 27, 2025 End: March 27, 2025 Team Status: Inactive Member Role Status Dates Dr. Omar Huggins DO Primary Care Provider Active Start: March 27, 2025 End: March 27, 2025 Dr. Omar Huggins DO Referring Provider Active Start: March 27, 2025 End: March 27, 2025 MARISA Guallpa Attending Provider Active Star t: March 27, 2025 End: March 27, 2025 Team Status: Active Member Role Status Dates Dr. Omar Huggins DO Primary Care Provider Active Team Status: Inactive Member Role Status Dates Dr. Omar Huggins DO Primary Care Provider Active Start: March 28, 2025 End: March 28, 2025 Dr. Omar Huggins DO Attending Provider Active Start: March 28, 2025 End: March 28, 2025 Team Status: Inactive Member Role Status Dates Dr. Omar Huggins DO Primary Care Provider Active Start: April 10, 2025 End: April 10, 2025 Dr. Omar Huggins DO Attending Provider Active Start: April 10, 2025 End: April 10, 2025 Dr. Omar Huggins DO Referring Provider Active Start: April 10, 2025 End: April 10, 2025 Team Status: Active Member Role/Relationship Status Dates Dr. Omar Huggins DO Primary Care Provider Active Team Status: Inactive Member Role/Relationship Status Dates Dr. Omar Huggins DO Primary Care Provider Active Start: February 02, 2025 End: February 02, 2025 Dr. Omar Huggins DO Referring Provider Active Start: February 02, 2025 End: February 02, 2025 Dr. Desmond Gross MD Attending Provider Active S tart: February 02, 2025 End: February 02, 2025 Team Status: Inactive Member Role/Relationship Status Dates Dr. Omar Huggins DO Primary Care Provider Active Start: March 27, 2025 End: March 27, 2025 Dr. Omar Huggins DO Referring Provider Active Start: March 27, 2025 End: March 27, 2025 MARISA Guallpa Attending Provider Active Star t: March 27, 2025 End: March 27, 2025 Team Status: Inactive Member Role/Relationship Status Dates Dr. Omar Huggins DO Primary Care Provider Active Start: March 27, 2025 End: March 27, 2025 Dr. Desmond Gross MD Attending Provider Active S tart: March 27, 2025 End: March 27, 2025 Team Status: Inactive Member Role/Relationship Status Dates Dr. Omar Huggins DO Primary Care Provider Active Start: March 28, 2025 End: March 28, 2025 Dr. Omar Huggins DO Attending Provider Active Start: March 28, 2025 End: March 28, 2025 Team Status: Inactive Member Role/Relationship Status Dates Dr. Omar Huggins DO Primary Care Provider Active Start: April 10, 2025 End: April 10, 2025 Dr. Omar Huggins DO Attending Provider Active Start: April 10, 2025 End: April 10, 2025 Dr. Omar Huggins DO Referring Provider Active Start: April 10, 2025 End: April 10, 2025 Team Status: Inactive Member Role/Relationship Status Dates Dr. Omar Huggins DO Primary Care Provider Active Start: April 24, 2025 End: April 24, 2025 Dr. Omar Huggins DO Attending Provider Active Start: April 24, 2025 End: April 24, 2025 Team Status: Active Member Role/Relationship Status Dates Dr. Omar Huggins DO Primary Care Provider Active Start: May 11, 2025 Dr. Emmett Andrews MD Emergency Provider Active Sta rt: May 11, 2025 Dr. Nadiya Pickens MD Admit Provider Active Star t: May 11, 2025 Dr. Nadiya Pickens MD Attending Provider Active Start: May 11, 2025 Team Status: Active Member Role/Relationship Status Dates Dr. Omar Huggins DO Primary Care Provider Active Start: May 11, 2025 Dr. Emmett Andrews MD Emergency Provider Active Sta rt: May 11, 2025 Dr. Nadiya Pickens MD Admit Provider Active Star t: May 11, 2025 Dr. Nadiya Pickens MD Attending Provider Active Start: May 11, 2025 Dr. Nadiya Pickens MD Other Provider Active Star t: May 11, 2025 FOR RECORDS PERTAINING TO PATIENTS WHO ARE [...] BE BASED ON THE PRIMARY CLINICAL RECORDS. [facility]. provides no warranty or guarantee of the accuracy or completeness of information in this document.
[2025-05-12] VITALS: BP 162/83; PULSE 79; RESP 17; TEMP 36.6; O2SAT 95
[2025-05-12 00:35] VITALS: BMI 29.0
--- NOTE | 2025-05-12 01:00 | CT_ITS ---
PROCEDURE: BRAIN/HEAD WITHOUT CONTRAST 05/12/2025 REASON FOR EXAM: F/U POSS STROKE, CAN'T GET MRI TECHNIQUE: BRAIN/HEAD WITHOUT CONTRAST Coronal and Sagittal reconstruction series were provided. One or more dose reduction techniques were used (e.g., Automated exposure control, adjustment of the mA and/or kV according to patient size, use of iterative reconstruction technique. RADIATION DOSE SUMMARY: CTDlvol: 45 mGy DLP: 864 mGycm COMPARISON: 05/11/2025 FINDINGS: Arterial calcifications. Diffuse atrophy. Mild white matter change. Old right parietal infarct. Asymmetric left parietal atrophy possibly also an old ischemic event. Prominent arachnoid granulation, series 602, image 37, stable. No definite acute abnormal brain densities. No intracranial hemorrhage. No hydrocephalus or midline shift. No acute scalp or skull pathology. Unremarkable orbits. Clear sinuses. CT/Brain/Head without Contrast IMPRESSION: No acute intracranial findings. Reading Location: [place] [id number]
[2025-05-12 01:05] LABS: Anion Gap 14 (5-15); BUN 19 mg/dL (4-19); BUN/Creat Ratio 19.7 RATIO (10-20); Calcium,Total 9.6 mg/dL (7.6-11.0); Carbon Dioxide 20.7 mmol/L (21.0-32.0); Chloride 94 mmol/L (98-108); Estimated Creatinine Clearance 70.86 ml/min (50-250); Glucose 103 mg/dL (70-99); Potassium 4.3 mmol/L (3.3-5.1)
[2025-05-12 03:51] LABS: Osmolality, Urine 187 mOsm/KG
[2025-05-12 04:00] VITALS: BP 155/90; PULSE 77; RESP 17; TEMP 36.6; O2SAT 94
[2025-05-12 04:34] LABS: Hematocrit 46.3 % (40-54); Hemoglobin 16.2 g/dL (13.0-16.5); Immature Granulocytes Count 0.030 X10^3/uL (0.0-0.0); Mean Corp Hgb Conc 35.0 g/dL (32-36); Mean Corpuscular Volume 90.1 fL (80-94); Mean Platelet Vol. 9.6 fl (6.2-12.0); NRBC Flagged by Analyzer 0 % (0-5); Platelet Count 309 K/mm3 (150-450); RBC Distribution Width CV 12.5 % (11.6-14.6); RBC Distribution Width SD 41.8 fl (35.1-43.9); Red Blood Count 5.14 M/mm3 (4.6-6.2); White Blood Count 10.6 K/mm3 (4.4-11.0)
[2025-05-12 08:58] VITALS: BP 167/86; PULSE 82; RESP 18; TEMP 36.5; O2SAT 93
--- NOTE | 2025-05-12 11:41 | CON.PCM.NE_ITS ---
Assessment and Plan: Stroke Assessment/Plan EDITH REYNA is a 80 M with a history of history of GERD, CVA 2 years ago, hypertension, sick sinus syndrome with pacemaker who presented [facility] ED 05/11/2025 due to expressive aphasia and left-sided facial droop. Symptoms improved as his symptoms resolved and NIHSS was 0. His blood pressure was elevated. Likely had a TIA vs minor stroke causing symptoms Neurological examination shows intact examination. Neuroimaging shows CT head negative on repeat. 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 Interrogate the pacer if able PT,OT evaluation Thanks for consult. Spent 40 min in evaluation and management. HPI Consult Data Date of Consult: 05/12/25 HPI Narrative HPI Narrative: EDITH REYNA, is a 80 M who presents with a history of GERD, CVA 2 years ago, hypertension, sick sinus syndrome with pacemaker who presented [facility] ED 05/11/2025 due to expressive aphasia and left-sided facial droop. Patient was out to eat and went to [facility] but was unable to get any words out so brought him emergently to the ED. In the ED he is beginning to speak slowly without slurred speech but was having difficulty recognizing things, also noted facial droop on the left. Patient was a stroke call. Teleneurology evaluated but patient speech back to normal, still with some left facial droop but not a TNK candidate as NIHSS was 0. His BP was elevated in the ER. He denies any headache, has some chronic swelling lower extremities but this is unchanged. No changes in vision and no sensory changes or other areas of weakness. Notes that he has had multiple blood pressure medication changes recently and blood pressure has slowly been improving, most recent change was increase in spironolactone. Of note patient was supposed to have some kind of evaluation for back pain on Thursday so his Plavix was held, he did not take a dose today but did take his aspirin. Per family there is no facial droop Ct head: Negative CTA head and neck: Unchanged chronic moderate-advanced focal stenosis of the left CASH MANAGEMENT COORDINATOR P1-P2 segment junction, and moderate short-segment narrowing of the right CASH MANAGEMENT COORDINATOR P1-P2 junction with preserved distal flow bilaterally; unchanged from 02/18/2023. No significant stenosis elsewhere. He denies any headache, has some chronic swelling lower extremities but this is unchanged. No changes in vision and no sensory changes or other areas of weakness. No changes in bowel or bladder. Notes that he has had multiple blood pressure medication changes recently and blood pressure has slowly been improving, most recent change was increase in spironolactone. Of note patient was supposed to have some kind of evaluation for back pain on Thursday so his Plavix was held, he did not take a dose today but did take his aspirin Repeat CT head stable HbA1C and LDL: Pending [facility] Medical History (Updated 05/11/25 @ 18:[address] Emmett Andrews MD) Hypertension Spinal stenosis Gout Prostate CA GERD (gastroesophageal reflux disease) Pure hypercholesterolemia Essential hypertension Syncope and collapse Sick sinus syndrome Presence of cardiac pacemaker Home Medications ?Medication ?Instructions ?Recorded ?Last Taken ?Type aspirin 81 mg tablet,delayed 81 mg PO DAILYCM 30 days #30 tabs 02/20/23 05/11/25 Rx release clopidogrel 75 mg tablet 75 mg PO DAILY #30 tabs 03/1005/11/25 Rx diclofenac sodium 75 mg 75 mg PO BID 03/07/24 History tablet,delayed release esomeprazole magnesium 40 mg 40 mg PO QDAY 02/02/25 Un known History capsule,delayed release clonidine 0.3 mg/24 hr weekly 1 patch topical QWEEK Unknown History transdermal patch amlodipine 10 mg tablet 10 mg PO DAILY 05/11/2504/19 History atenolol 100 mg tablet 100 mg PO DAILY 05/11/25 History benazepril 20 mg tablet 20 mg PO DAILY 05/11/2504/19 History hydrochlorothiazide 25 mg tablet 25 mg PO DAILY Unknown History spironolactone 50 mg tablet 50 mg PO DAILY 05/11/25 History Allergy/AdvReac Type Severity Reaction Status Date / Time latex Allergy Rash Verified 05/11/25 17:22 atorvastatin (From Lipitor) AdvReac Unknown Myalgias Verified 05/11/25 17:22 PALMA Inhibitors AdvReac cough Verified 05/11/25 17:22 ezetimibe (From Zetia) AdvReac Myalgias Verified 07/24/25 17:22 Family History Mother Hypertension Surgical History History of colonoscopy (~07/2022) History of prostate surgery History of hernia repair (~1971) Social History Smoking Status: Unknown if ever smoked how long ago did patient quit smokin + years ago alcohol intake: never substance use type: does not use caffeine: Yes Type: coffee Number of servings: 3 Vital Signs Vital Signs Vital Signs: 05/11/25 17:20 05/11/25 17:23 05/11/25 17:23 Temperature 98.6 F 98.6 F Temperature Source Oral Oral Pulse Rate 78 78 78 Respiratory Rate 18 18 18 Respiratory Effort Respiratory Depth Respiratory Pattern Blood Pressure 178/101 H 178/101 H 178/101 H Blood Pressure Mean 126 126 126 Blood Pressure Source Blood Pressure Position Blood Pressure Location Pulse Ox 98 98 98 Oxygen Delivery Method Room Air Room Air Room Air 05/11/25 17:29 05/11/25 17:45 05/11/25 18:15 Temperature Temperature Source Pulse Rate 88 90 Respiratory Rate 18 18 Respiratory Effort Respiratory Depth Respiratory Pattern Blood Pressure 177/83 H 163/92 H Blood Pressure Mean 114 115 Blood Pressure Source Blood Pressure Position Blood Pressure Location Pulse Ox 97 95 Oxygen Delivery Method Room Air Room Air Room Air 05/11/25 18:45 05/11/25 19:15 05/11/25 19:30 Temperature Temperature Source Pulse Rate 90 85 78 Respiratory Rate 18 18 18 Respiratory Effort Respiratory Depth Respiratory Pattern Blood Pressure 159/92 H 157/90 H 155/87 H Blood Pressure Mean 114 112 109 Blood Pressure Source Blood Pressure Position Blood Pressure Location Pulse Ox 96 98 99 Oxygen Delivery Method Room Air 05/11/25 19:30 05/11/25 20:10 05/11/25 20:16 Temperature 98.6 F 98 F Temperature Source Oral Pulse Rate 85 86 Respiratory Rate 18 18 Respiratory Effort Normal Non-Labored Respiratory Depth Normal Respiratory Pattern Normal Blood Pressure 157/90 H 186/86 H Blood Pressure Mean 112 119 Blood Pressure Source Monitor Blood Pressure Position Semi-Fowlers Blood Pressure Location Right Arm Pulse Ox 98 97 Oxygen Delivery Method Room Air Room Air 05/12/25 00:00 05/12/25 04:00 05/12/25 04:22 Temperature 98 F 98 F Temperature Source Oral Oral Pulse Rate 79 77 Respiratory Rate 17 17 Respiratory Effort Normal Non-Labored Respiratory Depth Normal Respiratory Pattern Normal Blood Pressure 162/83 H 155/90 H Blood Pressure Mean 109 111 Blood Pressure Source Monitor Monitor Blood Pressure Position Semi-Fowlers Semi-Fowlers Blood Pressure Location Right Arm Right Arm Pulse Ox 95 94 Oxygen Delivery Method Room Air Room Air Room Air 05/12/25 07:52 05/12/25 08:58 05/12/25 09:00 Temperature 97.7 F L Temperature Source Temporal Pulse Rate 82 Respiratory Rate 18 Respiratory Effort Normal Non-Labored Respiratory Depth Normal Respiratory Pattern Normal Blood Pressure 167/86 H Blood Pressure Mean 113 Blood Pressure Source Blood Pressure Position Blood Pressure Location Pulse Ox 93 Oxygen Delivery Method Room Air Room Air Room Air Weight Weight: 89.4 kg Body Mass Index (BMI) 29.0 Physical Exam Eyes Eyes Narrative: Awake, alert, oriented X3 No aphasia or dysarthria CN 2-12 intact ? left facial assymetry but per family no droop Motor 5/5 Sensation: intact No ataxia Lab / Micro Data 05/12/25 04:15 05/12/25 00:14 Labs: Laboratory Results - last 24 hr 05/11/25 17:40: WBC 11.0, RBC 4.59 L, Hgb 14.5, Hct 41.6, MCV 90.6, MCH 31.6, MCHC 34.9, RDW Std Deviation 42.2, RDW Coeff of Yaz 12.7, Plt Count 286, MPV 9.8, Immature Gran % (Auto) 0.300, Neut % (Auto) 72.6 H, Lymph % (Auto) 17.3 L, Luce % (Auto) 7.1, Eos % (Auto) 2.2, Baso % (Auto) 0.5, Absolute Neuts (auto) 8.0 H, Absolute Lymphs (auto) 1.90, Nucleated RBC % 0, PT 14.4, INR 1.1, APTT 29.8, Sodium 123 L, Potassium 4.2, Chloride 89 L, Carbon Dioxide 22.4, Anion Gap 12, BUN 22 H, Creatinine 1.08, Estim Creat Clear Calc 57.34, Est GFR (MDRD) Non- Af 70, BUN/Creatinine Ratio 20.2 H, Glucose 146 H, Calcium 9.0, Troponin T High Sens 29 H 05/11/25 19:45: Troponin T Hi Sens 2 Hr 28 H 05/11/25 21:22: Sodium 127 L, Potassium 4.5, Chloride 91 L, Carbon Dioxide 23.9, Anion Gap 13, BUN 19, Creatinine 1.00, Estim Creat Clear Calc 67.32, Est GFR (MDRD) Non-Af 77, BUN/Creatinine Ratio 19.4, Glucose 116 H, Serum Osmolality 279 L, Calcium 9.9, Troponin T Hi Sens 4Hr 26 H 05/11/25 22:15: Urine Osmolality 187, Ur Random Sodium 57, Urine Creatinine 10.90 L, Urine Potassium 10.1, Urine Chloride 44, Urine Urea Nitrogen 116 05/12/25 00:14: Sodium 128 L, Potassium 4.3, Chloride 94 L, Carbon Dioxide 20.7 L, Anion Gap 14, BUN 19, Creatinine 0.95, Estim Creat Clear Calc 70.86, Est GFR (MDRD) Non-Af 82, BUN/Creatinine Ratio 19.7, Glucose 103 H, Calcium 9.6 05/12/25 04:15: WBC 10.6, RBC 5.14, Hgb 16.2, Hct 46.3, MCV 90.1, MCH 31.5, MCHC 35.0, RDW Std Deviation 41.8, RDW Coeff of Yaz 12.5, Plt Count 309, MPV 9.6, Immature Gran % (Auto) 0.300, Neut % (Auto) 68.1, Lymph % (Auto) 19.6, Luce % (Auto) 8.9, Eos % (Auto) 2.5, Baso % (Auto) 0.6, Absolute Neuts (auto) 7.2, Absolute Lymphs (auto) 2.07, Nucleated RBC % 0 Imaging Radiology Impression Brain CT 05/11/25 17:21 IMPRESSION: No acute intracranial abnormality. Critical results were communicated to Dr. Andrews at 5:40 p.m.. Reading Location: [facility] Head/Neck CTA 05/11/25 17:28 IMPRESSION: 1. No intracranial or cervical large vessel arterial occlusion. 2. Unchanged chronic moderate-advanced focal stenosis of the left CASH MANAGEMENT COORDINATOR P1-P2 segment junction, and moderate short-segment narrowing of the right CASH MANAGEMENT COORDINATOR P1-P2 junction with preserved distal flow bilaterally; unchanged from 02/18/2023. No significant stenosis elsewhere. 3. No significant stenosis of the cervical carotid or vertebral arteries. Reading Location: [id number] Chest X-Ray 05/11/25 19:07 IMPRESSION: No acute cardiopulmonary abnormality. Reading Location: [id number] Brain CT 05/12/25 01:00 IMPRESSION: No acute intracranial findings. Reading [facility] Active Medications Active Medications Active Medications: Current Medications Generic Name Dose Route Start Last Admin Trade Name Freq PRN Reason Stop Dose Admin Acetaminophen 650 mg 05/11/25 20:15 Acetaminophen 325 Mg Tablet PO Q6H PRN PRN Pain 1-10 Or Fever >100.7 Albuterol Sulfate 2.5 mg 05/11/25 20:15 Albuterol 2.5 Mg/3 Ml Vial.Neb. INHALATION Q2H PRN PRN SOB &/OR WHEEZING Aspirin 81 mg 05/12/25 08:00 05/12/25 09:03 Aspirin 81 Mg Tab.Chew PO 81 mg BREAKFAST KADI Administration Clopidogrel Bisulfate 75 mg 05/11/25 20:15 05/12/25 09:03 Clopidogrel Bisulfate 75 Mg Tablet PO 75 mg DAILY KADI Administration Compound Med 2 click 05/11/25 20:15 05/11/25 22:13 Arthritis Pain Compound 60 Click Tube TOPICAL 2 click BID PRN Administration Low back pain or joint pain Protocol Hydralazine HCl 5 mg 05/11/25 20:15 Hydralazine 20 Mg/Ml Vial IV 05/12/25 20:15 Q30M PRN maintain BP parameters with HR <60 Labetalol HCl 20 mg 05/11/25 17:21 Labetalol 20 Mg/4 Ml Vial IV 05/12/25 17:21 X1 PRN BLOOD PRESSURE Labetalol HCl 10 - 20 mg 05/11/25 20:15 Labetalol 20 Mg/4 Ml Vial IV 05/12/25 20:15 Q10M PRN PRN maintain BP parameters with HR >/=60 Melatonin 10 mg 05/11/25 20:15 Melatonin 3 Mg Tablet PO QHS PRN PRN INSOMNIA Ondansetron HCl 4 mg 05/11/25 20:15 Ondansetron 4 Mg/2 Ml Vial IV Q8H PRN PRN NAUSEA/VOMITING Pantoprazole Sodium 40 mg 05/11/25 20:15 05/12/25 09:03 Pantoprazole Sodium 40 Mg Tablet PO 40 mg DAILY KADI Administration Senna/Docusate Sodium 2 tablet 05/11/25 20:15 Senna/Docusate Sodium 1 Tablet PO BID PRN PRN Constipation NIHSS NIHSS Nursing Documentation NIHSS Nursing Documentation: NIHSS: Ischemic Stroke/TIA Start: 05/11/25 20:15 Text: For PCU Patients: NIH and Neuro Check every 4 Status: Active hours, PRN and with change in RN caregiver. Freq: Q4H Protocol: Activity Type Activity Date Activity User E-sign Co-sign Detail Recorded Client Recorded Date Recorded By Document 05/12/25 08:00 [facility] 05/12/25 08:57 05/12/25 08:00 NIH Stroke Scale [NIHSS] A score of 0 is normal or asymptomatic . Total possible score is 42. Inpatient: RN or Physician to activate a stroke alert for onset of new stroke symptoms or with NIHSS increase >/= 3 points. Following change in neurological status, NIHSS will be performed per physician order or more frequently PRN. -1a. Level of Consciousness 0 - Alert; keenly responsive -1b. LOC Questions 0 - Answers BOTH questions correctly -1c. LOC Commands 0 - Performs BOTH tasks correctly -2. Best Gaze 0 - Normal -3. Visual 0 - No visual loss -4. Facial Palsy 1 - Minor paralysis ( flattened nasolabial fold , asymmetry on smiling) -5a. Left Arm 0 - No drift; arm holds 90 ( or 45) degrees for full 10 seconds -5b. Right Arm 0 - No drift; arm holds 90 ( or 45) degrees for full 10 seconds -6a. Left Leg 0 - No drift; leg holds 30- degree position for full 5 seconds -6b. Right Leg 0 - No drift; leg holds 30- degree position for full 5 seconds -7. Limb Ataxia 0 - Absent -8. Sensory 0 - Normal; no sensory loss -9. Best Language 0 - No aphasia; normal -10. Dysarthria 1 = Mild-to- moderate dysarthria; -11. Extinction and Inattention 0 - No abnormality -Total 2 Query Text:A score of 0 is normal or asymptomatic. Total possible score is 42 . ED: Notify Physician for NIHSS increase by > / = 3 points. Inpatient: RN or Physician to activate a stroke alert for NIHSS increase of > / = 3 points. NIHSS 1a. Level of Consciousness: 0 - Alert; keenly responsive 1b. LOC Questions: 0 - Answers BOTH questions correctly 1c. LOC Commands: 0 - Performs BOTH tasks correctly 3. Visual: 0 - No visual loss 4. Facial Palsy: 0 - Normal symmetrical movements 5a. Left Arm: 0 - No drift; arm holds 90 (or 45) degrees for full 10 seconds 5b. Right Arm: 0 - No drift; arm holds 90 (or 45) degrees for full 10 seconds 6a. Left Le - No drift; leg holds 30-degree position for full 5 seconds 6b. Right Le - No drift; leg holds 30-degree position for full 5 seconds 7. Limb Ataxia: 0 - Absent 8. Sensory: 0 - Normal; no sensory loss 9. Best Language: 0 - No aphasia; normal 10. Dysarthria: 0 - Normal 11. Extinction and Inattention: 0 - No abnormality Total: 0
[2025-05-12 12:00] VITALS: BP 199/86; PULSE 75; RESP 18; TEMP 36.5; O2SAT 94
[2025-05-12 12:28] LABS: Anion Gap 15 (5-15); BUN 19 mg/dL (4-19); BUN/Creat Ratio 18.6 RATIO (10-20); Calcium,Total 9.7 mg/dL (7.6-11.0); Carbon Dioxide 20.2 mmol/L (21.0-32.0); Chloride 95 mmol/L (98-108); Cholesterol 183 mg/dL (<=200); Estimated Creatinine Clearance 64.73 ml/min (50-250); Glucose 103 mg/dL (70-99); Low Density Lipoprotein Calc. 119 mg/dL; Potassium 4.2 mmol/L (3.3-5.1); Triglycerides 98 mg/dL; Very Low Density Lipoprotein 20 mg/dL (5-40); cholesterol:hdl ratio screen 4.14
--- NOTE | 2025-05-12 12:37 | CASEMGMT ---
Social Work Pt completed PHQ-9 w/SW. Pt scored a 4. Pt has been having less energy, and has been moving more slowly recently. Pt attributes this to recent changes in medications. Otherwise, pt not having symptoms synonymous w/depression. No resources needed. Pt's also asked SW about a pain management doctor--SW provided to a hospital brochure with two pain management physicians. No further needs anticipated at this time. LUZ MARINA Thompson
[2025-05-12 15:39] VITALS: BMI 29.0
[2025-05-12 16:00] VITALS: BP 170/88; PULSE 79; RESP 18; TEMP 36.6; O2SAT 95
--- NOTE | 2025-05-12 16:00 | DCINST_ITS ---
Discharge Instructions DC O2, CPAP, BIPAP needs Home O2 Discharge instructions: No Dressing / Incision Discharge Activity: Return to Normal Activity Weight Bearing Status: Full weight bearing Follow Up Care Test Results: Test results from this visit will be discussed in further detail at your follow- up appointment, if applicable. Discharge Plan Admission Admit Date/Time: 05/11/25 19:00 Primary Reason for Your Visit: Transient ischemic attack Attending Provider: Omar Denise Primary Care Provider: Omar Bland Consulting Providers: Ronny Andino; Pio Morrell; Azeb Ambrose; Irasema Jenkins; María Tello; Neri Stanton; Felipa Reis; Laz Ramey; Ed Elizalde; Osvaldo Neri; Priscila Black; Ryan Nunes; Simin Gore; Jony Hinton; Iraj Antunez; Bill Woods; Vineet Fragoso; Karel Sandra; Ivonne Mg; Twila Bae; Nadiya Pickens Discharge Orders/Prescriptions Prescriptions: New Nexletol 180 mg tablet 180 mg PO DAILY Qty: 30 0RF Continued esomeprazole magnesium 40 mg capsule,delayed release(DR/EC) 40 mg PO QDAY clonidine 0.3 mg/24 hr patch weekly 1 patch topical QWEEK clopidogrel 75 mg Tablet 75 mg PO DAILY Qty: 30 0RF aspirin 81 mg Tablet,Delayed Release (Dr/Ec) 81 mg PO DAILYCM 30 Days Qty: 30 0RF atenolol 100 mg tablet 100 mg PO DAILY amlodipine 10 mg tablet 10 mg PO DAILY benazepril 20 mg tablet 20 mg PO DAILY hydrochlorothiazide 25 mg tablet 25 mg PO DAILY spironolactone 50 mg tablet 50 mg PO DAILY Discontinued diclofenac sodium 75 mg tablet,delayed release (DR/EC) 75 mg PO BID Referrals / Follow Up: Omar Bland DO [Primary Care Provider] - Within 2 Weeks Disposition Disposition (needs filled in before D/C Order can be placed): Home, Self Care
--- NOTE | 2025-05-12 16:07 | PCM.DC.SUM ---
Providers Date of Admission: 05/11/25 Date of Discharge: 05/12/25 Primary Care Physician: Dr. Omar Bland, Consultations 05/11/25 20:15 Consult: Tele-Neurology Routine Consulting Provider: [facility] Reason for Consult: Acute Ischemic Stroke/TIA EMERGENT Consult: No MD Notified: Yes Date Notified: 05/12/25 Time Notified: 02:02 Method of Notification: Answering Service Method of Consult:: Telemedicine Comments:: Dr Ambrose Nursing [facility] Staff Notify [facility] of Tele-Neurology Consult: Yes Reason For Visit: CONCERN FOR CVA Diagnosis Discharge Diagnosis (1) Expressive aphasia: Status: Acute Code(s): R47.01 - Aphasia (2) Acute hyponatremia: Status: Acute Code(s): E87.1 - Hypo-osmolality and hyponatremia Plan 1. 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 #3 cerebrovascular disease #4 essential hypertension #5 hyperlipidemia Medications at Discharge Home Medications aspirin 81 mg tablet,delayed release 81 mg PO DAILYCM 30 days #30 tabs 02/20/23 clopidogrel 75 mg tablet 75 mg PO DAILY #30 tabs 02/20/23 esomeprazole magnesium 40 mg capsule,delayed release 40 mg PO QDAY 02/02/25 clonidine 0.3 mg/24 hr weekly transdermal patch 1 patch topical QWEEK 03/27/25 amlodipine 10 mg tablet 10 mg PO DAILY 05/11/25 atenolol 100 mg tablet 100 mg PO DAILY 05/11/25 benazepril 20 mg tablet 20 mg PO DAILY 05/11/25 hydrochlorothiazide 25 mg tablet 25 mg PO DAILY 05/11/25 spironolactone 50 mg tablet 50 mg PO DAILY 05/11/25 bempedoic acid 180 mg tablet (Nexletol) 180 mg PO DAILY #30 tabs 05/12/25 gabapentin 100 mg capsule 200 mg (2 x 100 mg) PO BID Back and buttocks pain #60 caps 05/12/25 tramadol 50 mg tablet 50 mg PO Q6H PRN pain #60 tabs 05/12/25 Hospital Course Operations None Procedures 2-D Echocardiogram Summary of Care Provided Minutes Spent on Discharge: 31 Hospital Course: This 80-year-old white male was seen in the emergency room at [facility] due to expressive aphasia and left-sided facial droop, on evaluation in the emergency room, patient was speaking slowly but his speech was not slurred, he was having trouble recognizing things he does have a left facial droop. Prior to the , patient had a history of a stroke approximately [address] of the head without contrast as well as CT of the head and neck was obtained, these examinations were unremarkable. ER physician talked with [facility] neurologist, there was not an indication for lytics, patient was placed into observation status on PCU, echocardiogram was obtained which was unremarkable, patient was not able to have an MRI due to the presence of a pacemaker. PT and OT as well as speech therapy evaluated the patient, neurology also saw the patient via teleneurology and recommended continuing Plavix and aspirin. On 05/12/2025, patient was seen and examined: On examination he appeared in good health and spirits. Vital signs as documented. Skin warm and dry and without overt rashes. Neck without JVD, neck was supple, trachea midline, thyroid was normal. Lungs clear bilaterally, normal air movement was noted. Heart exam notable for regular rhythm, normal sounds and absence of murmurs, rubs or gallops. Abdomen unremarkable and without evidence of organomegaly, masses, or abdominal aortic enlargement. Bowel sounds are present, abdomen is not distended. Extremities nonedematous, no cyanosis was noted, no clubbing was noted. Neuro: Cranial nerves II through XII are grossly intact, no focal motor deficits were noted, sensation to light touch and pinprick intact, motor exam 5/5 throughout. Psych: Patient is alert and oriented x3, he does not appear anxious or depressed, he does not appear agitated. I had a discussion with the patient and the patient's prior to discharge, patient was having radicular pain in his left buttocks and his left leg, he was due to see a pain management physician, I elected to place the patient on some tramadol and gabapentin at the time of discharge until he could follow-up with pain management. Patient was instructed not to take any nonsteroidal anti-inflammatory agents-he had been taking Voltaren as an outpatient and I asked him to stop this medication. Finally, patient was placed on Nexietol for hyperlipidemia due to his intolerance of statins. Patient was discharged stable condition on 05/12/2025 Weight / BMI Weight Weight: 89.4 kg Body Mass Index (BMI) 29.0 ABG / Lab / Microbiology Data 05/12/25 04:15 05/12/25 04:15 Laboratory: Laboratory Results - last 24 hr 05/11/25 17:40: WBC 11.0, RBC 4.59 L, Hgb 14.5, Hct 41.6, MCV 90.6, MCH 31.6, MCHC 34.9, RDW Std Deviation 42.2, RDW Coeff of Yaz 12.7, Plt Count 286, MPV 9.8, Immature Gran % (Auto) 0.300, Neut % (Auto) 72.6 H, Lymph % (Auto) 17.3 L, Stephens % (Auto) 7.1, Eos % (Auto) 2.2, Baso % (Auto) 0.5, Absolute Neuts (auto) 8.0 H, Absolute Lymphs (auto) 1.90, Nucleated RBC % 0, PT 14.4, INR 1.1, APTT 29.8, Sodium 123 L, Potassium 4.2, Chloride 89 L, Carbon Dioxide 22.4, Anion Gap 12, BUN 22 H, Creatinine 1.08, Estim Creat Clear Calc 57.34, Est GFR (MDRD) Non-Af 70, BUN/Creatinine Ratio 20.2 H, Glucose 146 H, Calcium 9.0, Troponin T High Sens 29 H 05/11/25 19:45: Troponin T Hi Sens 2 Hr 28 H 05/11/25 21:22: Sodium 127 L, Potassium 4.5, Chloride 91 L, Carbon Dioxide 23.9, Anion Gap 13, BUN 19, Creatinine 1.00, Estim Creat Clear Calc 67.32, Est GFR (MDRD) Non-Af 77, BUN/Creatinine Ratio 19.4, Glucose 116 H, Serum Osmolality 279 L, Calcium 9.9, Troponin T Hi Sens 4Hr 26 H 05/11/25 22:15: Urine Osmolality 187, Ur Random Sodium 57, Urine Creatinine 10.90 L, Urine Potassium 10.1, Urine Chloride 44, Urine Urea Nitrogen 116 05/12/25 00:14: Sodium 128 L, Potassium 4.3, Chloride 94 L, Carbon Dioxide 20.7 L, Anion Gap 14, BUN 19, Creatinine 0.95, Estim Creat Clear Calc 70.86, Est GFR (MDRD) Non-Af 82, BUN/Creatinine Ratio 19.7, Glucose 103 H, Calcium 9.6 05/12/25 04:15: WBC 10.6, RBC 5.14, Hgb 16.2, Hct 46.3, MCV 90.1, MCH 31.5, MCHC 35.0, RDW Std Deviation 41.8, RDW Coeff of Yaz 12.5, Plt Count 309, MPV 9.6, Immature Gran % (Auto) 0.300, Neut % (Auto) 68.1, Lymph % (Auto) 19.6, Stephens % (Auto) 8.9, Eos % (Auto) 2.5, Baso % (Auto) 0.6, Absolute Neuts (auto) 7.2, Absolute Lymphs (auto) 2.07, Nucleated RBC % 0, Sodium 130 L, Potassium 4.2, Chloride 95 L, Carbon Dioxide 20.2 L, Anion Gap 15, BUN 19, Creatinine 1.04, Estim Creat Clear Calc 64.73, Est GFR (MDRD) Non-Af 73, BUN/Creatinine Ratio 18.6, Glucose 103 H, Calcium 9.7, Triglycerides 98, Cholesterol 183, LDL Cholesterol, Calc 119, VLDL Cholesterol 20, HDL Cholesterol 44, Cholesterol/HDL Ratio 4.14, TSH 2.040 Radiography Diagnostic Testing: Radiology Impression Brain CT 05/11/25 17:21 IMPRESSION: No acute intracranial abnormality. Critical results were communicated to Dr. Andrews at 5:40 p.m.. Reading Location: [facility] Head/Neck CTA 05/11/25 17:28 IMPRESSION: 1. No intracranial or cervical large vessel arterial occlusion. 2. 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 No significant stenosis elsewhere. 3. No significant stenosis of the cervical carotid or vertebral arteries. Reading Location: [facility] Chest X-Ray 05/11/25 19:07 IMPRESSION: No acute cardiopulmonary abnormality. Reading Location: [facility] Echocardiogram 07/24/25 20:15 Interpretation Summary Normal LV size. Left ventricular systolic function is normal. The left ventricular ejection fraction is 65 %. Stage 1 diastolic dysfunction. Ordering Physician: Nadiya Pickens Referring Physician: Omar Bland Performed By: Amber Beauchamp, [place], RVT Brain CT 05/12/25 01:00 IMPRESSION: No acute intracranial findings. Reading Location: [place] [address] D/C Instructions Weight Bearing Status: Full weight bearing DC O2, CPAP, BIPAP Needs Home O2 Discharge instructions: No Meaningful Use Info Meaningful Use Meaningful Use Diagnoses (Choose all that apply): None applicable Discharge Plan Admission Admit Date/Time: 05/11/25 19:00 Primary Reason for Your Visit: Transient ischemic attack Attending Provider: Omar Denise Primary Care Provider: Omar Bland Consulting Providers: Ronny Andino; Pio Morrell; Aezb Ambrose; Irasema Jenkins; María Tello; Neri Stanton; Felipa Reis; Laz Ramey; Ed Elizalde; Osvaldo Neri; Priscila Black; Ryan Nunes; Simin Gore; Jony Hinton; Iraj Antunez; Bill Woods; Vineet Fragoso; Karel Sandra; Ivonne Mg; Twila Bae; Nadiya Pickens Discharge Orders/Prescriptions Prescriptions: New Nexletol 180 mg tablet 180 mg PO DAILY Qty: 30 0RF tramadol 50 mg tablet 50 mg PO Q6H PRN (Reason: pain) Qty: 60 0RF Rx Instructions: Take 1 or 2 every 6 hours as needed for back/buttocks pain, can take 650 mg of Tylenol with each dose gabapentin 100 mg capsule 200 mg PO BID Qty: 60 0RF Rx Instructions: Take 2 capsules twice a day, may cause sleepiness, if you tolerate 2 capsules twice a day, you may increase the dose to 3 capsules 2 times a day Continued esomeprazole magnesium 40 mg capsule,delayed release(DR/EC) 40 mg PO QDAY clonidine 0.3 mg/24 hr patch weekly 1 patch topical QWEEK clopidogrel 75 mg Tablet 75 mg PO DAILY Qty: 30 0RF aspirin 81 mg Tablet,Delayed Release (Dr/Ec) 81 mg PO DAILYCM 30 Days Qty: 30 0RF atenolol 100 mg tablet 100 mg PO DAILY amlodipine 10 mg tablet 10 mg PO DAILY benazepril 20 mg tablet 20 mg PO DAILY hydrochlorothiazide 25 mg tablet 25 mg PO DAILY spironolactone 50 mg tablet 50 mg PO DAILY Discontinued diclofenac sodium 75 mg tablet,delayed release (DR/EC) 75 mg PO BID Referrals / Follow Up: Omar Bland DO [Primary Care Provider] - Within 2 Weeks Disposition Disposition (needs filled in before D/C Order can be placed): Home, Self Care Charges/Coding Visit Charges Inpatient E&M: 43181 Disch Hosp >30min
== END 2025-05-12 17:47 | disposition home or self-care (01) ==
LOC: ED 19:18 → PCU 19:46
PROVIDERS: Admitting Provider Internal Medicine; Emergency Provider Emergency Medicine; PCP Family Medicine; Visit Provider Internal Medicine
DX: I10 Essential (primary) hypertension (principal); R79.89 Other specified abnormal findings of blood chemistry; E87.1 Hypo-osmolality and hyponatremia; Z95.0 Presence of cardiac pacemaker; E78.00 Pure hypercholesterolemia, unspecified; Z79.899 Other long term (current) drug therapy; Z79.02 Long term (current) use of antithrombotics/antiplatelets; K21.9 Gastro-esophageal reflux disease without esophagitis; R47.01 Aphasia; R29.810 Facial weakness; Z79.82 Long term (current) use of aspirin; R73.9 Hyperglycemia, unspecified; I65.23 Occlusion and stenosis of bilateral carotid arteries; R47.1 Dysarthria and anarthria
CPT/HCPCS: 36415; 70450; 70496; 70498; 71045; 80048; 80061; 82436; 82570; 82962; 83930; 83935; 84133; 84300; 84443; 84484; 84540; 85025; 85610; 85730; 92523; 93005; 93306; 97162; 97166; 97802; 99221; 99285; Q9967; A4216; G0378

== ENCOUNTER → 2025-05-16 | Outpatient (CLI) | payer MEDICARE, OTHER, SELFPAY ==
[2025-05-16 18:29] LABS: Anion Gap 12 (5-15); BUN 20 mg/dL (4-19); BUN/Creat Ratio 18.6 RATIO (10-20); Calcium,Total 9.2 mg/dL (7.6-11.0); Carbon Dioxide 23.2 mmol/L (21.0-32.0); Chloride 92 mmol/L (98-108); Glucose 114 mg/dL (70-99); Potassium 4.4 mmol/L (3.3-5.1)
== END | disposition home or self-care (01) ==
LOC: BFHLAB 14:39
PROVIDERS: PCP Family Medicine; Visit Provider Family Medicine
DX: E87.1 Hypo-osmolality and hyponatremia (principal)
CPT/HCPCS: 36415; 80048

== ENCOUNTER → 2025-06-26 | Outpatient (CLI) | payer MEDICARE, OTHER, SELFPAY ==
[2025-06-26 18:58] LABS: Anion Gap 13 (5-15); BUN 12 mg/dL (4-19); BUN/Creat Ratio 14.4 RATIO (10-20); Calcium,Total 9.3 mg/dL (7.6-11.0); Carbon Dioxide 26.8 mmol/L (21.0-32.0); Chloride 100 mmol/L (98-108); Glucose 120 mg/dL (70-99); Potassium 3.5 mmol/L (3.3-5.1)
== END | disposition home or self-care (01) ==
LOC: BFHLAB 14:22
PROVIDERS: PCP Family Medicine; Visit Provider Family Medicine
DX: E87.1 Hypo-osmolality and hyponatremia (principal)
CPT/HCPCS: 36415; 80048